=== PATIENT | female | born 1965 | race Caucasian/White ===

== ENCOUNTER 2023-09-22 19:07 | Emergency (ER) | payer OTHER, SELFPAY ==
[2023-09-22 19:13] VITALS: BP 120/97; PULSE 72; TEMP 37.2; O2SAT 97; BMI 28.3
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
[2023-09-22] MEDS: IBUPROFEN 600 MG TABLET PO (20:44)
== END 2023-09-22 20:49 | disposition home or self-care (01) ==
PROVIDERS: Emergency Provider Emergency Medicine
DX: S80.02XA Contusion of left knee, initial encounter (principal); V43.52XA Car driver injured in collision with other type car in traffic accident, initial encounter
CPT/HCPCS: 73562; 73590; 99283

== ENCOUNTER 2024-05-22 20:13 | Emergency (ER) | payer MEDICAID, SELFPAY ==
--- OUTSIDE RECORDS SUMMARY | 2024-05-22 20:23 | XMS_ITS | CCD ---
Demographics Address [address] [place] [address] Home Phone Work Phone Mobile Phone Preferred Language en Marital Status Single Christianity Affiliation Unknown Race White Ethnic Group Not or Lati no Author Organization [facility] Care Team Providers Care Want Ad Clerk Name Role Phone Shejose GAS WELL DRILLING MANAGER.JUANITA [place] Primary Care Provider Blanquita Ceballos Unavailable Shejose GAS WELL DRILLING MANAGER.[facility] Primary Care Provider Amanda Borges Unavailable Nitish Gilman MD, [place] Primary Care Prov ider Radha GAS WELL DRILLING MANAGER.Michelle GRANT Primary Care Provi tammy MICHELLE CARRILLO Primary Care Unavailable GREG MILES Attending Unavailable BLANQUITA RAE Referring Unavailable [facility] Primary Care Unavailable BLANQUITA RAE Referring Unavailable [facility] Primary Care Unavailable MICHELLE CARRILLO Referring Unavailable [facility] Primary Care Unavailable [place] JADE Referring Unavailable NELY MORALES Primary Care Unav ailable Nitish Gilman MD, [facility] Care Prov ider Shejose GAS WELL DRILLING MANAGER.[facility] Primary Care Provider Mushtaq Gruber MD Primary Care Provider MICHELLE CARRILLO Primary Care Unavailable MAN, SHUMEI Referring Unavailable MICHELLE CARRILLO Primary Care Unavailable MAN, SHUMEI Attending Unavailable MICHELLE CARRILLO Primary Care Unavailable MAN, SHUMEI Attending Unavailable GREG MILES Referring Unavailable KARISSA LEWIS Attending Unavailable MICHELLE CARRILLO Primary Care Unavailable KARISSA LEWIS Admitting Unavailable ALFONZO HAYS Attending Unavailable MICHELLE CARRILLO Primary Care Unavailable ALFONZO HAYS Referring Unavailable RADHA, MICHELLE L Primary Care Unavailable RADHA, MICHELLE L Referring Unavailable RADHA, MICHELLE L Primary Care Unavailable SHELLIE WAGNER Attending Unavailable MICHELLE CARRILLO L Referring Unavailable RADHA, MICHELLE L Primary Care Unavailable RADHA, MICHELLE L Referring Unavailable RADHA, MICHELLE L Primary Care Unavailable MAN, SHUMEI Referring Unavailable KRISTY, SHELLIE Attending Unavailable RADHA, MICHELLE L Primary Care Unavailable RADHA, MICHELLE L Referring Unavailable RADHA, MICHELLE L Primary Care Unavailable RADHA, MICHELLE L Referring Unavailable RADHA, MICHELLE L Primary Care Unavailable MAN, SHUMEI Referring Unavailable KRISTYSHELLIE Attending Unavailable RADHA, MICHELLE L Primary Care Unavailable RADHA, MICHELLE L Primary Care Unavailable RADHAMICHELLE AGUILAR L Referring Unavailable RADHAMICHELLE AGUILAR L Attending Unavailable RADHA, MICHELLE L Primary Care Unavailable RADHA, MICHELLE L Referring Unavailable RADHA, MICHELLE L Primary Care Unavailable KUSH ROBERT Attending Unavailable [facility] Primary [facility] Unavailable SARAH BEAVERS Attending Unavailable [facility] Primary Care Unavailable MAN, SHUMEI Referring Unavailable SHELLIE WAGNER Attending Unavailable MICHELLE CARRILLO L Primary Care Unavailable RADHAMICHELLE AGUILAR L Referring Unavailable RADHA, MICHELLE L Primary Care Unavailable RADHA, MICHELLE L Referring Unavailable RADHA, MICHELLE L Primary Care Unavailable MAN, SHUMEI Referring Unavailable SHELLIE WAGNER Attending Unavailable RADHA MICHELLE L Primary Care Unavailable MAN, SHUMEI Referring Unavailable SHELLIE WAGNER Attending Unavailable RADHA, MICHELLE L Primary Care Unavailable MAN, SHUMEI Referring Unavailable KRISTYSHELLIE Attending Unavailable RADHA, MICHELLE L Primary Care Unavailable MAN, SHUMEI Referring Unavailable KRISTY, SHELLIE Attending Unavailable RADHA, MICHELLE L Primary Care Unavailable MAN, SHUMEI Referring Unavailable KRISTY, SHELLIE Attending Unavailable RADHA, MICHELLE L Primary Care Unavailable JAN REYNOSO Referring Unavailable SHELLIE WAGNER Attending Unavailable RADHA, MICHELLE L Primary Care Unavailable MARY HARP Attending Unavailable RADHA, MICHELLE L Primary Care Unavailable [facility] Unav ailable RADHA, MICHELLE L Referring Unavailable [facility] Unavailable RADHA, MICHELLE L Referring Unavailable [facility] Primary Care Unavailable GABINO ROSE Referring UnavailCHIDI Rivera Attending Unavailable [facility] Unavailable [facility] Unavailable RADHA, MICHELLE L Referring Unavailable [facility] Unavailable GABINO ROSE [facility] Unav ailable RADHA, MICHELLE L Referring Unavailable [place] JADE Attending Unavailable [facility] Unav ailable RADHA, MICHELLE L Primary Care Unavailable RADHA, MICHELLE L Attending Unavailable MARY HARP Attending Unavailable RADHA, MICHELLE L Referring Unavailable RADHA, MICHELLE L Primary Care Unavailable KAYLYN YUAN Attending Unavailable MARY HARP Referring Unavailable RADHA, MICHELLE L Primary Care Unavailable RADHA, MICHELLE L Primary Care Unavailable RADHA, MICHELLE L Attending Unavailable KARINA SANTANA Attending Unavailable RADHA, MICHELLE L Primary Care Unavailable RADHA, MICHELLE L Referring Unavailable RADHA, MICHELLE L Primary Care Unavailable CHIDI GONZALEZ Attending Unavailable RADHA, MICHELLE L Primary Care Unavailable [facility] Primary Care Unavailable RADHA, MICHELLE L Attending Unavailable RADHA, MICHELLE L Attending Unavailable RADHA, MICHELLE L Primary Care Unavailable RADHA, MICHELLE L Attending Unavailable RADHA, MICHELLE L Primary Care Unavailable [facility] Primary Care Unav ailable RADHA, MICHELLE L Attending Unavailable Allergies Allergy Classification Reported Allergen(s) Allergy Type Date of Onset Reaction(s) Facility (20 sources) Amoxicillin / Clavulanate; Translations: [AMOXICILLIN-POT CLAVULANATE] Drug Allergy 11-24-2008 Rash, hives [facility] (20 sources) Meclizine; Translations: [MECLIZINE] Drug Allergy 11-27-2023 Intolerance [facility] Medications Current Medications Medication Drug Class(es) Dates Sig (Normalized) Sig (Original) acetaminophen 500 mg oral tablet (9 sources) Start: 11-12-2021 End: 11-26-2021 take 2 tablets by mouth every eight hours acetaminophen (TYLENOL) 500 mg tablet Take 2 tablets by mouth every 8 hours for 14 days. 84 tablet 0 11/12/2021 11/26/2021 Active Comment on above: Take 2 tablets by mo [facility] every 8 hours for 14 days. acetaminophen 325 mg / HYDROcodone bitartrate 5 mg oral tablet (3 sources) Opioid Agonist Start: 01-04-2022 End: 01-11-2022 HYDROcodone-acetaminop hen (NORCO) 5-325 mg per tablet Indications: Post-op pain , S/P bilateral unicompartmental knee replacement Take 1 tablet every 8 hours as needed for pain 21 tablet 0 01/04/2022 01/11/2022 Active Start: 12-21-2021 End: 12-28-2021 take 1 tablet by mouth every eight hours as needed for pain HYDROcodone-acetaminophen (NORCO) 5-325 mg per tablet Indications: Post-op pain , S/P bilateral unicompartmental knee replacement Take 1 tablet by mouth every 8 hours as needed for pain for up to 7 days. 21 tablet 0 12/21/2021 12/28/2021 Active Comment on above: Take 1 tablet by maximo every 8 hours as needed for pain for up to 7 days. Take 1 tablet every 8 hours as needed for pain Apple Cider Vinegar (20 sources) take 1 tablet by mouth once daily APPLE CIDER VINEGAR ORAL Take 1 tablet by mouth once daily. Active take 1 tablet by mouth once ladonna y APPLE CIDER VINEGAR ORAL Take 1 tablet by mouth once daily. 0 Active ascorbic acid 100 mg oral tablet (20 sources) Vitamin C take 1 tablet by maximo th once daily Ascorbic Acid (VITAMIN C) 100 mg tablet Take 100 mg by mouth once daily. Active End: 11-11-2021 take 1 tablet by mouth once daily ASCORBIC ACID (VITAMIN C ORAL) Take 1 tablet by mouth once daily. 11/11/2021 Discontinued End: 11-11-2021 take 1 tablet by mouth once daily ASCORBIC ACID (VITAMIN C ORAL) Take 1 tablet by mouth once daily. 0 11/11/2021 Discontinued take 1 tablet by maximo once daily ASCORBIC ACID (VITAMIN C ORAL) Take 1 tablet by mouth once daily. 0 Active Comment on above: Take 1 tablet by maximo once daily. 12 hr buPROPion hydrochloride 150 mg extended release oral tablet (20 sources) Aminoketone Start: End: take 1 tablet by mouth twice daily buPROPion SR (WELLBUTRIN SR) 150 mg 12 hr tablet Indications: Situational depression Take 1 tablet by mouth two times a day. 180 tablet 3 03/01/2024 03/01/2025 Active Start: 08-18-2021 End: 04-05-2023 take 1 tablet by mouth twice daily buPROPion SR (ZYBAN SR; WELLBUTRIN SR) 150 mg 12 hr tablet Indications: Anxiety Take 1 tablet by mouth two times a day. 60 tablet 0 03/15/2023 04/05/2023 Discontinued Comment on above: Take 1 tablet by [facility] twice daily. Start with 150 mg 1/daily x 3 days and then increase to 150 mg twice a day after that. Take 1 tablet by [facility] twice daily. Take 1 tablet by [facility] two times a day. take 1 tablet by [facility] twice daily carboxymethylcellulose 0.01 mg/mg ophthalmic gel (2 sources) Star t: 09-26 End: 09-26 carboxymethylcellulose sodium (LUBRICANT DRY EYE RELIEF) 1 % dlgl Use 1-2 Drops in the left eye three times a day for 7 days. 15 mL 0 10/08/2023 10/15/2023 Active clindamycin 300 mg oral capsule (20 sources) Lincosamide Antibacterial Star t: 05-0 01-15 take 2 capsules by mouth every hour as needed clindamycin (CLEOCIN) 300 mg capsule Take 2 capsules by mouth as needed (TAKE 2 CAPSULES ONE HOUR PRIOR TO DENTAL PROCEDURE). TAKE 600MG ONE HOUR PRIOR TO DENTAL PROCEDURE 10 capsule 3 10/04/2023 Active Start: 11-19-2021 End: 11-27-2023 clindamycin (CLEOCIN) 150 mg capsule Take 4 caps 1 hour prior to dentist 12 capsule 1 08/21/2023 Active Comment on above: Take 4 caps 1 hour p rior to dentist doxycycline hyclate 100 mg oral capsule (2 sources) Tetracycline-clas s Drug Start: 12-24-2021 End: 01-01-2022 take 1 capsule by mouth twice daily doxycycline hyclate (VIBRAMYCIN) 100 mg capsule Take 1 capsule by mouth twice daily for 5 days. 10 capsule 0 12/27/2021 01/01/2022 Active Comment on above: Take 1 capsule by [facility] twice daily for 5 days. gabapentin 300 mg oral capsule (20 sources) Anti-epileptic Agent Start: 11-03-2023 End: 06-06-2024 take 1 capsule by mouth twice daily gabapentin (NEURONTIN) 300 mg capsule Take 1 capsule by mouth two times a day for 90 days. 60 capsule 2 03/08/2024 06/06/2024 Active Start: 07-20-2023 End: 10-18-2023 take 1 capsule by mouth twice daily gabapentin (NEURONTIN) 300 mg capsule Take 1 capsule by mouth two times a day for 90 days. 60 capsule 2 07/20/2023 Active Start: 06-17-2022 End: 07-18-2023 take 1 capsule by mouth three times daily gabapentin (NEURONTIN) 100 mg capsule Indications: Chronic pain of both knees Take 1 capsule by mouth three times daily for 90 days. 90 capsule 2 01/10/2023 07/18/2023 Discontinued Comment on above: Take 1 capsule by [facility] three times daily for 90 days. Take 1 capsule by [facility] two times a day for 90 days. iv contrast (will be provided with radiology test) (1 source) Star t: 09-26 End: 09-26 inject 1 dose intravenously once iv contrast (will be provided with radiology test) Indications: Georges's palsy , Dizziness , Balance problem MRI Brain Inject, intravenously, once for 1 dose.No IV access, insert saline lock prior to beginning of sedation, infusion, injection of imaging exam.Discontinue saline lock post exam. If Pt. has a central line or IVAD, may access for administration according to line specific nursing protocol.Once exam is complete flush line and de-access according to line specific nursing protocol in the MR contrast administration guidelines link 1 Each 0 10/12/2023 10/13/2023 Active losartan potassium 50 mg oral tablet (20 sources) Angiotensin 2 Receptor Sheldon Star t: 02-26 End: 06-30 take 1 tablet by mouth once daily losartan (COZAAR) 50 mg tablet Take 1 tablet by mouth once daily. 90 tablet 3 07/18/2023 Active Comment on above: Take 1 tablet by maximo th once daily. meclizine hydrochloride 12.5 mg oral tablet (8 sources) Antiemetic Star t: 09-15 End: 06-17 take 1 tablet by mouth every eight hours as needed meclizine (ANTIVERT) 12.5 mg tab Take 1 tablet by mouth three times a day as needed. 90 tablet 0 10/31/2023 11/27/2023 Discontinued methylPREDNISolone 4 mg oral tablet (3 sources) Corticosteroid Star t: 05-29 methylPREDNISolone 4 MG as directed Orally for 6 May, Active Start: 03-04-2023 methylPREDNISo lone 4 MG take half with breakfast, half with dinner Orally as directed for Feb, Not-Taking/PRN 24 hr metoprolol succinate 50 mg extended release oral tablet (20 sources) beta-Adrenergic Sheldon Start: 03-10-2022 End: 02-24-2025 take 1 tablet by mouth once daily metoprolol succinate ER (TOPROL XL) 50 mg 24 hr tablet Take 1 tablet by mouth once daily. 90 tablet 3 03/01/2024 02/24/2025 Active Start: 08-19-2021 End: 02-20-2022 take 1 tablet by mouth once daily metoprolol succinate ER (TOPROL XL) 50 mg 24 hr tablet Indications: Unstable angina (HCC) Take 1 tablet by mouth once daily. 90 tablet 0 11/22/2021 02/20/2022 Active Metoprolol Succi nichole ER 50 MG Oral for 90 Days Active Comment on above: Take 1 tablet by maximo th once daily. OTC PRODUCT (20 sources) OTC PRODUCT Take 1 tablet by mouth as needed. Morning sickness relief Active OTC PRODUCT Take 1 tablet by mouth as needed. Morning sickness relief 0 Active predniSONE 20 mg oral tablet (2 sources) Start: 10-08-2023 End: 10-13-2023 take 2 tablets by mouth once daily predniSONE (DELTASONE) 20 mg tablet Take 2 tablets by mouth once daily for 5 days. 10 tablet 0 10/08/2023 10/13/2023 Active Turmeric extract (20 sources) End: 11-11-2021 TURMERIC ORAL Take by mouth. 11/11/2021 Discontinued TURMERIC ORAL Ta ke by mouth once daily. Active End: 11-11-2021 TURMERIC ORAL Take by mouth. 0 11/11/2021 Discontinued TURMERIC ORAL Ta ke by mouth once daily. 0 Active TURMERIC ORAL Ta ke by mouth. 0 Active Comment on above: Take by mouth. Take by mouth once d aily. valACYclovir 1000 mg oral tablet (2 sources) Herpesvirus Nucleoside Analog DNA Polymerase Inhibitor, Herpes Simplex Virus Nucleoside Analog DNA Polymerase Inhibitor, Herpes Zoster Virus Nucleoside Analog DNA Polymerase Inhibitor Start: End: take 1 tablet by mouth three times daily valACYclovir (VALTREX) 1 gram tablet Take 1 tablet by mouth three times a day for 7 days. 21 tablet 0 10/08/2023 10/15/2023 Active Completed/Discontinued Medications Medication Drug Class(es) Dates Sig (Normalized) Sig (Original) acetaminophen 325 mg / oxyCODONE hydrochloride 5 mg oral tablet (17 sources) Opioid Agonist Start: 11-17-2021 End: 12-21-2021 take 1 tablet by mouth every six hours as needed for pain oxyCODONE-acetami nophen (PERCOCET) 5-325 mg tablet Indications: History of bilateral knee replacement Take 1 tablet by mouth every 6 hours as needed for pain. 28 tablet 0 12/01/2021 12/21/2021 Discontinued (Course of therapy completed) Comment on above: Take 1 tablet by maximo every 6 hours as needed for pain. amLODIPine 5 mg oral tablet (1 source) Dihydropyridine Calcium Channel Sheldon Start: 07-22-2021 End: 08-18-2021 take 1 tablet by mouth once daily amLODIPine (NORVASC) 5 mg tablet Indications: Hypertension, unspecified type Take 1 tablet by mouth once daily. 30 tablet 2 07/22/2021 08/18/2021 Discontinued Comment on above: Take 1 tablet by maximo th once daily. aspirin 81 mg delayed release oral tablet (20 sources) Platelet Aggregation Inhibitor, Nonsteroidal Anti-inflammatory Drug Start: 11-11-2021 End: 07-18-2023 aspirin, enteric coated (ECOTRIN LOW STRENGTH) 81 mg EC tablet Indications: Unstable angina (HCC) Take 1 tablet by mouth twice daily. Take 2 tablets by mouth for 6 weeks (until 12/23/2021) then resume taking this medication once per day. 84 tablet 0 11/11/2021 07/18/2023 Discontinued Start: 08-19-2021 End: 11-11-2021 take 1 tablet by mouth once daily aspirin, enteric coated (ECOTRIN LOW STRENGTH) 81 mg EC tablet Indications: Unstable angina (HCC) Take 1 tablet by mouth once daily. 0 08/19/2021 11/11/2021 Discontinued Comment on above: Take 1 tablet by maximo th once daily. Take 1 tablet by maximo th twice daily. Take 2 tablets by mouth for 6 weeks (until 12/23/2021) then resume taking this medication once per day. benzocaine 15 mg / menthol 3.6 mg oral lozenge (2 sources) Standardized Chemical Allergen Start: 06-08-2023 End: 07-18-2023 benzocaine-menthol (CEPACOL) 15-3.6 mg lozg Indications: Acute cough Use 1 Lozenge as instructed every 2 hours as needed. 60 Lozenge 0 06/08/2023 07/18/2023 Discontinued (Other) Comment on above: Use 1 Lozenge as ins tructed every 2 hours as needed. 5 ml bupivacaine hydrochloride 5 mg/ml injection (3 sources) Amide Local Anesthetic Start: 01-19-2023 End: 01-19-2023 BUPivacaine (PF) 0.5 % (5 mg/mL) 1 mL injection Start: 12-22-2022 End: 12-22-2022 BUPivacaine (PF) 0.5 % (5 mg /mL) 4 mL injection cholecalciferol 0.05 mg oral capsule (20 sources) Vitamin D Start: 10-20-2017 End: 11-11-2021 Cholecalciferol, Vitamin D3, 2,000 unit cap Take 2 capsules daily 1 capsule 10/20/2017 11/11/2021 Discontinued take 1 capsule by mouth once pedro ly Cholecalciferol, Vitamin D3, 25 mcg (1,000 unit) cap Take 1,000 Units by mouth once daily. Active Cholecalciferol, Vitamin D3, (VITAMIN D) 25 mcg (1,000 unit) cap Take 1,000 Units by mouth once daily. 0 Active Comment on above: Take 2 capsules ladonna y Take 1,000 Units by mouth once daily. clopidogrel 75 mg oral tablet (2 sources) P2Y12 Platelet Inhibitor Start: End: take 1 tablet by mouth once daily clopidogrel (PLAVIX) 75 mg tablet Indications: Unstable angina (HCC) Take 1 tablet by mouth once daily. 90 tablet 0 08/19/2021 09/09/2021 Discontinued (Discontinued by another Health Care Provider) Comment on above: Take 1 tablet by maximo th once daily. 12 hr dextromethorphan hydrobromide 30 mg / guaiFENesin 600 mg extended release oral tablet (2 sources) Uncompetitive A-arwimi-A-aspartate Receptor Antagonist, Sigma-1 Agonist Start: End: take 1 tablet by mouth twice daily dextromethorphan-guai FENesin (MUCINEX DM) 30-600 mg per tablet Indications: Acute cough Take 1 tablet by mouth two times a day. 20 tablet 0 06/08/2023 07/18/2023 Discontinued (Other) Comment on above: Take 1 tablet by maximo th two times a day. diclofenac sodium 75 mg delayed release oral tablet (1 source) Nonsteroidal Anti-inflammatory Drug Start: 018 End: take 1 tablet by mouth twice daily diclofenac, EC, (VOLTAREN) 75 mg EC tablet Take 1 tablet by mouth twice daily. 90 tablet 08/10/2017 05/01/2020 Discontinued DOCOSAHEXANOIC ACID/EPA (FISH OIL ORAL) (5 sources) End: take 1 capsule by mouth once daily DOCOSAHEXANOIC ACID/EPA (FISH OIL ORAL) Take 1 capsule by mouth once daily. 11/11/2021 Discontinued (Course of therapy completed) End: 11-11-2021 take 1 capsule by mouth once daily DOCOSAHEXANOIC ACID/EPA (FISH OIL ORAL) Take 1 capsule by mouth once daily. 0 11/11/2021 Discontinued (Course of therapy completed) take 1 capsule by mo [facility] once daily DOCOSAHEXANOIC ACID/EPA (FISH OIL ORAL) Take 1 capsule by mouth once daily. 0 Active Comment on above: Take 1 capsule by mo [facility] once daily. docusate sodium 50 mg / sennosides, intermediate 8.6 mg oral tablet (20 sources) Start: 11-12-19 take 2 tablets by mouth twice daily senna-docusate (SENOKOT-S) 8.6-50 mg per tablet Take 2 tablets by mouth twice daily. 20 tablet 0 11/11/2021 Active Comment on above: Take 2 tablets by [facility] twice daily. ergocalciferol 1.25 mg oral capsule (4 sources) Provitamin D2 Compound Start: 08-06-19 End: 11-12-19 take 1 capsule by mouth every week ergocalciferol 50,000 unit capsule (VITAMIN D2, DRISDOL) Indications: Vitamin D deficiency Take 1 capsule by mouth one time a week. 12 capsule 0 08/05/2020 11/11/2021 Discontinued (Course of therapy completed) Comment on above: Take 1 capsule by [facility] one time a week. 10 ml lidocaine hydrochloride 10 mg/ml injection (3 sources) Antiarrhythmic, Amide Local Anesthetic Start: 12-21-19 End: 12-21-19 lidocaine (PF) 10 mg/mL (1 %) 4 mL injection (XYLOCAINE) Start: 01-02-2023 End: 01-02-2023 lidocaine (PF) 10 mg/mL (1 % ) 4 mL injection (XYLOCAINE) meloxicam 15 mg oral tablet (20 sources) Nonsteroidal Anti-inflammatory Drug Start: 05-19-2023 End: 07-18-2023 take 1 tablet by mouth once meloxicam (MOBIC) 15 mg tablet Indications: Chronic pain of both knees Take 1 tablet by mouth every afternoon. 30 tablet 1 05/19/2023 07/18/2023 Discontinued (Other) Start: 01-26-2023 take 1 tablet by mouth once me loxicam (MOBIC) 15 mg tablet Take 1 tablet by mouth every afternoon. 0 01/26/2023 Active Start: 06-23-2021 End: 11-13-2022 take 1 tablet by mouth once daily meloxicam (MOBIC) 15 mg tablet Take 1 tablet by mouth once daily. 0 06/23/2021 11/11/2021 Discontinued Comment on above: Take 1 tablet by maximo th once daily. Take 15 mg by mouth once daily. Take 1 tablet by maximo th every afternoon. MULTIVITAMIN ORAL (5 sources) End: 11-11-2021 take 1 tablet by mouth once daily MULTIVITAMIN ORAL Take 1 tablet by mouth once daily. 11/11/2021 Discontinued End: 11-11-2021 take 1 tablet by mouth once daily MULTIVITAMIN ORAL Take 1 tablet by mouth once daily. 0 11/11/2021 Discontinued take 1 tablet by maximo th once daily MULTIVITAMIN ORAL Take 1 tablet by mouth once daily. 0 Active Comment on above: Take 1 tablet by maximo th once daily. naloxone hydrochloride 40 mg/ml nasal spray (20 sources) Opioid Antagonist Start: naloxone 4 mg/actuation nasal spray (NARCAN) Use 1 spray in one nostril as needed for overdose. May repeat every 2 to 3 min in alternating nostrils until medical assistance is available 1 Each 0 11/11/2021 Active Comment on above: Use 1 spray in one n ostril as needed for overdose. May repeat every 2 to 3 min in alternating nostrils until medical assistance is available nortriptyline 25 mg oral capsule (20 sources) Tricyclic Antidepressant Start: End: take 1 capsule by mouth once daily at bedtime nortriptyline (PAMELOR) 25 mg capsule Take 1 capsule by mouth daily at bedtime. 30 capsule 5 12/14/2023 04/12/2024 Discontinued oxyCODONE hydrochloride 5 mg oral tablet (12 sources) Opioid Agonist Start: End: take 1 tablet by mouth every four hours as needed oxyCODONE IR (ROXICODONE) 5 mg immediate release tablet Indications: Bilateral primary osteoarthritis of knee , Acute postoperative pain of extremity Take 1-2 tablets by mouth every 4 hours as needed for pain. 50 tablet 0 11/11/2021 12/21/2021 Discontinued (Course of therapy completed) Comment on above: Take 1-2 tablets by mouth every 4 hours as needed for pain. perflutren lipid microspheres 1.3 mL in NaCl (PF) 0.9% 10 mL injection (DEFINITY) (20 sources) Start: End: perflutren lipid microspheres 1.3 mL in NaCl (PF) 0.9% 10 mL injection (DEFINITY) 125 ml sodium chloride 9 mg/ml prefilled syringe (20 sources) Start: End: sodium chloride 0.9 % (flush) 10 mL (BD POSIFLUSH) traMADol hydrochloride 50 mg oral tablet (20 sources) Opioid Agonist Start: take 1 tablet by mouth every eight hours as needed traMADol (ULTRAM) 50 mg tablet Indications: postop pain Take 1 tablet by mouth every 8 hours as needed for pain. 28 tablet 0 03/18/2022 Active Start: 07-29-2021 End: 10-20-2021 take 1-2 tablets by mouth every eight hours as needed for pain traMADol (ULTRAM) 50 mg tablet Indications: Bilateral primary osteoarthritis of knee Take 1-2 tablets by mouth every 8 hours as needed for pain. FOR PAIN. 21 tablet 0 07/29/2021 10/20/2021 Discontinued (Course of therapy completed) Comment on above: Take 1-2 tablets by mouth every 8 hours as needed for pain. FOR PAIN. Take 1 tablet by maximo th every 8 hours as needed for pain. tretinoin 0.25 mg/ml topical cream (20 sources) Retinoid Start: 08-12-2020 End: 07-18-2023 tretinoin (RETIN-A) 0.025 % topical cream Apply pea sized amount to full dry face at bedtime. Start slowly and progress as tolerated. 45 g 3 08/12/2020 07/18/2023 Discontinued (Other) Comment on above: Apply pea sized amou nt to full dry face at bedtime. Start slowly and progress as tolerated. 1 ml triamcinolone acetonide 40 mg/ml injection (4 sources) Corticosteroid Start: 12-21-2023 End: 12-21-2023 triamcinolone acetonide 40 mg injection (KeNALog 40) Start: 01-19-2023 End: 01-19-2023 triamcinolone acetonide 40 m g injection (KeNALog 40) varenicline 0.5 mg oral tablet (4 sources) Partial Cholinergic Nicotinic Agonist Start: 02-03-2021 End: 11-11-2021 take 1 tablet by mouth once daily varenicline (CHANTIX STARTING MONTH BOX) 0.5 mg (11)- 1 mg (42) tablet Indications: Smoker Take 0.5 mg by mouth once daily on Days 1 through 3, THEN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 04/23/2024 Noted Allergy Reaction AUGMENTIN (AMOXICILLIN-POT CLAVUL*11/24/2008 2 - Rash Comments: Not allergic to PCN or amoxicillin. MECLIZINE 11/27/2023 5 - Intolerance Comments: sedative Date Reviewed: 03/01/2024 Reviewed by: Mireya Romo MA - Fully Assessed Reason for Visit: Patient Update [1234] Prescriptions as of 04/23/2024 - gabapentin (NEURONTIN) 300 mg capsule Take 1 capsule by mouth two times a day for 90 days. - buPROPion SR (WELLBUTRIN SR) 150 mg 12 hr tablet Take 1 tablet by mouth two times a day. - metoprolol succinate ER (TOPROL XL) 50 mg 24 hr tablet Take 1 tablet by mouth once daily. - OTC PRODUCT Take 1 tablet by mouth as needed. Morning sickness relief - clindamycin (CLEOCIN) 300 mg capsule Take 2 capsules by mouth as needed (TAKE 2 CAPSULES ONE HOUR PRIOR TO DENTAL PROCEDURE). TAKE 600MG ONE HOUR PRIOR TO DENTAL PROCEDURE - Ascorbic Acid (VITAMIN C) 100 mg tablet Take 100 mg by mouth once daily. - APPLE CIDER VINEGAR ORAL Take 1 tablet by mouth once daily. - losartan (COZAAR) 50 mg tablet Take 1 tablet by mouth once daily. - TURMERIC ORAL Take by mouth once daily. - Cholecalciferol, Vitamin D3, 25 mcg (1,000 unit) cap Take 1,000 Units by mouth once daily. Problem List As Of Date 04/23/2024 Noted Resolved Transient synovitis of knee [M67.369] 03/10/2015 Localized swelling, mass or lump of neck [R22.1]06/09/2017 11/11/2021 Smoker [F17.200] 06/21/2017 Obesity with body mass index 30 or greater [E66*06/21/2017 05/19/2023 Lymphadenitis [I88.9] 06/21/2017 Perimenopause [N95.1] 06/21/2017 05/19/2023 Vitamin D deficiency [E55.9] 06/25/2017 Mild cervical dysplasia [N87.0] 07/31/2017 11/11/2021 Chronic pain of both knees [M25.561, M25.562, G*08/16/2017 Cervical dysplasia [N87.9] 07/22/2020 Anxiety [F41.9] 07/22/2020 Elevated BP without diagnosis of hypertension [*07/22/2020 03/10/2022 Chest skin lesion [L98.9] 07/22/2020 Parotid mass [K11.8] 07/22/2020 11/11/2021 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] 10/09/2020 11/11/2021 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] 10/27/2020 11/11/2021 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/2021 05/19/2023 Dizziness [R42] 08/18/2021 Palpitations [R00.2] 08/18/2021 Hypertension [I10] 08/18/2021 Ventricular tachycardia (paroxysmal) (HCC) [I47*09/09/2021 Bilateral primary osteoarthritis of knee [M17.0]11/11/2021 Obesity, Class I, BMI 30-34.9 [E66.811] 11/11/2021 Post concussion syndrome [F07.81] 10/31/2023 Concussion with no loss of consciousness [S06.0*10/31/2023 Gait difficulty [R26.9] 10/31/2023 Tinnitus of left ear [H93.12] 10/31/2023 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 Balance disorder [R26.89] 11/08/2023 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] 12/14/2023 Vertigo [R42] 01/15/2024 Cognitive communication deficit [R41.841] 02/27/2024 History of concussion [Z87.820] 02/27/2024 Encounter Status:Closed by SYDNEE KONG on 04/23/24 Normal [facility] CNTHERAPYon 04-22-2024 CNTHERAPY OT/PT/Speech Visit (PTAMCF) -------- STEFFI LEONE ([id number]) 1965 F Date Time Provider Department 04/22/24 2:30 PM SHELLIE WAGNER [facility] Date Time Provider Department Center 04/22/2024 2:30 PM [id number] WAGNER [facility] Reason for Visit: Physical Therapy [503] Primary Visit Diagnosis:Vertigo [R42] Other Visit Diagnosis:Balance disorder [R26.89] Allergies As of Date: 04/22/2024 Noted Allergy Reaction AUGMENTIN (AMOXICILLIN-POT CLAVUL*11/24/2008 2 - Rash Comments: Not allergic to PCN or amoxicillin. MECLIZINE 11/27/2023 5 - Intolerance Comments: sedative Date Reviewed: 03/01/2024 Reviewed by: Mireya Romo MA - Fully Assessed Prescriptions as of 04/22/2024 - gabapentin (NEURONTIN) 300 mg capsule Take 1 capsule by mouth two times a day for 90 days. - buPROPion SR (WELLBUTRIN SR) 150 mg 12 hr tablet Take 1 tablet by mouth two times a day. - metoprolol succinate ER (TOPROL XL) 50 mg 24 hr tablet Take 1 tablet by mouth once daily. - OTC PRODUCT Take 1 tablet by mouth as needed. Morning sickness relief - clindamycin (CLEOCIN) 300 mg capsule Take 2 capsules by mouth as needed (TAKE 2 CAPSULES ONE HOUR PRIOR TO DENTAL PROCEDURE). TAKE 600MG ONE HOUR PRIOR TO DENTAL PROCEDURE - Ascorbic Acid (VITAMIN C) 100 mg tablet Take 100 mg by mouth once daily. - APPLE CIDER VINEGAR ORAL Take 1 tablet by mouth once daily. - losartan (COZAAR) 50 mg tablet Take 1 tablet by mouth once daily. - TURMERIC ORAL Take by mouth once daily. - Cholecalciferol, Vitamin D3, 25 mcg (1,000 unit) cap Take 1,000 Units by mouth once daily. Normal [facility] CNTHERAPYon 04-12-2024 CNTHERAPY OT/PT/Speech Visit (SPAVTC) -------- STEFFI LEONE ([id number]) 1965 F Date Time Provider Department 04/12/24 11:15 AM [facility] Date Time Provider Department Center 04/12/2024 11:15 AM [id number], NATALIE [facility] Reason for Visit: Speech Therapy [3489] Primary Visit Diagnosis:Cognitive communication deficit [R41.841] Other Visit Diagnosis:History of concussion [Z87.820] Allergies As of Date: 04/12/2024 Noted Allergy Reaction AUGMENTIN (AMOXICILLIN-POT CLAVUL*11/24/2008 2 - Rash Comments: Not allergic to PCN or amoxicillin. MECLIZINE 11/27/2023 5 - Intolerance Comments: sedative Date Reviewed: 03/01/2024 Reviewed by: Mireya Romo MA - Fully Assessed Prescriptions as of 04/12/2024 - gabapentin (NEURONTIN) 300 mg capsule Take 1 capsule by mouth two times a day for 90 days. - buPROPion SR (WELLBUTRIN SR) 150 mg 12 hr tablet Take 1 tablet by mouth two times a day. - metoprolol succinate ER (TOPROL XL) 50 mg 24 hr tablet Take 1 tablet by mouth once daily. - OTC PRODUCT Take 1 tablet by mouth as needed. Morning sickness relief - clindamycin (CLEOCIN) 300 mg capsule Take 2 capsules by mouth as needed (TAKE 2 CAPSULES ONE HOUR PRIOR TO DENTAL PROCEDURE). TAKE 600MG ONE HOUR PRIOR TO DENTAL PROCEDURE - Ascorbic Acid (VITAMIN C) 100 mg tablet Take 100 mg by mouth once daily. - APPLE CIDER VINEGAR ORAL Take 1 tablet by mouth once daily. - losartan (COZAAR) 50 mg tablet Take 1 tablet by mouth once daily. - TURMERIC ORAL Take by mouth once daily. - Cholecalciferol, Vitamin D3, 25 mcg (1,000 unit) cap Take 1,000 Units by mouth once daily. Normal [facility] 04-08-2024 [facility] Telephone (FAMPLN) -------- STEFFI LEONE ([id number]) 1965 F Date Time Provider Department 04/08/24 MICHELLE CARRILLO During your visit today, we recorded the following information about you: Reina Ascencio 04/08/2024 10:55 AM Signed Patient has been identified by name and date of : Yes, Provider Radha Date 04/08/24 Time 10:55 Type of form: FMLA Form received via: Walk in When form is completed, notify by phone that form is ready for sampler pickup. Form has been forwarded to: Provider's mailbox. Provider name: Cyrus Mejia MA 04/08/2024 5:32 PM Signed Form placed in provider out box for review/completion Patient has VV 04.12.24 Sydnee Kong MA 04/12/2024 11:00 AM Signed Forms completed and placed downstairs. Pt is aware. Allergies As of Date: 04/08/2024 Noted Allergy Reaction AUGMENTIN (AMOXICILLIN-POT CLAVUL*11/24/2008 2 - Rash Comments: Not allergic to PCN or amoxicillin. MECLIZINE 11/27/2023 5 - Intolerance Comments: sedative Date Reviewed: 03/01/2024 Reviewed by: Mireya Romo MA - Fully Assessed Prescriptions as of 04/12/2024 - gabapentin (NEURONTIN) 300 mg capsule Take 1 capsule by mouth two times a day for 90 days. - buPROPion SR (WELLBUTRIN SR) 150 mg 12 hr tablet Take 1 tablet by mouth two times a day. - metoprolol succinate ER (TOPROL XL) 50 mg 24 hr tablet Take 1 tablet by mouth once daily. - OTC PRODUCT Take 1 tablet by mouth as needed. Morning sickness relief - clindamycin (CLEOCIN) 300 mg capsule Take 2 capsules by mouth as needed (TAKE 2 CAPSULES ONE HOUR PRIOR TO DENTAL PROCEDURE). TAKE 600MG ONE HOUR PRIOR TO DENTAL PROCEDURE - Ascorbic Acid (VITAMIN C) 100 mg tablet Take 100 mg by mouth once daily. - APPLE CIDER VINEGAR ORAL Take 1 tablet by mouth once daily. - losartan (COZAAR) 50 mg tablet Take 1 tablet by mouth once daily. - TURMERIC ORAL Take by mouth once daily. - Cholecalciferol, Vitamin D3, 25 mcg (1,000 unit) cap Take 1,000 Units by mouth once daily. Problem List As Of Date 04/08/2024 Noted Resolved Transient synovitis of knee [M67.369] 03/10/2015 Localized swelling, mass or lump of neck [R22.1]06/09/2017 11/11/2021 Smoker [F17.200] 06/21/2017 Obesity with body mass index 30 or greater [E66*06/21/2017 05/19/2023 Lymphadenitis [I88.9] 06/21/2017 Perimenopause [N95.1] 06/21/2017 05/19/2023 Vitamin D deficiency [E55.9] 06/25/2017 Mild cervical dysplasia [N87.0] 07/31/2017 11/11/2021 Chronic pain of both knees [M25.561, M25.562, G*08/16/2017 Cervical dysplasia [N87.9] 07/22/2020 Anxiety [F41.9] 07/22/2020 Elevated BP without diagnosis of hypertension [*07/22/2020 03/10/2022 Chest skin lesion [L98.9] 07/22/2020 Parotid mass [K11.8] 07/22/2020 11/11/2021 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] 10/09/2020 11/11/2021 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] 10/27/2020 11/11/2021 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/2021 05/19/2023 Dizziness [R42] 08/18/2021 Palpitations [R00.2] 08/18/2021 Hypertension [I10] 08/18/2021 Ventricular tachycardia (paroxysmal) (HCC) [I47*09/09/2021 Bilateral primary osteoarthritis of knee [M17.0]11/11/2021 Obesity, Class I, BMI 30-34.9 [E66.811] 11/11/2021 Post concussion syndrome [F07.81] 10/31/2023 Concussion with no loss of consciousness [S06.0*10/31/2023 Gait difficulty [R26.9] 10/31/2023 Tinnitus of left ear [H93.12] 10/31/2023 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 Balance disorder [R26.89] 11/08/2023 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] 12/14/2023 Vertigo [R42] 01/15/2024 Cognitive communication deficit [R41.841] 02/27/2024 History of concussion [Z87.820] 02/27/2024 Encounter Status:Closed by REINA ASCENCIO on 04/08/24 [facility] CNTHERAPYon 04-08-2024 CNTHERAPY OT/PT/Speech Visit (PTAF) -------- STEFFI LEONE ([id number]) 1965 F Date Time Provider Department 04/08/24 9:00 AM SHELLIE WAGNER [facility] Date Time Provider Department Center 04/08/2024 9:00 AM [id number] WAGNER [facility] Reason for Visit: PT Progress Note [1596] Primary Visit Diagnosis:Vertigo [R42] Other Visit Diagnoses:Balance disorder [R26.89] 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 MECLIZINE 11/27/2023 5 - Intolerance Comments: sedative Date Reviewed: 03/01/2024 Reviewed by: Mireya Romo MA - Fully Assessed Prescriptions as of 04/08/2024 - gabapentin (NEURONTIN) 300 mg capsule Take 1 capsule by mouth two times a day for 90 days. - buPROPion SR (WELLBUTRIN SR) 150 mg 12 hr tablet Take 1 tablet by mouth two times a day. - metoprolol succinate ER (TOPROL XL) 50 mg 24 hr tablet Take 1 tablet by mouth once daily. - nortriptyline (PAMELOR) 25 mg capsule Take 1 capsule by mouth daily at bedtime. - OTC PRODUCT Take 1 tablet by mouth as needed. Morning sickness relief - clindamycin (CLEOCIN) 300 mg capsule Take 2 capsules by mouth as needed (TAKE 2 CAPSULES ONE HOUR PRIOR TO DENTAL PROCEDURE). TAKE 600MG ONE HOUR PRIOR TO DENTAL PROCEDURE - Ascorbic Acid (VITAMIN C) 100 mg tablet Take 100 mg by mouth once daily. - APPLE CIDER VINEGAR ORAL Take 1 tablet by mouth once daily. - losartan (COZAAR) 50 mg tablet Take 1 tablet by mouth once daily. - TURMERIC ORAL Take by mouth once daily. - Cholecalciferol, Vitamin D3, 25 mcg (1,000 unit) cap Take 1,000 Units by mouth once daily. Normal [facility] CNTHERAPYon 04-02-2024 CNTHERAPY OT/PT/Speech Visit ([facility]) -------- STEFFI LEONE ([id number]) 1965 F Date Time Provider Department 04/02/24 2:30 PM [facility] Date Time Provider Department Center 04/02/2024 2:30 PM [id number], NATALIE [facility] Reason for Visit: Speech Progress Note [3487] Primary Visit Diagnosis:Cognitive communication deficit [R41.841] Other Visit Diagnosis:History of concussion [Z87.820] Allergies As of Date: 04/02/2024 Noted Allergy Reaction AUGMENTIN (AMOXICILLIN-POT CLAVUL*11/24/2008 2 - Rash Comments: Not allergic to PCN or amoxicillin. MECLIZINE 11/27/2023 5 - Intolerance Comments: sedative Date Reviewed: 03/01/2024 Reviewed by: Mireya Romo MA - Fully Assessed Prescriptions as of 04/02/2024 - gabapentin (NEURONTIN) 300 mg capsule Take 1 capsule by mouth two times a day for 90 days. - buPROPion SR (WELLBUTRIN SR) 150 mg 12 hr tablet Take 1 tablet by mouth two times a day. - metoprolol succinate ER (TOPROL XL) 50 mg 24 hr tablet Take 1 tablet by mouth once daily. - nortriptyline (PAMELOR) 25 mg capsule Take 1 capsule by mouth daily at bedtime. - OTC PRODUCT Take 1 tablet by mouth as needed. Morning sickness relief - clindamycin (CLEOCIN) 300 mg capsule Take 2 capsules by mouth as needed (TAKE 2 CAPSULES ONE HOUR PRIOR TO DENTAL PROCEDURE). TAKE 600MG ONE HOUR PRIOR TO DENTAL PROCEDURE - Ascorbic Acid (VITAMIN C) 100 mg tablet Take 100 mg by mouth once daily. - APPLE CIDER VINEGAR ORAL Take 1 tablet by mouth once daily. - losartan (COZAAR) 50 mg tablet Take 1 tablet by mouth once daily. - TURMERIC ORAL Take by mouth once daily. - Cholecalciferol, Vitamin D3, 25 mcg (1,000 unit) cap Take 1,000 Units by mouth once daily. Normal [facility] CNTHERAPYon 03-26-2024 CNTHERAPY OT/PT/Speech Visit (SPAVTC) -------- STEFFI LEONE ([id number]) 1965 F Date Time Provider Department 03/26/24 2:30 PM [facility] Date Time Provider Department Center 03/26/2024 2:30 PM [id number], NATALIE [facility] Reason for Visit: Speech Therapy [3489] Primary Visit Diagnosis:Cognitive communication deficit [R41.841] Other Visit Diagnosis:History of concussion [Z87.820] Allergies As of Date: 03/26/2024 Noted Allergy Reaction AUGMENTIN (AMOXICILLIN-POT CLAVUL*11/24/2008 2 - Rash Comments: Not allergic to PCN or amoxicillin. MECLIZINE 11/27/2023 5 - Intolerance Comments: sedative Date Reviewed: 03/01/2024 Reviewed by: Mireya Romo MA - Fully Assessed Prescriptions as of 03/26/2024 - gabapentin (NEURONTIN) 300 mg capsule Take 1 capsule by mouth two times a day for 90 days. - buPROPion SR (WELLBUTRIN SR) 150 mg 12 hr tablet Take 1 tablet by mouth two times a day. - metoprolol succinate ER (TOPROL XL) 50 mg 24 hr tablet Take 1 tablet by mouth once daily. - nortriptyline (PAMELOR) 25 mg capsule Take 1 capsule by mouth daily at bedtime. - OTC PRODUCT Take 1 tablet by mouth as needed. Morning sickness relief - clindamycin (CLEOCIN) 300 mg capsule Take 2 capsules by mouth as needed (TAKE 2 CAPSULES ONE HOUR PRIOR TO DENTAL PROCEDURE). TAKE 600MG ONE HOUR PRIOR TO DENTAL PROCEDURE - Ascorbic Acid (VITAMIN C) 100 mg tablet Take 100 mg by mouth once daily. - APPLE CIDER VINEGAR ORAL Take 1 tablet by mouth once daily. - losartan (COZAAR) 50 mg tablet Take 1 tablet by mouth once daily. - TURMERIC ORAL Take by mouth once daily. - Cholecalciferol, Vitamin D3, 25 mcg (1,000 unit) cap Take 1,000 Units by mouth once daily. Normal [facility] CNTHERAPYon 03-19-2024 CNTHERAPY [facility] -------- STEFFI LEONE ([id number]) 1965 F Date Time Provider Department 03/19/24 2:30 PM JAZMIN OVALLES [facility] Date Time Provider Department Center 03/19/2024 2:30 PM [id number], NATALIE [facility] Reason for Visit: Speech Therapy [3489] Primary Visit Diagnosis:Cognitive communication deficit [R41.841] Other Visit Diagnosis:History of concussion [Z87.820] Allergies As of Date: 03/19/2024 Noted Allergy Reaction AUGMENTIN (AMOXICILLIN-POT CLAVUL*11/24/2008 2 - Rash Comments: Not allergic to PCN or amoxicillin. MECLIZINE 11/27/2023 5 - Intolerance Comments: sedative Date Reviewed: 03/01/2024 Reviewed by: Mireya Romo MA - Fully Assessed Prescriptions as of 03/19/2024 - gabapentin (NEURONTIN) 300 mg capsule Take 1 capsule by mouth two times a day for 90 days. - buPROPion SR (WELLBUTRIN SR) 150 mg 12 hr tablet Take 1 tablet by mouth two times a day. - metoprolol succinate ER (TOPROL XL) 50 mg 24 hr tablet Take 1 tablet by mouth once daily. - nortriptyline (PAMELOR) 25 mg capsule Take 1 capsule by mouth daily at bedtime. - OTC PRODUCT Take 1 tablet by mouth as needed. Morning sickness relief - clindamycin (CLEOCIN) 300 mg capsule Take 2 capsules by mouth as needed (TAKE 2 CAPSULES ONE HOUR PRIOR TO DENTAL PROCEDURE). TAKE 600MG ONE HOUR PRIOR TO DENTAL PROCEDURE - Ascorbic Acid (VITAMIN C) 100 mg tablet Take 100 mg by mouth once daily. - APPLE CIDER VINEGAR ORAL Take 1 tablet by mouth once daily. - losartan (COZAAR) 50 mg tablet Take 1 tablet by mouth once daily. - TURMERIC ORAL Take by mouth once daily. - Cholecalciferol, Vitamin D3, 25 mcg (1,000 unit) cap Take 1,000 Units by mouth once daily. Normal [facility] CNTHERAPYon 03-12-2024 CNTHERAPY OT/PT/Speech Visit ([facility]) -------- STEFFI LEONE ([id number]) 1965 F Date Time Provider Department 03/12/24 4:15 PM [facility] Date Time Provider Department Center 03/12/2024 4:15 PM [id number], JAZMIN [facility] Reason for Visit: Speech Therapy [3489] Primary Visit Diagnosis:Cognitive communication deficit [R41.841] Other Visit Diagnosis:History of concussion [Z87.820] Allergies As of Date: 03/12/2024 Noted Allergy Reaction AUGMENTIN (AMOXICILLIN-POT CLAVUL*11/24/2008 2 - Rash Comments: Not allergic to PCN or amoxicillin. MECLIZINE 11/27/2023 5 - Intolerance Comments: sedative Date Reviewed: 03/01/2024 Reviewed by: Mireya Romo MA - Fully Assessed Prescriptions as of 03/12/2024 - gabapentin (NEURONTIN) 300 mg capsule Take 1 capsule by mouth two times a day for 90 days. - buPROPion SR (WELLBUTRIN SR) 150 mg 12 hr tablet Take 1 tablet by mouth two times a day. - metoprolol succinate ER (TOPROL XL) 50 mg 24 hr tablet Take 1 tablet by mouth once daily. - nortriptyline (PAMELOR) 25 mg capsule Take 1 capsule by mouth daily at bedtime. - OTC PRODUCT Take 1 tablet by mouth as needed. Morning sickness relief - clindamycin (CLEOCIN) 300 mg capsule Take 2 capsules by mouth as needed (TAKE 2 CAPSULES ONE HOUR PRIOR TO DENTAL PROCEDURE). TAKE 600MG ONE HOUR PRIOR TO DENTAL PROCEDURE - Ascorbic Acid (VITAMIN C) 100 mg tablet Take 100 mg by mouth once daily. - APPLE CIDER VINEGAR ORAL Take 1 tablet by mouth once daily. - losartan (COZAAR) 50 mg tablet Take 1 tablet by mouth once daily. - TURMERIC ORAL Take by mouth once daily. - Cholecalciferol, Vitamin D3, 25 mcg (1,000 unit) cap Take 1,000 Units by mouth once daily. Normal [facility] CNOVon 03-01-2024 CNOV Office Visit (INTMLN ) -------- SULEMASTEFFI ([id number]) 1965 F Date Time Provider Department 03/01/24 8:40 AM MICHELLE CARRILLO During your visit today, we recorded the following information about you: Temperature Pulse Blood pressure Weight 97.7 degrees 74/minute 126/78 74.3 kg Michelle Carrillo, [employer].CREDIT AUTHORIZER 03/04/2024 7:26 PM Signed S:3 month follow up Tearful during much of appt , depressed about physical condition and outlook regarding her physical condition and has not had great improvement in her cognitive and physical therapy. Is transitioning insurance now from short-term disability to long-term. She has not discussed with her neurologist whom she does not have a follow-up with anytime soon No SI Wellbutrin 300mg daily Sleep is poor-didn't take pamelor as used it in the day and felt it made her sleepy, was rx by neuro to help with sleep ACTIVE PROBLEM LIST Transient Synovitis of Knee Smoker Lymphadenitis Vitamin D Deficiency Chronic Pain of Both Knees Cervical Dysplasia Anxiety Chest Skin Lesion Dizziness Palpitations Hypertension Ventricular Tachycardia (Paroxysmal) (Hcc) Bilateral Primary Osteoarthritis of Knee Obesity, Class I, Bmi 30-34.9 Post Concussion Syndrome Concussion With No Loss of Consciousness Gait Difficulty Tinnitus of Left Ear Georges's Palsy Balance Disorder Unilateral Vestibular Schwannoma (Hcc) Vertigo Cognitive Communication Deficit History of Concussion O:BP 126/78 Pulse 74 Temp 36.5 ?C (97.7 ?F) Wt 74.3 kg (163 lb 12.8 oz) LMP 02/25/2015 SpO2 99% BMI 29.02 kg/m? PHYSICAL EXAMINATION: General appearance: Well appearing, alert, in no acute distress, well-hydrated, well nourished. Lungs: Lungs clear to auscultation. No wheezing, rhonchi, rales. Heart: RRR without murmur, gallop, or rubs. No ectopy A:(G47.9) Sleep disorder (primary encounter diagnosis) Plan: pamelor Discussed medication dosage, usage, goals of therapy, and side effects. Notify neurology if not effective after 2 weeks (F43.21) Situational depression Plan: buPROPion SR (WELLBUTRIN SR) 150 mg 12 hr tablet, CONSULT TO PSYCHOLOGY I also suggested she MyChart her neurologist and consider a sooner appointment or conversation regarding her condition, in addition to inquire at the neurological center if there are any counseling options that are specific to neurologic disease process (Z12.31) Encounter for screening mammogram for breast cancer Plan: JOCELYNE SCREENING W MER (Z13.31) Screening for depression Plan: DEPRESSION SCREENING Follow up 6 weeks VV iMchelle Carrillo APRN.Michelle Han APRN.JUANITA 03/01/2024 8:58 AM Addendum [facility] ([place]) [phone] [facility] ([place]) Counseling only [phone] [facility] ([place]) Counseling only [phone] [facility] ([place]) Counseling only [phone] [facility] ([place]) [phone] Extension: [phone] Dave Lee, [facility] ([place]) Counseling only [phone] [place] ([place]) Counseling only [phone] [facility] ([place]) Counseling only [phone] [facility] ([place]) [phone] [facility] ([place]) [phone] [employer] ([place]) Counseling only [phone] [facility] [place] ([place]) Counseling only [phone] [facility] ([place]) Counseling only [phone] [facility] ([place]/[facility]) [phone] [facility] ([place]) Counseling only [phone] [facility] [place] ([place]) Counseling only [phone] [facility] [employer] ([place]) Counseling only [facility] [phone] [facility] ([place]) Counseling only [phone] [facility] ([place]) Counseling only [phone] [facility] ([place]) Counseling only [phone] [facility] ([place]) Counseling only [phone] Please verify with insurance provider for coverage Allergies As of Date: 03/01/2024 Noted Allergy Reaction AUGMENTIN (AMOXICILLIN-POT CLAVUL*11/24/2008 2 - Rash Comments: Not allergic to PCN or amoxicillin. MECLIZINE 11/27/2023 5 - Intolerance Comments: sedative Date Reviewed: 03/01/2024 Reviewed by: Mireya Romo MA - Fully Assessed Reason for Visit: Recheck [92] Cmt: Memory. Failed hearing and brain test Refill Request [94] Primary Visit Diagnosis:Sleep disorder [G47.9] Other Visit Diagnoses: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] Encounter for screening mammogram for breast cancer [Z12.31] Screening for depression [Z1 (more content not included)... Normal [facility] [id number] 02-27-2024 [id number] HNO ID: [id number] Author: JAZMIN OVALLES CCC-SLP Service: ? Author Type: Speech Language Pathologist Type: [id number] Filed: 02/27/2024 14:29 Note Text: [facility] Speech Therapy Plan of Care Certification Patient Name: Steffi Leone : 1965 [facility] #: [id number] Date: 02/27/2024 To: Michelle Carrillo A* From Therapist: SENG Aguirre RE: Patient Certification/ Recertification Your review, approval and electronic signature are required in order to comply with Payor: [employer] / Plan: [employer] MEDICAID [facility] / Product Type: Medicaid / regulations. The identified Speech Therapy PLAN OF CARE for the patient is as follows: R41.841 Cognitive communication deficit (primary encounter diagnosis) Z87.820 History of concussion R47.89 Word finding difficulty PLAN OF CARE: Impression: Communication deficits identified: Cognitive-Linguistic deficits RECOMMENDATION: STITCHER HAND Recommendations: Outpatient Speech Therapy Results and Recommendations Discussed With: Patient Prognosis: Good Good: current objective clinical presentation Goals for Episode of Care: created on 02/27/2024 through 04/27/24 COGNITIVE GOALS Improve categorical naming tasks at a concrete and abstract level with 90% accuracy given minimal assist. Improve functional, immediate, and short term/prospective memory to 90% accuracy with use of compensatory strategies with minimal assist/cues. Improve working memory to WFL during complex cognitive tasks with 90% using compensatory strategies in order to recall the steps taken during a cognitive process. Improve auditory, visual, sustained, selective, alternating, and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 [facility] BANDS OLIGOCLONAL CSFon 12-28 CSF OLIGOCLONAL BANDS Oligoclonal bands are present in the CSF but not in the serum. Consistent with intrathecal synthesis of IgG. [facility] Comment on above: Order Comment: Speci men Type: CEREBROSPINAL FLUID SPECIMEN Ordering Facility: [facility] Address: [address] [place] [address] Performed By: #### 2 342-4, 2480-3 #### [facility] CLIA [id number] [address] [place] [address] STAFF REVIEW (OLIGO BANDING) Reviewed by Amanda Escobar MD [facility] Comment on above: Order Comment: Speci men Type: CEREBROSPINAL FLUID SPECIMEN Ordering Facility: [facility] Address: [address] [place] [address] Performed By: #### 2 342-4, 6510-3 #### [facility] CLIA [id number] [address] [place] [address] BRIEF OP NOTon 01-19-2024 BRIEF OP NOT HNO ID: [id number] Author: KARISSA LEWIS APRN.CREDIT AUTHORIZER Service: Radiology Author Type: Nurse Practitioner Type: Brief Op Note Filed: 01/19/2024 11:11 Note Text: BRIEF OPERATIVE / PROCEDURE NOTE LOG ID: [id number] SURGERY/PROCEDURE DATE: 01/19/2024 INCISION/PROCEDURE START TIME: 10:48 AM INCISION CLOSE/PROCEDURE END TIME: 10:55 AM SURGEON(S)/PROCEDURALIST (S) AND INTERNET AND E BUSINESS PROJECT MANAGER(S): Surgeons and Role: * Karissa Lewis APRN.CREDIT AUTHORIZER - Primary No Additional Staff SURGERY/PROCEDURE(S): Diagnostic lumbar puncture with fluoroscopic guidance ANESTHESIA: Local FINDINGS: Opening pressure 22 cm H20; closing pressure 9 cm H20; access obtained at L3-L4 ESTIMATED BLOOD LOSS: minimal SPECIMENS: 20 ml clear CSF sent in 4 tubes Specimen obtained, labeled and verified with RN; RN verbalized specimen sent to lab. COMPLICATIONS: None PRE-OP/PRE-PROCEDURE DIAGNOSIS: brain tumor POST-OP/POST-PROCEDURE DIAGNOSIS: Same as Preop SIGNATURE: Karissa Lewis APRN.CNP PATIENT NAME: Steffi Leone DATE: January 19, 2024 TIME: 11:10 AM Normal [facility] Bacteria CSF Culton 01-19-20 24 Bacteria identified Cx Nom (CSF) CULTURE, CSF: No growth 5 days GRAM STAIN: No organisms seen No Polymorphonuclear Leukocytes Many Mononuclear cells Gram stain performed on cytospun specimen. Gram stain results reviewed and confirmed by [facility] microbiology Normal [facility] Comment on above: Performed By: #### 2 342-4, 0-3 #### [facility] CLIA [id number] [place] [address] [place] CSF MANUAL DIFFon 01-19-2024 DIF TTL, CSF 100 cells counted Normal [facility] Comment on above: Order Comment: Speci men Type: CEREBROSPINAL FLUID SPECIMEN Ordering Facility: [facility] Address: [address] [place] [address] Performed By: #### 2 342-4, 2880-3 #### [facility] CLIA [id number] [address] [place] [address] [place] LYMPH%, CSF 96 % High 50-90 [facility] Comment on above: Order Comment: Speci men Type: CEREBROSPINAL FLUID SPECIMEN Ordering Facility: [facility] Address: [address] [place] [address] Performed By: #### 2 342-4, 2880-3 #### [facility] CLIA [id number] [address] [place] [address] [place] MONO%, CSF 3 % Low 10-50 [facility] Comment on above: Order Comment: Speci men Type: CEREBROSPINAL FLUID SPECIMEN Ordering Facility: [facility] Address: [address] [place] [address] Performed By: #### 2 342-4, 2880-3 #### [facility] CLIA [id number] [address] [place] [address] [place] OTHER CL%, CSF Normal [facility] Comment on above: Order Comment: Speci men Type: CEREBROSPINAL FLUID SPECIMEN Ordering Facility: [facility] Address: [address] [place] [address] Result Comment: Corrected result: Previously reported as 1 % on 01/19/2024 at 12:40 PM EDT. Performed By: #### 2 342-4, 2880-3 #### [facility] CLIA [id number] [address] [place] [address] [place] REAC LYMPH %, CSF 1 % Normal [facility] Comment on above: Order Comment: Speci men Type: CEREBROSPINAL FLUID SPECIMEN Ordering Facility: [facility] Address: [address] [place] [address] Performed By: #### 2 342-4, 2880-3 #### [facility] CLIA [id number] [address] [place] [address] [place] CYTOLOGY NON-GYNon CASE REPORT Normal [facility] Comment on above: Order Comment: Speci men Type: CEREBROSPINAL FLUID SPECIMEN Ordering Facility: [facility] Address: [address] [place] [address] Result Comment: Medi [facility] Cytology Report Case: [id number] Authorizing Provider: Jan Reynoso MD Collected: 01/19/2024 10:53 AM Ordering Location: Neurology Received: 01/19/2024 11:21 AM Pathologist: Suzan Inman MD Specimen: Cerebrospinal Fluid Performed By: #### 2 342-4, 2880-3 #### [facility] CLIA [id number] [address] [place] [address] CLINICAL HISTORY brain tumor Normal [facility] Comment on above: Order Comment: Speci men Type: CEREBROSPINAL FLUID SPECIMEN Ordering Facility: [facility] Address: [address] [place] [address] Performed By: #### 2 342-4, 2880-3 #### [facility] CLIA [id number] [address] [place] [address] DIAGNOSIS COMMENT The difference betwe en benign reactive lymphocytes and low grade lymphoma cannot be determined on a cytology specimen. There is no evidence of high grade lymphoma. The specimen shows increased numbers of mature-appearing lymphocytes. Clinical correlation is suggested. Normal [facility] Comment on above: Order Comment: Speci men Type: CEREBROSPINAL FLUID SPECIMEN Ordering Facility: [facility] Address: [address] [place] [address] Performed By: #### 2 342-4, 2880-3 #### [facility] CLIA [id number] [address] [place] [address] FINAL DIAGNOSIS [facility] Comment on above: Order Comment: Speci men Type: CEREBROSPINAL FLUID SPECIMEN Ordering Facility: [facility] Address: [address] [place] [address] Result Comment: A - Cerebrospinal Fluid, Cerebrospinal Fluid Negative for malignant cells. Increased numbers of mature-appearing lymphocytes (see comment) Performed By: #### 2 342-4, 2880-3 #### [facility] CLIA [id number] [address] [place] [address] FINAL PERFORMING LAB [facility] Comment on above: Order Comment: Speci men Type: CEREBROSPINAL FLUID SPECIMEN Ordering Facility: [facility] Address: [address] [place] [address] Result Comment: Tech nical component, coke burner screening performed at [facility], [address] [place] [address] CLIA# [id number] Diagnostic interpretation performed at [facility], [address] [place] [address] CLIA# [id number] [employer] Lieutenant: Michael Lee M.D. Performed By: #### 2 342-4, 2880-3 #### [facility] CLIA [id number] [address] [place] [address] STATES OF [facility] GROSS DESCRIPTION Normal [facility] Comment on above: Order Comment: Speci men Type: CEREBROSPINAL FLUID SPECIMEN Ordering Facility: [facility] Address: [address] [place] [address] Result Comment: A. C erebrospinal Fluid 6 cc clear colorless fluid. ThinPrep prepared. Performed By: #### 2 342-4, 2880-3 #### [facility] CLIA [id number] [address] [place] [address] OF SHE Cell count panel (CSF)on Clarity (CSF) Clear Normal Clear [facility] Comment on above: Order Comment: Speci men Type: CEREBROSPINAL FLUID SPECIMEN Ordering Facility: [facility] Address: [address] [place] [address] Performed By: #### 2 342-4, 0-3 #### [facility] CLIA [id number] [address] [place] [address] STATES [place] Clarity (Unsp spec) Not Indicated Normal Clear [facility] Comment on above: Order Comment: Speci men Type: CEREBROSPINAL FLUID SPECIMEN Ordering Facility: [facility] Address: [address] [place] [address] Performed By: #### 2 342-4, 2879-3 #### [facility] CLIA [id number] [address] [place] [address] STATES [place] Color (CSF) Colorless Normal Colorless [facility] Comment on above: Order Comment: Speci men Type: CEREBROSPINAL FLUID SPECIMEN Ordering Facility: [facility] Address: [address] [place] [address] Performed By: #### 2 342-4, 2880-3 #### [facility] CLIA [id number] [address] [place] [address] STATES [place] Color (Spun CSF) Not Indicated Normal Colorless [facility] Comment on above: Order Comment: Speci men Type: CEREBROSPINAL FLUID SPECIMEN Ordering Facility: [facility] Address: [address] [place] [address] Performed By: #### 2 342-4, 2880-3 #### [facility] CLIA [id number] [address] [place] [address] STATES [place] CSF TUBE NUMBER Tube 4 Normal [facility] Comment on above: Order Comment: Speci men Type: CEREBROSPINAL FLUID SPECIMEN Ordering Facility: [facility] Address: [address] [place] [address] Performed By: #### 2 342-4, 2880-3 #### [facility] CLIA [id number] [address] [place] [address] [place] RBC Manual cnt (CSF) [#/Vol] 3 cells/uL Normal [address] [place] [address] Comment on above: Order Comment: Speci men Type: CEREBROSPINAL FLUID SPECIMEN Ordering Facility: [facility] Address: [address] [place] [address] Performed By: #### 2 342-4, 0-3 #### [facility] CLIA [id number] [address] [place] [address] STATES [place] WBC Manual cnt (CSF) [#/Vol] 7 cells/uL High 0-[address] [place] [address] Comment on above: Order Comment: Speci men Type: CEREBROSPINAL FLUID SPECIMEN Ordering Facility: [facility] Address: [address] [place] [address] Performed By: #### 2 342-4, 0-3 #### [facility] CLIA [id number] [address] [place] [address] [place] Cryptoc Ag Spec Ql LAon 12-28 Cryptococcus sp Ag LA Ql (Unsp spec) CRYPTOCOCCUS ANTIGEN : Cryptococcal Antigen NOT DETECTED by Lateral flow immunoassay. [facility] Comment on above: Performed By: #### 2 342-4, 2880-3 #### [facility] CLIA [id number] [address] [place] [address] [place] FUNGAL CSF CULTUREon 024 FUNGAL CSF CULTURE CULTURE, FUNGAL: No Fungus isolated after 28 days Normal [facility] Comment on above: Performed By: #### 2 342-4, 2880-3 #### [facility] CLIA [id number] [address] [place] [id number] [place] Glucose CSF-mCncon 4 Glucose (CSF) [Mass/Vol] 57 mg/dL Normal 40-70 [facility] Comment on above: Order Comment: Yojana hickman Type: CEREBROSPINAL FLUID SPECIMEN Ordering Facility: [facility] Address: [address] [place] [address] Result Comment: Lumb ar CSF glucose values of healthy patients are approximately 60% of the plasma values and must always be compared with a concurrently measured plasma value for adequate clinical interpretation. References: 1. Glucose HK (GLUC3) [package insert V 12.0 Wolof]. [employer], [place], [place]. September 2015. 2. Benito Law, Kishore HAnkit (2015). Chapter 7: Glucose and Lactate. Lesa Murrell al.(eds.), Cerebrospinal Fluid in Clinical Neurology. [place]are: [employer]. Performed By: #### 2 342-4, 2880-3 #### [facility] CLIA [id number] [address] [place] [id number] [place] Glucose SerPl-ncon 024 Glucose [Mass/Vol] 83 mg/dL Normal 74-99 [facility] Comment on above: Order Comment: Yojana hickman Type: BLOOD SPECIMEN Ordering Facility: [facility] Address: [address] [place] [address] Result Comment: The [place] Diabetes Association (ADA) provides guidance for cutoff values for fasting glucose and random glucose. The ADA defines fasting as no caloric intake for at least 8 hours. Fasting plasma glucose results between 100 to 125 mg/dL indicate increased risk for diabetes (prediabetes). Fasting plasma glucose results greater than or equal to 126 mg/dL meet the criteria for diagnosis of diabetes. In the absence of unequivocal hyperglycemia, results should be confirmed by repeat testing. In a patient with classic symptoms of hyperglycemia or hyperglycemic crisis, random plasma glucose results greater than or equal to 200 mg/dL meet the criteria for diagnosis of diabetes. Reference: Standards of Medical Care in Diabetes 2016, [place] [employer] Association. Diabetes Care. 2016.39(Suppl 1). Performed By: #### 1 1572-5 #### [facility] CLIA [id number] [address] [place] [address] [place] HERPES SIMPLEX VIRUS (HSV-1 AND HSV-2), QUALITATIVE PCR, CSFon 01-19-2024 HERPES SIMPLEX VIRUS (HSV-1 AND HSV-2), QUALITATIVE PCR, CSF HERPES SIMPLEX VIRUS 1 (HSV-1) DNA: Not detected HERPES SIMPLEX VIRUS 2 (HSV-2) DNA: Not detected Normal [facility] Comment on above: Performed By: #### 2 342-4, 2880-3 #### [facility] CLIA [id number] [address] [place] [address] [place] IR LUMBAR PUNCTURE DIAGon IR LUMBAR PUNCTURE DIAG * * *Final Report* * * DATE OF EXAM: Jan 19 2024 10:55AM [facility] 7594 - IR LUMBAR PUNCTURE DIAG / PROCEDURE REASON: Brain tumor (HCC) [D49.6] * * * * Physician Interpretation * * * * PROCEDURE: Diagnostic Lumbar Puncture Under Fluoroscopic Guidance HISTORY: The patient is a 58 years year old Female who presented with a brain tumor. Consent: The risks, benefits, treatment options, potential complications, equipment, and personnel to be involved were discussed (including the risks of radiation exposure, contrast and anesthesia administration) with the patient. All of her questions were answered and consent was obtained. The patient indicated she was willing to proceed. General: A) Medication Reconciliation: The patient's medications and allergies were reviewed in the electronic medical record and reconciled to the proposed procedure/treatment. B) Pre-Procedure Medications: Medication #1: None C) Positioning: The patient was placed Prone on the Fluoroscopy table. D) The Lumbar dorsal soft tissues. were then sterile prepped and draped. E) Time Out: A time out was performed immediately prior to procedure start with the nursing, anesthesia and interventional team, correctly identifying the name, medical record number, procedure, anatomy (including marking of site and side), patient position, procedure consent form, relevant diagnostic and radiology test results, antibiotic administration, safety precautions, and procedure-specific equipment needs. Timeout Affirmation (if attending not present): CREDIT AUTHORIZER, RN, and RT present. F) Anesthesia Type: administration of local anesthesia. Local Anesthesia: 5 ml 1% Lidocaine G) Anesthesia Was Administered For A Total Of None. H) Patient Monitoring: I personally supervised and directed an independent trained observer who assisted in monitoring the patient?s level of consciousness and physiological status throughout the procedure. TECHNIQUE/RESULT: A) Access Site: 20 gauge spinal needle from a left paramedian approach at the L3-L4 level. B) Counting reference: Lumbosacral junction. For the purposes of this report, L4-5 is considered the level of the iliac crest. C) Procedure Details: Using sterile procedure, local anesthesia was introduced to the skin and subcutaneous tissues as outlined above. Diagnostic LP Details: Under fluoroscopic guidance, the needle was carefully advanced into the lumbar subarachnoid space resulting in free flow of CSF. Diagnostic Volume: 20 ml of CSF was withdrawn in a sterile fashion from the subarachnoid space and forwarded to the laboratory for analysis. No contrast was administered Opening pressure was recorded at 22 cm H2O Closing pressure was recorded at 9 cm H2O CSF Color: Clear D) Estimated Blood Loss: minimal E) Type of Removed Specimens: CSF F) Number of Specimens: 4 Fluoroscopic Radiation Summary: Fluoroscopic guidance was performed in conjunction with the airdrop systems technician. Plane A, Air Kerma: 8.3 mGy Dose Area Product (DAP): 4545.3 mGy*cm2 Fluoro time: 0:36 min: sec Post-Procedure: Conclusion: The patient was transferred to the Radiology Recovery Room in stable condition and observed for approximately 60 minutes. Immediate Complications: None. Delayed Complications (will be reported as an addendum to the original report): None apparent at this time Timeout Time and Procedure Start Time: 10:48 Procedure End Time and Sign Out Time: 10:55 IMPRESSION: TECHNICALLY SUCCESSFUL DIAGNOSTIC LUMBAR PUNCTURE. The procedure was performed by: Karissa Lewis APRN, CNP Cfo: MARIA L Transcribe Date/Time: Jan 19 2024 2:48P Dictated by : KARISSA LEWIS CNP This examination was interpreted and the report reviewed and electronically signed by: KARISSA LEWIS CNP on Jan 19 2024 3:28PM EST [id number] Normal [facility] NURSING PROGon 01-19-2024 NURSING PROG HNO ID: [id number] Author: ELY GUZMAN, RN Service: Radiology Author Type: Registered Nurse Type: Nursing Progress Note Filed: 01/19/2024 10:34 Note Text: PATIENT EDUCATION TOPIC: PROCEDURE / SURGERY: Procedure/Surgery: Lumbar Puncture PATIENT NAME: Steffi Leone PATIENT LOCATION: INTERVENTIONAL RADIOL* READINESS TO LEARN COGNITIVE ABILITY: Alert and oriented MOTIVATION TO LEARN: Interested FAMILY SUPPORT: Unable to assess - Family not present INSTRUCTION PROVIDED TO: Patient PATIENT LEARNS BEST BY: Multiple Methods FACTORS AFFECTING LEARNING: None PHYSICAL LIMITATIONS AFFECTING LEARNING: None LEARNING RESPONSE DIAGNOSIS: ADULT: Lumbar Puncture PATIENT/FAMILY RESPONSE: Verbalizes understanding of: POST-PROCEDURE INSTRUCTIONS-Correct actions to take to reduce post procedure complications PRE-PROCEDURE INSTRUCTIONS-Correct action to take to follow pre-procedure instructions METHOD OF INSTRUCTION: Individual instruction Written instruction/Handouts Verbal instruction FOLLOW-UP PLAN: Follow-up with Primary Care INSTRUCTIONAL AIDS USED: NA SUPPLEMENTAL MATERIAL PROVIDED TO PATIENT: Procedure discharge instructions REFERRAL (RECOMMENDATION): None Electronically Signed By: Ely Guzman Normal [facility] Prot CSF-mCncon 01-19-2024 Protein (CSF) [Mass/Vol] 29 mg/dL Normal 15-45 [facility] Comment on above: Order Comment: Speci men Type: CEREBROSPINAL FLUID SPECIMEN Ordering Facility: [facility] Address: [address] [place] [address] Performed By: #### 2 342-4, 2880-3 #### [facility] CLIA [id number] [place] [address] [place] CSFon Albumin (CSF) [Mass/Vol] 16.9 mg/dL Normal 10.0-30.0 [facility] Comment on above: Order Comment: Speci men Type: CEREBROSPINAL FLUID SPECIMEN Ordering Facility: [facility] Address: [address] [place] [address] Performed By: #### 2 342-4, 2880-3 #### [facility] CLIA [id number] [address] [place] [address] [place] Albumin [Mass/Vol] 4100 mg/dL Normal 0188-3951 [facility] Comment on above: Order Comment: Speci men Type: CEREBROSPINAL FLUID SPECIMEN Ordering Facility: [facility] Address: [address] [place] [address] Performed By: #### 2 342-4, 2879-3 #### [facility] CLIA [id number] [address] [place] [address] [place] IgG (CSF) [Mass/Vol] 1.3 mg/dL Normal 1.0-3.0 [facility] Comment on above: Order Comment: Speci men Type: CEREBROSPINAL FLUID SPECIMEN Ordering Facility: [facility] Address: [address] [place] [address] Performed By: #### 2 342-4, 2879-3 #### [facility] CLIA [id number] [address] [place] [address] [place] IgG [Mass/Vol] 727 mg/dL Normal 700-1600 [facility] Comment on above: Order Comment: Speci men Type: CEREBROSPINAL FLUID SPECIMEN Ordering Facility: [facility] Address: [address] [place] [address] Performed By: #### 2 342-4, 3 #### [facility] CLIA [id number] [address] [place] [address] [place] IgG clearance/Albumin clearance (S+CSF) [Ratio] 0.43 Normal 0.00-0.61 [facility] Comment on above: Order Comment: Speci men Type: CEREBROSPINAL FLUID SPECIMEN Ordering Facility: [facility] Address: [address] [place] [address] Performed By: #### 2 342-4, 3 #### [facility] CLIA [id number] [address] [place] [address] [place] IgG synthesis rate Calc (S+CSF) [Mass/Time] 0.0 mg/day Normal 0.0-3.0 [facility] Comment on above: Order Comment: Speci men Type: CEREBROSPINAL FLUID SPECIMEN Ordering Facility: [facility] Address: [address] [place] [address] Performed By: #### 2 342-4, 2880-3 #### [facility] CLIA [id number] [place] IgG/Albumin (CSF) [Mass ratio] 0.08 Normal 0.06-0.17 [facility] Comment on above: Order Comment: Yojana hickman Type: CEREBROSPINAL FLUID SPECIMEN Ordering Facility: [facility] Address: [address] [place] [address] Performed By: #### 2 342-4, 2880-3 #### [facility] CLIA [id number] OF [place] VDRL CSF-Titron 01-19-2024 Reagin Ab VDRL (CSF) [Titer] Non-Reactive Normal Nonreactive [facility] Comment on above: Order Comment: Yojana hickman Type: CEREBROSPINAL FLUID SPECIMEN Ordering Facility: [facility] Address: [address] [place] [address] Result Comment: CSF VDRL test is used an aid in diagnosis of neurosyphilis. CSF VDRL detects non-treponemal antibodies and has lower sensitivity than CSF treponemal tests such as FTA, therefore a negative result cannot reliably rule out neurosyphilis. Clinical correlation is required. 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 MECLIZINE 11/27/2023 5 - Intolerance Comments: sedative Date Reviewed: 12/27/2023 Reviewed by: Latrice Blanc MA - Fully Assessed Prescriptions as of 01/30/2024 - nortriptyline (PAMELOR) 25 mg capsule Take 1 capsule by mouth daily at bedtime. - buPROPion SR (WELLBUTRIN SR) 150 mg 12 hr tablet Take 1 tablet by mouth two times a day. - OTC PRODUCT Take 1 tablet by mouth as needed. Morning sickness relief - gabapentin (NEURONTIN) 300 mg capsule Take 1 capsule by mouth two times a day for 90 days. - clindamycin (CLEOCIN) 300 mg capsule Take 2 capsules by mouth as needed (TAKE 2 CAPSULES ONE HOUR PRIOR TO DENTAL PROCEDURE). TAKE 600MG ONE HOUR PRIOR TO DENTAL PROCEDURE - Ascorbic Acid (VITAMIN C) 100 mg tablet Take 100 mg by mouth once daily. - APPLE CIDER VINEGAR ORAL Take 1 tablet by mouth once daily. - losartan (COZAAR) 50 mg tablet Take 1 tablet by mouth once daily. - metoprolol succinate ER (TOPROL XL) 50 mg 24 hr tablet Take 1 tablet by mouth once daily. - TURMERIC ORAL Take by mouth once daily. - Cholecalciferol, Vitamin D3, 25 mcg (1,000 unit) cap Take 1,000 Units by mouth once daily. Normal [facility] 01-12-2024 CNPN Telephone (IRRFV) -------- STEFFI LEONE ([id number]) 1965 F Date Time Provider Department 01/12/24 ANA CRISTINA SEARSFV During your visit today, we recorded the following information about you: Ana Cristina Sears RN 01/12/2024 11:33 AM Signed You are scheduled for a Lumbar Puncture, On Friday, January 19, 2024. You are to arrive at 10:00 am and Report to [facility] First Floor Radiology Registration Desk. You can expect to be here for 4-8 hours. Diet: You may eat prior to your procedure. Medications: Ok to take your cardiac, blood pressure, anti-seizure, and chronic pain medications with a sip of water, please take prior to arrival. Bring your current medication list. Labs: Lab-work needs to be drawn? No.. Project Engineer/Transportation: How will you be arriving for your procedure? Private car. You will need a responsible adult to accompany you to and from the procedure. Your forklift driver is required to stay with you until you are taken into the procedure room. If you have any questions, please call [phone], Option 3. ___ Allergies As of Date: 01/12/2024 Noted Allergy Reaction AUGMENTIN (AMOXICILLIN-POT CLAVUL*11/24/2008 2 - Rash Comments: Not allergic to PCN or amoxicillin. MECLIZINE 11/27/2023 5 - Intolerance Comments: sedative Date Reviewed: 12/27/2023 Reviewed by: Latrice Blanc MA - Fully Assessed Reason for Visit: Radiology Pre Procedure Instructions [1506] Prescriptions as of 01/12/2024 - nortriptyline (PAMELOR) 25 mg capsule Take 1 capsule by mouth daily at bedtime. - buPROPion SR (WELLBUTRIN SR) 150 mg 12 hr tablet Take 1 tablet by mouth two times a day. - OTC PRODUCT Take 1 tablet by mouth as needed. Morning sickness relief - gabapentin (NEURONTIN) 300 mg capsule Take 1 capsule by mouth two times a day for 90 days. - clindamycin (CLEOCIN) 300 mg capsule Take 2 capsules by mouth as needed (TAKE 2 CAPSULES ONE HOUR PRIOR TO DENTAL PROCEDURE). TAKE 600MG ONE HOUR PRIOR TO DENTAL PROCEDURE - Ascorbic Acid (VITAMIN C) 100 mg tablet Take 100 mg by mouth once daily. - APPLE CIDER VINEGAR ORAL Take 1 tablet by mouth once daily. - losartan (COZAAR) 50 mg tablet Take 1 tablet by mouth once daily. - metoprolol succinate ER (TOPROL XL) 50 mg 24 hr tablet Take 1 tablet by mouth once daily. - TURMERIC ORAL Take by mouth once daily. - Cholecalciferol, Vitamin D3, 25 mcg (1,000 unit) cap Take 1,000 Units by mouth once daily. Problem List As Of Date 01/12/2024 Noted Resolved Transient synovitis of knee [M67.369] 03/10/2015 Localized swelling, mass or lump of neck [R22.1]06/09/2017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 injections with orthopedics 06/21. 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 PHYSICAL EXAMINATION: General appearance: Well appearing, alert, in no acute distress, well-hydrated, well nourished. Heart: RRR without murmur, gallop, or rubs. No ectopy Neuro: No facial drooping A:(G51.0) Georges's palsy (primary encounter diagnosis) Comment: Resolved (R26.89) Balance problem Comment: With abnormal MRI findings including possible small Schwann's neuroma Plan: Encouraged her to follow-up on MyChart to the last neurology communication regarding follow-up visit to discuss the many questions she has. (M25.642) Left hip pain Plan: Follow-up with orthopedics, continues to need walker to maintain balance when walking Follow-up in 3 months. Michelle Carrillo APRN.CREDIT AUTHORIZER Allergies As of Date: 11/27/2023 Noted Allergy Reaction AUGMENTIN (AMOXICILLIN-POT CLAVUL*11/24/2008 2 - Rash Comments: Not allergic to PCN or amoxicillin. MECLIZINE 11/27/2023 5 - Intolerance Comments: sedative Date Reviewed: 11/27/2023 Reviewed by: Yoana Sweeney MA - Fully Assessed Reason for Visit: Follow Up [171] Cmt: Follow up, pt unsure at this time Primary Visit Diagnosis: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] Other Visit Diagnoses:Balance problem [R26.89] Left hip pain [M25.552] Prescriptions as of 11/27/2023 - OTC PRODUCT Take 1 tablet by mouth as needed. Morning sickness relief - gabapentin (NEURONTIN) 300 mg capsule Take 1 capsule by mouth two times a day for 90 days. - clindamycin (CLEOCIN) 300 mg capsule Take 2 capsules by mouth as needed (TAKE 2 CAPSULES ONE HOUR PRIOR TO DENTAL PROCEDURE). TAKE 600MG ONE HOUR PRIOR TO DENTAL PROCEDURE - Ascorbic Acid (VITAMIN C) 100 mg tablet Take 100 mg by mouth once daily. - APPLE CIDER VINEGAR ORAL Take 1 tablet by mouth once daily. - losartan (COZAAR) 50 mg tablet Take 1 tablet by mouth once daily. - buPROPion SR (WELLBUTRIN SR) 150 mg 12 hr tablet Take 1 tablet by mouth two times a day. - metoprolol succinate ER (TOPROL XL) 50 mg 24 hr tablet Take 1 tablet by mouth once daily. - TURMERIC ORAL Take by mouth once daily. - Cholecalciferol, Vitamin D3, 25 mcg (1,000 unit) cap Take 1,000 Units by mouth once daily. Problem List As Of Date 11/27/2023 Noted Resolved Transient synovitis of knee [M67.369] 03/10/2015 Localized swelling, mass or lump of neck [R22.1]06/09/2017 11/11/2021 Smoker [F17.200] 06/21/2017 Obesity with body mass index 30 or greater [E66*06/21/2017 05/19/2023 Lymphadenitis [I88.9] 06/21/2017 Perimenopause [N95.1] 06/21/2017 05/19/2023 Vitamin D deficiency [E55.9] 06/25/2017 Mild cervical dysplasia [N87.0] 07/31/2017 11/11/2021 Chronic pain of both knees [M25.561, M25.562, G*08/16/2017 Cervical dysplasia [N87.9] 07/22/2020 Anxiety [F41.9] 07/22/2020 Elevated BP without diagnosis of hypertension [*07/22/2020 03/10/2022 Chest skin lesion [L98.9] 07/22/2020 Parotid mass [K11.8] 07/22/2020 11/11/2021 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] 10/09/2020 11/11/2021 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 Normal [facility] [id number] 11-08-2023 [id number] HNO ID: [id number] Author: IVÁN GARCIA PT Service: ? Author Type: Physical Therapist Type: [id number] Filed: 11/08/2023 12:18 Note Text: [facility] Physical Therapy Plan of Care Certification Patient Name: Steffi Leone : 1965 [facility] #: [id number] Date: 11/08/2023 To: Michelle Carrillo A* From Therapist: Iván Garcia PT RE: Patient Certification/ Recertification Your review, approval and electronic signature are required in order to comply with Payor: MEDPAY / Plan: MEDPAY / Product Type: Indemnity / regulations. The identified Physical Therapy PLAN OF CARE for the patient is as follows: R26.89 Balance disorder (primary encounter diagnosis) G51.0 Georges's palsy PLAN OF CARE: Assessment: Steffi Leone presents with chief complaint of imbalance that interferes with rising from a chair, standing, walking, bending, stair negotiation, physical activities . She presents with impairments in ADL's, balance, gait, overall function, posture, sensation, and symptom management. Patient did not complete the PROMIS? (Patient Reported Outcome Measures Information System). Prognosis for therapy is Fair due to: clinical presentation . 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 Discussed with her that treatment going forward may consist of therapy and observation or removal. Will need to follow up with neurology. Was originally having symptoms of Georges's Palsy, but this has resolved. Will transfer to vestibular therapy. She will benefit from skilled therapy services to meet the goals established for this plan of care as noted below. Goals for Episode of Care: created on 11/08/23 through 01/07/24 To be determined based assessment of vestibular therapist. Patient Goals: walk normally Planned Interventions, Frequency, and Duration: Current Frequency: 1x/week Duration: 8 weeks Total Number of Visits Planned: 8 Planned Treatment Interventions: Therapeutic exercise (60353), Neuromuscular re-education (37796), Manual therapy (66727), Self-long-term management (93954), Therapeutic activities (68589), Gait Training (87874), Aquatic PT (17724), Patient/Family/Caregiver Education, Canalith Repositioning Maneuvers (80920) PLAN FOR NEXT VISIT: initiate vestibular therapy Patient demonstrates fair understanding of plan of care and treatment. The above goals and plan of care were discussed and agreed upon by patient/family. For further details regarding this patient refer to the Physical Therapy electronically documented visit dated 11/08/2023. Provider Attestation I have reviewed the treatment plan for Steffi Leone, CC# [id number] for the period of 11/08/23 -- 01/07/24, established on 11/08/2023. Signature certifies the need for therapy services. Normal [facility] STEFFI LEONE ([id number]) 1965 F Date Time Provider Department 11/08/23 ALFONZO HAYS During your visit today, we recorded the following information about you: Alfonzo Hays APRN.CNP 11/08/2023 8:13 AM Signed Let patient know there a few findings on her MRI which could be contributing to her symptoms. Some irritation of the facial nerves and a Schwannoma which is a non cancerous tumor that can sometimes press on the nerve and cause symptoms. Not sure if any treatment is warranted other than the therapy she is starting. We'd like her to see the neurologist again for follow up to discuss. Please schedule follow up with Dr. Reynoso in neuro who she saw this month. KARINA Blank Patricia, LPN 11/08/2023 9:31 AM Signed Called pt gave her below message from Karlo Hays below Let patient know there a few findings on her MRI which could be contributing to her symptoms. Some irritation of the facial nerves and a Schwannoma which is a non cancerous tumor that can sometimes press on the nerve and cause symptoms. Not sure if any treatment is warranted other than the therapy she is starting. We'd like her to see the neurologist again for follow up to discuss. Please schedule follow up with Dr. Reynoso in neuro who she saw this month. Alfonzo Hays APRN.JUANITA Pt verbalized understanding Pt and Karlo Hays APRN.CNP are requesting a call from scheduling to assist with making an appt with her neurologist Dr. Mendez, scheduling please assist Reina Ascencio 11/08/2023 9:57 AM Signed Soonest available I have acces to schedule with Dr. Reynoso is Mar.06, spoke with patient, she will call office directly for sooner appointment to discuss results. Sarina Shine, RN 11/08/2023 1:15 PM Signed Our front office developer schedulers scheduled patient for appointment with on 12/13 and patient was fine with that. Allergies As of Date: 11/08/2023 Noted Allergy Reaction AUGMENTIN (AMOXICILLIN-POT CLAVUL*11/24/2008 2 - Rash Comments: Not allergic to PCN or amoxicillin. Date Reviewed: 10/31/2023 Reviewed by: Cassi Helton MA - Fully Assessed Reason for Visit: Results [95] Appointment [186] Prescriptions as of 11/08/2023 - gabapentin (NEURONTIN) 300 mg capsule Take 1 capsule by mouth two times a day for 90 days. - meclizine (ANTIVERT) 12.5 mg tab Take 1 tablet by mouth three times a day as needed. - clindamycin (CLEOCIN) 300 mg capsule Take 2 capsules by mouth as needed (TAKE 2 CAPSULES ONE HOUR PRIOR TO DENTAL PROCEDURE). TAKE 600MG ONE HOUR PRIOR TO DENTAL PROCEDURE - Ascorbic Acid (VITAMIN C) 100 mg tablet Take 100 mg by mouth once daily. - APPLE CIDER VINEGAR ORAL Take 1 tablet by mouth once daily. - clindamycin (CLEOCIN) 150 mg capsule Take 4 caps 1 hour prior to dentist - losartan (COZAAR) 50 mg tablet Take 1 tablet by mouth once daily. - buPROPion SR (WELLBUTRIN SR) 150 mg 12 hr tablet Take 1 tablet by mouth two times a day. - metoprolol succinate ER (TOPROL XL) 50 mg 24 hr tablet Take 1 tablet by mouth once daily. - TURMERIC ORAL Take by mouth once daily. - Cholecalciferol, Vitamin D3, 25 mcg (1,000 unit) cap Take 1,000 Units by mouth once daily. Problem List As Of Date 11/08/2023 Noted Resolved Transient synovitis of knee [M67.369] 03/10/2015 Localized swelling, mass or lump of neck [R22.1]06/09/2017 11/11/2021 Smoker [F17.200] 06/21/2017 Obesity with body mass index 30 or greater [E66*06/21/2017 05/19/2023 Lymphadenitis [I88.9] 06/21/2017 Perimenopause [N95.1] 06/21/2017 05/19/2023 Vitamin D deficiency [E55.9] 06/25/2017 Mild cervical dysplasia [N87.0] 07/31/2017 11/11/2021 Chronic pain of both knees [M25.561, M25.562, G*08/16/2017 Cervical dysplasia [N87.9] 07/22/2020 Anxiety [F41.9] 07/22/2020 Elevated BP without diagnosis of hypertension [*07/22/2020 03/10/2022 Chest skin lesion [L98.9] 07/22/2020 Parotid mass [K11.8] 07/22/2020 11/11/2021 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] 10/09/2020 11/11/2021 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] 10/27/2020 11/11/2021 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/2021 05/19/2023 Dizziness [R42] 08/18/2021 Palpitations [R00.2] 08/18/2021 Hypertension [I10] 08/18/2021 Ventricular tachycardia (paroxysmal) (HCC) [I47*09/09/2021 Bilateral primary osteoarthritis of knee [M17.0]11/11/2021 Obesity, Class I, BMI 30-34.9 [E66.9] 11/11/2021 Post concussion syndrome [F07.81] 10/31/2023 Concussion with no loss of consciousness [S06.0*10/31/2023 Gait difficulty [R26.9] 10/31/2023 Tinnitus of left ear [H93.12] 10/31/2023 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 Balance disorder [R26.89] 11/08/2023 Encounter Status:Closed by TERESA MCCRAY on 11/08/23 Normal [facility] CNTHERAPYon 11-08-2023 CNTHERAPY OT/PT/Speech Visit (PTELYR) -------- REGINA LEONEYN A ([id number]) 1965 F Date Time Provider Department 11/08/23 10:15 AM IVÁN GARCIA Date Time Provider Department Center 11/08/2023 10:15 AM [id number], MICHA*PTMAGALISR [facility] Reason for Visit: PT Eval [747] Primary Visit Diagnosis:Balance disorder [R26.89] Other Visit Diagnosis: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] Allergies As of Date: 11/08/2023 Noted Allergy Reaction AUGMENTIN (AMOXICILLIN-POT CLAVUL*11/24/2008 2 - Rash Comments: Not allergic to PCN or amoxicillin. Date Reviewed: 10/31/2023 Reviewed by: Cassi Helton MA - Fully Assessed Prescriptions as of 11/08/2023 - gabapentin (NEURONTIN) 300 mg capsule Take 1 capsule by mouth two times a day for 90 days. - meclizine (ANTIVERT) 12.5 mg tab Take 1 tablet by mouth three times a day as needed. - clindamycin (CLEOCIN) 300 mg capsule Take 2 capsules by mouth as needed (TAKE 2 CAPSULES ONE HOUR PRIOR TO DENTAL PROCEDURE). TAKE 600MG ONE HOUR PRIOR TO DENTAL PROCEDURE - Ascorbic Acid (VITAMIN C) 100 mg tablet Take 100 mg by mouth once daily. - APPLE CIDER VINEGAR ORAL Take 1 tablet by mouth once daily. - clindamycin (CLEOCIN) 150 mg capsule Take 4 caps 1 hour prior to dentist - losartan (COZAAR) 50 mg tablet Take 1 tablet by mouth once daily. - buPROPion SR (WELLBUTRIN SR) 150 mg 12 hr tablet Take 1 tablet by mouth two times a day. - metoprolol succinate ER (TOPROL XL) 50 mg 24 hr tablet Take 1 tablet by mouth once daily. - TURMERIC ORAL Take by mouth once daily. - Cholecalciferol, Vitamin D3, 25 mcg (1,000 unit) cap Take 1,000 Units by mouth once daily. -------- Normal [facility] MR Brain WO and W contrast I Von 11-06-2023 IMPRESSION: 1. Findings suggestive of punctate left vestibular schwannoma. 2. Asymmetric prominent enhancement of bilateral 7th cranial nerves as described. 3. Inflammatory changes of left mastoid and external ear structures. 4. Normal remaining IAC. Normal MRI of the brain without acute abnormality. Cfo: PSCB Transcribe Date/Time: Nov 06 2023 4:43P Dictated by : KADE SUN MD This examination was interpreted and the report reviewed and electronically signed by: KADE SUN MD on Nov 06 2023 4:49PM [facility] DIVISION OF RADIOLOGY * * *Final Report* * * DATE OF EXAM: Nov 06 2023 4:29PM [facility] 0295 - MRI BRAIN WO/W IVCON / PROCEDURE REASON: multiple diagnoses * * * * Physician Interpretation * * * * COMPARISONS: None. HISTORY: Georges's palsy. Dizziness. Balance problem. TECHNIQUE: MRI brain/IAC without and with contrast. MQ: MRBWOW_2 CONTRAST: 15 mL Dotarem IV. RESULT: MRI BRAIN/IAC: Acute abnormality: None. Nonspecific punctate areas of T2 hyperintensities are identified throughout the brain parenchyma but mainly in the periventricular region. Although by patient's age this is most likely still going to be senescent chronic microvascular ischemia, however, few of these foci radiate perpendicularly from the ventricular lining and possibility of demyelinating disease should be considered and excluded clinically also. Less likely differential would be vasculitis or migraine. No acute abnormality. No restricted diffusion concerning for acute ischemia. No susceptibility concerning for acute hemorrhage. Age expected remaining sulci, gyri, ventricles, CSF spaces, brain, bones & skull base. No mass effect or collections. On contrast no abnormal enhancement in brain or meninges. Punctate enhancement at proximal left IAC immediately distal to porus acusticus best appreciated on axial postcontrast series 11 image 54 most consistent with a small vestibular schwannoma and may be correlated with patient's clinical history. Enhancement along bilateral 7th cranial nerves, with slight prominence at left within the IAC and horizontal portion & also along descending portion of right facial nerve which should be correlated with inflammatory change or expected enhancement. Fluid signal intensity at left greater than right mastoid air cells with soft tissue inflammatory changes at external ear structures should be directly visualized for potential external ear/mastoid inflammation. High-resolution temporal bone images reveal remaining posterior fossa, cerebellum, brainstem, CP angles, inner and middle and external ear structures, remaining visualized cranial nerves including the 7/8 nerve complex, CSF spaces, bones and skull base to be symmetrical and normal without any soft tissue, asymmetry or abnormal additional areas of enhancement. No acute abnormality noted. DIVISION OF RADIOLOGY Provider, [facility] - 11/06/2023 * * *Final Report* * * DATE OF EXAM: Nov 06 2023 4:29PM LN 0295 - MRI BRAIN WO/W IVCON / PROCEDURE REASON: multiple diagnoses * * * * Physician Interpretation * * * * COMPARISONS: None. HISTORY: Georges's palsy. Dizziness. Balance problem. TECHNIQUE: MRI brain/IAC without and with contrast. MQ: MRBWOW_2 CONTRAST: 15 mL Dotarem IV. RESULT: MRI BRAIN/IAC: Acute abnormality: None. Nonspecific punctate areas of T2 hyperintensities are identified throughout the brain parenchyma but mainly in the periventricular region. Although by patient's age this is most likely still going to be senescent chronic microvascular ischemia, however, few of these foci radiate perpendicularly from the ventricular lining and possibility of demyelinating disease should be considered and excluded clinically also. Less likely differential would be vasculitis or migraine. No acute abnormality. No restricted diffusion concerning for acute ischemia. No susceptibility concerning for acute hemorrhage. Age expected remaining sulci, gyri, ventricles, CSF spaces, brain, bones & skull base. No mass effect or collections. On contrast no abnormal enhancement in brain or meninges. Punctate enhancement at proximal left IAC immediately distal to porus acusticus best appreciated on axial postcontrast series 11 image 54 most consistent with a small vestibular schwannoma and may be correlated with patient's clinical history. Enhancement along bilateral 7th cranial nerves, with slight prominence at left within the IAC and horizontal portion & also along descending portion of right facial nerve which should be correlated with inflammatory change or expected enhancement. Fluid signal intensity at left greater than right mastoid air cells with soft tissue inflammatory changes at external ear structures should be directly visualized for potential external ear/mastoid inflammation. High-resolution temporal bone images reveal remaining posterior fossa, cerebellum, brainstem, CP angles, inner and middle and external ear structures, remaining visualized cranial nerves including the 7/8 nerve complex, CSF spaces, bones and skull base to be symmetrical and normal without any soft tissue, asymmetry or abnormal additional areas of enhancement. No acute abnormality noted. IMPRESSION IMPRESSION: 1. Findings suggestive of punctate left vestibular schwannoma. 2. Asymmetric prominent enhancement of bilateral 7th cranial nerves as described. 3. Inflammatory changes of left mastoid and external ear structures. 4. Normal remaining IAC. Normal MRI of the brain without acute abnormality. Cfo: PSCB Transcribe Date/Time: Nov 06 2023 4:43P Dictated by : KADE SUN MD This examination was interpreted and the report reviewed and electronically signed by: KADE SUN MD on Nov 06 2023 4:49PM EST [facility] Radiology Study observation (narrative) [facility] MR Brain WO and W contrast I VOrdered By: [facility] Provider on 11-06-2023 [facility] MRI BRAIN WO/W IVCONon 11-05 MRI BRAIN WO/W IVCON * * *Final Report* * * DATE OF EXAM: Nov 06 2023 4:29PM [facility] 0295 - MRI BRAIN WO/W IVCON / PROCEDURE REASON: multiple diagnoses * * * * Physician Interpretation * * * * COMPARISONS: None. HISTORY: Georges's palsy. Dizziness. Balance problem. TECHNIQUE: MRI brain/IAC without and with contrast. MQ: MRBWOW_2 CONTRAST: 15 mL Dotarem IV. RESULT: MRI BRAIN/IAC: Acute abnormality: None. Nonspecific punctate areas of T2 hyperintensities are identified throughout the brain parenchyma but mainly in the periventricular region. Although by patient's age this is most likely still going to be senescent chronic microvascular ischemia, however, few of these foci radiate perpendicularly from the ventricular lining and possibility of demyelinating disease should be considered and excluded clinically also. Less likely differential would be vasculitis or migraine. No acute abnormality. No restricted diffusion concerning for acute ischemia. No susceptibility concerning for acute hemorrhage. Age expected remaining sulci, gyri, ventricles, CSF spaces, brain, bones and skull base. No mass effect or collections. On contrast no abnormal enhancement in brain or meninges. Punctate enhancement at proximal left IAC immediately distal to porus acusticus best appreciated on axial postcontrast series 11 image 54 most consistent with a small vestibular schwannoma and may be correlated with patient's clinical history. Enhancement along bilateral 7th cranial nerves, with slight prominence at left within the IAC and horizontal portion and also along descending portion of right facial nerve which should be correlated with inflammatory change or expected enhancement. Fluid signal intensity at left greater than right mastoid air cells with soft tissue inflammatory changes at external ear structures should be directly visualized for potential external ear/mastoid inflammation. High-resolution temporal bone images reveal remaining posterior fossa, cerebellum, brainstem, CP angles, inner and middle and external ear structures, remaining visualized cranial nerves including the 7/8 nerve complex, CSF spaces, bones and skull base to be symmetrical and normal without any soft tissue, asymmetry or abnormal additional areas of enhancement. No acute abnormality noted. IMPRESSION: 1. Findings suggestive of punctate left vestibular schwannoma. 2. Asymmetric prominent enhancement of bilateral 7th cranial nerves as described. 3. Inflammatory changes of left mastoid and external ear structures. 4. Normal remaining IAC. Normal MRI of the brain without acute abnormality. Cfo: MARIA L Transcribe Date/Time: Nov 06 2023 4:43P Dictated by : KADE SUN MD This examination was interpreted and the report reviewed and electronically signed by: KADE SUN MD on Nov 06 2023 4:49PM EST [id number] Normal [facility] 11-03-2023 CNPN Telephone (INTMLN) -------- STEFFI LEONE ([id number]) 1965 F Date Time Provider Department 11/03/23 MICHELLE CARRILLO INTMLN During your visit today, we recorded the following information about you: Michelle Carrillo, [employer]ING MANAGER.CREDIT AUTHORIZER 11/03/2023 4:12 PM Signed Her fmla and insurance forms are in my outbox, need the contact info filled in otherwise good to go Cyrus Mercado MA 11/06/2023 12:04 PM Signed Called patient to relay forms are ready. Copy sent to scan, copy placed downstairs for sampler pickup. Faxed to [phone] with return confirmation. Reina Ascencio 11/21/2023 12:45 PM Signed Patient dropped paperwork back off for a 2nd attempt - she states the form is incomplete- placed in [place] mailbox Michelle Carrillo APRN.CNP 11/21/2023 4:58 PM Signed Can someone take a look at this and identify exactly what more is needed on the forms, highlight that for me and put it on my outbox area? Thank you Anne-Marie Bueon MA 11/22/2023 9:43 AM Signed Paperwork located, completed and signed by provider faxed to # [phone], ATTN: Kaylee De La Fuente. Confirmation transmission OK. Sent to scanning. Allergies As of Date: 11/03/2023 Noted Allergy Reaction AUGMENTIN (AMOXICILLIN-POT CLAVUL*11/24/2008 2 - Rash Comments: Not allergic to PCN or amoxicillin. Date Reviewed: 10/31/2023 Reviewed by: Cassi Helton MA - Fully Assessed Reason for Visit: Forms [913] Prescriptions as of 11/22/2023 - gabapentin (NEURONTIN) 300 mg capsule Take 1 capsule by mouth two times a day for 90 days. - meclizine (ANTIVERT) 12.5 mg tab Take 1 tablet by mouth three times a day as needed. - clindamycin (CLEOCIN) 300 mg capsule Take 2 capsules by mouth as needed (TAKE 2 CAPSULES ONE HOUR PRIOR TO DENTAL PROCEDURE). TAKE 600MG ONE HOUR PRIOR TO DENTAL PROCEDURE - Ascorbic Acid (VITAMIN C) 100 mg tablet Take 100 mg by mouth once daily. - APPLE CIDER VINEGAR ORAL Take 1 tablet by mouth once daily. - clindamycin (CLEOCIN) 150 mg capsule Take 4 caps 1 hour prior to dentist - losartan (COZAAR) 50 mg tablet Take 1 tablet by mouth once daily. - buPROPion SR (WELLBUTRIN SR) 150 mg 12 hr tablet Take 1 tablet by mouth two times a day. - metoprolol succinate ER (TOPROL XL) 50 mg 24 hr tablet Take 1 tablet by mouth once daily. - TURMERIC ORAL Take by mouth once daily. - Cholecalciferol, Vitamin D3, 25 mcg (1,000 unit) cap Take 1,000 Units by mouth once daily. Problem List As Of Date 11/03/2023 Noted Resolved Transient synovitis of knee [M67.369] 03/10/2015 Localized swelling, mass or lump of neck [R22.1]06/09/2017 11/11/2021 Smoker [F17.200]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 30.5-36.0 [facility] Comment on above: Order Comment: Speci men Type: BLOOD SPECIMENOrdering Facility: [facility] Address: [address] [place] [address] Performed By: #### 5 7021-8 ####[facility] [id number] [place] [address] [place] MCV (RBC) [Entitic vol] 94.7 fL Normal 80.0-100.0 [facility] Comment on above: Order Comment: Speci men Type: BLOOD SPECIMENOrdering Facility: [facility] Address: [address] [place] [address] Performed By: #### 5 7021-8 ####[facility] [id number] [place] [address] [place] Monocytes (Bld) [#/Vol] 0.47 10*3/uL Normal <0.87 [facility] Comment on above: Order Comment: Speci men Type: BLOOD SPECIMENOrdering Facility: [facility] Address: [address] [place] [address] Performed By: #### 5 7021-8 ####[facility] [id number] [place] [address] [place] Monocytes/100 WBC (Bld) 9.1 % Normal [facility] Comment on above: Order Comment: Speci men Type: BLOOD SPECIMENOrdering Facility: [facility] Address: [address] [place] [address] Performed By: #### 5 7021-8 ####[facility] [id number] [place] [id number] [place] Neutrophils (Bld) [#/Vol] 2.90 10*3/uL Normal 1.45-7.50 [facility] Comment on above: Order Comment: Speci men Type: BLOOD SPECIMENOrdering Facility: [facility] Address: [address] [place] [address] Performed By: #### 5 7021-8 ####[facility] LABORATORYCLIA [id number] [place] [address] [place] Neutrophils/100 WBC (Bld) 55.9 % Normal [facility] Comment on above: Order Comment: Speci men Type: BLOOD SPECIMENOrdering Facility: [facility] Address: [address] [place] [address] Performed By: #### 5 7021-8 ####[facility] [id number] [place] [address] [place] Nucleated RBC (Bld) [#/Vol] 10*3/uL Normal <0.01 [facility] Comment on above: Order Comment: Speci men Type: BLOOD SPECIMENOrdering Facility: [facility] Address: [address] [place] [address] Performed By: #### 5 7021-8 ####[facility] [id number] [place] [address] [place] Nucleated RBC/100 WBC (Bld) [Ratio] 0.0 /100 WBC Normal [facility] Comment on above: Order Comment: Speci men Type: BLOOD SPECIMENOrdering Facility: [facility] Address: [address] [place] [address] Performed By: #### 5 7021-8 ####[facility] LABORATORYIA [id number] [place] [address] [place] Platelet mean volume (Bld) [Entitic vol] 11.8 fL Normal 9.0-12.7 [facility] Comment on above: Order Comment: Speci men Type: BLOOD SPECIMENOrdering Facility: [facility] Address: [address] [place] [address] Performed By: #### 5 7021-8 ####[facility] LABORATORYCLIA [id number] [facility] [address] [place] Platelets (Bld) [#/Vol] 233 10*3/uL Normal 150-400 [facility] Comment on above: Order Comment: Speci men Type: BLOOD SPECIMENOrdering Facility: [facility] Address: [address] [place] [address] Performed By: #### 5 7021-8 ####[facility] LABORATORYCLIA [id number] [place] [address] [place] RBC (Bld) [#/Vol] 4.35 10*6/uL Normal 3.90-5.20 [facility] Comment on above: Order Comment: Speci men Type: BLOOD SPECIMENOrdering Facility: [facility] Address: [address] [place] [address] Performed By: #### 5 7021-8 ####[facility] [id number] [place] [address] [place] WBC (Bld) [#/Vol] 5.18 10*3/uL Normal 3.70-11.00 [facility] Comment on above: Order Comment: Speci men Type: BLOOD SPECIMENOrdering Facility: [facility] Address: [address] [place] [address] Performed By: #### 5 7021-8 ####[facility] LABORATORYCLIA [id number] [place] [id number] [facility] OF SHE CT BRAIN WO IVCONon 10-08-[address] BRAIN WO IVCON * * *Final Report* * * DATE OF EXAM: Oct 08 2023 7:38PM [facility] 0504 - CT BRAIN WO IVCON / PROCEDURE REASON: Dizziness, non-specific * * * * Physician Interpretation * * * * EXAMINATION: CTA NECK W IVCON, CTA HEAD W IVCON, CT BRAIN WO IVCON HISTORY: r/o dissection TECHNIQUE: Routine CT of the brain without IV contrast. Next, high resolution axial images were obtained through the head, neck and superior mediastinum following bolus administration of intravenous contrast for CT angiography. 3D maximum intensity projection images were created, reviewed and archived . MQ: CTABNPlus_4 Contrast: 80 mL Omnipaque [address] Radiation dose: Integrated Dose-Length Product (DLP) for this visit = 2483 mGy*cm. CT Dose Reduction Employed: Automated exposure control(AEC) and iterative recon (accession [id number]), Automated exposure control(AEC) and iterative recon (accession [id number]), No dose reduction techniques were required (accession [id number]) COMPARISON: CT neck 08/12/2020. RESULT: BRAIN: Acute change: No evidence of an acute infarct or other acute parenchymal process. ASPECT Score = 10 Hemorrhage: No evidence of acute intracranial hemorrhage. ECASS hemorrhagic transformation score: Not Applicable Mass Lesion / Mass Effect: There is no evidence of an intracranial mass or extra-axial fluid collection. No significant mass effect. Chronic change: Scattered patchy foci of low attenuation are present within white matter which is a nonspecific finding but likely represents mild microvascular ischemia. Parenchyma: There is no significant volume loss. The brain parenchyma is otherwise within normal limits for age. Ventricles: The ventricles are within normal limits of size and configuration for age. Other: The visualized paranasal sinuses are grossly clear. The skull and visualized extracranial soft tissues are grossly normal. Calvarial hyperostosis. 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 Curvilinear scarring and postoperative change in this region. No clear evidence of large recurrent mass. Scattered nonspecific lymph nodes in the bilateral neck mild prominent left level 2A lymph node measures up to 9 mm in short axis and is likely grossly similar to prior accounting for technical and positioning differences. Slight increase in size of some lymph nodes, for example left level IIb lymph node measures 5 mm short axis (5:180), previously 3 mm. Right level IIb lymph node measures 7 mm short axis (5:193), previously 6 mm. Subcentimeter left thyroid nodule, for which dedicated imaging follow-up is not required per institutional guidelines. Spine: Grade 1 anterolisthesis of C4 on C5.. Mild degenerative changes are present. Endplate Schmorl's node at T2, with mild contouring of superior endplate. Lung apices: Moderate upper lobe predominant centrilobular and paraseptal emphysema. Scarring in the left anterior upper lobe. CT ARTERIOGRAM: Extracranial Circulation: Aortic Arch: Common origin of the right brachiocephalic and left common carotid arteries, anatomical variation. Calcified plaque in the aortic arch and branch vessels. There is no significant stenosis in the proximal brachiocephalic vessels. Carotid Stenosis: Right Common: No significant stenosis. Right Internal Carotid Plaque: Minimal punctate calcified plaque formation. Right Internal Carotid Stenosis (% by NASCET Criteria): 0 Left Common: No significant stenosis. Left Internal Carotid Plaque: No significant plaque formation. Left Internal Carotid Stenosis (% by NASCET Criteria): 0 Cervical Vertebral Arteries: Patency: Bilateral Dominance: Left Intracranial Circulation: Anterior Circulation: Bilateral distal ICAs are patent. Minimal calcified plaque in the carotid siphons without significant stenosis. Bilateral ACAs and MCAs are patent. Slightly left dominant A1 segment. No proximal large vessel occlusion, focal high-grade stenosis, or evidence of aneurysm. Vertebrobasilar Circulation: Bilateral intradural vertebral arteries, basilar artery, and bilateral posterior cerebral arteries are patent. Relatively small vertebrobasilar system, related to configuration of bilateral teaching fellow. Bilateral superior cerebellar arteries, bilateral AICA, and left PICA are patent proximally. No proximal large vessel occlusion, focal high-grade stenosis, or evidence of aneurysm. Venous: Opacified dural venous sinuses and deep venous structures are patent. Lifestyle Block Farmer (topogram) images: No additional findings. IMPRESSION: No acute intracranial abnormality on unenhanced CT. No large vessel occlusion or high-grade stenosis in the head or neck. 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 No evidence of recurrent mass. Scattered (more content not included)... Normal [facility] CTA HEAD W IVCONon 4 CTA HEAD W IVCON * * *Final Report* * * DATE OF EXAM: Oct 08 2023 7:38PM [facility] 0022 - CTA HEAD W IVCON / PROCEDURE REASON: R/O dissection * * * * Physician Interpretation * * * * EXAMINATION: CTA NECK W IVCON, CTA HEAD W IVCON, CT BRAIN WO IVCON HISTORY: r/o dissection TECHNIQUE: Routine CT of the brain without IV contrast. Next, high resolution axial images were obtained through the head, neck and superior mediastinum following bolus administration of intravenous contrast for CT angiography. 3D maximum intensity projection images were created, reviewed and archived . MQ: CTABNPlus_4 Contrast: 80 mL Omnipaque [address] Radiation dose: Integrated Dose-Length Product (DLP) for this visit = 2483 mGy*cm. CT Dose Reduction Employed: Automated exposure control(AEC) and iterative recon (accession [id number]), Automated exposure control(AEC) and iterative recon (accession [id number]), No dose reduction techniques were required (accession [id number]) COMPARISON: CT neck 08/12/2020. RESULT: BRAIN: Acute change: No evidence of an acute infarct or other acute parenchymal process. ASPECT Score = 10 Hemorrhage: No evidence of acute intracranial hemorrhage. ECASS hemorrhagic transformation score: Not Applicable Mass Lesion / Mass Effect: There is no evidence of an intracranial mass or extra-axial fluid collection. No significant mass effect. Chronic change: Scattered patchy foci of low attenuation are present within white matter which is a nonspecific finding but likely represents mild microvascular ischemia. Parenchyma: There is no significant volume loss. The brain parenchyma is otherwise within normal limits for age. Ventricles: The ventricles are within normal limits of size and configuration for age. Other: The visualized paranasal sinuses are grossly clear. The skull and visualized extracranial soft tissues are grossly normal. Calvarial hyperostosis. 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 Curvilinear scarring and postoperative change in this region. No clear evidence of large recurrent mass. Scattered nonspecific lymph nodes in the bilateral neck mild prominent left level 2A lymph node measures up to 9 mm in short axis and is likely grossly similar to prior accounting for technical and positioning differences. Slight increase in size of some lymph nodes, for example left level IIb lymph node measures 5 mm short axis (5:180), previously 3 mm. Right level IIb lymph node measures 7 mm short axis (5:193), previously 6 mm. Subcentimeter left thyroid nodule, for which dedicated imaging follow-up is not required per institutional guidelines. Spine: Grade 1 anterolisthesis of C4 on C5.. Mild degenerative changes are present. Endplate Schmorl's node at T2, with mild contouring of superior endplate. Lung apices: Moderate upper lobe predominant centrilobular and paraseptal emphysema. Scarring in the left anterior upper lobe. CT ARTERIOGRAM: Extracranial Circulation: Aortic Arch: Common origin of the right brachiocephalic and left common carotid arteries, anatomical variation. Calcified plaque in the aortic arch and branch vessels. There is no significant stenosis in the proximal brachiocephalic vessels. Carotid Stenosis: Right Common: No significant stenosis. Right Internal Carotid Plaque: Minimal punctate calcified plaque formation. Right Internal Carotid Stenosis (% by NASCET Criteria): 0 Left Common: No significant stenosis. Left Internal Carotid Plaque: No significant plaque formation. Left Internal Carotid Stenosis (% by NASCET Criteria): 0 Cervical Vertebral Arteries: Patency: Bilateral Dominance: Left Intracranial Circulation: Anterior Circulation: Bilateral distal ICAs are patent. Minimal calcified plaque in the carotid siphons without significant stenosis. Bilateral ACAs and MCAs are patent. Slightly left dominant A1 segment. No proximal large vessel occlusion, focal high-grade stenosis, or evidence of aneurysm. Vertebrobasilar Circulation: Bilateral intradural vertebral arteries, basilar artery, and bilateral posterior cerebral arteries are patent. Relatively small vertebrobasilar system, related to configuration of bilateral teaching fellow. Bilateral superior cerebellar arteries, bilateral AICA, and left PICA are patent proximally. No proximal large vessel occlusion, focal high-grade stenosis, or evidence of aneurysm. Venous: Opacified dural venous sinuses and deep venous structures are patent. Lifestyle Block Farmer (topogram) images: No additional findings. IMPRESSION: No acute intracranial abnormality on unenhanced CT. No large vessel occlusion or high-grade stenosis in the head or neck. 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 No evidence of recurrent mass. Scattered bilateral (more content not included)... Normal [facility] CTA NECK W IVCONon 4 CTA NECK W IVCON * * *Final Report* * * DATE OF EXAM: Oct 08 2023 7:38PM [facility] 0024 - CTA NECK W IVCON / PROCEDURE REASON: r/o dissection * * * * Physician Interpretation * * * * EXAMINATION: CTA NECK W IVCON, CTA HEAD W IVCON, CT BRAIN WO IVCON HISTORY: r/o dissection TECHNIQUE: Routine CT of the brain without IV contrast. Next, high resolution axial images were obtained through the head, neck and superior mediastinum following bolus administration of intravenous contrast for CT angiography. 3D maximum intensity projection images were created, reviewed and archived . MQ: CTABNPlus_4 Contrast: 80 mL Omnipaque [address] Radiation dose: Integrated Dose-Length Product (DLP) for this visit = 2483 mGy*cm. CT Dose Reduction Employed: Automated exposure control(AEC) and iterative recon (accession [id number]), Automated exposure control(AEC) and iterative recon (accession [id number]), No dose reduction techniques were required (accession [id number]) COMPARISON: CT neck 08/12/2020. RESULT: BRAIN: Acute change: No evidence of an acute infarct or other acute parenchymal process. ASPECT Score = 10 Hemorrhage: No evidence of acute intracranial hemorrhage. ECASS hemorrhagic transformation score: Not Applicable Mass Lesion / Mass Effect: There is no evidence of an intracranial mass or extra-axial fluid collection. No significant mass effect. Chronic change: Scattered patchy foci of low attenuation are present within white matter which is a nonspecific finding but likely represents mild microvascular ischemia. Parenchyma: There is no significant volume loss. The brain parenchyma is otherwise within normal limits for age. Ventricles: The ventricles are within normal limits of size and configuration for age. Other: The visualized paranasal sinuses are grossly clear. The skull and visualized extracranial soft tissues are grossly normal. Calvarial hyperostosis. 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 Curvilinear scarring and postoperative change in this region. No clear evidence of large recurrent mass. Scattered nonspecific lymph nodes in the bilateral neck mild prominent left level 2A lymph node measures up to 9 mm in short axis and is likely grossly similar to prior accounting for technical and positioning differences. Slight increase in size of some lymph nodes, for example left level IIb lymph node measures 5 mm short axis (5:180), previously 3 mm. Right level IIb lymph node measures 7 mm short axis (5:193), previously 6 mm. Subcentimeter left thyroid nodule, for which dedicated imaging follow-up is not required per institutional guidelines. Spine: Grade 1 anterolisthesis of C4 on C5.. Mild degenerative changes are present. Endplate Schmorl's node at T2, with mild contouring of superior endplate. Lung apices: Moderate upper lobe predominant centrilobular and paraseptal emphysema. Scarring in the left anterior upper lobe. CT ARTERIOGRAM: Extracranial Circulation: Aortic Arch: Common origin of the right brachiocephalic and left common carotid arteries, anatomical variation. Calcified plaque in the aortic arch and branch vessels. There is no significant stenosis in the proximal brachiocephalic vessels. Carotid Stenosis: Right Common: No significant stenosis. Right Internal Carotid Plaque: Minimal punctate calcified plaque formation. Right Internal Carotid Stenosis (% by NASCET Criteria): 0 Left Common: No significant stenosis. Left Internal Carotid Plaque: No significant plaque formation. Left Internal Carotid Stenosis (% by NASCET Criteria): 0 Cervical Vertebral Arteries: Patency: Bilateral Dominance: Left Intracranial Circulation: Anterior Circulation: Bilateral distal ICAs are patent. Minimal calcified plaque in the carotid siphons without significant stenosis. Bilateral ACAs and MCAs are patent. Slightly left dominant A1 segment. No proximal large vessel occlusion, focal high-grade stenosis, or evidence of aneurysm. Vertebrobasilar Circulation: Bilateral intradural vertebral arteries, basilar artery, and bilateral posterior cerebral arteries are patent. Relatively small vertebrobasilar system, related to configuration of bilateral teaching fellow. Bilateral superior cerebellar arteries, bilateral AICA, and left PICA are patent proximally. No proximal large vessel occlusion, focal high-grade stenosis, or evidence of aneurysm. Venous: Opacified dural venous sinuses and deep venous structures are patent. Lifestyle Block Farmer (topogram) images: No additional findings. IMPRESSION: No acute intracranial abnormality on unenhanced CT. No large vessel occlusion or high-grade stenosis in the head or neck. 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 No evidence of recurrent mass. Scattered bilateral (more content not included)... Normal [facility] Comprehensive metabolic 2000 panelon 10-08-2023 Albumin [Mass/Vol] 4.3 g/dL Normal 3.9-4.9 [facility] ospital Comment on above: Order Comment: Speci men Type: BLOOD SPECIMENOrdering Facility: [facility] Address: [address] [place] [address] Performed By: #### 2 4323-8 ####[facility] LABORATORYCLIA [id number] [facility] [place] [address] [place] ALP [Catalytic activity/Vol] 108 U/L Normal 34-123 [facility] Comment on above: Order Comment: Speci men Type: BLOOD SPECIMENOrdering Facility: [facility] Address: [address] [place] [address] Performed By: #### 2 4323-8 ####[facility] LABORATORYCLIA [id number] [place] [address] [place] ALT [Catalytic activity/Vol] 13 U/L Normal 7-38 [facility] Comment on above: Order Comment: Speci men Type: BLOOD SPECIMENOrdering Facility: [facility] Address: [address] [id number] Performed By: #### 2 4323-8 ####[facility] LABORATORYIA [id number] [place] [address] [place] Anion gap [Moles/Vol] 12 mmol/L Normal 9-18 [facility] Comment on above: Order Comment: Speci men Type: BLOOD SPECIMENOrdering Facility: [facility] Address: [address] [place] [address] Performed By: #### 2 4323-8 ####[facility] [id number] [place] [address] [place] AST [Catalytic activity/Vol] 13 U/L Normal 13-35 [facility] Comment on above: Order Comment: Speci men Type: BLOOD SPECIMENOrdering Facility: [facility] Address: [address] [place] [address] Performed By: #### 2 4323-8 ####[facility] [id number] [place] [address] [place] Bilirubin [Mass/Vol] 0.2 mg/dL Normal 0.2-1.3 [facility] Comment on above: Order Comment: Speci men Type: BLOOD SPECIMENOrdering Facility: [facility] Address: [address] [place] [address] Performed By: #### 2 4323-8 ####[facility] [id number] [place] [address] [place] Calcium [Mass/Vol] 9.4 mg/dL Normal 8.5-10.2 [facility] ospital Comment on above: Order Comment: Speci men Type: BLOOD SPECIMENOrdering Facility: [facility] Address: [address] [place] [address] Performed By: #### 2 4323-8 ####[facility] LABORATORYCLIA [id number] [place] [address] [place] Chloride [Moles/Vol] 106 mmol/L High 97-105 [facility] Comment on above: Order Comment: Speci men Type: BLOOD SPECIMENOrdering Facility: [facility] Address: [address] [place] [address] Performed By: #### 2 4323-8 ####[facility] LABORATORYCLIA [id number] [place] [address] [place] CO2 [Moles/Vol] 25 mmol/L Normal 22-30 [facility] Comment on above: Order Comment: Speci men Type: BLOOD SPECIMENOrdering Facility: [facility] Address: [address] [place] [address] Performed By: #### 2 4323-8 ####[facility] LABORATORYCLIA [id number] [place] [address] [place] Creatinine [Mass/Vol] 0.87 mg/dL Normal 0.58-0.96 [facility] Comment on above: Order Comment: Speci men Type: BLOOD SPECIMENOrdering Facility: [facility] Address: [address] [place] [address] Performed By: #### 2 4323-8 ####[facility] LABORATORYIA [id number] [place] [address] [place] Creatinine and Glomerular filtration rate.predicted panel (S/P/Bld) 77 mL/min/1.73m??? Normal >=60 [facility] Comment on above: Order Comment: Speci men Type: BLOOD SPECIMENOrdering Facility: [facility] Address: [address] [place] [address] Result Comment: Shante mated Glomerular Filtration Rate (eGFR) is calculated using the 2020 CKD-EPI creatinine equation. This equation utilizes serum creatinine, sex, and age as parameters. The creatinine assay has traceable calibration to isotope dilution-mass spectrometry. Refer to KDIGO guidelines for clinical interpretation. In patients with unstable renal function, e.g. those with acute kidney injury, the eGFR may not accurately reflect actual GFR. Performed By: #### 2 4323-8 ####[facility] [id number] [place] [address] [place] Glucose [Mass/Vol] 132 mg/dL High 74-99 [facility] Comment on above: Order Comment: Speci men Type: BLOOD SPECIMENOrdering Facility: [facility] Address: [address] [place] [address] Result Comment: The [place] Diabetes Association (ADA) provides guidance for cutoff values for fasting glucose and random glucose. The ADA defines fasting as no caloric intake for at least 8 hours. Fasting plasma glucose results between 100 to 125 mg/dL indicate increased risk for diabetes (prediabetes). Fasting plasma glucose results greater than or equal to 126 mg/dL meet the criteria for diagnosis of diabetes. In the absence of unequivocal hyperglycemia, results should be confirmed by repeat testing. In a patient with classic symptoms of hyperglycemia or hyperglycemic crisis, random plasma glucose results greater than or equal to 200 mg/dL meet the criteria for diagnosis of diabetes. Reference: Standards of Medical Care in Diabetes 2016, [place] Diabetes Association. Diabetes Care. 2016.39(Suppl 1). Performed By: #### 2 4323-8 ####[facility]ITAL[facility] [id number] [place] [address] [place] Potassium [Moles/Vol] 3.9 mmol/L Normal 3.7-5.1 [facility] Comment on above: Order Comment: Yojana [facility] Type: BLOOD SPECIMENOrdering Facility: [facility] Address: [address] [place] [address] Performed By: #### 2 4323-8 ####[facility] LABORATORYIA [id number] [place] [address] [place] Protein [Mass/Vol] 6.9 g/dL Normal 6.3-8.0 [facility]ital Comment on above: Order Comment: Yojana hickman Type: BLOOD SPECIMENOrdering Facility: [facility] Address: [address] [place] [address] Performed By: #### 2 4323-8 ####[facility] [id number] [place] [address] [place] Sodium [Moles/Vol] 143 mmol/L Normal 136-144 [facility] Comment on above: Order Comment: Speci men Type: BLOOD SPECIMENOrdering Facility: [facility] Address: [address] [place] [address] Performed By: #### 2 4323-8 ####[facility] LABORATORYCLIA [id number] [place] [address] [place] Urea nitrogen [Mass/Vol] 20 mg/dL Normal 7-21 [facility] Comment on above: Order Comment: Speci men Type: BLOOD SPECIMENOrdering Facility: [facility] Address: [address] [place] [address] Performed By: #### 2 4323-8 ####[facility] LABORATORYCLIA [id number] [place] [address] [place] ECG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 resume taking this medication once per day. - tretinoin (RETIN-A) 0.025 % topical cream Apply pea sized amount to full dry face at bedtime. Start slowly and progress as tolerated. Problem List As Of Date 06/23/2023 Noted Resolved Transient synovitis of knee [M67.369] 03/10/2015 Localized swelling, mass or lump of neck [R22.1]06/09/2017 11/11/2021 Smoker [F17.200] 06/21/2017 Obesity with body mass index 30 or greater [E66*06/21/2017 05/19/2023 Lymphadenitis [I88.9] 06/21/2017 Perimenopause [N95.1] 06/21/2017 05/19/2023 Vitamin D deficiency [E55.9] 06/25/2017 Mild cervical dysplasia [N87.0] 07/31/2017 11/11/2021 Chronic pain of both knees [M25.561, M25.562, G*08/16/2017 Cervical dysplasia [N87.9] 07/22/2020 Anxiety [F41.9] 07/22/2020 Elevated BP without diagnosis of hypertension [*07/22/2020 03/10/2022 Chest skin lesion [L98.9] 07/22/2020 Parotid mass [K11.8] 07/22/2020 11/11/2021 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] 10/09/2020 11/11/2021 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] 10/27/2020 11/11/2021 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/2021 05/19/2023 Dizziness [R42] 08/18/2021 11/11/2021 Palpitations [R00.2] 08/18/2021 Hypertension [I10] 08/18/2021 Ventricular tachycardia (paroxysmal) (HCC) [I47*09/09/2021 Bilateral primary osteoarthritis of knee [M17.0]11/11/2021 Obesity, Class I, BMI 30-34.9 [E66.9] 11/11/2021 Encounter Status:Closed by SYDNEE KONG on 06/27/23 Normal [facility] CBC panel Auto (Bld)on 06-22 Erythrocyte distribution width (RBC) [Ratio] 12.4 % Normal 11.5-15.0 [facility] Comment on above: Order Comment: Speci men Type: BLOOD SPECIMEN Ordering Facility: [facility] Address: [address] [place] [address] Performed By: #### 5 8410-2 #### [facility] CLIA [id number] [address] [place] [address] Hematocrit (Bld) [Volume fraction] 43.2 % Normal 36.0-46.0 [facility] Comment on above: Order Comment: Speci men Type: BLOOD SPECIMEN Ordering Facility: [facility] Address: [address] [place] [address] Performed By: #### 5 8410-2 #### [facility] CLIA [id number] [address] [place] [address] Hemoglobin (Bld) [Mass/Vol] 13.7 g/dL Normal 11.5-15.5 [facility] Comment on above: Order Comment: Speci men Type: BLOOD SPECIMEN Ordering Facility: [facility] Address: [address] [place] [address] Performed By: #### 5 8410-2 #### [facility] CLIA [id number] [address] [place] [address] MCH (RBC) [Entitic mass] 29.7 pg Normal 26.0-34.0 [facility] Comment on above: Order Comment: Speci men Type: BLOOD SPECIMEN Ordering Facility: [facility] Address: [address] [place] [address] Performed By: #### 5 8410-2 #### [facility] CLIA [id number] [address] [place] [address] MCHC (RBC) [Mass/Vol] 31.7 g/dL Normal 30.5-36.0 [facility] Comment on above: Order Comment: Speci men Type: BLOOD SPECIMEN Ordering Facility: [facility] Address: [address] [place] [address] Performed By: #### 5 8410-2 #### [facility] CLIA [id number] [address] [place] [address] MCV (RBC) [Entitic vol] 93.7 fL Normal 80.0-100.0 [facility] Comment on above: Order Comment: Speci men Type: BLOOD SPECIMEN Ordering Facility: [facility] Address: [address] [place] [address] Performed By: #### 5 8410-2 #### [facility] CLIA [id number] [address] [place] [address] Nucleated RBC (Bld) [#/Vol] 10*3/uL Normal <0.01 [facility] Comment on above: Order Comment: Speci men Type: BLOOD SPECIMEN Ordering Facility: [facility] Address: [address] [place] [address] Performed By: #### 5 8410-2 #### [facility] CLIA [id number] [address] [place] [address] Platelet mean volume (Bld) [Entitic vol] 11.2 fL Normal 9.0-12.7 [facility] Comment on above: Order Comment: Speci men Type: BLOOD SPECIMEN Ordering Facility: [facility] Address: [address] [place] [address] Performed By: #### 5 8410-2 #### [facility] CLIA [id number] [address] [place] [address] Platelets (Bld) [#/Vol] 257 10*3/uL Normal 150-400 [facility] Comment on above: Order Comment: Speci men Type: BLOOD SPECIMEN Ordering Facility: [facility] Address: [address] [place] [address] Performed By: #### 5 8410-2 #### [facility] CLIA [id number] [address] [place] [address] RBC (Bld) [#/Vol] 4.61 10*6/uL Normal 3.90-5.20 [facility] Comment on above: Order Comment: Speci men Type: BLOOD SPECIMEN Ordering Facility: [facility] Address: [address] [place] [address] Performed By: #### 5 8410-2 #### [facility] CLIA [id number] [address] [place] [address] WBC (Bld) [#/Vol] 6.33 10*3/uL Normal 3.70-11.00 [facility] Comment on above: Order Comment: Speci men Type: BLOOD SPECIMEN Ordering Facility: [facility] Address: [address] [place] [address] Performed By: #### 5 8410-2 #### [facility] CLIA [id number] [address] [place] [address] CNOVon 06-22-2023 CNOV Office Visit (LOORRM ) -------- STEFFI LEONE ([id number]) 1965 F Date Time Provider Department 06/22/23 7:40 AM CHIDI GONZALEZ LOORRM During your visit today, we recorded the following information about you: Chidi Gonzalez DO 06/22/2023 8:15 AM Signed Patient presents for a left hip injection. Large Joint Arthro/Inj: L hip joint Informed Consent Consent Obtained: Verbal [place] Protocol A moment to CARE was completed. SIGN IN Personnel directly involved with the procedure wore the appropriate PPE. Special Equipment: N/A Patient/Surrogate Stated/Verified: Patient name, Date of , Relevant allergies and Intended procedure TIME OUT Intended patient and procedure match the source document(s). Relevant labs, photos, and/or imaging studies have been reviewed. Correct side/site marked and visible. Medications required for procedure verified. No fire risk assessment and interventions applicable. No implant(s) inserted. 06/22/2023 8:15 AM The procedure site was prepped in the usual sterile fashion. Site: L hip joint Details:Musculoskeletal ultrasound was utilized to successfully localize placement of the injection needle at the appropriate site. Ultrasound images demonstrating local vasculature and demonstrating injection of solution were saved. Medications: 40 mg triamcinolone acetonide 40 mg/mL Anesthetics: 4 mL lidocaine (PF) 10 mg/mL (1 %) Outcome: Tolerated well, no immediate complications Post-injection instructions were reviewed with the patient and the patient voiced understanding of these instructions. SIGN OUT All instruments, equipment, possible retained foreign bodies accounted for. (M25.552) Hip pain, acute, left (primary encounter diagnosis) Chidi Gonzalez DO 06/22/2023 Chidi Gonzalez DO 06/22/2023 7:[address] Ian James in [place] Dr. Raymundo in [place] Allergies As of Date: 06/22/2023 Noted Allergy Reaction AUGMENTIN (AMOXICILLIN-POT CLAVUL*11/24/2008 2 - Rash Comments: Not allergic to PCN or amoxicillin. Date Reviewed: 06/22/2023 Reviewed by: Chidi Gonzalez DO - Fully Assessed Reason for Visit: Pain [78] Primary Visit Diagnosis:Hip pain, acute, left [M25.552] Order(s):US HIP-INJECTION LT (POC) ISELA USE ONLY [[id number]] Order #: [id number]. #:[id number]: 1 Large Joint Arthro/Inj: L hip joint [[id number]] Order #: [id number] [] lidocaine (PF) 10 mg/mL (1 %) 4 mL injection (XYLOCAINE)Disp: Rfl: [] triamcinolone acetonide 40 mg injection (KeNALog 40)Disp: Rfl: Prescriptions as of 06/22/2023 - dextromethorphan-guaiFEN esin (MUCINEX DM) 30-600 mg per tablet Take 1 tablet by mouth two times a day. - benzocaine-menthol (CEPACOL) 15-3.6 mg lozg Use 1 Lozenge as instructed every 2 hours as needed. - meloxicam (MOBIC) 15 mg tablet Take 1 tablet by mouth every afternoon. - buPROPion SR (WELLBUTRIN SR) 150 mg 12 hr tablet Take 1 tablet by mouth two times a day. - losartan (COZAAR) 50 mg tablet Take 1 tablet by mouth once daily. - metoprolol succinate ER (TOPROL XL) 50 mg 24 hr tablet Take 1 tablet by mouth once daily. - gabapentin (NEURONTIN) 100 mg capsule Take 1 capsule by mouth three times daily for 90 days. - TURMERIC ORAL Take by mouth once daily. - Cholecalciferol, Vitamin D3, 25 mcg (1,000 unit) cap Take 1,000 Units by mouth once daily. - clindamycin (CLEOCIN) 150 mg capsule Take 4 caps 1 hour prior to dentist - aspirin, enteric coated (ECOTRIN LOW STRENGTH) 81 mg EC tablet Take 1 tablet by mouth twice daily. Take 2 tablets by mouth for 6 weeks (until 12/23/2021) then resume taking this medication once per day. - tretinoin (RETIN-A) 0.025 % topical cream Apply pea sized amount to full dry face at bedtime. Start slowly and progress as tolerated. Problem List As Of Date 06/22/2023 Noted Resolved Transient synovitis of knee [M67.369] 03/10/2015 Localized swelling, mass or lump of neck [R22.1]06/09/2017 11/11/2021 Smoker [F17.200] 06/21/2017 Obesity with body mass index 30 or greater [E66*06/21/2017 05/19/2023 Lymphadenitis [I88.9] 06/21/2017 Perimenopause [N95.1] 06/21/2017 05/19/2023 Vitamin D deficiency [E55.9] 06/25/2017 Mild cervical dysplasia [N87.0] 07/31/2017 11/11/2021 Chronic pain of both knees [M25.561, M25.562, G*08/16/2017 Cervical dysplasia [N87.9] 07/22/2020 Anxiety [F41.9] 07/22/2020 Elevated BP without diagnosis of hypertension [*07/22/2020 03/10/2022 Chest skin lesion [L98.9] 07/22/2020 Parotid mass [K11.8] 07/22/2020 11/11/2021 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] 10/09/2020 11/11/2021 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 Normal [facility] Comprehensive metabolic 2000 panelon 06-22-2023 Albumin [Mass/Vol] 4.6 g/dL Normal 3.9-4.9 [facility] Comment on above: Order Comment: Speci men Type: BLOOD SPECIMEN Ordering Facility: [facility] Address: [address] [place] [address] Performed By: #### 2 4323-8 #### [facility] CLIA [id number] [address] [place] [address] ALP [Catalytic activity/Vol] 119 U/L Normal 34-123 [facility] Comment on above: Order Comment: Speci men Type: BLOOD SPECIMEN Ordering Facility: [facility] Address: [address] [place] [address] Performed By: #### 2 4323-8 #### [facility] CLIA [id number] [address] [place] [address] ALT [Catalytic activity/Vol] 19 U/L Normal 7-38 [facility] Comment on above: Order Comment: Speci men Type: BLOOD SPECIMEN Ordering Facility: [facility] Address: [address] [place] [address] Performed By: #### 2 4323-8 #### [facility] CLIA [id number] [address] [place] [address] Anion gap [Moles/Vol] 11 mmol/L Normal 9-18 [facility] Comment on above: Order Comment: Speci men Type: BLOOD SPECIMEN Ordering Facility: [facility] Address: [address] [place], [place] [address] Performed By: #### 2 4323-8 #### [facility] CLIA [id number] [address] [place] [address] AST [Catalytic activity/Vol] 15 U/L Normal 13-35 [facility] Comment on above: Order Comment: Speci men Type: BLOOD SPECIMEN Ordering Facility: [facility] Address: [address] [place] [address] Performed By: #### 2 4323-8 #### [facility] CLIA [id number] [address] [place] [address] Bilirubin [Mass/Vol] 0.3 mg/dL Normal 0.2-1.3 [facility] Comment on above: Order Comment: Speci men Type: BLOOD SPECIMEN Ordering Facility: [facility] Address: [address] [place] [address] Performed By: #### 2 4323-8 #### [facility] CLIA [id number] [address] [place] [address] Calcium [Mass/Vol] 10.6 mg/dL High 8.5-10.2 [facility] Comment on above: Order Comment: Speci men Type: BLOOD SPECIMEN Ordering Facility: [facility] Address: [address] [place] [address] Performed By: #### 2 4323-8 #### [facility] CLIA [id number] [address] [place] [address] Chloride [Moles/Vol] 103 mmol/L Normal 97-105 [facility] Comment on above: Order Comment: Speci men Type: BLOOD SPECIMEN Ordering Facility: [facility] Address: [address] [place] [address] Performed By: #### 2 4323-8 #### [facility] CLIA [id number] [address] [place] [address] CO2 [Moles/Vol] 28 mmol/L Normal 22-30 [facility] Comment on above: Order Comment: Speci men Type: BLOOD SPECIMEN Ordering Facility: [facility] Address: [address] [place] [address] Performed By: #### 2 4323-8 #### [facility] CLIA [id number] [address] [place] [address] Creatinine [Mass/Vol] 0.83 mg/dL Normal 0.58-0.96 [facility] Comment on above: Order Comment: Speci men Type: BLOOD SPECIMEN Ordering Facility: [facility] Address: [address] [place] [address] Performed By: #### 2 4323-8 #### [facility] CLIA [id number] [address] [place] [address] Creatinine and Glomerular filtration rate.predicted panel (S/P/Bld) 82 mL/min/1.73m??? Normal >=60 [facility] Comment on above: Order Comment: Speci men Type: BLOOD SPECIMEN Ordering Facility: [facility] Address: [address] [place] [address] Result Comment: Shante mated Glomerular Filtration Rate (eGFR) is calculated using the 2020 CKD-EPI creatinine equation. This equation utilizes serum creatinine, sex, and age as parameters. The creatinine assay has traceable calibration to isotope dilution-mass spectrometry. Refer to KDIGO guidelines for clinical interpretation. In patients with unstable renal function, e.g. those with acute kidney injury, the eGFR may not accurately reflect actual GFR. Performed By: #### 2 4323-8 #### [facility] CLIA [id number] [address] [place] [address] Glucose [Mass/Vol] 105 mg/dL High 74-99 [facility] Comment on above: Order Comment: Yojana hickman Type: BLOOD SPECIMEN Ordering Facility: [facility] Address: [address] [place], [place] [address] Result Comment: The [place] Diabetes Association (ADA) provides guidance for cutoff values for fasting glucose and random glucose. The ADA defines fasting as no caloric intake for at least 8 hours. Fasting plasma glucose results between 100 to 125 mg/dL indicate increased risk for diabetes (prediabetes). Fasting plasma glucose results greater than or equal to 126 mg/dL meet the criteria for diagnosis of diabetes. In the absence of unequivocal hyperglycemia, results should be confirmed by repeat testing. In a patient with classic symptoms of hyperglycemia or hyperglycemic crisis, random plasma glucose results greater than or equal to 200 mg/dL meet the criteria for diagnosis of diabetes. Reference: Standards of Medical Care in Diabetes 2016, [place] Diabetes Association. Diabetes Care. 2016.39(Suppl 1). Performed By: #### 2 4323-8 #### [facility] CLIA [id number] [address] [place] [address] Potassium [Moles/Vol] 4.6 mmol/L Normal 3.7-5.1 [facility] Comment on above: Order Comment: Yojana hickman Type: BLOOD SPECIMEN Ordering Facility: [facility] Address: [address] [place] [address] Performed By: #### 2 4323-8 #### [facility] CLIA [id number] [address] [place] [address] Protein [Mass/Vol] 7.4 g/dL Normal 6.3-8.0 [facility] Comment on above: Order Comment: Yojana hickman Type: BLOOD SPECIMEN Ordering Facility: [facility] Address: [address] [place] [address] Performed By: #### 2 4323-8 #### [facility] CLIA [id number] [address] [place] [address] Sodium [Moles/Vol] 142 mmol/L Normal 136-144 [facility] Comment on above: Order Comment: Yojana hickman Type: BLOOD SPECIMEN Ordering Facility: [facility] Address: [address] [place] [address] Performed By: #### 2 4323-8 #### [facility] CLIA [id number] [address] [place] [address] Urea nitrogen [Mass/Vol] 18 mg/dL Normal 7-21 [facility] Comment on above: Order Comment: Yojana hickman Type: BLOOD SPECIMEN Ordering Facility: [facility] Address: [address] [place] [address] Performed By: #### 2 4323-8 #### [facility] CLIA [id number] [address] [place] [address] HbA1c (Bld)on 06-22-2023 Average glucose Estimated from glycated hemoglobin (Bld) [Mass/Vol] 120 mg/dL Normal [facility] Comment on above: Order Comment: Yojana hickman Type: BLOOD SPECIMEN Ordering Facility: [facility] Address: [address] [place] [address] Result Comment: eAG: (Estimated average glucose) is a calculated value from HgbA1c and is equal opportunity representative of the average blood glucose level in the last 2-3 month period. Performed By: #### 5 5454-3 #### [facility] CLIA [id number] [address] [place], [place] [address]K [id number] [place] [address] [place] HbA1c (Bld) [Mass fraction] 5.8 % High 4.3-5.6 [facility] Comment on above: Order Comment: Yojana hickman Type: BLOOD SPECIMEN Ordering Facility: [facility] Address: [address] [place] [address] Result Comment: [place] Diabetes Association guidelines indicate that patients with HgbA1c in the range 5.7-6.4% are at increased risk for development of diabetes, and intervention by lifestyle modification may be beneficial. HgbA1c greater or equal to 6.5% is considered diagnostic of diabetes. Performed By: #### 5 5454-3 #### [facility] CLIA [id number] [address] [place] [address] OF [place] Lipid 1996 panelon 4 Cholesterol [Mass/Vol] 183 mg/dL Normal <200 [facility] Comment on above: Order Comment: Speci men Type: BLOOD SPECIMEN Ordering Facility: [facility] Address: [address] [place] [address] Result Comment: <200 mg/dL, Desirable 200-239 mg/dL, Borderline high >239 mg/dL, High Performed By: #### 2 4331-1 #### [facility] CLIA [id number] [address] [place] [address] LAB CLIA [id number] [address] [place] [address] Cholesterol in HDL [Mass/Vol] 69 mg/dL Normal >39 [facility] Comment on above: Order Comment: Speci men Type: BLOOD SPECIMEN Ordering Facility: [facility] Address: [address] [place] [address] Result Comment: 40-5 9 mg/dL, Acceptable >59 mg/dL, High: Negative risk factor for coronary heart disease <40 mg/dL, Low: Positive risk factor for coronary heart disease Performed By: #### 2 4331-1 #### [facility] CLIA [id number] [address] [place] [address] LAB CLIA [id number] [address] [place] [address] Cholesterol in LDL [Mass/Vol] 95 mg/dL Normal <100 [facility] Comment on above: Order Comment: Speci men Type: BLOOD SPECIMEN Ordering Facility: [facility] Address: [address] [place] [address] Result Comment: <100 mg/dL, Optimal 100-129 mg/dL, Near optimal/above optimal 130-159 mg/dL, Borderline high 160-189 mg/dL, High >189 mg/dL, Very high Secondary prevention optimal LDL Cholesterol levels are recommended to be < 70 mg/dL Performed By: #### 2 4331-1 #### [facility] CLIA [id number] [address] [place] [address] LAB CLIA [id number] [address] [place] [address] Cholesterol in LDL/Cholesterol in HDL [Mass ratio] 1.38 {ratio} Normal <2.54 [facility] Comment on above: Order Comment: Speci men Type: BLOOD SPECIMEN Ordering Facility: [facility] Address: [address] [place] [address] Result Comment: Corbin osei: 1. National Cholesterol Education Program ATP III Guideline At-A-Glance Quick Desk Reference: National Heart, Lung, and Blood Andrews. National Institutes of Health. 2001: NIH Publication No. 01-3305. 2. An International Atherosclerosis Society position paper: global recommendations for the management of dyslipidemia: executive summary, Atherosclerosis. 2014: 232(2):410-413. Performed By: #### 2 4331-1 #### [facility] CLIA [id number] [address] [place] [address] LAB CLIA [id number] [address] [place] [address] Cholesterol in VLDL [Mass/Vol] 19 mg/dL Normal <30 [facility] Comment on above: Order Comment: Speci men Type: BLOOD SPECIMEN Ordering Facility: [facility] Address: [address] [place] [address] Performed By: #### 2 4331-1 #### [facility] CLIA [id number] [address] [place] [address] LAB CLIA [id number] [address] [place] [address] Cholesterol non HDL [Mass/Vol] 114 mg/dL Normal <130 [facility] Comment on above: Order Comment: Speci men Type: BLOOD SPECIMEN Ordering Facility: [facility] Address: [address] [place] [address] Result Comment: <130 mg/dL, Optimal 130-159 mg/dL, Near optimal/above optimal 160-189 mg/dL, Borderline high 190-219 mg/dL, High >219 mg/dL, Very high Secondary prevention optimal non HDL Cholesterol levels are recommended to be <100 mg/dL Performed By: #### 2 4331-1 #### [facility] CLIA [id number] [address] [place] [address] LAB CLIA [id number] [address] [place] [address] Cholesterol.total/C holesterol in HDL [Mass ratio] 2.65 {ratio} Normal <5.10 [facility] Comment on above: Order Comment: Speci men Type: BLOOD SPECIMEN Ordering Facility: [facility] Address: [address] [place] [address] Performed By: #### 2 4331-1 #### [facility] CLIA [id number] [address] [place] [address] LAB CLIA [id number] [address] [place], [place] [address] FASTING TIME 12 hrs Normal [facility] Comment on above: Order Comment: Speci men Type: BLOOD SPECIMEN Ordering Facility: [facility] Address: [address] [place] [address] Performed By: #### 2 4331-1 #### [facility] CLIA [id number] [address] [place], [place] [id number] [facility] CLIA [id number] [address] [place], [place] [address] Triglyceride [Mass/Vol] 97 mg/dL Normal <150 [facility] Comment on above: Order Comment: Speci men Type: BLOOD SPECIMEN Ordering Facility: [facility] Address: [address], [place] [address] Result Comment: <150 mg/dL, Normal 150-199 mg/dL, Borderline high 200-499 mg/dL, High >499 mg/dL, Very high Performed By: #### 2 4331-1 #### [facility] CLIA [id number] [address] [facility] [address] [address] [place] [facility] CLIA [id number] [address] [place] [address] COVID + FLU Quick Testingon 06-08-2023 SARS-CoV-2 (COVID-19) RNA PRITI+probe Ql (Unsp spec) Negative [employer] Other COVID + FLU Quick Testing Negative [employer] Other Quick Strepon 06-08-2023 S. pyogenes Org specific cx Ql (Throat) Negative [employer] Other Quick Strep [employer] Other MR Hip - left WO contraston 05-30-2023 IMPRESSION: 1. Degenerative changes at the left hip with small joint effusion, mild synovitis, and superior labral degeneration. 2. Left gluteus minimus and medius tendinosis. [facility] Date/Time: May 30 2023 8:56A Dictated by : FILIBERTO CASIANO MD This examination was interpreted and the report reviewed and electronically signed by: FILIBERTO CASIANO MD on May 30 2023 9:00AM [facility] DIVISION OF RADIOLOGY * * *Final Report* * * DATE OF EXAM: May 26 2023 4:36PM [facility] 0206 - MRI HIP WO IVCON LT / PROCEDURE REASON: Pain of left hip * * * * Physician Interpretation * * * * MRI HIP WO IVCON LT HISTORY: Pain of left hip TECHNIQUE: Multiplanar, multisequence MRI was performed including the following sequences: Coronal T1 and STIR. Axial fat sat T2. Axial oblique, coronal, and sagittal small ttkbd-bm-cqzo fat sat PD. COMPARISON: Radiographs 04/04/2023 RESULT: Left femoral head and neck morphology is normal, and bone marrow signal is preserved. There is no occult bone marrow edema or avascular necrosis. Chondral thinning at the anterior superior hip with subcortical cyst formation and surrounding edema-like signal in the superior acetabulum. There is small joint effusion with mild synovitis. Superior labral degenerative signal without discrete tear. Bone marrow signal in the remaining pelvis, contralateral proximal femur, and lower lumbar vertebral bodies is also normal. There is degenerative disc and facet disease at the distal lumbar spine which is not fully characterized on this study. The rectus abdominis adductor aponeurosis is intact. Sacroiliac joints are partially visualized with mild degenerative changes. Contralateral right hip joint is partially seen on larger pxhhl-lv-kpil images and appears maintained. There is no effusion. There is thickening of the gluteus minimus and gluteus medius tendons with intermediate T2 signal compatible with tendinosis. There is no evidence for trochanteric bursitis. The iliopsoas tendon remains within normal limits. Hamstring tendon origins are intact. Surrounding musculature of the hip is symmetric to the contralateral side without edema or atrophy. Multiple uterine fibroids. DIVISION OF RADIOLOGY Provider, [facility] - 05/30/2023 * * *Final Report* * * DATE OF EXAM: May 26 2023 4:36PM [facility] 0206 - MRI HIP WO IVCON LT / PROCEDURE REASON: Pain of left hip * * * * Physician Interpretation * * * * MRI HIP WO IVCON LT HISTORY: Pain of left hip TECHNIQUE: Multiplanar, multisequence MRI was performed including the following sequences: Coronal T1 and STIR. Axial fat sat T2. Axial oblique, coronal, and sagittal small oqmif-im-ugnc fat sat PD. COMPARISON: Radiographs 04/04/2023 RESULT: Left femoral head and neck morphology is normal, and bone marrow signal is preserved. There is no occult bone marrow edema or avascular necrosis. Chondral thinning at the anterior superior hip with subcortical cyst formation and surrounding edema-like signal in the superior acetabulum. There is small joint effusion with mild synovitis. Superior labral degenerative signal without discrete tear. Bone marrow signal in the remaining pelvis, contralateral proximal femur, and lower lumbar vertebral bodies is also normal. There is degenerative disc and facet disease at the distal lumbar spine which is not fully characterized on this study. The rectus abdominis adductor aponeurosis is intact. Sacroiliac joints are partially visualized with mild degenerative changes. Contralateral right hip joint is partially seen on larger feacr-go-kvtz images and appears maintained. There is no effusion. There is thickening of the gluteus minimus and gluteus medius tendons with intermediate T2 signal compatible with tendinosis. There is no evidence for trochanteric bursitis. The iliopsoas tendon remains within normal limits. Hamstring tendon origins are intact. Surrounding musculature of the hip is symmetric to the contralateral side without edema or atrophy. Multiple uterine fibroids. IMPRESSION IMPRESSION: 1. Degenerative changes at the left hip with small joint effusion, mild synovitis, and superior labral degeneration. 2. Left gluteus minimus and medius tendinosis. Cfo: [facility] Transcribe Date/Time: May 30 2023 8:56A Dictated by : FILIBERTO CASIANO MD This examination was interpreted and the report reviewed and electronically signed by: FILIBERTO CASIANO MD on May 30 2023 9:00AM EST [facility] MR Hip - left WO contrastOrd ered By: [facility] Provider on 05-30-2023 [facility] MR Hip - left WO contraston 05-26-2023 Radiology Study observation (narrative) [facility] MRI HIP WO IVCON LTon 2022 MRI HIP WO IVCON LT * * *Final Report* * * DATE OF EXAM: May 26 2023 4:36PM [facility] 0206 - MRI HIP WO IVCON LT / PROCEDURE REASON: Pain of left hip * * * * Physician Interpretation * * * * MRI HIP WO IVCON LT HISTORY: Pain of left hip TECHNIQUE: Multiplanar, multisequence MRI was performed including the following sequences: Coronal T1 and STIR. Axial fat sat T2. Axial oblique, coronal, and sagittal small cdgwe-hu-amdd fat sat PD. COMPARISON: Radiographs 04/04/2023 RESULT: Left femoral head and neck morphology is normal, and bone marrow signal is preserved. There is no occult bone marrow edema or avascular necrosis. Chondral thinning at the anterior superior hip with subcortical cyst formation and surrounding edema-like signal in the superior acetabulum. There is small joint effusion with mild synovitis. Superior labral degenerative signal without discrete tear. Bone marrow signal in the remaining pelvis, contralateral proximal femur, and lower lumbar vertebral bodies is also normal. There is degenerative disc and facet disease at the distal lumbar spine which is not fully characterized on this study. The rectus abdominis adductor aponeurosis is intact. Sacroiliac joints are partially visualized with mild degenerative changes. Contralateral right hip joint is partially seen on larger niqqs-qa-kcvc images and appears maintained. There is no effusion. There is thickening of the gluteus minimus and gluteus medius tendons with intermediate T2 signal compatible with tendinosis. There is no evidence for trochanteric bursitis. The iliopsoas tendon remains within normal limits. Hamstring tendon origins are intact. Surrounding musculature of the hip is symmetric to the contralateral side without edema or atrophy. Multiple uterine fibroids. IMPRESSION: 1. Degenerative changes at the left hip with small joint effusion, mild synovitis, and superior labral degeneration. 2. Left gluteus minimus and medius tendinosis. Cfo: MARIA L Transcribe Date/Time: May 30 2023 8:56A Dictated by : FILIBERTO CASIANO MD This examination was interpreted and the report reviewed and electronically signed by: FILIBERTO CASIANO MD on May 30 2023 9:00AM EST [id number] Normal [facility] CNCOon 05-22-2023 CNCO HNO ID: [id number] Author: Coordinator, Mammography Service: ? Author Type: Physician Type: Letter Filed: 05/23/2023 11:32 PM Note Text: May 23, 2023 PID: [id number] Steffi Leone [address] [place] [address] Dear Ms. Leone, We are pleased to inform you that the results of your recent breast imaging exam on 05/19/2023 are normal. Early detection of cancer is very important. We also understand recommendations regarding breast cancer screening are controversial. Please discuss with your primary care provider which strategy is best for you and whether a mammogram is right for you. Your imaging studies and report will be kept on file at [facility] as part of your permanent medical record and are available for your continuing care. Thank you for allowing us to help in meeting your health care needs. Sincerely, Dr. Amaro Interpreting Radiologist [facility] (Normal over 40) Normal [facility] CNOVon 05-19-2023 CNOV Office Visit (INTMLN ) -------- STEFFI LEONE ([id number]) 1965 F Date Time Provider Department 05/19/23 1:00 PM MICHELLE CARRILLO INTMLN During your visit today, we recorded the following information about you: Pulse Blood pressure Weight 70/minute 135/85 82.6 kg Michelle Carrillo, GAS WELL DRILLING MANAGER.CREDIT AUTHORIZER 05/19/2023 3:37 PM Signed Steffi Leone is a 58 year old female presenting today for physical exam. She was previously followed by primary care in [place], has not had a physical exam for a few years. Her main concern is chronic knee and more recent hip pain for which she follows with orthopedics. Would like a refill on Mobic which she does not use daily but has used long-term with some relief when used. Is currently scheduling to get a hip MRI to rule out a tear, has had partial knee replacements and told that the hardware is loose and at this point no further appointments for the knees. She has had intended weight loss over the past year with decreasing her caloric intake and has lost 8 pounds. Her exercise is limited due to orthopedic issues. Hypertension-BP is slightly above goal but trended down during office visit. She has a home cuff but is not using it. She has a history of palpitations that have not been bothersome more recently. Overdue for routine follow-up with cardiology and would like to schedule that today. Tobacco use-smoking on average 5 cigarettes or so per day, had been using Wellbutrin only once a day because she was not sure when she needed refill but is planning to take it twice a day as previously ordered and try to stop smoking Anxiety that is controlled with Wellbutrin 150 mg twice daily ACTIVE PROBLEM LIST Transient Synovitis of Knee Smoker Lymphadenitis Vitamin D Deficiency Chronic Pain of Both Knees Cervical Dysplasia Anxiety Chest Skin Lesion Palpitations Hypertension Ventricular Tachycardia (Paroxysmal) (Hcc) Bilateral Primary Osteoarthritis of Knee Obesity, Class I, Bmi 30-34.9 FAMILY HISTORY Problem Relation Age of Onset Thyroid Mother Hypothyroidism Hypertension Mother Arthritis Mother Rheumatoid Arthritis other (Other unknown) Father Cancer Maternal Grandmother Lung Cancer Breast Cancer Paternal Grandmother Anesthesia Problems No Family History PAST SURGICAL HISTORY Procedure Laterality Date SECTION HX 1990 COLPOSCOPY WCERVICAL BIOPSY ANDOR CURETTAGE N/A 09/23/2020 Pap 08/09/2020 Low Grade YANIRA, + HPV PAST SURGICAL HISTORY OF lesion removed from neck UNLISTED PROC, POLYETHYLENE EXCHANGE FOR A PARTIAL [place] ([place] [address]) Bilateral Social History Tobacco Use Smoking status: Every Day Packs/day: 0.50 Years: 37.00 Additional pack years: 0.00 Total pack years: 18.50 Types: Cigarettes Start date: 1983 Smokeless tobacco: Never Vaping Use Vaping Use: Never used Substance Use Topics Alcohol use: Yes Alcohol/week: 4.0 standard drinks of alcohol Types: 4 Glasses of Wine (5oz) per week Comment: 2-3 times a year Drug use: Never She is single and has adult children that she sees periodically, 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 Enjoys taking care of her many pets and reading. REVIEW of SYSTEMS: GENERAL: Negative for significant weight loss and fever. HEENT: Negative for frequent or significant headaches, significant changes in vision or vision problems, significant ear problems or hearing loss, nasal discharge or nose bleeds and sore throat, difficulty swallowing, mouth lesions. NECK: Negative for lumps, goiter, pain and significant neck swelling. RESPIRATORY: Negative for cough, wheezing and shortness of breath. CARDIOVASCULAR: Negative for chest pain, leg swelling and palpitations. GASTROINTESTINAL: Negative for abdominal discomfort, blood in stools or black stools, change in stool and reflux. GENITOURINARY: Negative for dysuria, frequency and incontinence. WICKER WORKER: Negative for abnormal vaginal bleeding, abnormal vaginal discharge and breast symptoms. MUSKULOSKELETAL: See above NEUROLOGIC: Negative for focal numbness or weakness, headaches and dizziness. SKIN:Negative for lesions, rash, and itching. PSYCHIATRIC: Negative for sleep disturbance, mood disorder and recent psychosocial stressors. HEMATOLOGIC/LYMPHATIC/IM MUNOLOGIC:Negative for prolonged bleeding, bruising easily, and swollen nodes. ENDOCRINE: Negative for cold or heat intolerance, polyuria, polydipsia. PHYSICAL EXAMINATION: BP 135/85 Pulse 70 Wt 82.6 kg (182 lb 3.4 oz) LMP 02/25/2015 SpO2 98% BMI 32.28 kg/m? Last 3 Encounter Wt Readings: Date: Wt: 05/19/2023 82.6 kg (182 lb 3.4 oz) 04/04/2023 82.1 kg (181 lb) 01/10/2023 86.2 kg (190 lb) GENERAL APPEARANCE: Normal, healthy, cooperative, in no acute distress, alert. SKIN: Skin color, texture, turgor normal. No suspicious rashes or lesions. HEAD: Normocep (more content not included)... Normal [facility] SCREENINGon 05-19-2023 [facility] SCREENING * * *Final Report* * * DATE OF EXAM: May 19 2023 3:54PM [facility] 0581 - [facility] SCREENING / PROCEDURE REASON: Encounter for screening mammogram for breast cancer * * * * Physician Interpretation * * * * RESULT: #[id number] - [facility] SCREENING BILATERAL DIGITAL SCREENING MAMMOGRAM WITH CAD: 05/19/2023 HISTORY: Encounter For Screening Mammogram For Breast Cancer / Screening Mammogram-Patient reports NO symptoms. RESULT: TECHNIQUE: The study was acquired using full field digital technology and interpreted from soft copy. Current study was also evaluated with a Computer Aided Detection (CAD). Comparison is made to exams dated: 07/19/2017 mammogram - [facility], 03/17/2021 mammogram - [facility], and 06/21/2022 mammogram - [facility]. There are scattered areas of fibroglandular density. No significant masses, calcifications, or other findings are seen in either breast. There has been no significant interval change. IMPRESSION: NEGATIVE There is no mammographic evidence of malignancy. A 1 year screening mammogram is recommended. Kaitlin hogan/oli:05/22/2023 12:49:11 Sort Line(s): Elvin Soto [facility] letter sent: Normal over 40 Mammogram BI-RADS: 1 Negative Multiple national specialty organizations have released breast cancer screening guidelines for women at average risk for developing breast cancer - guidelines that are based on both evidence and opinion, yet differ on when to start and how often to screen for breast cancer. With representation from Breast Imaging, Internal Medicine, Women's Health, Family Medicine, and Medical/Surgical Oncology, the [facility] has carefully reviewed the data and reached the following consensus: 1) All women should engage in shared decision-making with their providers to decide when to start and how often to screen; 2) All women should have the opportunity to start screening mammography at age 40; 3) For women ages 45-55, we recommend annual screening mammograms; 4) For women ages 55 and over, we support both the transition from an annual to a biennial interval if this aligns more with patient's values and preferences, or continuation with annual screening; 5) All women should discuss with their providers when to stop screening mammograms. Cfo: Oli Transcribe Date/Time: May 19 2023 3:30P Dictated by : KAITLIN AMARO MD This examination was interpreted and the report reviewed and electronically signed by: KAITLIN AMARO MD on May 22 2023 12:49PM EST [id number] Normal [facility] XR LEG FRONTAL HIP TO ANKLE MECHANICAL AXISon 01-19-2023 [facility] SYNOVIAL FLUID, ROUTINEon Clarity (Unsp spec) Slightly Cloudy Abnormal Clear [facility] Clarity (Unsp spec) Clear Clear [facility] Color (Syn fld) Slightly bloody Abnormal Yellow [facility] Color (Syn fld) Yellow Yellow [facility] RBC Manual cnt (Syn fld) [#/Vol] 5000 /uL High <2,000 /uL [facility] Specimen source Nom (Unsp spec) KNEE LEFT, SYNOVIAL FLUID [facility] WBC Manual cnt (Syn fld) [#/Vol] 159 /uL 0 - 200 /uL [facility] XR Knee - bilateral 4 Viewso n 12-27-2022 IMPRESSION: Mild degenerative change. Tiny joint effusions. Hardware appears intact Cfo: MARIA L Transcribe Date/Time: Dec 27 2022 8:27A Dictated by : VICKI OWENS MD This examination was interpreted and the report reviewed and electronically signed by: VICKI OWENS MD on Dec 27 2022 8:29AM EST DIVISION OF RADIOLOGY * * *Final Report* * * DATE OF EXAM: Dec 22 2022 1:33PM SVX [id number] - XR KNEE 4V AP/PA/LAT/[facility] JENA / PROCEDURE REASON: History of prosthetic unicompartmental arthroplasty of both knees * * * * Physician Interpretation * * * * XR KNEE 4V AP/PA/LAT/[facility] JENA PROVIDED HISTORY: History of prosthetic unicompartmental arthroplasty of both knees COMPARISON: 03/18/2022 TECHNIQUE: 4 views RESULT: Medial compartment unipolar prosthesis noted. Osteopenia suggested. Osseous alignment appears intact. Mild patellofemoral compartment narrowing noted bilaterally with tiny joint effusions. DIVISION OF RADIOLOGY Provider, Evelyn naylor Andrews - 12/27/2022 * * *Final Report* * * DATE OF EXAM: Dec 22 2022 1:33PM SVX [id number] - XR KNEE 4V AP/PA/LAT/MERCH JENA / PROCEDURE REASON: History of prosthetic unicompartmental arthroplasty of both knees * * * * Physician Interpretation * * * * XR KNEE 4V AP/PA/LAT/MERCH JENA PROVIDED HISTORY: History of prosthetic unicompartmental arthroplasty of both knees COMPARISON: 03/18/2022 TECHNIQUE: 4 views RESULT: Medial compartment unipolar prosthesis noted. Osteopenia suggested. Osseous alignment appears intact. Mild patellofemoral compartment narrowing noted bilaterally with tiny joint effusions. IMPRESSION IMPRESSION: Mild degenerative change. Tiny joint effusions. Hardware appears intact [facility] Trans[facility] Date/Time: Dec 27 2022 8:27A Dictated by : VICKI OWENS MD This examination was interpreted and the report reviewed and electronically signed by: VICKI OWENS MD on Dec 27 2022 8:29AM EST [facility] XR Knee - bilateral 4 ViewsO rdered By: [facility] Provider on 12-27-2022 [facility] SYNOVIAL FLUID, ROUTINEon Clarity (Unsp spec) Cloudy Abnormal Clear [facility] Clarity (Unsp spec) Clear Clear [facility] Color (Syn fld) Bloody Abnormal Yellow [facility] Color (Syn fld) Amanda Abnormal Yellow [facility] RBC Manual cnt (Syn fld) [#/Vol] [id number] /uL High <2,000 /uL [facility] Specimen source Nom (Unsp spec) KNEE RIGHT SYNOVIAL FLUID [facility] WBC Manual cnt (Syn fld) [#/Vol] 427 /uL High 0 - 200 /uL [facility] XR Knee - bilateral 4 Viewso n 12-22-2022 Radiology Study observation (narrative) [facility] NM BONE 3 PHASEon 12-12-2022 NM BONE 3 PHASE * * *Final Report* * * DATE OF EXAM: Dec 12 2022 3:45PM [facility] 0009 - NM BONE 3 PHASE / PROCEDURE REASON: Pain due to internal orthopedic prosthetic devices, implants and grafts, initial * * * * Physician Interpretation * * * * THREE PHASE BONE SCAN CLINICAL HISTORY: Bilateral unicompartmental knee replacement, suspect bilateral loosening TECHNIQUE: 22.1 mCi 99mTc MDP IV. Immediate blood flow, blood pool, and delayed images 3-4 hours post injection of the knees were obtained. RESULT: Flow images are somewhat suboptimal due to the count density. Blood pool images demonstrate moderate hyperintense increase uptake in the periprosthetic right tibial medial compartment, and at least moderate increased uptake in the left Delayed images demonstrate intense periprosthetic increased uptake in the medial tibial plateau on the right, and moderate hyperintense on the left. Mild uptake at the bilateral patellofemoral joints. IMPRESSION: Three-phase increased periprosthetic uptake at the medial bilateral tibial plateaus, more prominent on the right. The findings are suspicious for prostheses loosening, in the appropriate clinical setting. If there is a clinical concern for an infectious process, evaluation with a dual tracer (In-labeled leukocytes and sulfur colloid) SPECT-CT scan may be performed. COMMUNICATION: Communicated with the requesting clinical service on 12/13/2022 7:42 AM via [employer] staff message. Cfo: MARIA L Transcribe Date/Time: Dec 13 2022 7:37A Dictated by : JESUS HINDS MD This examination was interpreted and the report reviewed and electronically signed by: JESUS HINDS MD on Dec 13 2022 7:42AM EST [id number] [facility] Telephone (AVXRMO) -------- STEFFI LEONE ([id number]) 1965 F Date Time Provider Department 12/09/22 JEMMA BALDWINXRBALAJI During your visit today, we recorded the following information about you: Jemma Baldwin, RT(R) 12/09/2022 2:15 PM Signed Spoke with patient confirming arrival of 10:30. Explained test and let her no no prep or restrictions. Reminded her there are two appointments with the second being at 14:30. Allergies As of Date: 12/09/2022 Noted Allergy Reaction AUGMENTIN (AMOXICILLIN-POT CLAVUL*11/24/2008 2 - Rash Comments: Not allergic to PCN or amoxicillin. Date Reviewed: 11/30/2022 Reviewed by: JUDY Bryant - Fully Assessed Reason for Visit: Radiology NM [3507] Cmt: Appointment reminder. Prescriptions as of 12/09/2022 - buPROPion SR (ZYBAN SR; WELLBUTRIN SR) 150 mg 12 hr tablet Take 1 tablet by mouth twice daily. - gabapentin (NEURONTIN) 100 mg capsule Take 1 capsule by mouth three times daily for 90 days. - traMADol (ULTRAM) 50 mg tablet Take 1 tablet by mouth every 8 hours as needed for pain. - TURMERIC ORAL Take by mouth once daily. - metoprolol succinate ER (TOPROL XL) 50 mg 24 hr tablet Take 1 tablet by mouth once daily. - losartan (COZAAR) 50 mg tablet Take 1 tablet by mouth once daily. - Cholecalciferol, Vitamin D3, 25 mcg (1,000 unit) cap Take 1,000 Units by mouth once daily. - clindamycin (CLEOCIN) 150 mg capsule Take 4 caps 1 hour prior to dentist - aspirin, enteric coated (ECOTRIN LOW STRENGTH) 81 mg EC tablet Take 1 tablet by mouth twice daily. Take 2 tablets by mouth for 6 weeks (until 12/23/2021) then resume taking this medication once per day. - senna-docusate (SENOKOT-S) 8.6-50 mg per tablet Take 2 tablets by mouth twice daily. - naloxone 4 mg/actuation nasal spray (NARCAN) Use 1 spray in one nostril as needed for overdose. May repeat every 2 to 3 min in alternating nostrils until medical assistance is available - tretinoin (RETIN-A) 0.025 % topical cream Apply pea sized amount to full dry face at bedtime. Start slowly and progress as tolerated. Facility-Administered Medications as of 12/09/2022 - perflutren lipid microspheres 1.3 mL in NaCl (PF) 0.9% 10 mL injection (DEFINITY) - sodium chloride 0.9 % (flush) 10 mL (BD POSIFLUSH) Problem List As Of Date 12/09/2022 Noted Resolved Transient synovitis of knee [M67.369] 03/10/2015 Localized swelling, mass or lump of neck [R22.1]06/09/2017 11/11/2021 Smoker [F17.200] 06/21/2017 Obesity with body mass index 30 or greater [E66*06/21/2017 Lymphadenitis [I88.9] 06/21/2017 Perimenopause [N95.1] 06/21/2017 Vitamin D deficiency [E55.9] 06/25/2017 Mild cervical dysplasia [N87.0] 07/31/2017 11/11/2021 Chronic pain of both knees [M25.561, M25.562, G*08/16/2017 Cervical dysplasia [N87.9] 07/22/2020 Anxiety [F41.9] 07/22/2020 Elevated BP without diagnosis of hypertension [*07/22/2020 03/10/2022 Chest skin lesion [L98.9] 07/22/2020 Parotid mass [K11.8] 07/22/2020 11/11/2021 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] 10/09/2020 11/11/2021 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] 10/27/2020 11/11/2021 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/2021 Dizziness [R42] 08/18/2021 11/11/2021 Palpitations [R00.2] 08/18/2021 Hypertension [I10] 08/18/2021 Ventricular tachycardia (paroxysmal) (HCC) [I47*09/09/2021 Bilateral primary osteoarthritis of knee [M17.0]11/11/2021 Obesity, Class I, BMI 30-34.9 [E66.9] 11/11/2021 Encounter Status:Closed by JEMMA BALDWIN on 12/09/22 [facility] XR KNEE POST OP 3V AP/LAT/ME RCHANT BILATon 11-30-2022 [facility] JOCELYNE SCREENINGon 06-21-2022 [facility] C-REACTIVE PROTEIN (CRP)on 1 CRP [Mass/Vol] 0.7 mg/dL <0.9 mg/dL [facility] No Panel Informationon 03-18 [facility] No Panel Informationon 09-08 [facility] XR LEG FRONTAL HIP TO ANKLE MECHANICAL AXISon 08-04-2021 [facility] XR Knee - left 4 Viewson IMPRESSION: Bilateral knee degenerative arthritis. Moderate left knee joint effusion. Cfo: PSCB Transcribe Date/Time: May 01 2020 3:59P Dictated by : JAGDISH SAWYER MD This examination was interpreted and the report reviewed and electronically signed by: JAGDISH SAWYER MD on May 01 2020 4:00PM [facility] DIVISION OF RADIOLOGY * * *Final Report* * * DATE OF EXAM: May 01 2020 3:22PM LZX 5202 - XR KNEE 4V AP/PA BOTH+LAT/JAMARCUS LT / PROCEDURE REASON: Pain * * * * Physician Interpretation * * * * HISTORY: Pain . left knee pain TECHNIQUE: XR KNEE 4V AP/PA BOTH+LAT/JAMARCUS LT Laterality: LEFT Number of different views (projections): 4 COMPARISON: Radiographs dated 08/10/2017 RESULT: There is no acute fracture or dislocation. There is bilateral knee degenerative arthritis with joint space narrowing and tricompartmental marginal osteophytes, more advanced on the right. There is a moderate left knee joint effusion. There is no soft tissue swelling. No other significant abnormality. DIVISION OF RADIOLOGY Provider, Evelyn Francisco - 05/01/2020 * * *Final Report* * * DATE OF EXAM: May 01 2020 3:22PM LZX 5202 - XR KNEE 4V AP/PA BOTH+LAT/JAMARCUS LT / PROCEDURE REASON: Pain * * * * Physician Interpretation * * * * HISTORY: Pain . left knee pain TECHNIQUE: XR KNEE 4V AP/PA BOTH+LAT/JAMARCUS LT Laterality: LEFT Number of different views (projections): 4 COMPARISON: Radiographs dated 08/10/2017 RESULT: There is no acute fracture or dislocation. There is bilateral knee degenerative arthritis with joint space narrowing and tricompartmental marginal osteophytes, more advanced on the right. There is a moderate left knee joint effusion. There is no soft tissue swelling. No other significant abnormality. IMPRESSION IMPRESSION: Bilateral knee degenerative arthritis. Moderate left knee joint effusion. Cfo: PSCB Transcribe Date/Time: May 01 2020 3:59P Dictated by : JAGDISH SAWYER MD This examination was interpreted and the report reviewed and electronically signed by: JAGDISH SAWYER MD on May 01 2020 4:00PM EST [facility] Radiology Study observation (narrative) [facility] XR Knee - left 4 ViewsOrdere d By: [facility] Provider on 05-01-2020 [facility] No Panel Information [facility] Vital Signs Date Time Vital Sign Value Performing Clinician Facility 03-01-2024 08:32-0400 Body mass index (BMI) [Ratio] 29.02 kg/m2 Michelle Carrillo APRN.CNP Work Phone: [facility] 03-01-2024 08:32-0400 Body temperature 97.7 [degF] Michelle Carrillo APRN.CNP Work Phone: [facility] 03-01-2024 08:32-0400 Body weight 74.3 kg Michelle Carrillo APRN.CNP Work Phone: [facility] 03-01-2024 08:32-0400 Diastolic blood pressure 78 mm[Hg] Michelle Carrillo APRN.CNP Work Phone: [facility] 03-01-2024 08:32-0400 Heart rate 74 /min Michelle Carrillo APRN.CNP Work Phone: [facility] 03-01-2024 08:32-0400 SaO2% (BldA) [Mass fraction] 99 % Michelle Carrillo GAS WELL DRILLING MANAGER.CREDIT AUTHORIZER Work Phone: [facility] 03-01-2024 08:32-0400 Systolic blood pressure 126 mm[Hg] Michelle Carrillo GAS WELL DRILLING MANAGER.CREDIT AUTHORIZER Work Phone: [facility] 12-14-2023 07:46-0400 Body height 160 cm Jan Reynoso MD Work Phone: [facility] 12-14-2023 07:46-0400 Body mass index (BMI) [Ratio] 29.52 kg/m2 Jan Reynoso MD Work Phone: [facility] 12-14-2023 07:46-0400 Body temperature 98.1 [degF] Jan Reynoso MD Work Phone: [facility] 12-14-2023 07:46-0400 Body weight 75.6 kg Jan Reynoso MD Work Phone: [facility] 12-14-2023 07:46-0400 Diastolic blood pressure 92 mm[Hg] Jan Reynoso MD Work Phone: [facility] 12-14-2023 07:46-0400 Heart rate 62 /min Jan Reynoso MD Work Phone: [facility] 12-14-2023 07:46-0400 SaO2% (BldA) [Mass fraction] 98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 above: 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 [Z96.653] Start: 12-12-2022 ambulatory [facility] Facility:[facility] Start: 12-12-2022 End: 12-12-2022 Subsequent hospital visit by physician [facility] Work Phone: [facility] Radiology Molecular Start: 12-12-2022 ambulatory [facility] Facility:[facility] Start: 12-12-2022 End: 12-12-2022 Subsequent hospital visit by physician [facility] Work Phone: [facility] Radiology Molecular Comment on above: Pain due to internal orthopedic prosthetic devices, implants and grafts, initial encounter (HCC) [T84.84XA] Start: 12-09-2022 Telephone encounter Jemma Dhillon(R) [facility] Radiology Molecular Comment on above: Radiology NM (Appoin tment reminder.) Start: 12-07-2022 End: 12-07-2022 ambulatory Blanquita Leon FLEMING Work Phone: Orthopaedics Comment on above: Pain due to internal orthopedic prosthetic devices, implants and grafts, initial encounter (HCC) (Primary Dx) Start: 12-07-2022 End: 12-07-2022 Telemedicine consultation with patient Blanquita Leon FLEMING Work Phone: [facility] Start: 11-30-2022 End: 11-30-2022 Refill Elvin Zavala APRN.CNP Work Phone: [facility] [place] Comment on above: Refill Request (Bupr oprion Until Appointment) 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 (Primary Dx) Start: 11-16-2022 ambulatory Elvin Sheha n G[employer] WELL DRILLING MANAGER.CREDIT AUTHORIZER Work Phone: [facility] [place] Comment on above: PHMA/Care Gap Outrea ch Start: 09-28-2022 Refill Elvin pedersen APRN.CREDIT AUTHORIZER Work Phone: [facility] [place] Comment on above: Refill Request Start: 08-14-2022 MC Get Medical Advice Mitch Tim MD Work Phone: Orthopaedics Comment on above: Re-fill Start: 06-23-2022 End: 06-23-2022 Patient encounter procedure Beltran Murillo MD Work Phone: Pain Management Comment on above: Bilateral primary os teoarthritis of knee (Primary Dx); Chronic pain of both knees Start: 06-22-2022 Documentation procedure Mammog juni Coordinator [facility] Start: 06-22-2022 Letter encounter Mammography Coordinator [facility] Start: 06-21-2022 End: 06-21-2022 Subsequent hospital visit by physician Screen/Diag Mammo [facility] 2 Work Phone: [facility] Radiology Mammography Comment on above: Encounter for screen ing mammogram for breast cancer [Z12.31] Start: 06-21-2022 ambulatory [facility] Radiology Mammography Comment on above: Radiology Mammogram Start: 06-21-2022 Patient encounter procedure [facility] Start: 06-17-2022 End: 06-17-2022 Patient encounter procedure Mitch Tim MD Work Phone: Orthopaedics Comment on above: Pain due to knee calvin nt prosthesis, subsequent encounter (Primary Dx) Start: 05-25-2022 ambulatory Jean-Pierre varma MD Work Phone: Otolaryngology Comment on above: Knee pain Start: 05-12-2022 ambulatory Elvin pedersen APRN.CREDIT AUTHORIZER Work Phone: [facility] [place] Comment on above: PHMA/Care Gap Outrea ch Start: 05-09-2022 Telephone encounter Beltran Murillo MD Work Phone: Pain Management Comment on above: Post Op; Schedule In jection Start: 04-20-2022 ambulatory Elvin pedersen CREDIT AUTHORIZER Work Phone: [facility] [place] Start: 04-08-2022 ambulatory Beltran hoffman MD Work Phone: Pain Management Comment on above: Procedure Start: 03-18-2022 End: 03-18-2022 Subsequent hospital visit by physician [facility]r [facility] Work Phone: Radiology Comment on above: S/P bilateral unicom partmental knee replacement [Z96.653] Start: 03-18-2022 End: 03-18-2022 Patient encounter procedure Mitch Tim MD Work Phone: Orthopaedics Comment on above: S/P bilateral unicom partmental knee replacement (Primary Dx); Pain due to knee joint prosthesis, subsequent encounter Start: 03-10-2022 Telephone encounter Beltran Murillo MD Work Phone: Pain Management Comment on above: Future Appointment ( Surgery with Dr. Murillo); Schedule Injection Start: 02-17-2022 ambulatory Kush Sultana Work Phone: Cardiology Comment on above: No cancellation Cancel Procedure Start: 02-15-2022 MC Get Medical Advice [facility] Provider I [facility] Apurva Garrison Comment on above: Re- fill medication not submitted Medication Re-fill Start: 02-04-2022 End: 02-04-2022 Patient encounter procedure Mitch Tim MD Work Phone: Orthopaedics Comment on above: S/P bilateral unicom partmental knee replacement (Primary Dx) Start: 01-25-2022 End: 01-25-2022 Patient encounter procedure Beltran Murillo MD Work Phone: Pain Management Comment on above: Pain due to knee calvin nt prosthesis, initial encounter ([facility]) Refill Request Start: 01-25-2022 Telephone encounter Beltran Murillo MD Work Phone: Pain Management Comment on above: Injections Start: 01-14-2022 End: 01-14-2022 Patient encounter procedure Mitch Tim MD Work Phone: Orthopaedics Comment on above: H/O total knee repla cement, bilateral (Primary Dx); Pain due to knee joint prosthesis, initial encounter ([facility]) Start: 01-06-2022 Orders Only Blanquita Betina tinoco PA-C Work Phone: Orthopaedics Comment on above: S/P bilateral unicom partmental knee replacement (Primary Dx) Start: 12-25-2021 ambulatory Mitch Sultana Work Phone: Orthopaedics Comment on above: Antibiotic script Start: 12-21-2021 Get Medical Advice Mitch Tim MD Work Phone: Orthopaedics Comment on above: Medication re-fill Start: 12-01-2021 Refill Mitch Sultana Work Phone: [facility] Provider Adult Comment on above: Refill Request Medication re-fill Start: 11-23-2021 Telephone encounter Mitch Farris ra, MD Work Phone: [address] [place] [address] Comment on above: Electronic Communica tion Start: 11-23-2021 End: 11-23-2021 ambulatory Mitch Tim MD Work Phone: Orthopaedics Comment on above: Status post bilatera l knee replacements (Primary Dx) Start: 11-23-2021 End: 11-23-2021 Telemedicine consultation with patient Mitch Tim MD Work Phone: TERESITA BOTELLO [facility] Start: 11-19-2021 End: 11-19-2021 Orders Only Mitch Tim MD Work Phone: Orthopaedics Comment on above: Leg swelling (Primar y Dx); Status post bilateral knee replacements Status post bilatera l knee replacements (Primary Dx) Home Care (Decline ) Start: 11-18-2021 Telephone encounter Mitch Farris ra, MD Work Phone: [facility] Comment on above: Patient Update/Bilat Knee and leg swelling Home Care (Confirmat ion Call) Start: 11-17-2021 Telephone encounter Mitch Farris ra, MD Work Phone: Orthopaedics Comment on above: bilat knee pain/ S/P replacement Start: 11-15-2021 Telephone encounter Mitch Farris ra, MD Work Phone: Orthopaedics Comment on above: Pt requests in home PT Start: 10-20-2021 ambulatory Amaya Martel RN Orthopaed ics Start: 09-09-2021 Telephone encounter Elvin Lindquist ivonne YODERCREDIT AUTHORIZER Work Phone: Internal Medicine [place] Comment on above: Question (about her cardio appt completed today) Start: 09-09-2021 End: 09-09-2021 Patient encounter procedure Kush Robert MD Work Phone: Cardiology Comment on above: Palpitations (Primar y Dx); Ventricular tachycardia (paroxysmal) (HCC); Primary hypertension; Obesity, Class I, BMI 30-34.9; Smoker; Pre-op evaluation; Dizziness Start: 09-09-2021 End: 09-09-2021 Preprocedural examination done Kush Robert MD Work Phone: Cardiology Start: 09-08-2021 End: 09-08-2021 Subsequent hospital visit by physician Injection N[facility] Work Phone: Nuclear Medicine Comment on above: Encounter for screen ing for cardiovascular disorders [Z13.6] Start: 08-04-2021 End: 08-04-2021 Subsequent hospital visit by physician [facility] Work Phone: Radiology Comment on above: Bilateral primary os teoarthritis of knee [M17.0] Start: 07-22-2020 Patient encounter status Kush Robert MD Work Phone: [facility] Work Phone: Start: 05-01-2020 End: 05-01-2020 Subsequent hospital visit by physician Oliva [facility] 1 Work Phone: Radiology Comment on above: Pain [R52] Procedures Date Procedure Procedure Detail Performing Clinician Start: 03-01-2024 Adult depression screening assessment Jan Reynoso MD Work Phone: Start: 02-13-2024 HEARING TEST/AUDIOGRAM Mary Mojica MD Work Phone: Start: 12-21-2023 Arthrocentesis aspir&/inj major jt/bursa w/us Chidi D Gonzalez DO Work Phone: Start: 12-21-2023 Arthrocentesis aspir&/inj major jt/bursa w/us Chidi D Gonzalez DO Work Phone: Start: 11-06-2023 Mri brain brain stem w/o w/contrast material Alfonzo Hays G[employer] WELL DRILLING MANAGER.CREDIT AUTHORIZER Work Phone: Start: 10-04-2023 Radiologic exam knee complete 4/more views Oh Jade DO Work Phone: Start: 09-29-2023 Radex spine cervical 2 or 3 views Michelle Carrillo G[employer] WELL DRILLING MANAGER.CREDIT AUTHORIZER Work Phone: Start: 07-20-2023 Radiologic exam knee complete 4/more views Gabino Rose PA-C Work Phone: Start: 07-18-2023 Ecg routine ecg w/least 12 lds i&r only [facility] Provider Start: 06-22-2023 Lipid 1996 panel - Serum or Plasma Ria Patel G[employer] WELL DRILLING MANAGER.CREDIT AUTHORIZER Work Phone: Start: 05-26-2023 Mri any jt lower extrem w/o contrast matrl Gabino Rose PA-C Work Phone: Start: 01-19-2023 Arthrocentesis aspir&/inj major jt/bursa w/o us Mitch Tim MD Work Phone: Start: 01-19-2023 Bone length studies Blanquita Quintero PA-C Work Phone: Start: 01-02-2023 Arthrocentesis aspir&/inj major jt/bursa w/o us Blanquita Quintero PA-C Work Phone: Start: 01-02-2023 Cell count misc body fluids w/differential count Blanquita Quintero PA-C Work Phone: Start: 01-02-2023 Cul bact xcpt urine blood/stool aerobic isol Blanquita Quintero PA-C Work Phone: Start: 01-02-2023 SYNOVIAL FL,CRYSTAL ID/STAFF REV Blanquita Moffettlli PA-C Work Phone: Start: 01-02-2023 SYNOVIAL FLUID MANUAL DIFF Blanquita Moffettlli PA-C Work Phone: Start: 12-22-2022 Arthrocentesis aspir&/inj major jt/bursa w/o us Blanquita Moffettlli PA-C Work Phone: Start: 12-22-2022 Cell count misc body fluids w/differential count Blanquita Moffettlli PA-C Work Phone: Start: 12-22-2022 SYNOVIAL FL,CRYSTAL ID/STAFF REV Blanquita Moffettlli PA-C Work Phone: Start: 12-22-2022 SYNOVIAL FLUID MANUAL DIFF Blanquita Moffettlli PA-C Work Phone: Start: 12-22-2022 Radiologic exam knee complete 4/more views Blanquita Pearsonjennifer PA-C Work Phone: Start: 12-12-2022 Bone &/joint imaging 3 phase study Blanquita Moffettlli PA-C Work Phone: Start: 11-30-2022 Radiologic examination knee 3 views Blanquita Moffettlli PA-C Work Phone: Start: 06-21-2022 End: 06-21-2022 Mammography Bulk Order Provider Start: 03-18-2022 Radiologic exam knee complete 4/more views Mitch Tim MD Work Phone: Start: 09-08-2021 Myocardial spect multiple studies Salvador Burns MD Work Phone: Start: 08-30-2021 Lipid 1996 panel - Serum or Plasma Elvin Zavala APRN.CNP Work Phone: Start: 08-04-2021 Bone length studies Mitch Tim MD Work Phone: Start: 03-17-2021 Mammography Kush Robert MD Work Phone: Start: 02-03-2021 Adult depression screening assessment Kush Robert MD Work Phone: Start: 05-01-2020 Radiologic exam knee complete 4/more views Taiwo Weathers PA-C Work Phone: H/O: artificial joint S/P bilate ral unicompartmental knee replacement Mitch Tim MD Work Phone: H/O: artificial joint S/P bilate ral unicompartmental knee replacement Mitch Tim MD Work Phone: H/O: artificial joint S/P bilate ral unicompartmental knee replacement Blanquita Quintero PA-C Work Phone: H/O: artificial joint S/P bilate ral unicompartmental knee replacement Mitch Tim MD Work Phone: History of operative procedure on knee Status post bilateral knee replacements Mitch Tim MD Work Phone: History of operative procedure on knee Status post bilateral knee replacements Mitch Tim MD Work Phone: History of operative procedure on knee Status post bilateral knee replacements Mitch Tim MD Work Phone: History of operative procedure on knee History of bilateral knee replacement Mitch Tim MD Work Phone: History of operative procedure on knee Status post bilateral knee replacements Mitch Tim MD Work Phone: History of operative procedure on knee Status post bilateral knee replacements Xr Rej Work Phone: Plan of Treatment Date Care Activity Detail Author Start: 06-22-2028 Lipid panel Lipid Screening [facility] Start: 01-18-2027 Diabetes Screening Diabetes Screening [facility] Start: 10-07-2026 Diabetes Screening Diabetes Screening [facility] Start: 08-30-2026 Lipid 1996 panel - Serum or Plasma Lipid Screening [facility] Start: 08-30-2026 LIPID SCREEN LIPID SCREEN [facility] Start: 06-28-2026 Diabetes Screening Diabetes Screening [facility] Start: 08-19-2025 HPV TESTING HPV TESTING [facility] Start: 08-19-2025 PAP TESTING PAP TESTING [facility] Start: 08-19-2025 Screening for malignant neoplasm of cervix [facility] Start: 04-12-2025 Annual PCP Team Chronic Disease Visit Annual PCP Team Chronic Disease Visit [facility] Start: 03-01-2025 Annual PCP Team Chronic Disease Visit Annual PCP Team Chronic Disease Visit [facility] Start: 03-01-2025 BP Controlled (<130/80) BP Controlled (<130/80) [facility] Start: 03-01-2025 Covid-19 Vaccine () Covid-19 Vaccine () [facility] Comment on above: Postponed from 01/28/2024 (Declined at t his time) Start: 03-01-2025 Depression Screening Depression Screening [facility] Start: 11-26-2024 Annual PCP Team Chronic Disease Visit Annual PCP Team Chronic Disease Visit [facility] Start: 11-26-2024 BP Controlled (<130/80) BP Controlled (<130/80) [facility] Start: 11-25-2024 Influenza [facility] Comment on [facility]poned from 01/28/2024 (Declined at t his time) Start: 11-12-2024 DIABETES SCREEN DIABETES SCREEN [facility] Start: 11-12-2024 Diabetes Screening Diabetes Screening [facility] Start: 10-16-2024 Annual PCP Team Chronic Disease Visit Annual PCP Team Chronic Disease Visit [facility] Start: 10-11-2024 Annual PCP Team Chronic Disease Visit Annual PCP Team Chronic Disease Visit [facility] Start: 10-11-2024 BP Controlled (<130/80) BP Controlled (<130/80) [facility] Start: 09-28-2024 Annual PCP Team Chronic Disease Visit Annual PCP Team Chronic Disease Visit [facility] Start: 09-28-2024 BP Controlled (<130/80) BP Controlled (<130/80) [facility] Start: 08-30-2024 DIABETES SCREEN DIABETES SCREEN [facility] Start: 07-29-2024 End: 07-29-2024 Patient encounter procedure 07/29/2024 11:00 AM EST Office Visit Neurology [address] [place] [address] Jan Reynoso MD [address] [place] [address] f/u-rescheduled from 06/24 Neurology Comment on above: f/u-rescheduled from 06/24 Start: 07-18-2024 BP Controlled (<130/80) BP Controlled (<130/80) [facility] in Start: 07-15-2024 End: 07-15-2024 Patient encounter procedure 07/15/2024 10:00 AM EST Office Visit Pain Recovery [address] [place] [address] Blanquita Sharp PSYD [address] [place] [address] sit Pain Recovery Comment on above: sit Start: 07-05-2024 End: 07-05-2024 Patient encounter procedure 07/05/2024 8:20 AM EST Appointment [facility] Radiology Mammography [address] [facility] [address] [address] Encounter for screening mammogram for breast cancer [Z12.31] [facility] Radiology Mammography Comment on above: Encounter for screening mammogram for br east cancer [Z12.31] Start: 06-24-2024 End: 06-24-2024 Patient encounter procedure 06/24/2024 1:00 PM EST Office Visit Neurology [address] [place] [address] Jan Reynoso MD [address] [place] [address] f/u Neurology Comment on above: f/u Start: 06-12-2024 End: 06-12-2024 Patient encounter procedure 06/12/2024 2:20 PM EST Office Visit Internal Medicine [place] [address] [facility] [place] [address] Michelle Carrillo, G[employer] WELL DRILLING MANAGER.CREDIT AUTHORIZER [address] [place] [address] Follow-up disposition: Return in about 2 months (around 06/12/2024) for follow up . Internal Medicine [place] Comment on above: Follow-up disposition: Return in about 2 months (around 06/12/2024) for follow up . Start: 05-30-2024 End: 05-30-2024 OT/PT/Speech Visit 05/30/2024 11:00 AM EST OT/PT/Speech Visit [facility] Speech Therapy [address] [place] [address] Jazmin Ovalles, [facility] [address] [place] [address] Cognitive Comunication Disorder [facility] Speech Therapy Comment on above: Cognitive Comunication Disorder Start: 05-27-2024 End: 05-27-2024 ambulatory 05/27/2024 1:45 PM EST OT/PT/Speech Visit Physical Therapy [address] [facility] [facility] [place] [address] Shellie Wagner, PT [address] [place] [address] VESTIBULAR Physical Therapy Comment on above: VESTIBULAR Start: 05-21-2024 End: 05-21-2024 ambulatory 05/21/2024 8:00 AM EST [facility] Pain Recovery [address] [place], [place] [id number] Chuck Soto, Therapist [address] [place] [address] 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] r/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 Pain Recovery Comment on above: 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] r/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 Start: 05-20-2024 End: 05-20-2024 ambulatory [facility] Speech Therapy Comment on above: Cognitive communication deficit [R41.841 ] Cognitive Communicat ion Disorder Start: 05-19-2024 Annual PCP Team Chronic Disease Visit Annual PCP Team Chronic Disease Visit [facility] Start: 05-19-2024 Covid-19 Vaccine () Covid-19 Vaccine () [facility] Comment on above: Postponed from 01/27/2023 (Declined at t his time) Start: 05-19-2024 Screening for malignant neoplasm of breast Mammogram Screening [facility] Start: 05-14-2024 End: 05-14-2024 ambulatory [facility] Speech Therapy Comment on above: Cognitive communication deficit [R41.841 ] Cognitive Communicat ion Disorder Start: 05-07-2024 End: 05-07-2024 ambulatory [facility] Speech Therapy Comment on above: Cognitive communication deficit [R41.841 ] Cognitive Communicat ion Disorder Start: 05-06-2024 End: 05-06-2024 ambulatory 05/06/2024 2:30 PM EST OT/PT/Speech Visit Physical Therapy [address] [place] [address] Shellie Wagner, PT [address] [place] [address] 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-CM) - Unilateral vestibular schwannoma (HCC) Physical Therapy Comment on above: 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-CM) - Unilateral vestibula r schwannoma (HCC) Start: 05-01-2024 End: 05-01-2024 Patient encounter procedure 05/01/2024 10:00 AM EST Office Visit Otolaryngology [address] [address] Mary Harp MD [address] [place] [address] audio and vestib test follow up Otolaryngology Comment on above: audio and vestib test follow up Start: 04-30-2024 End: 04-30-2024 ambulatory 04/30/2024 5:00 PM EST OT/PT/Speech Visit [facility] Speech Therapy [address] [place] [id number] Jazmin Ovalles, [facility] [address] [place] [address] Cognitive communication deficit [R41.841] [facility] Speech Therapy Comment on above: Cognitive communication deficit [R41.841 ] Start: 04-22-2024 End: 04-22-2024 ambulatory 04/22/2024 2:30 PM EST OT/PT/Speech Visit Physical Therapy [address] [place] [address] Shellie Wagner, PT [address] [place] [address] 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-CM) - Unilateral vestibular schwannoma (HCC) Physical Therapy Comment on above: 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-CM) - Unilateral vestibula r schwannoma (HCC) Start: 04-22-2024 End: 04-22-2024 Patient encounter procedure 04/22/2024 9:30 AM EST Office Visit Audiology [address] [address] Karina Santana, AUD [address] [place] [address] 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]; Post concussion syndrome [F07.81]; 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 [facility] [place] Comment on above: Return in about 6 weeks (around 04/12/20) for VV with me for mood. Start: 04-08-2024 End: 04-08-2024 ambulatory 04/08/2024 9:00 AM EST OT/PT/Speech Visit Physical Therapy [address] [place] [address] Shellie Wagner, PT [address] [place] [address] VESTIBULAR Physical Therapy Comment on above: VESTIBULAR Start: 04-02-2024 End: 04-02-2024 Patient encounter procedure 04/02/2024 2:30 PM EST OT/PT/Speech Visit [facility] Speech Therapy [address] [place] [address] Jazmin Ovalles CCC-[employer] [address] [place] [address] Request: CONSULT TO SPEECH THERAPY [facility] Speech Therapy Comment on above: Request: CONSULT TO SPEECH THERAPY Start: 03-26-2024 End: 03-26-2024 Patient encounter procedure 03/26/2024 2:30 PM EDT OT/PT/Speech Visit [facility] Speech Therapy [address] [place] [address] Jazmin Ovalles CCC-[employer] [address] [place] [address] Request: CONSULT TO SPEECH THERAPY [facility] Speech Therapy Comment on above: Request: CONSULT TO SPEECH THERAPY Start: 03-19-2024 End: 03-19-2024 Patient encounter procedure 03/19/2024 2:30 PM EDT OT/PT/Speech Visit [facility] Speech Therapy [address] [place] [address] Jazmin Ovalles CCC-[employer] [address] [place] [address] Request: CONSULT TO SPEECH THERAPY [facility] Speech Therapy Comment on above: Request: CONSULT TO SPEECH THERAPY Start: 03-18-2024 End: 03-18-2024 ambulatory 03/18/2024 2:30 PM EDT OT/PT/Speech Visit Physical Therapy [address] [place] [address] Shellie Wagner, PT [address] [place] [address] 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-CM) - Unilateral vestibular schwannoma Physical Therapy Comment on above: 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-CM) - Unilateral vestibula r schwannoma Start: 03-12-2024 End: 03-12-2024 Patient encounter procedure 03/12/2024 4:15 PM EDT OT/PT/Speech Visit [facility] Speech Therapy [address] [place] [address] Jazmin Ovalles, [facility] [address] [place] [address] Request: CONSULT TO SPEECH THERAPY [facility] Speech Therapy Comment on above: Request: CONSULT TO SPEECH THERAPY Start: 03-11-2024 End: 03-11-2024 ambulatory 03/11/2024 10:30 AM EDT OT/PT/Speech Visit Physical Therapy [address] [place] [address] Shellie Wagner, PT [address] [place] [address] 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-CM) - Unilateral vestibular schwannoma Physical Therapy Comment on above: 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-CM) - Unilateral vestibula r schwannoma Start: 03-01-2024 End: 03-01-2024 Patient encounter procedure 03/01/2024 8:40 AM EDT Office Visit Internal Medicine [place] [address] [place] [address] Michelle Carrillo, G[employer] WELL DRILLING MANAGER.CREDIT AUTHORIZER [address] [place] [address] Return in about 3 months (around 02/27/2024) for follow up with me. Internal Medicine [place] Comment on above: Return in about 3 months (around 02/27/20) for follow up with me. Start: 02-27-2024 End: 02-27-2024 Patient encounter procedure Internal Medicine [place] Comment on above: Return in about 3 months (around 02/27/20) for follow up with me. Request: CONSULT TO SPEECH THERAPY Start: 02-26-2024 End: 02-26-2024 ambulatory 02/26/2024 10:30 AM EDT OT/PT/Speech Visit Physical Therapy [address] [place] [address] Shellie Wagner, PT [address] [facility] [place] [address] 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-CM) - Unilateral vestibular schwannoma Physical Therapy Comment on above: 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-CM) - Unilateral vestibula r schwannoma Start: 02-19-2024 End: 02-19-2024 ambulatory 02/19/2024 10:30 AM EDT OT/PT/Speech Visit Physical Therapy [address] [place] [address] Shellie Wagner, PT [address] [place] [address] 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-CM) - Unilateral vestibular schwannoma Physical Therapy Comment on above: 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-CM) - Unilateral vestibula r schwannoma Start: 02-14-2024 End: 02-14-2024 Patient encounter procedure 02/14/2024 11:00 AM EDT Office Visit Otolaryngology [address] [facility] [address] [place] [address] Mary Harp MD [address] [place] [id number] Please move up appointment with me to 02/13 at 11:00 AM to review audiovestibular test results. Thank you! Otolaryngology Comment on above: Please move up appointment with me to at 11:00 AM to review audiovestibular test results. Thank you! 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]; Balance disorder [R26.89] Start: 02-12-2024 End: 02-12-2024 ambulatory 02/12/2024 10:30 AM EDT OT/PT/Speech Visit Physical Therapy [address] [place] [address] Shellie Wagner, PT [address] [place] [address] 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-CM) - Unilateral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 mortgage or rent on time? Yes [facility] Start: 07-19-2017 Tobacco Comment 1.0 pack per day [facility] Start: 07-18-2023 Tobacco Comment Down to 2 ciga rettes daily as of 07/18/23 [facility] Start: 09-29-2023 Tobacco Comment 4-5 per day as of 09/29/23 (increased lately) [facility] Start: 06-09-2017 Alcohol Comment 4 glasses weekends [facility] Are you now , , , , never or living with a partner? [facility] Medical Equipment Procedure Code Equipment Code Equipment Origin al Text Equipment Identifier Dates Cement Simplex Gentamicin Bone High Viscosity 20ml Sterile 40gm - [id number] Start: 11-10-2021 Cement Simplex Gentamicin Bone High Viscosity 20ml Sterile 40gm - [id number] Start: 11-10-2021 Component Person a 4 Femoral Sterile Knee Left Medial - [id number] Start: 11-10-2021 Component Person a 4 Femoral Sterile Knee Right Medial [id number] Start: 11-10-2021 Baseplate Person a C Tibial Sterile Knee Left Medial - [id number] Start: 11-10-2021 Baseplate Person a D Tibial Sterile Knee [id number] Start: 11-10-2021 Insert Persona C Vivacit-E 8mm Tibial Sterile Knee Left Medial - [id number] Start: 11-10-2021 Insert Persona D Vivacit-E 8mm Tibial Sterile Knee Right Medial - [id number] Start: 11-10-2021 Clinical Notes 10-27-2020 to 05-21-2024 Chuck Soto, Therapist - 05/21/2024 7:43 AM Jazmin Chou [facility] - 05/20/2024 2:52 PM Jazmin Chou [facility] - 05/07/2024 5:05 PM Shellie Lawson, PT - 05/06/2024 2:58 PM EST Note Date & Type Note Facility 05-21-2024 History of Present illness Narrative No show. 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 [facility] Recommendations: Outpatient Speech Therapy Results and Recommendations Discussed With: Patient PLAN: continue current plan of care to address cognitive linguistic skills PLAN FOR NEXT VISIT: progress report, update POC SUBJECTIVE: patient pleasant and agreeable to session OBJECTIVE: MEASURES WITH LEVEL OF FUNCTION: Professional training and skilled instructions were provided as follows: Cognitive-linguistic skills Progress Toward Goals: Sentence Generation: 100% Functional Memory: 79% increasing to 89% with mod verbal cues Visual Attention (connect the dot): 100% Working Memory (6 word sentence, reverse order): 50% increasing to 100% with repetition and/or min-mod verbal cues TREATMENT: Speech/Language Therapy (88561): Skilled Intervention: Educated and instructed patient on compensatory strategies for word-finding Provided verbal cues in attention tasks and auditory / verbal memory tasks. Current Home Program: sentence generation; visual attention connect the dot; functional memory Billing: Speech Treatment (55968) Total time / Length of visit: 40 minutes Session Start Time : 1450 Session Stop Time : 1530 SENG Aguirre documented in this encounter [facility] 05-07-2024 Note HNO ID: [id number] Author: JAZMIN OVALLES CCC-SLP Service: ? 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 PLAN FOR NEXT VISIT: sentence generation; functional memory; visual attention; working memory per 6 word sentences SUBJECTIVE: patient agreeable to session OBJECTIVE: MEASURES WITH LEVEL OF FUNCTION: Professional training and skilled instructions were provided as follows: Cognitive-linguistic skills Progress Toward Goals: Working Memory (6 word sentences, reverse order): 40% increasing to 100% with min-mod verbal cues Memory (6 unrelated words): 100% per immediate recall; 83% increasing to 100% with min-mod cues per delayed recall Alternating Attention (odds/evens): min cues Categorical Naming Grid: 90% increasing to 100% with min cues Functional Memory: 80% increasing to 87% with min verbal cues TREATMENT: Speech/Language Therapy (36416): Skilled Intervention: Educated and instructed patient on memory recall strategies such as visualization and chunking. Provided verbal cues in attention tasks and auditory / verbal memory tasks. Current Home Program: category grids; alternating attention Billing: Speech Treatment (15309) Total time / Length of visit: 43 minutes Session Start Time : 1704 Session Stop Time : 174 Jazmin Ovalles [facility] 05-07-2024 History of Present illness Narrative Episode Visit Count: 8 Therapist That Will Accept/Oversee The Plan Of Care: Jazmin Ovalles Start of Care Date: 02/27/24 Onset Date: 02/06/24 Plan of Care Certification Date: 04/30/24 Next Certification Due Date: 05/30/24 Patient Identified by Name and Date of : Yes [facility] SPEECH THERAPY TREATMENT NOTE IMPRESSION: 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 PLAN FOR NEXT VISIT: sentence generation; functional memory; visual attention; working memory per 6 word sentences SUBJECTIVE: patient agreeable to session OBJECTIVE: MEASURES WITH LEVEL OF FUNCTION: Professional training and skilled instructions were provided as follows: Cognitive-linguistic skills Progress Toward Goals: Working Memory (6 word sentences, reverse order): 40% increasing to 100% with min-mod verbal cues Memory (6 unrelated words): 100% per immediate recall; 83% increasing to 100% with min-mod cues per delayed recall Alternating Attention (odds/evens): min cues Categorical Naming Grid: 90% increasing to 100% with min cues Functional Memory: 80% increasing to 87% with min verbal cues TREATMENT: Speech/Language Therapy (09615): Skilled Intervention: Educated and instructed patient on memory recall strategies such as visualization and chunking. Provided verbal cues in attention tasks and auditory / verbal memory tasks. Current Home Program: category grids; alternating attention Billing: Speech Treatment (02459) Total time / Length of visit: 43 minutes Session Start Time : 1704 Session Stop Time : 1746 Jazmin Ovalles [facility] documented in this encounter [facility] 05-06-2024 History of Present illness Narrative Program_ID:[id number] Access Code: [email or web address] URL: [email or web address] Date: 05-06-2024 Prepared By: Shellie Wagner Program Notes Practice walking with cane in R hand at home. Cane moves with L foot. Exercises - Seated Cervical Retraction - 2 x daily - 7 x weekly - 2 sets - 10 reps - Supine Pectoralis Stretch - 2 x daily - 7 x weekly - 1 sets - 3 reps - Standing Heel Raise with Support - 1 x daily - 7 x weekly - 3 sets - 10 reps - Standing Hip Abduction - 1 x daily - 7 x weekly - 3 sets - 10 reps - Romberg Stance on Foam Pad - 1 x daily - 7 x weekly - 1 sets - 3 reps - Romberg Stance with Head Rotation - 1 x daily - 7 x weekly - 3 sets - 10 reps - Sit to Stand - 1 x daily - 7 x weekly - 3 sets - 10 reps - Shoulder External Rotation and Scapular Retraction with Resistance - 1 x daily - 7 x weekly - 3 sets - 10 reps - Standing Shoulder Diagonal Horizontal Abduction 60/120 Degrees with Resistance - 1 x daily - 7 x weekly - 3 sets - 10 reps - Doorway Pec Stretch at 60 Elevation - 1 x daily - 7 x weekly - 3 sets - 3 reps - Supine Deep Neck Flexor Training - Repetitions - 1 x daily - 7 x weekly - 3 sets - 3 reps - Gaze Stability (VOR) x1 With Static March With Horizontal Head Turns - 1 x daily - 7 x weekly - 3 sets - 10 reps - Gaze Stability (VOR) x1 With Static March With Vertical Head Turns - 1 x daily - 7 x weekly - 3 sets - 10 reps - Standing Row with Anchored Resistance - 1 x daily - 7 x weekly - 3 sets - 10 reps - Side Stepping with Resistance at Feet - 1 x daily - 7 x weekly - 3 sets - 10 reps - Tandem Walking with Counter Support - 1 x daily - 7 x weekly - 3 sets - 10 reps - Romberg Stance Eyes Closed on Foam Pad - 1 x daily - 7 x weekly - 1 sets - 3 reps Images from the original note were not included. Episode Visit Count: 10 Therapist That Will Accept/Oversee The Plan Of Care: Kristy Start of Care Date: 01/15/24 Onset Date: 09/22/23 Plan of Care Certification Date: 11/08/23 Next Certification Due Date: 01/07/24 REHABILITATION AND SPORTS THERAPY PHYSICAL THERAPY PROGRESS REPORT PLAN OF CARE UPDATE: Goals Goals for Episode of Care: updated 05/06/24 Demo cervical ROM in all planes without dizziness: met Demo romberg on foam x 30s: met Demo romberg firm surface EC x 30: not tested Demo tandem balance x 10s for reduced fall risk: met Demo VOR x1 at moderate speed horiztonally and vertically: met Reduce VASQUEZ pressure by 2 points: met Demo safe gait with straight cane consistently: met Scapular strength to 4+/5 grossly: mostly met DNF endurance to 30s: not tested Reduce neck pain rating by 2 point: met New goals: Improve BDGI score to 10/12 for reduced fall risk: not met Improve SLS to 10s bilat: met Assessment: Steffi Leone demonstrates moderate improvement in gait, static balance. She continues tot shows impaired VOR and decreased balance walking with head movement. The patient has met several goals. . Current prognosis is Good due to: current objective clinical presentation . The patient will benefit from continued skilled therapy services to meet the updated goals for this plan of care as noted below. Time Frame for Goals and Treatment : 07/05/24 Planned Interventions, Frequency, and Duration: 1x every other week, 8 weeks Total Number of Visits Planned: 4 Patient to be seen for Therapeutic exercise (55796), Neuromuscular re-education (13471), Therapeutic activities (03716), Manual therapy (86275), Self-long-term management (67093), Gait Training (71618), Patient/Family/Caregiver Education PLAN FOR NEXT VISIT: reasess VOR and gait with head turn SUBJECTIVE: Pt thinks her balance is improving. Pain: Pain Pain Level: 4 Pain Location: Neck Description: Aching Frequency: Intermittent PROMIS Scales 04/08/2024 02/19/2024 01/15/2024 Higher is Better Phys Func - Score 32 (moderate dysfunction) 29 (severe dysfunction) 28 (severe dysfunction) Phys Func - Percentile 4 2 1 Self-Eff Symptom - Score 34 (Low) 35 (Low) 31 (Low) Self-Eff Symptom - Percentile 5 7 3 T-scores: mean of general population = 50. 5 points is clinically meaningfully difference Percentiles provide an indication of how the patient's score ranks in relation to the general population. Higher percentile rankings indicate better function/quality of life. 50th percentile is the average of the general population and indicates half of respondents had a worse score. OBJECTIVE MEASURES WITH LEVEL OF FUNCTION: 4 Stage Balance Test Single leg stance - right (sec): 25 sec Single leg stance - left (sec): 18 sec Brief Dynamic Gait Index Gait on level surface: 2 Gait with speed changes: 2 Horizontal head turns: 1 Vertical head turns: 2 Total Score: 7 TREATMENT: Therapeutic Exercise: 1: bike 5 mins while educating pt about benefits of aerobic ex 2: treadmill speed 0.6, CGA while pt holding rails, 5 mins 3: squats 2x10 Skilled Intervention: Patient was educated in proper exercise technique and purpose for exercises. Neuromuscular Re-Education: 1: marching on foam 1 min 2: balance on foam EC 30s x 3 3: VOR x1 standing hz and vt 30s x 2 each mod speed 4: SLS x 2 each 5: antirotation holding GTB x10 each 6: tested BDGI Skilled Intervention: Skilled judgment used to assess appropriate program for balance and coordination activity. Billing Therapeutic Exercise Treatment Minutes: 12 Neuromuscular Re-Education Treatment Minutes: 29 Skilled Treatment Time Minutes (timed and untimed codes): 41 Total Session Time (minutes): 41 Session Start Time : 1420 Session Stop Time : 1501 Shellie Wagner PT documented in this encounter [facility] 05-06-2024 Note HNO ID: [id number] Author: SHELLIE WAGNER PT Service: ? Author Type: Physical Therapist Type: Progress Notes Filed: 05/06/2024 15:14 Note Text: Episode Visit Count: 10 Therapist That Will Accept/Oversee The Plan Of Care: Kristy Start of Care Date: 01/15/24 Onset Date: 09/22/23 Plan of Care Certification Date: 11/08/23 Next Certification Due Date: 01/07/24 REHABILITATION AND SPORTS THERAPY PHYSICAL THERAPY PROGRESS REPORT PLAN OF CARE UPDATE: Goals Goals for Episode of Care: updated 05/06/24 Demo cervical ROM in all planes without dizziness: met Demo romberg on foam x 30s: met Demo romberg firm surface EC x 30: not tested Demo tandem balance x 10s for reduced fall risk: met Demo VOR x1 at moderate speed horiztonally and vertically: met Reduce VASQUEZ pressure by 2 points: met Demo safe gait with straight cane consistently: met Scapular strength to 4+/5 grossly: mostly met DNF endurance to 30s: not tested Reduce neck pain rating by 2 point: met New goals: Improve BDGI score to 10/12 for reduced fall risk: not met Improve SLS to 10s bilat: met Assessment: Steffi Leone demonstrates moderate improvement in gait, static balance. She continues tot shows impaired VOR and decreased balance walking with head movement. The patient has met several goals. . Current prognosis is Good due to: current objective clinical presentation . The patient will benefit from continued skilled therapy services to meet the updated goals for this plan of care as noted below. Time Frame for Goals and Treatment : 07/05/24 Planned Interventions, Frequency, and Duration: 1x every other week, 8 weeks Total Number of Visits Planned: 4 Patient to be seen for Therapeutic exercise (42843), Neuromuscular re-education (06368), Therapeutic activities (26118), Manual therapy (58635), Self-long-term management (78292), Gait Training (13105), Patient/Family/Caregiver Education PLAN FOR NEXT VISIT: reasess VOR and gait with head turn SUBJECTIVE: Pt thinks her balance is improving. Pain: Pain Pain Level: 4 Pain Location: Neck Description: Aching Frequency: Intermittent PROMIS Scales 04/08/2024 02/19/2024 01/15/2024 Higher is Better Phys Func - Score 32 (moderate dysfunction) 29 (severe dysfunction) 28 (severe dysfunction) Phys Func - Percentile 4 2 1 Self-Eff Symptom - Score 34 (Low) 35 (Low) 31 (Low) Self-Eff Symptom - Percentile 5 7 3 T-scores: mean of general population = 50. 5 points is clinically meaningfully difference Percentiles provide an indication of how the patient's score ranks in relation to the general population. Higher percentile rankings indicate better function/quality of life. 50th percentile is the average of the general population and indicates half of respondents had a worse score. OBJECTIVE MEASURES WITH LEVEL OF FUNCTION: 4 Stage Balance Test Single leg stance - right (sec): 25 sec Single leg stance - left (sec): 18 sec Brief Dynamic Gait Index Gait on level surface: 2 Gait with speed changes: 2 Horizontal head turns: 1 Vertical head turns: 2 Total Score: 7 TREATMENT: Therapeutic Exercise: 1: bike 5 mins while educating pt about benefits of aerobic ex 2: treadmill speed 0.6, CGA while pt holding rails, 5 mins 3: squats 2x10 Skilled Intervention: Patient was educated in proper exercise technique and purpose for exercises. Neuromuscular Re-Education: 1: marching on foam 1 min 2: balance on foam EC 30s x 3 3: VOR x1 standing hz and vt 30s x 2 each mod speed 4: SLS x 2 each 5: antirotation holding GTB x10 each 6: tested BDGI Skilled Intervention: Skilled judgment used to assess appropriate program for balance and coordination activity. Billing Therapeutic Exercise Treatment Minutes: 12 Neuromuscular Re-Education Treatment Minutes: 29 Skilled Treatment Time Minutes (timed and untimed codes): 41 Total Session Time (minutes): 41 Session Start Time : 1420 Session Stop Time : 1501 Shellie Wagner PT [facility] 04-30-2024 Note HNO ID: [id number] Author: JAZMIN OVALLES [facility] Service: ? 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 CURRENT: patient generated 15 items in abstract category with additional time CONTINUE GOAL Improve functional, immediate, and short term/prospective memory to 90% accuracy with use of compensatory strategies with minimal assist/cues. CURRENT: 88% increasing to 94% with min verbal cues per functional memory; 100% per immediate recall of 5 unrelated words; 80% increasing to 100% with min verbal cues per delayed recall of 5 unrelated words . CONTINUE GOAL Improve working memory to WFL during complex cognitive tasks with 90% using compensatory strategies in order to recall the steps taken during a cognitive process. CURRENT: 100% per 4-5 word sentence task; 40% increasing to 100% with min-mod cues per 6 word sentence task CONTINUE GOAL Improve auditory, visual, sustained, selective, alternating, and divided attention per auditory/visual cognitive tasks to 90% accuracy in order to demonstrate improved ability to focus attention, divide and alternate attention between multiple tasks, and recall to perform tasks in the future within the home environment. CURRENT: 90% increasing to 100% with min verbal cues per divided attention trail activity CONTINUE GOAL with increased complexity Complete higher level word retrieval tasks (word deductions, synonyms/antonyms, multiple meanings, etc.) with 90% accuracy given min cues. CURRENT: 100% per synonyms and antonyms, GOAL MET PER SYNONYMS AND ANTONYMS; CONTINUE GOAL with increased complexity All goals to target the patient's overall ability to facilitate functional cognitive linguistic skills. Time Frame for Goals and Treatment : 05/30/24 RECOMMENDATION: Planned Interventions, Frequency, and Duration: Cognitive-Linguistic Training Expressive Language Training Goals/ Plan Reviewed by Patient and Family Patient / Family express agreement with goals [employer] Recommendations: Outpatient Speech Therapy Results and Recommendations Discussed With: Patient Planned Interventions, Frequency, and Duration: Planned Treatment Interventions: Cognitive-Linguistic Training (81732, [id number], [id number]) Current Frequency: 1x/week Duration: 4 weeks PLAN FOR NEXT VISIT: 6-word sentence working memory; alternating attention per odds/evens; categorical naming grid; immediate/short term memory SUBJECTIVE: Patient reports that she has been trying to up her game and do more mentally. She is still reading, which is going okay, still needs to go back and re-read the last few pages of last chapter. She is also listening to podcast, finds that she forgets information and has to re-wind it. She is also trying multi-task while doing this but this is much more difficult now than it used to be. OBJECTIVE MEASURES WITH LEVEL OF FUNCTION: Cognition Cognitive Status: Within Functional Limits For Current Session Except Cognitive Deficits: Memory Deficits, Attention Deficit Attention Deficit: Divided (90% increasing to 100% with min verbal cues per letter/number trail activity) Memory Deficits: Functional, Immediate, Short Term Functional Memory Comments: 88% increasing to 94% with min verbal cues (100% per 4-5 word sentence working memory task; 40% increasing to 100% with min-mod cues per 6-word sentence working memory task) Immediate Memory Comments: 100% per 5 unrelated words Short Term Memory Comments: 80% increasing to 100% with min verbal cues per 5 unrelated words Executive Function Deficits: Divergent Naming Divergent Naming Comments : pt generated 15 items in abstract category with additional time Speech/Voice/Language Expressive and Receptive Language: Within Functional Limits Except Verbal Expression Deficits: Antonyms, Synonyms Antonyms - (%): 100 % Synonyms - (%): 100 % TREATMENT: Speech/Language Therapy ([id number]): Skilled Intervention: Educated and instructed patient on compensatory strategies for word-finding and categorization Provided verbal cues in attention tasks and auditory / verbal memory tasks. (more content not included)... 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 CURRENT: patient generated 15 items in abstract category with additional time CONTINUE GOAL Improve functional, immediate, and short term/prospective memory to 90% accuracy with use of compensatory strategies with minimal assist/cues. CURRENT: 88% increasing to 94% with min verbal cues per functional memory; 100% per immediate recall of 5 unrelated words; 80% increasing to 100% with min verbal cues per delayed recall of 5 unrelated words . CONTINUE GOAL Improve working memory to WFL during complex cognitive tasks with 90% using compensatory strategies in order to recall the steps taken during a cognitive process. CURRENT: 100% per 4-5 word sentence task; 40% increasing to 100% with min-mod cues per 6 word sentence task CONTINUE GOAL Improve auditory, visual, sustained, selective, alternating, and divided attention per auditory/visual cognitive tasks to 90% accuracy in order to demonstrate improved ability to focus attention, divide and alternate attention between multiple tasks, and recall to perform tasks in the future within the home environment. CURRENT: 90% increasing to 100% with min verbal cues per divided attention trail activity CONTINUE GOAL with increased complexity Complete higher level word retrieval tasks (word deductions, synonyms/antonyms, multiple meanings, etc.) with 90% accuracy given min cues. CURRENT: 100% per synonyms and antonyms, GOAL MET PER SYNONYMS AND ANTONYMS; CONTINUE GOAL with increased complexity All goals to target the patient's overall ability to facilitate functional cognitive linguistic skills. Time Frame for Goals and Treatment : 05/30/24 RECOMMENDATION: Planned Interventions, Frequency, and Duration: Cognitive-Linguistic Training Expressive Language Training Goals/ Plan Reviewed by Patient and Family Patient / Family express agreement with goals [employer] Recommendations: Outpatient Speech Therapy Results and Recommendations Discussed With: Patient Planned Interventions, Frequency, and Duration: Planned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 CONTINUE GOAL Improve functional, immediate, and short term/prospective memory to 90% accuracy with use of compensatory strategies with minimal assist/cues. CURRENT: 83% per functional memory; 94% increasing to 100% with min cues per immediate recall using categorization strategy; 88% increasing to 100% with min cues per delayed recall using categorization strategy. CONTINUE GOAL Improve working memory to WFL during complex cognitive tasks with 90% using compensatory strategies in order to recall the steps taken during a cognitive process. CURRENT: 80% per 5-6 word sentences increasing to 100% with repetition and min cues. CONTINUE GOAL Improve auditory, visual, sustained, selective, alternating, and divided attention per auditory/visual cognitive tasks to 90% accuracy in order to demonstrate improved ability to focus attention, divide and alternate attention between multiple tasks, and recall to perform tasks in the future within the home environment. CONTINUE GOAL Complete higher level word retrieval tasks (word deductions, synonyms/antonyms, multiple meanings, etc.) with 90% accuracy given min cues. CURRENT: 90% per word deductions; 80% increasing to 100% with min-mod verbal cues per antonyms. CONTINUE GOAL All goals to target the patient's overall ability to facilitate functional cognitive linguistic skills. Time Frame for Goals and Treatment : 04/27/24 RECOMMENDATION: Planned Interventions, Frequency, and Duration: Cognitive-Linguistic Training Expressive Language Training Goals/ Plan Reviewed by Patient and Family Patient / Family express agreement with goals [facility] [employer] Recommendations: Outpatient Speech Therapy Results and Recommendations Discussed With: Patient Planned Interventions, Frequency, and Duration: Planned Treatment Interventions: Cognitive-Linguistic Training (28899, [id number], [id number]), Expressive Language Training ([id number], [id number]) Current Frequency: 1x/week Duration: 4 weeks PLAN FOR NEXT VISIT: alternating attention; working memory per sentences in ABC order; categorical naming; functional memory SUBJECTIVE: Patient reporting that she started re-reading a book that she has previously read and it's going okay, she is having to re-read the last page of the previous chapter to refresh her memory and taking it slow. She is feeling a little dizzy and light-headed today, and these days come and go. She feels as though she is making progress toward improving cognitive skills. OBJECTIVE MEASURES WITH LEVEL OF FUNCTION: Cognition Cognitive Status: Within Functional Limits For Current Session Except Cognitive Deficits: Memory Deficits Memory Deficits: Functional, Immediate, Short Term Functional Memory Comments: 83% (per 5-6 word sentence working memory task, 80% increasing to 100% with repetition and min cues.) Immediate Memory Comments: 94% increasing to 100% with min cues using categorization strategy Short Term Memory Comments: 88% increasing to 100% with min cues using categorization strategy Speech/Voice/Language Expressive and Receptive Language: Within Functional Limits Except Verbal Expression Deficits: Antonyms, Word Deductions Antonyms - (%): 80 % (increasing to 100% with min-mod verbal cues) Word Deductions - (%): 90 % (increasing to 100% with min cues) TREATMENT: Speech/Language Therapy ([id number]): Skilled Intervention: Educated and instructed patient on compensatory strategies for word-finding Provided verbal cues in auditory / verbal memory tasks. Current Home Program: sorting and remembering categories; functional memory per multi-step directions; continue reading familiar chapter book Billing: Speech Treatment ([id number]) Total time / Length of visit: 43 minutes Session Start Time : 1431 Session Stop Time : 1514 Jazmin Ovalles [facility] 04-02-2024 History of Present illness Narrative Episode Visit Count: 5 Therapist That Will Accept/Oversee The Plan Of Care: Jazmin Ovalles Start of Care Date: 02/27/24 Onset Date: 02/06/24 Plan of Care Certification Date: 02/27/24 Next Certification Due Date: 04/27/24 Patient Identified by Name and Date of : Yes [facility] REHABILITATION AND SPORTS THERAPY SPEECH THERAPY PROGRESS REPORT PLAN OF CARE UPDATE: Impression: 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 CONTINUE GOAL Improve functional, immediate, and short term/prospective memory to 90% accuracy with use of compensatory strategies with minimal assist/cues. CURRENT: 83% per functional memory; 94% increasing to 100% with min cues per immediate recall using categorization strategy; 88% increasing to 100% with min cues per delayed recall using categorization strategy. CONTINUE GOAL Improve working memory to WFL during complex cognitive tasks with 90% using compensatory strategies in order to recall the steps taken during a cognitive process. CURRENT: 80% per 5-6 word sentences increasing to 100% with repetition and min cues. CONTINUE GOAL Improve auditory, visual, sustained, selective, alternating, and divided attention per auditory/visual cognitive tasks to 90% accuracy in order to demonstrate improved ability to focus attention, divide and alternate attention between multiple tasks, and recall to perform tasks in the future within the home environment. CONTINUE GOAL Complete higher level word retrieval tasks (word deductions, synonyms/antonyms, multiple meanings, etc.) with 90% accuracy given min cues. CURRENT: 90% per word deductions; 80% increasing to 100% with min-mod verbal cues per antonyms. CONTINUE GOAL All goals to target the patient's overall ability to facilitate functional cognitive linguistic skills. Time Frame for Goals and Treatment : 04/27/24 RECOMMENDATION: Planned Interventions, Frequency, and Duration: Cognitive-Linguistic Training Expressive Language Training Goals/ Plan Reviewed by Patient and Family Patient / Family express agreement with goals [employer] [employer] Recommendations: Outpatient Speech Therapy Results and Recommendations Discussed With: Patient Planned Interventions, Frequency, and Duration: Planned Treatment Interventions: Cognitive-Linguistic Training ([id number], [id number], [id number]), Expressive Language Training (19977, [id number]) Current Frequency: 1x/week Duration: 4 weeks PLAN FOR NEXT VISIT: alternating attention; working memory per sentences in ABC order; categorical naming; functional memory SUBJECTIVE: Patient reporting that she started re-reading a book that she has previously read and it's going okay, she is having to re-read the last page of the previous chapter to refresh her memory and taking it slow. She is feeling a little dizzy and light-headed today, and these days come and go. She feels as though she is making progress toward improving cognitive skills. OBJECTIVE MEASURES WITH LEVEL OF FUNCTION: Cognition Cognitive Status: Within Functional Limits For Current Session Except Cognitive Deficits: Memory Deficits Memory Deficits: Functional, Immediate, Short Term Functional Memory Comments: 83% (per 5-6 word sentence working memory task, 80% increasing to 100% with repetition and min cues.) Immediate Memory Comments: 94% increasing to 100% with min cues using categorization strategy Short Term Memory Comments: 88% increasing to 100% with min cues using categorization strategy Speech/Voice/Language Expressive and Receptive Language: Within Functional Limits Except Verbal Expression Deficits: Antonyms, Word Deductions Antonyms - (%): 80 % (increasing to 100% with min-mod verbal cues) Word Deductions - (%): 90 % (increasing to 100% with min cues) TREATMENT: Speech/Language Therapy ([id number]): Skilled Intervention: Educated and instructed patient on compensatory strategies for word-finding Provided verbal cues in auditory / verbal memory tasks. Current Home Program: sorting and remembering categories; functional memory per multi-step directions; continue reading familiar chapter book Billing: Speech Treatment ([id number]) Total time / Length of visit: 43 minutes Session Start Time : 1430 Session Stop Time : 1514 SENG Aguirre documented in this encounter [facility] 03-26-2024 Note HNO ID: [id number] Author: JAZMIN OVALLES CCC-SLP Service: ? Author Type: Speech Language Pathologist Type: Progress Notes Filed: 03/26/2024 15:26 Note Text: Episode Visit Count: 4 Therapist That Will Accept/Oversee The Plan Of Care: Jazmni Ovalles Start of Care Date: 02/27/24 Onset Date: 02/06/24 Plan of Care Certification Date: 02/27/24 Next Certification Due Date: 04/27/24 Patient Identified by Name and Date of : Yes [facility] REHABILITATION AND SPORTS THERAPY SPEECH THERAPY TREATMENT NOTE IMPRESSION: Communication deficits identified: Cognitive-Linguistic deficits [facility] [employer] Recommendations: Outpatient Speech Therapy Results and Recommendations Discussed With: Patient PLAN: Planned Interventions, Frequency, and Duration: continue current plan of care to address cognitive and language functions. PLAN FOR NEXT VISIT: progress report; further challenge functional memory per multi-step directions SUBJECTIVE: patient agreeable to session; reports that she didn't have any issues after last weeks session. OBJECTIVE: MEASURES WITH LEVEL OF FUNCTION: Professional training and skilled instructions were provided as follows: Cognitive-linguistic skills Progress Toward Goals: Memory using Association (mixed, level 1): 100% per immediate and delayed recall Visual Selective Attention: 100%, able to self-correct Categorical Naming: patient generated 20 items in abstract category independently with minimal additional time Functional Memory (recalling multi-step directions presented verbally): 100% Functional Memory (memos and appointments): 92% Multiple Meanings: 100% TREATMENT: Speech/Language Therapy ([id number]): Skilled Intervention: Educated and instructed patient on compensatory strategies for word-finding Educated and instructed patient on memory recall strategies such as association. Provided verbal cues in attention tasks and auditory / verbal memory tasks. Current Home Program: functional memory; memory using association; attempt to read familiar chapter book Billing: Speech Treatment ([id number]) Total time / Length of visit: 42 minutes Session Start Time : 1440 Session Stop Time : 1522 Jazmin Ovalles [facility] 03-26-2024 History of Present illness Narrative Episode Visit Count: 4 Therapist That Will Accept/Oversee The Plan Of Care: Jazmin Ovalles Start of Care Date: 02/27/24 Onset Date: 02/06/24 Plan of Care Certification Date: 02/27/24 Next Certification Due Date: 04/27/24 Patient Identified by Name and Date of : Yes [facility] REHABILITATION AND SPORTS THERAPY SPEECH THERAPY TREATMENT NOTE IMPRESSION: Communication deficits identified: Cognitive-Linguistic deficits [employer] [employer] Recommendations: Outpatient Speech Therapy Results and Recommendations Discussed With: Patient PLAN: Planned Interventions, Frequency, and Duration: continue current plan of care to address cognitive and language functions. PLAN FOR NEXT VISIT: progress report; further challenge functional memory per multi-step directions SUBJECTIVE: patient agreeable to session; reports that she didn't have any issues after last weeks session. OBJECTIVE: MEASURES WITH LEVEL OF FUNCTION: Professional training and skilled instructions were provided as follows: Cognitive-linguistic skills Progress Toward Goals: Memory using Association (mixed, level 1): 100% per immediate and delayed recall Visual Selective Attention: 100%, able to self-correct Categorical Naming: patient generated 20 items in abstract category independently with minimal additional time Functional Memory (recalling multi-step directions presented verbally): 100% Functional Memory (memos and appointments): 92% Multiple Meanings: 100% TREATMENT: Speech/Language Therapy ([id number]): Skilled Intervention: Educated and instructed patient on compensatory strategies for word-finding Educated and instructed patient on memory recall strategies such as association. Provided verbal cues in attention tasks and auditory / verbal memory tasks. Current Home Program: functional memory; memory using association; attempt to read familiar chapter book Billing: Speech Treatment ([id number]) Total time / Length of visit: 42 minutes Session Start Time : 1440 Session Stop Time : 1522 SENG Aguirre documented in this encounter [facility] 03-19-2024 Note HNO ID: [id number] Author: JAZMIN OVALLES CCC-SLP Service: ? Author Type: Speech Language Pathologist Type: Progress Notes Filed: 03/19/2024 16:35 Note Text: Episode Visit Count: 3 Therapist That Will Accept/Oversee The Plan Of Care: Jazmin Ovalles Start of Care Date: 02/27/24 Onset Date: 02/06/24 Plan of Care Certification Date: 02/27/24 Next Certification Due Date: 04/27/24 Patient Identified by Name and Date of : Yes [facility] REHABILITATION AND SPORTS THERAPY SPEECH THERAPY TREATMENT NOTE IMPRESSION: Communication deficits identified: Cognitive-Linguistic deficits [employer] [employer] Recommendations: Outpatient Speech Therapy Results and Recommendations Discussed With: Patient PLAN: Planned Interventions, Frequency, and Duration: continue current plan of care to address cognitive linguistic skills PLAN FOR NEXT VISIT: immediate/short term memory using mixed associations; functional memory per direction repetition; categorical naming; visual selective attention SUBJECTIVE: Patient is reporting an episode that happened the day after last week's session where she became dizzy and sat down to work on a project but could not remember how to do it. This lasted for about 45 minutes to an hour. She is wondering if it could have been related to straining her brain too much during last speech session or also wonders if it could have been related to a medication she had been taking for 4 days prior to episode. Reports that she completed home exercises. OBJECTIVE: MEASURES WITH LEVEL OF FUNCTION: Professional training and skilled instructions were provided as follows: Cognitive-linguistic skills Progress Toward Goals: Memory using Association (location coding): 90% increasing to 100% with min cues per immediate and delayed recall. Opposites: 70% increasing to 100% with min-mod verbal cues. Synonyms: 90% increasing to 100% with min verbal cues. Working Memory (sentences, reverse order): 100% per 4-5 word sentences; 40% increasing to 100% with min-mod verbal cues. Functional Memory 27% increasing to 100% with repetition and/or min verbal cues. TREATMENT: Speech/Language Therapy ([id number]): Skilled Intervention: Educated and instructed patient on compensatory strategies for word-finding Educated and instructed patient on memory recall strategies such as association. Provided verbal cues in auditory / verbal memory tasks. Current Home Program: synonyms/opposites; working memory per 6-word sentences Billing: Speech Treatment ([id number]) Total time / Length of visit: 45 minutes Session Start Time : 1430 Session Stop Time : 1515 Jazmin Ovalles [facility] 03-19-2024 History of Present illness Narrative Episode Visit Count: 3 Therapist That Will Accept/Oversee The Plan Of Care: Jazmin Ovalles Start of Care Date: 02/27/24 Onset Date: 02/06/24 Plan of Care Certification Date: 02/27/24 Next Certification Due Date: 04/27/24 Patient Identified by Name and Date of : Yes [facility] REHABILITATION AND SPORTS THERAPY SPEECH THERAPY TREATMENT NOTE IMPRESSION: Communication deficits identified: Cognitive-Linguistic deficits [employer] [employer] Recommendations: Outpatient Speech Therapy Results and Recommendations Discussed With: Patient PLAN: Planned Interventions, Frequency, and Duration: continue current plan of care to address cognitive linguistic skills PLAN FOR NEXT VISIT: immediate/short term memory using mixed associations; functional memory per direction repetition; categorical naming; visual selective attention SUBJECTIVE: Patient is reporting an episode that happened the day after last week's session where she became dizzy and sat down to work on a project but could not remember how to do it. This lasted for about 45 minutes to an hour. She is wondering if it could have been related to straining her brain too much during last speech session or also wonders if it could have been related to a medication she had been taking for 4 days prior to episode. Reports that she completed home exercises. OBJECTIVE: MEASURES WITH LEVEL OF FUNCTION: Professional training and skilled instructions were provided as follows: Cognitive-linguistic skills Progress Toward Goals: Memory using Association (location coding): 90% increasing to 100% with min cues per immediate and delayed recall. Opposites: 70% increasing to 100% with min-mod verbal cues. Synonyms: 90% increasing to 100% with min verbal cues. Working Memory (sentences, reverse order): 100% per 4-5 word sentences; 40% increasing to 100% with min-mod verbal cues. Functional Memory 27% increasing to 100% with repetition and/or min verbal cues. TREATMENT: Speech/Language Therapy ([id number]): Skilled Intervention: Educated and instructed patient on compensatory strategies for word-finding Educated and instructed patient on memory recall strategies such as association. Provided verbal cues in auditory / verbal memory tasks. Current Home Program: synonyms/opposites; working memory per 6-word sentences Billing: Speech Treatment ([id number]) Total time / Length of visit: 45 minutes Session Start Time : 1430 Session Stop Time : 1515 SENG Aguirre documented in this encounter [facility] 03-12-2024 Note HNO ID: [id number] Author: JAZMIN OVALLES CCC-SLP Service: ? Author Type: Speech Language Pathologist Type: Progress Notes Filed: 03/12/2024 18:02 Note Text: Episode Visit Count: 2 Therapist That Will Accept/Oversee The Plan Of Care: Jazmin Ovalles Start of Care Date: 02/27/24 Onset Date: 02/06/24 Plan of Care Certification Date: 02/27/24 Next Certification Due Date: 04/27/24 Patient Identified by Name and Date of : Yes [facility]ER[facility] SPEECH THERAPY TREATMENT NOTE IMPRESSION: Communication deficits identified: Cognitive-Linguistic deficits STITCHER HAND Recommendations: Outpatient Speech Therapy Results and Recommendations Discussed With: Patient PLAN: Planned Interventions, Frequency, and Duration: Continue current plan of care to address cognitive linguistic skills. PLAN FOR NEXT VISIT: immediate/short term memory using characteristic or category association; working memory per sentences; functional memory; synonyms/antonyms SUBJECTIVE: patient pleasant and agreeable to session OBJECTIVE: MEASURES WITH LEVEL OF FUNCTION: Professional training and skilled instructions were provided as follows: Cognitive-linguistic skills Progress Toward Goals: Working Memory: 73% increasing to 93% with min cues and/or repetition per 3-4 items in reverse order Categorical Naming: Patient generated 20 items in given categories with additional time and min verbal cues Memory using Association (color coding): 70% increasing to 100% with min cues per immediate recall; 100% per delayed recall Word Deductions: 80% increasing to 100% with min verbal cues Alternating Attention (auditory, 1's and 2's): 100% with additional time TREATMENT: Speech/Language Therapy ([id number]): Skilled Intervention: Educated and instructed patient on compensatory strategies for word-finding and categorization Educated and instructed patient on memory recall strategies such as association. Provided verbal cues in attention tasks and auditory / verbal memory tasks. Current Home Program: working memory; memory using association; categorical naming Billing: Speech Treatment ([id number]) Total time / Length of visit: 42 minutes Session Start Time : 1616 Session Stop Time : 1657 Jazmin Ovalles CCC-STITCHER HAND [facility] 03-12-2024 History of Present illness Narrative Episode Visit Count: 2 Therapist That Will Accept/Oversee The Plan Of Care: Jazmin Ovalles Start of Care Date: 02/27/24 Onset Date: 02/06/24 Plan of Care Certification Date: 02/27/24 Next Certification Due Date: 04/27/24 Patient Identified by Name and Date of : Yes [facility]IL[facility]ORTS THERAPY SPEECH THERAPY TREATMENT NOTE IMPRESSION: Communication deficits identified: Cognitive-Linguistic deficits STITCHER HAND Recommendations: Outpatient Speech Therapy Results and Recommendations Discussed With: Patient PLAN: Planned Interventions, Frequency, and Duration: Continue current plan of care to address cognitive linguistic skills. PLAN FOR NEXT VISIT: immediate/short term memory using characteristic or category association; working memory per sentences; functional memory; synonyms/antonyms SUBJECTIVE: patient pleasant and agreeable to session OBJECTIVE: MEASURES WITH LEVEL OF FUNCTION: Professional training and skilled instructions were provided as follows: Cognitive-linguistic skills Progress Toward Goals: Working Memory: 73% increasing to 93% with min cues and/or repetition per 3-4 items in reverse order Categorical Naming: Patient generated 20 items in given categories with additional time and min verbal cues Memory using Association (color coding): 70% increasing to 100% with min cues per immediate recall; 100% per delayed recall Word Deductions: 80% increasing to 100% with min verbal cues Alternating Attention (auditory, 1's and 2's): 100% with additional time TREATMENT: Speech/Language Therapy ([id number]): Skilled Intervention: Educated and instructed patient on compensatory strategies for word-finding and categorization Educated and instructed patient on memory recall strategies such as association. Provided verbal cues in attention tasks and auditory / verbal memory tasks. Current Home Program: working memory; memory using association; categorical naming Billing: Speech Treatment ([id number]) Total time / Length of visit: 42 minutes Session Start Time : 1616 Session Stop Time : 1658 Jazmin Ovalles CCC-STITCHER HAND documented in this encounter [facility] 03-01-2024 Telephone encounter Note Forwarded to provider. [facility] Work Phone: 03-01-2024 Miscellaneous Notes Forwarded to provider. documented in this encounter [facility] 03-01-2024 Instructions Michelle Carrillo APRN.CREDIT AUTHORIZER - 03/01/2024 8:57 AM EDT [facility]NA [facility] ([place]) [phone] [facility] ([place]) Counseling only [phone] [facility] ([place]) Counseling only [phone] [facility] ([place]) Counseling only [phone] [facility] ([place]) [phone] Extension: [phone] [facility] ([place]) Counseling only [phone] ([place]) Counseling only [phone] [facility] ([place]) Counseling only [phone] [facility] ([place]) [phone] [facility] ([place]) [phone] [facility] ([place]) Counseling only [phone] [facility] ([place]) Counseling only [phone] [facility] ([place]) Counseling only [phone] [facility] ([place]/[facility]) [phone] [facility] ([place]) Counseling only [phone] [facility] ([place]) Counseling only [phone] [employer] ([place]) Counseling only [facility] [phone] [facility] ([place]) Counseling only [phone] [facility] ([place]) Counseling only [phone] [facility] ([place]) Counseling only [phone] [facility] ([place]) Counseling only [phone] Please verify with insurance provider for coverage documented in this encounter [facility] 03-01-2024 Note HNO ID: [id number] Author: MICHELLE CARRILLO APRN.CREDIT AUTHORIZER Service: ? Author Type: Nurse Practitioner Type: Progress Notes Filed: 03/04/2024 19:26 Note Text: S:3 month follow up Tearful during much of appt , depressed about physical condition and outlook regarding her physical condition and has not had great improvement in her cognitive and physical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 wall nontender Neurological: alert and oriented Psychiatric: appropriate and cooperative Skin: no rash, cellulitis or lesions appreciated CARDIOVASCULAR MEDICINE TESTING: I have personally reviewed ECG and laboratory results PAST CARDIAC HISTORY: See above. PAST MEDICAL HISTORY Diagnosis Date Bronchitis 2018 parotid mass left. States she has had the ultrasound on it. CT scan to be scheduled. PAST SURGICAL HISTORY Procedure Laterality Date SECTION HX 1990 COLPOSCOPY WCERVICAL BIOPSY ANDOR CURETTAGE N/A 09/23/2020 Pap 08/09/2020 Low Grade YANIRA, + HPV PAST SURGICAL HISTORY OF lesion removed from neck UNLISTED PROC, POLYETHYLENE EXCHANGE FOR A PARTIAL [place] ([place] [address]) Bilateral Social History Tobacco Use Smoking status: Every Day Packs/day: 0.50 Years: 37.00 Additional pack years: 0.00 Total pack years: 18.50 Types: Cigarettes Start date: 1983 Smokeless tobacco: Never Tobacco comments: Down to 2 cigarettes daily as of 07/18/23 Vaping Use Vaping Use: Never used Substance Use Topics Alcohol use: Yes Alcohol/week: 4.0 standard drinks of alcohol Types: 4 Glasses of Wine (5oz) per week Comment: 2-3 times a year Drug use: Never FAMILY HISTORY Problem Relation Age of Onset Thyroid Mother Hypothyroidism Hypertension Mother Arthritis Mother Rheumatoid Arthritis other (Other unknown) Father Cancer Maternal Grandmother Lung Cancer Breast Cancer Paternal Grandmother Anesthesia Problems No Family History ALLERGIES Allergen Reactions Augmentin [Amoxicil* Rash Not allergic to PCN or amoxicillin. CURRENT MEDICATIONS: buPROPion SR (WELLBUTRIN SR) 150 mg (more content not included)... [facility] 07-18-2023 History of Present illness Narrative Images from the original note were not included. [facility] C[facility]Y OUTPATIENT VISIT DATE July 18, 2023 OUTPATIENT VISIT TYPE ESTABLISHED PRIMARY CARE PHYSICIAN: Elvin Zavala [address] [place] [address] CHIEF COMPLAINT: Arrhythmia , Hypertension, Palpitations , and obesity. HISTORY OF PRESENT ILLNESS: Ms. Leone is a 58 year old female with a history of smoking. Arthritis of both knees. Hypertension. However no history of hyperlipidemia or diabetes. She is obese. And recently diagnosed with nonsustained ventricular tachycardia and some atrial tachycardias. Cardiac work-up includes: Multiple EKGs over the years. An event monitor done on 08/19/2021 showed sinus rhythm average heart rate of 88 bpm. 3 ventricular tachycardia runs longest of 10 beats. 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 A nuclear stress test on 09/08/2021 showed normal perfusion scan. Ejection fraction 69%. An echocardiogram done on 09/17/2019 showed ejection fraction of 64%. No valvular heart disease of any significance. No other abnormalities. Run out of her beta-blockers about 2 months ago and she started having some symptoms of chest discomfort as a squeezing and pinching sensation lasting for a second or 2. After she restarted her beta-blockers her symptoms went away. She denies any dyspnea orthopnea or PND. No syncope near syncope. No lightness or dizziness. No weight gain or loss. No leg edema. No other symptoms or complaints. IMPRESSION: Encounter Diagnosis ICD-10-CM 1. Palpitations R00.2 ECG COMPLETE 2. Primary hypertension I10 ECG COMPLETE 3. Ventricular tachycardia (paroxysmal) ([facility]) I47.29 ECG COMPLETE 4. Obesity, Class I, BMI 30-34.9 E66.9 ECG COMPLETE PLAN AND RECOMMENDATIONS: Chest discomfort As a pinching and squeezing sensation happens and lasts only for a second or 2. That happened while the patient ran out of her beta-blockers. Now with the beta-sheldon she does not have any symptoms. Negative ischemic workup the past. This does not seem to be due to angina. The patient is afraid to go ahead and have her knee surgery if needed at this point without any further cardiac workup. Hypertension Well-controlled by current management. Advised to continue current medications. Advised not to run out of any of her medications and to ask for refills 2 weeks before she runs out of the medicine. Ventricular arrhythmias Including nonsustained VT. Some SVT also. Negative ischemic workup. On beta-blockers. Obesity Encouraged again for more whole food plant-based diet. Less animal-based products. Less meat. No dairy products. Reduce calorie intake. Increase level of exercise. PHYSICAL EXAMINATION: BP 111/77 (BP Site: Left Arm, BP Position: Sitting, BP Cuff Size: Regular Adult) Pulse 72 Ht 160 cm (5' 3 ) Wt 82.1 kg (181 lb) LMP 02/25/2015 SpO2 97% BMI 32.06 kg/m HEENT: normocephalic, EOMI Heart: regular rhythm Lungs: clear to auscultation Abdomen: bowel sounds present Extremities: no edema Musculoskeletal: chest wall nontender Neurological: alert and oriented Psychiatric: appropriate and cooperative Skin: no rash, cellulitis or lesions appreciated CARDIOVASCULAR MEDICINE TESTING: I have personally reviewed ECG and laboratory results PAST CARDIAC HISTORY: See above. PAST MEDICAL HISTORY Diagnosis Date Bronchitis 2018 parotid mass left. States she has had the ultrasound on it. CT scan to be scheduled. PAST SURGICAL HISTORY Procedure Laterality Date SECTION HX 1990 COLPOSCOPY WCERVICAL BIOPSY ANDOR CURETTAGE N/A 09/23/2020 Pap 08/09/2020 Low Grade YANIRA, + HPV PAST SURGICAL HISTORY OF lesion removed from neck UNLISTED PROC, POLYETHYLENE EXCHANGE FOR A PARTIAL [place] ([place] [address]) Bilateral Social History Tobacco Use Smoking status: Every Day Packs/day: 0.50 Years: 37.00 Additional pack years: 0.00 Total pack years: 18.50 Types: Cigarettes Start date: 1983 Smokeless tobacco: Never Tobacco comments: Down to 2 cigarettes daily as of 07/18/23 Vaping Use Vaping Use: Never used Substance Use Topics Alcohol use: Yes Alcohol/week: 4.0 standard drinks of alcohol Types: 4 Glasses of Wine (5oz) per week Comment: 2-3 times a year Drug use: Never FAMILY HISTORY Problem Relation Age of Onset Thyroid Mother Hypothyroidism Hypertension Mother Arthritis Mother Rheumatoid Arthritis other (Other unknown) Father Cancer Maternal Grandmother Lung Cancer Breast Cancer Paternal Grandmother Anesthesia Problems No Family History ALLERGIES Allergen Reactions Augmentin [Amoxicil* Rash Not allergic to PCN or amoxicillin. CURRENT MEDICATIONS: buPROPion SR (WELLBUTRIN SR) 150 mg 12 hr tablet Take 1 tablet by mouth two times a day. losartan (COZAAR) 50 mg tablet Take 1 tablet by mouth once daily. metoprolol succinate ER (TOPROL XL) 50 mg 24 hr tablet Take 1 tablet by mouth once daily. TURMERIC ORAL Take by mouth once daily. Cholecalciferol, Vitamin D3, 25 mcg (1,000 unit) cap Take 1,000 Units by mouth once daily. clindamycin (CLEOCIN) 150 mg capsule Take 4 caps 1 hour prior to dentist aspirin, enteric coated (ECOTRIN LOW STRENGTH) 81 mg EC tablet Take 1 tablet by mouth twice daily. Take 2 tablets by mouth for 6 weeks (until 12/23/2021) then resume taking this medication once per day. (Patient taking differently: Take 81 mg by mouth once daily.) dextromethorphan-guaiFENesin (MUCINEX DM) 30-600 mg per tablet Take 1 tablet by mouth two times a day. (Patient not taking: Reported on 07/18/2023) benzocaine-menthol (CEPACOL) 15-3.6 mg lozg Use 1 Lozenge as instructed every 2 hours as needed. (Patient not taking: Reported on 07/18/2023) meloxicam (MOBIC) 15 mg tablet Take 1 tablet by mouth every afternoon. (Patient not taking: Reported on 07/18/2023) gabapentin (NEURONTIN) 100 mg capsule Take 1 capsule by mouth three times daily for 90 days. tretinoin (RETIN-A) 0.025 % topical cream Apply pea sized amount to full dry face at bedtime. Start slowly and progress as tolerated. documented in this encounter [facility] 07-14-2023 Miscellaneous Notes Eder 02/2022 Nov 07/18/23 Will refuse until seen documented in this encounter [facility] 06-22-2023 Note HNO ID: [id number] Author: CHIDI GONZALEZ, DO Service: ? Author Type: Physician Type: Progress Notes Filed: 06/22/2023 08:15 Note Text: Patient presents for a left hip injection. Large Joint Arthro/Inj: L hip joint Informed Consent Consent Obtained: Verbal [place] Protocol A moment to CARE was completed. SIGN IN Personnel directly involved with the procedure wore the appropriate PPE. Special Equipment: N/A Patient/Surrogate Stated/Verified: Patient name, Date of , Relevant allergies and Intended procedure TIME OUT Intended patient and procedure match the source document(s). Relevant labs, photos, and/or imaging studies have been reviewed. Correct side/site marked and visible. Medications required for procedure verified. No fire risk assessment and interventions applicable. No implant(s) inserted. 06/22/2023 8:15 AM The procedure site was prepped in the usual sterile fashion. Site: L hip joint Details:Musculoskeletal ultrasound was utilized to successfully localize placement of the injection needle at the appropriate site. Ultrasound images demonstrating local vasculature and demonstrating injection of solution were saved. Medications: 40 mg triamcinolone acetonide 40 mg/mL Anesthetics: 4 mL lidocaine (PF) 10 mg/mL (1 %) Outcome: Tolerated well, no immediate complications Post-injection instructions were reviewed with the patient and the patient voiced understanding of these instructions. SIGN OUT All instruments, equipment, possible retained foreign bodies accounted for. (M25.552) Hip pain, acute, left (primary encounter diagnosis) Chidi Gonzalez DO 06/22/2023 [facility] 06-08-2023 Evaluation note Encounter Date Diagnosis Assessment Notes May, Acute cough (ICD-10 - R05.1) May, Viral URI (ICD-10 - J06.9) Advised patient that COVID/Influenza A/B test and rapid Strep test was negative today. Advised patient that will treat as viral URI. Will send in rx of steroid to use as directed. Encouraged supportive care as directed, increase fluids and rest, Tylenol/Motrin as directed, OTC cough/cold remedies as directed on packaging, cool mist humidifier, throat lozenges. Discussed infection control practices such as good hand washing and mask wearing. Patient to follow up with PCP if symptoms persist or worsen despite treatment. Immediate eval for SOB, difficulty breathing, chest pain, fevers that do not break with antipyretic or any other concerning symptoms as reviewed on patient education handout. Patient verbalizes understanding and is agreeable to treatment plan. Patient left in stable condition. [employer] Other 12-29-2023 NoteHNO ID: [id number] Author: [place], RT(R) Service: ? Author Type: Technologist Type: Progress Notes Filed: 05/26/2023 4:07 PM Note Text: Radiology Service Progress Note PATIENT NAME: Steffi Leone DATE OF SERVICE: May 26, 2023 TIME: 4:07 PM PATIENT IDENTITY VERIFICATION COMPLETED USING TWO (2) IDENTIFIERS: Name and Date of confirmed by patient verbally. FALL SCREENING: Has the patient had 2 falls in the last year or 1 fall with injury or currently using an Ambulatory Assistive Device (Walker, Cane, Wheelchair, Crutches, etc.)? No PATIENT GENDER DATA: Female. status: : No status: NO. PATIENT RELEVANT IMPLANT DATA REVIEWED: Yes RADIOLOGY DEPARTMENT: MR; Exam(s) Completed: Lower MSK: Hip, left PERIPHERAL IV DATA: Not applicable SIGNED BY: RT Stephanie(R) May 26, 2023 4:07 [facility]12-[facility]2023 NoteHNO ID: [id number] Author: Elvin Soto I RT(R) Service: Radiology Author Type: Technologist Type: Progress Notes Filed: 05/19/2023 3:39 PM Note Text: Radiology Service Progress Note PATIENT NAME: Steffi Leone DATE OF SERVICE: May 19, 2023 TIME: 3:39 PM PATIENT IDENTITY VERIFICATION COMPLETED USING TWO (2) IDENTIFIERS: Name and Date of confirmed by patient verbally and Name and Date of confirmed by identification band. FALL SCREENING: Has the patient had 2 falls in the last year or 1 fall with injury or currently using an Ambulatory Assistive Device (Walker, Cane, Wheelchair, Crutches, etc.)? No PATIENT GENDER DATA: Female. status: : No status: NO. PATIENT RELEVANT IMPLANT DATA REVIEWED: Not Applicable RADIOLOGY DEPARTMENT: Mammography PERIPHERAL IV DATA: Not applicable SIGNED BY: RT Tom(R) May 19, 2023 3:39 [id number] NoteHNO ID: [id number] Author: Michelle Carrillo APRN.CREDIT AUTHORIZER Service: ? Author Type: Nurse Practitioner Type: Progress Notes Filed: 05/19/2023 3:37 PM Note Text: Steffi Leone is a 58 year old female presenting today for physical exam. She was previously followed by primary care in [place], has not had a physical exam for a few years. Her main concern is chronic knee and more recent hip pain for which she follows with orthopedics. Would like a refill on Mobic which she does not use daily but has used long-term with some relief when used. Is currently scheduling to get a hip MRI to rule out a tear, has had partial knee replacements and told that the hardware is loose and at this point no further appointments for the knees. She has had intended weight loss over the past year with decreasing her caloric intake and has lost 8 pounds. Her exercise is limited due to orthopedic issues. Hypertension-BP is slightly above goal but trended down during office visit. She has a home cuff but is not using it. She has a history of palpitations that have not been bothersome more recently. Overdue for routine follow-up with cardiology and would like to schedule that today. Tobacco use-smoking on average 5 cigarettes or so per day, had been using Wellbutrin only once a day because she was not sure when she needed refill but is planning to take it twice a day as previously ordered and try to stop smoking Anxiety that is controlled with Wellbutrin 150 mg twice daily ACTIVE PROBLEM LIST Transient Synovitis of Knee Smoker Lymphadenitis Vitamin D Deficiency Chronic Pain of Both Knees Cervical Dysplasia Anxiety Chest Skin Lesion Palpitations Hypertension Ventricular Tachycardia (Paroxysmal) (Hcc) Bilateral Primary Osteoarthritis of Knee Obesity, Class I, Bmi 30-34.9 FAMILY HISTORY Problem Relation Age of Onset Thyroid Mother Hypothyroidism Hypertension Mother Arthritis Mother Rheumatoid Arthritis other (Other unknown) Father Cancer Maternal Grandmother Lung Cancer Breast Cancer Paternal Grandmother Anesthesia Problems No Family History PAST SURGICAL HISTORY Procedure Laterality Date SECTION HX 1990 COLPOSCOPY WCERVICAL BIOPSY ANDOR CURETTAGE N/A 09/23/2020 Pap 08/09/2020 Low Grade YANIRA, + HPV PAST SURGICAL HISTORY OF lesion removed from neck UNLISTED PROC, POLYETHYLENE EXCHANGE FOR A PARTIAL [place] ([place] [address]) Bilateral Social History Tobacco Use Smoking status: Every Day Packs/day: 0.50 Years: 37.00 Additional pack years: 0.00 Total pack years: 18.50 Types: Cigarettes Start date: 1983 Smokeless tobacco: Never Vaping Use Vaping Use: Never used Substance Use Topics Alcohol use: Yes Alcohol/week: 4.0 standard drinks of alcohol Types: 4 Glasses of Wine (5oz) per week Comment: 2-3 times a year Drug use: Never She is single and has adult children that she sees periodically, 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 Enjoys taking care of her many pets and reading. REVIEW of SYSTEMS: GENERAL: Negative for significant weight loss and fever. HEENT: Negative for frequent or significant headaches, significant changes in vision or vision problems, significant ear problems or hearing loss, nasal discharge or nose bleeds and sore throat, difficulty swallowing, mouth lesions. NECK: Negative for lumps, goiter, pain and significant neck swelling. RESPIRATORY: Negative for cough, wheezing and shortness of breath. CARDIOVASCULAR: Negative for chest pain, leg swelling and palpitations. GASTROINTESTINAL: Negative for abdominal discomfort, blood in stools or black stools, change in stool and reflux. GENITOURINARY: Negative for dysuria, frequency and incontinence. WICKER WORKER: Negative for abnormal vaginal bleeding, abnormal vaginal discharge and breast symptoms. MUSKULOSKELETAL: See above NEUROLOGIC: Negative for focal numbness or weakness, headaches and dizziness. SKIN:Negative for lesions, rash, and itching. PSYCHIATRIC: Negative for sleep disturbance, mood disorder and recent psychosocial stressors. HEMATOLOGIC/LYMPHATIC/IMMUNOLOGIC:Negative for prolonged bleeding, bruising easily, and swollen nodes. ENDOCRINE: Negative for cold or heat intolerance, polyuria, polydipsia. PHYSICAL EXAMINATION: BP 135/85 Pulse 70 Wt 82.6 kg (182 lb 3.4 oz) LMP 02/25/2015 SpO2 98% BMI 32.28 kg/m? Last 3 Encounter Wt Readings: Date: Wt: 05/19/2023 82.6 kg (182 lb 3.4 oz) 04/04/2023 82.1 kg (181 lb) 01/10/2023 86.2 kg (190 lb) GENERAL APPEARANCE: Normal, healthy, cooperative, in no acute distress, alert. SKIN: Skin color, texture, turgor normal. No suspicious rashes or lesions. HEAD: Normocephalic. No masses, lesions, tenderness or abnormalities. EYES: conjunctivae/corneas clear. EARS: External ears normal. Canals clear. TM's normal. OROPHARYNX: Lips, mucosa, and tongue normal. Teeth and gums normal. Oropharynx norm (more content not included)...[facility] 04-04-2023 History of Present illness Narrative* Tai Reyna RT(R) - 04/04/2023 6:34 PM EST Radiology Service Progress Note PATIENT NAME: Steffi Leone DATE OF SERVICE: April 04, 2023 TIME: 6:35 PM PATIENT IDENTITY VERIFICATION COMPLETED USING TWO (2) IDENTIFIERS: Name and Date of confirmedby patient verbally. FALL SCREENING: Has the patient had 2 falls in the last year or 1 fall with injury or currently using an Ambulatory Assistive Device (Walker, Cane, Wheelchair, Crutches, etc.)? No PATIENT GENDER DATA: Female. status: : No status: NO. PATIENT RELEVANT IMPLANT DATA REVIEWED: Not Applicable RADIOLOGY DEPARTMENT: General X-ray: Exam(s) Completed: Pelvis X-Ray: Pelvis with Hip Left PERIPHERAL IV DATA: Not applicable SIGNED BY: RT Judah(R) April 04, 2023 6:35 PM documented in this encounterMem[facility]11-07-2023 History of Present illness Narrative* Alyssia Weaver RDMS - 04/04/2023 6:07 PM EST Radiology Service Progress Note PATIENT NAME: Steffi Leone DATE OF SERVICE: April 04, 2023 TIME: 6:07 PM PATIENT IDENTITY VERIFICATION COMPLETED USING TWO (2) IDENTIFIERS: Name and Date of confirmedby patient verbally. FALL SCREENING: Has the patient had 2 falls in the last year or 1 fall with injury or currently using an Ambulatory Assistive Device (Walker, Cane, Wheelchair, Crutches, etc.)? Emergency Room Patient: Screened in ED PATIENT GENDER DATA: Female. status: : No status: NO. PATIENT RELEVANT IMPLANT DATA REVIEWED: Not Applicable RADIOLOGY DEPARTMENT: Ultrasound PERIPHERAL IV DATA: Not applicable SIGNED BY: Alyssia Weaver RDMS, RVT April 04, 2023 6:07 PM documented in this encounterMemorial [facility] System10-16-2023 Miscellaneous Notes* Telephone Encounter - Gisella Rivero PA-C - 03/13/2023 10:52 AM EDT Please call and schedule for appointment prior to refill. * Telephone Encounter - Jadyn Marquez MA - 03/13/2023 10:21 AM EDT Last ov 01/10/2023 documented in this encounterMemorial [facility] System10-07-2023 Evaluation note* Encounter Date Diagnosis Assessment Notes Treatment Notes Treatment Clinical Notes Feb, Insect bite, unspecified site, initial encounter (ICD-10 - W57.XXXA) Discussed with patient rash is consistent with insect bites. Discussed unfortunately can tell her definitively what kind of insect. Discussed based on exam suspect fleas or bedbugs. Would recommend thoroughly examining apartment, requesting landlord retreat apartment. Patient is advised to use 24-hour antihistamine such as Zyrtec or Claritin, may use topical hydrocortisone cream. Will Rx Medrol Dosepak to help with pruritus. Check dogs for fleas, couches for any signs of bedbugs. Follow-up with PCP if further concerns. Patient verbalized understanding of treatment plan. [employer] Other 08-24-2023 History of Present illness Narrative* Mitch Tim MD - 01/19/2023 4:21 PM EDTAssociated Order(s): Large Joint Arthro/Inj: bilateral anserine bursas Post-Procedure Diagnose(s): Pes anserinus bursitis of both knees Chief complaint: Bilateral knee pain. HPI: This patient is over 1 year after bilateral knee medial unicompartmental arthroplasties. The patient has had persistent pain since surgery. The patient had worsening pain just over a month ago. Work-up and evaluation has included aspirations which were normal serial x-rays that revealed very subtle radiolucent lines under the tibial components bilaterally. A bone scan was obtained which was very positive on the right and intermediate positive on the left. The patient states that currently the right knee pain is more the left. It is worse with weightbearing better with rest. The patient is here for follow-up. PAST MEDICAL HISTORY Diagnosis Date Bronchitis 2018 parotid mass left. States she has had the ultrasound on it. CT scan to be scheduled. PAST SURGICAL HISTORY Procedure Laterality Date SECTION HX 1990 COLPOSCOPY WCERVICAL BIOPSY ANDOR CURETTAGE N/A 09/23/2020 Pap 08/09/2020 Low Grade YANIRA, + HPV PAST SURGICAL HISTORY OF lesion removed from neck Current Outpatient Medications Medication Sig Dispense Refill metoprolol succinate ER (TOPROL XL) 50 mg 24 hr tablet Take 1 tablet by mouth once daily. 90 tablet3 gabapentin (NEURONTIN) 100 mg capsule Take 1 capsule by mouth three times daily for 90 days. 90 capsule 2 buPROPion SR (ZYBAN SR; WELLBUTRIN SR) 150 mg 12 hr tablet Take 1 tablet by mouth twice daily. 60 tablet 0 traMADol (ULTRAM) 50 mg tablet Take 1 tablet by mouth every 8 hours as needed for pain. 28 tablet 0 TURMERIC ORAL Take by mouth once daily. losartan (COZAAR) 50 mg tablet Take 1 tablet by mouth once daily. 90 tablet 3 Cholecalciferol, Vitamin D3, 25 mcg (1,000 unit) cap Take 1,000 Units by mouth once daily. clindamycin (CLEOCIN) 150 mg capsule Take 4 caps 1 hour prior to dentist 12 capsule 1 aspirin, enteric coated (ECOTRIN LOW STRENGTH) 81 mg EC tablet Take 1 tablet by mouth twice daily. Take 2 tablets by mouth for 6 weeks (until 12/23/2021) then resume taking this medication once per day. 84 tablet 0 senna-docusate (SENOKOT-S) 8.6-50 mg per tablet Take 2 tablets by mouth twice daily. 20 tablet 0 naloxone 4 mg/actuation nasal spray (NARCAN) Use 1 spray in one nostril as needed for overdose. Mayrepeat every 2 to 3 min in alternating nostrils until medical assistance is available 1 Each 0 tretinoin (RETIN-A) 0.025 % topical cream Apply pea sized amount to full dry face at bedtime. Startslowly and progress as tolerated. 45 g 3 No current facility-administered medications for this visit. Allergies: Augmentin [Amoxicil* Rash Comment:Not allergic to PCN or amoxicillin. FAMILY HISTORY Problem Relation Age of Onset Thyroid Mother Hypothyroidism Hypertension Mother Arthritis Mother Rheumatoid Arthritis other (Other unknown) Father Cancer Maternal Grandmother Lung Cancer Breast Cancer Paternal Grandmother Anesthesia Problems No Family History Social History Tobacco Use Smoking status: Every Day Packs/day: 1.00 Years: 37.00 Additional pack years: 0.00 Total pack years: 37.00 Types: Cigarettes Start date: 1983 Smokeless tobacco: Never Tobacco comments: 1.0 pack per day quit 09/05/2021 Vaping Use Vaping Use: Never used Substance Use Topics Alcohol use: Yes Alcohol/week: 10.0 standard drinks of alcohol Types: 4 Glasses of Wine (5oz) per week Comment: 2-3 times a year Drug use: Never ROS + for arthritis limp limb pain Glucose (mg/dL) Date Value 11/12/2021 91 02/03/2021 87 Potassium (mmol/L) Date Value 11/12/2021 4.3 02/03/2021 4.2 Sodium (mmol/L) Date Value 11/12/2021 138 02/03/2021 141 Chloride (mmol/L) Date Value 11/12/2021 108 02/03/2021 105 CO2 (mmol/L) Date Value 11/12/2021 24 02/03/2021 23 Creatinine (mg/dL) Date Value 11/12/2021 0.80 02/03/2021 0.71 BUN (mg/dL) Date Value 11/12/2021 21 02/03/2021 15 Anion Gap (mmol/L) Date Value 11/12/2021 6 02/03/2021 13 Calcium (mg/dL) Date Value 02/03/2021 10.2 Calcium, Total (mg/dL) Date Value 11/12/2021 8.6 CRP Date Value Ref Range Status 12/01/2022 0.3 <0.9 mg/dL Final LMP 02/25/2015 Physical exam: The patient is well-developed well-nourished appears her stated age right knee is stable on varus valgus and drawer testing there is no erythema drainage or fluctuance. Right knee range of motion 0 to 115 degrees. Left knee stable in varus valgus and drawer testing there is no erythema drainage or fluctuance range of motion's are 0 to 115 degrees. DP PT pulses palpable bilateral dorsiflexion plantarflexion EHL intact Gait: Limp is present mood is anxious coordination normal. The bursa's are tender bilaterally (pes) Imaging: X-rays of bilateral knees reveals very subtle radiolucent lines around the tibial components bilaterally which are slightly progressive. I have reviewed and interpreted films and images personally Bone scan is strongly positive on the right intermediate positive on the left. Labs: Bilateral knee aspiration results culture negative. Cell count 427 on the right and 159 on the left C-reactive protein normal Assessment and plan: Highly complex evaluation of painful knees after unicompartmental arthroplasty. I had an extensive discussion with the patient that although the pain appears to be multifactorialwith the positive bone scan there may be compromised bone quality beneath the tibial components that was not apparent preoperatively or at the time of surgery. There is radiographic evidence of earlyloosening of the tibial components. Therefore I have offered revision surgery to the patient. I recommend starting with the right side. The patient has declined surgery right now for multiple reasons. Therefore 1 option might be to consider injections in the pes bursa for pain relief. We discussed injecting 1 or both knees the patient would like to proceed with both knee injections. I spent a total of 30 minutes on the date of the service which included [id number] patient care, completing clinical documentation, and ordering medications, tests, or procedures. Large Joint Arthro/Inj: bilateral anserine bursas Informed Consent Consent Obtained: Verbal [facility] Protocol A moment to CARE was completed. SIGN IN Personnel directly involved with the procedure wore the appropriate PPE. Special Equipment: N/A Patient/Surrogate Stated/Verified: Patient name, Intended procedure, Relevant allergies and Date ofbirth TIME OUT Intended patient and procedure match the source document(s). Relevant labs, photos, and/or imaging studies have been reviewed. Correct side/site marked and visible. Medications required for procedure verified. No fire risk assessment and interventions applicable. No implant(s) inserted. 01/19/2023 4:26 PM The procedure site was prepped in the usual sterile fashion. Site: bilateral anserine bursas Medications (Right): 40 mg triamcinolone acetonide 40 mg/mL Medications (Left): 40 mg triamcinolone acetonide 40 mg/mL Anesthetics (Right): 1 mL BUPivacaine (PF) 0.5 % (5 mg/mL) Anesthetics (Left): 1 mL BUPivacaine (PF) 0.5 % (5 mg/mL) Outcome: Tolerated well, no immediate complications Post-injection instructions were reviewed with the patient and the patient voiced understanding of these instructions. SIGN OUT All instruments, equipment, possible retained foreign bodies accounted for. documented in this encounterMemorial Health System08-24-2023 History of Present illness Narrative* Mary Iraheta RT(R) - 01/19/2023 3:30 PM EDT Radiology Service Progress Note PATIENT NAME: Steffi Loene DATE OF SERVICE: January 19, 2023 TIME: 3:16 PM PATIENT IDENTITY VERIFICATION COMPLETED USING TWO (2) IDENTIFIERS: Name and Date of confirmedby patient verbally. FALL SCREENING: Has the patient had 2 falls in the last year or 1 fall with injury or currently using an Ambulatory Assistive Device (Walker, Cane, Wheelchair, Crutches, etc.)? No PATIENT GENDER DATA: Female. status: : No status: NO. PATIENT RELEVANT IMPLANT DATA REVIEWED: Not Applicable RADIOLOGY DEPARTMENT: General X-ray: Exam(s) Completed: Lower Extremity X- Ray(s): FLEA (Full LengthLower Extremity) PERIPHERAL IV DATA: Not applicable SIGNED BY: Amaya Taylor RT RT Mao(R) January 19, 2023 3:16 PM documented in this encounterMemorial Health System08-18-2023 History of Present illness Narrative* Zohra Dior LSW - 01/13/2023 9:36 AM EDT Primary Care Social Work Provider Action / FYI PCP Action Date of Service: 01/13/2023 Patient identified by name and date of : No Referral Source: Pursue Patient Outreach: Initial Mode of Outreach: MyChart Response Time: SDOH contact made requested via [employer]. Narrative: Pt completed SDOH questionnaire indicating that there are social determinates such as food insecurity, financial concerns, or transportation issues potentially influencing the patient's healthcare. Interventions: Advocacy Education JESSICA Faustin January 13, 2023 9:45 AM documented in this encounterMemorial Health System08-15-2023 History of Present illness Narrative* Elvin Zavala APRN.CREDIT AUTHORIZER - 01/10/2023 10:57 AM EDT This note was created using NoteWriter. Subjective Steffi Leone is a 57 year old female. CC: arthritis HPI Bilateral knee surgery-feels worse than prior-also taking gabapentin. States pins in knees coming out and will need to go back into surgery again. See ortho OV 11/30/22 & bone scan 12/12/22 Would like to discuss obtaining second opinion. Pt advised I placed order so she can get second opinion. Order placed No infection seen in bilat knee-was to f/up 2 weeks. Seen pain management 06/23/22: improved after nerve block. Insurance did not allow RFA. Taking moringa herbal pills which helped for a while. Previous PT in 2018. Tried gabapentin and mobic. Requesting refill gabapentin today. PDMP report checked. No suspicious activity noted. Review of Systems-see HPI Objective BP 120/80 Pulse (!) 59 Wt 86.2 kg (190 lb) LMP 02/25/2015 SpO2 99% BMI 33.66 kg/m Physical Exam Vitals reviewed. Constitutional: Appearance: Normal appearance. HENT: Head: Normocephalic and atraumatic. Eyes: Extraocular Movements: Extraocular movements intact. Conjunctiva/sclera: Conjunctivae normal. Pupils: Pupils are equal, round, and reactive to light. Neck: Vascular: No carotid bruit. Cardiovascular: Rate and Rhythm: Normal rate and regular rhythm. Pulses: Normal pulses. Heart sounds: Normal heart sounds. Pulmonary: Effort: Pulmonary effort is normal. Breath sounds: Normal breath sounds. Musculoskeletal: General: Normal range of motion. Cervical back: Normal range of motion and neck supple. Comments: Antalgic gait. Skin: General: Skin is warm and dry. Capillary Refill: Capillary refill takes less than 2 seconds. Neurological: Mental Status: She is alert and oriented to person, place, and time. Psychiatric: Mood and Affect: Mood normal. Thought Content: Thought content does not include homicidal or suicidal ideation. Thought content does not include homicidal or suicidal plan. Assessment and Plan ASSESSMENT/PLAN: 1. Chronic pain of both knees - ICD9: 719.46, 338.29, ICD10: M25.561, M25.562, G89.29 (primary diagnosis) History of knee surgery-with continued pain-seen by orthopedics, imaging and concern for loosening hardware with recommendation for revision surgery. They did start her on gabapentin for feelings of [id number]. Refill requested today. PDMP checked-no suspicious activity. She would like to geta second orthopedic opinion prior to revision surgery. Order has been placed and she will schedule. - GABAPENTIN 100 MG CAPSULE 2. Palpitations - ICD9: 785.1, ICD10: R00.2 No complaint-refill today - METOPROLOL SUCCINATE ER 50 MG TABLET,EXTENDED RELEASE 24 HR Elvin Zavala APRN.CREDIT AUTHORIZER documented in this encounterMemorial Health System08-07-2023 History of Present illness Narrative* Blanquita Quintero PA-C - 01/02/2023 3:58 PM EDTAssociated Order(s): Large Joint Arthro/Inj: L knee joint Post-Procedure Diagnose(s): Pain due to internal orthopedic prosthetic devices, implants and grafts, initial encounter ([facility]) Images from the original note were not included. DEPARTMENT OF ORTHOPAEDICS SUBJECTIVE Pt presents today for left knee aspiration to rule out infection of painful unicompartmental knee arthroplasty. Her right knee was aspirated about 2 weeks ago and was negative for infection. Denies any complication from previous injections. OBJECTIVE Large Joint Arthro/Inj: L knee joint Informed Consent Consent Obtained: Written [facility] Protocol A moment to CARE was completed. SIGN IN Personnel directly involved with the procedure wore the appropriate PPE. Special Equipment: N/A Patient/Surrogate Stated/Verified: Patient name, Date of , Relevant allergies and Intended procedure TIME OUT Intended patient and procedure match the source document(s). Consent documented and matches the intended procedure. Relevant labs, photos, and/or imaging studies have been reviewed. Correct side/site marked and visible. Medications required for procedure verified. No fire risk assessment and interventions applicable. No implant(s) inserted. 01/02/2023 3:58 PM The procedure site was prepped in the usual sterile fashion. Site: L knee joint Aspirate: 10 mL serous; sent for lab analysis Anesthetics: 4 mL lidocaine (PF) 10 mg/mL (1 %) Outcome: Tolerated well, no immediate complications Post-injection instructions were reviewed with the patient and the patient voiced understanding of these instructions. SIGN OUT All instruments, equipment, possible retained foreign bodies accounted for. Third republican represented by Faiza Parkinson RN ASSESSMENT Pain due to internal orthopedic prosthetic devices, implants and grafts, initial encounter ([facility]) (primary encounter diagnosis) PLAN Patient tolerated the procedure. Will send aspirate to the lab for culture. We discussed the results of her right knee aspiration as well. Addressed questions and concerns. Follow up in 2 weeks to discuss left knee aspiration results as well as plan for revision surgery. Blanquita Quintero PA-C documented in this encounterMemorial Health System07-27-2023 History of Present illness Narrative* Blanquita Quintero PA-C - 12/22/2022 3:18 PM EDTAssociated Order(s): Large Joint Arthro/Inj: R knee joint Post-Procedure Diagnose(s): Pain due to internal orthopedic prosthetic devices, implants and grafts, initial encounter ([facility]); History of prosthetic unicompartmental arthroplasty of both knees Patient presents with: Left Knee - Established Patient Right Knee - Established Patient HPI:-year-old female who presents for follow-up of bilateral knee pain with a history of bilateral unicompartmental knee arthroplasties. The patient was seen a few weeks ago due to severe pain of bilateral knees. It was found on x-ray the appearance of suggestive loosening of the medial tibial components. The patient underwent a bone scan which was also suggestive of loosening. CRP was normal. The patient reports the pain is still 8 out of 10 in both knees. It is difficult for her to ambulate due to pain. She tries ice with minimal relief. She reports recovery of the knees went well, however then the knees began becoming painful over time. She denies falls or injuries to the knees. No specific incident which caused the knees to begin to become painful she does not believe she has a history of osteoporosis. She does take vitamin D supplementation. PAST MEDICAL HISTORY Diagnosis Date Bronchitis 2018 parotid mass left. States she has had the ultrasound on it. CT scan to be scheduled. PAST SURGICAL HISTORY Procedure Laterality Date SECTION HX 1990 COLPOSCOPY WCERVICAL BIOPSY ANDOR CURETTAGE N/A 09/23/2020 Pap 08/09/2020 Low Grade YANIRA, + HPV PAST SURGICAL HISTORY OF lesion removed from neck Current Outpatient Medications Medication Sig Dispense Refill buPROPion SR (ZYBAN SR; WELLBUTRIN SR) 150 mg 12 hr tablet Take 1 tablet by mouth twice daily. 60 tablet 0 gabapentin (NEURONTIN) 100 mg capsule Take 1 capsule by mouth three times daily for 90 days. 90 capsule 2 traMADol (ULTRAM) 50 mg tablet Take 1 tablet by mouth every 8 hours as needed for pain. 28 tablet 0 TURMERIC ORAL Take by mouth once daily. metoprolol succinate ER (TOPROL XL) 50 mg 24 hr tablet Take 1 tablet by mouth once daily. 90 tablet3 losartan (COZAAR) 50 mg tablet Take 1 tablet by mouth once daily. 90 tablet 3 Cholecalciferol, Vitamin D3, 25 mcg (1,000 unit) cap Take 1,000 Units by mouth once daily. clindamycin (CLEOCIN) 150 mg capsule Take 4 caps 1 hour prior to dentist 12 capsule 1 aspirin, enteric coated (ECOTRIN LOW STRENGTH) 81 mg EC tablet Take 1 tablet by mouth twice daily. Take 2 tablets by mouth for 6 weeks (until 12/23/2021) then resume taking this medication once per day. 84 tablet 0 senna-docusate (SENOKOT-S) 8.6-50 mg per tablet Take 2 tablets by mouth twice daily. 20 tablet 0 naloxone 4 mg/actuation nasal spray (NARCAN) Use 1 spray in one nostril as needed for overdose. Mayrepeat every 2 to 3 min in alternating nostrils until medical assistance is available 1 Each 0 tretinoin (RETIN-A) 0.025 % topical cream Apply pea sized amount to full dry face at bedtime. Startslowly and progress as tolerated. 45 g 3 No current facility-administered medications for this visit. ALLERGIES Allergen Reactions Augmentin [Amoxicil* Rash Not allergic to PCN or amoxicillin. ROS: + for arthritis limp limb pain no fevers chills CP or SOB. PE: General: well developed well nourished appears stated age Resp: nonlabored Abd: nontender Right Knee: stable on varus valgus and drawer testing ROM 0 to 110 degrees and painful DF PF EHL intact DP PT 2 + Edema no Effusion no Gait: limp yes due to pain Mood: euthymic Coordination: normal Imaging: xray reveals minimal lucency of the tibial components bilaterally. No sign of acute fracture. I have reviewed and interpreted films personally Bone Scan: IMPRESSION: Three-phase increased periprosthetic uptake at the medial bilateral tibial plateaus, more prominent on the right. The findings are suspicious for prostheses loosening, in the appropriate clinical setting. Dictated by : JESUS HINDS MD Labs: Hemoglobin A1C (%) Date Value 08/30/2021 5.5 02/03/2021 5.8 CRP Date Value Ref Range Status 12/01/2022 0.3 <0.9 mg/dL Final Large Joint Arthro/Inj: R knee joint Informed Consent Consent Obtained: Written [place] Protocol A moment to CARE was completed. SIGN IN Personnel directly involved with the procedure wore the appropriate PPE. Special Equipment: N/A Patient/Surrogate Stated/Verified: Patient name, Date of , Relevant allergies and Intended procedure TIME OUT Intended patient and procedure match the source document(s). Consent documented and matches the intended procedure. Relevant labs, photos, and/or imaging studies have been reviewed. Correct side/site marked and visible. Medications required for procedure verified. No fire risk assessment and interventions applicable. No implant(s) inserted. 12/22/2022 3:53 PM The procedure site was prepped in the usual sterile fashion. Site: R knee joint Aspirate: 10 mL serous, blood-tinged and bloody; sent for lab analysis Anesthetics: 4 mL BUPivacaine (PF) 0.5 % (5 mg/mL) Outcome: Tolerated well, no immediate complications Post-injection instructions were reviewed with the patient and the patient voiced understanding of these instructions. SIGN OUT All instruments, equipment, possible retained foreign bodies accounted for. AP: 57 year old with a history of painful bilateral medial unicompartmental total knee arthroplasties. We repeated x-rays today to evaluate for loosening. It was found on bone scan that there was uptake in the medial tibial components bilaterally. We discussed these results. I would like to aspirate bilateral knees. We will start with 1 knee today and proceed with the contralateral knee next week. Wediscussed the importance of ruling out infection at this time. We also discussed a revision surgeryto total knee arthroplasty will be necessary. Patient agreed with the current plan. Consent was obtained. Patient tolerated the procedure well. Aspirate will be sent to the lab for evaluation. The patient understands that further surgery will be required due to the loosening of these prostheses. The patient would like to postpone surgery at this time. She will follow-up next week for aspiration of the left knee. Blanquita Quintero PA-C documented in this encounterMemorial Health System07-27-2023 History of Present illness Narrative* Lula Ch RT(R) - 12/22/2022 1:31 PM EDT Radiology Service Progress Note PATIENT NAME: Setffi Leone DATE OF SERVICE: December 22, 2022 TIME: 1:31 PM PATIENT IDENTITY VERIFICATION COMPLETED USING TWO (2) IDENTIFIERS: Name and Date of confirmedby patient verbally. FALL SCREENING: Has the patient had 2 falls in the last year or 1 fall with injury or currently using an Ambulatory Assistive Device (Walker, Cane, Wheelchair, Crutches, etc.)? No PATIENT GENDER DATA: Female. status: : No status: NO. PATIENT RELEVANT IMPLANT DATA REVIEWED: Not Applicable RADIOLOGY DEPARTMENT: General X-ray: Exam(s) Completed: Lower Extremity X- Ray(s): Knee, AP / Lat / Tunne / Merchant Bilateral and Wt. Bearing PERIPHERAL IV DATA: Not applicable SIGNED BY: RT Demi(R) December 22, 2022 1:31 PM documented in this encounterMemorial Health System07-17-2023 NoteHNO ID: [id number] Author: ANUPAMA Jean Service: ? Author Type: [employer] Team Member Type: Progress Notes Filed: 12/12/2022 11:31 AM Note Text: RADIOLOGY SERVICE PROGRESS NOTE SERVICE DATE: 12/12/2022 SERVICE TIME: 11:30 AM PATIENT IDENTITY VERIFICATION COMPLETED USING TWO (2) STANDARD IDENTIFIERS: Name and Date of confirmed by patient verbally FALL SCREENING: Has the patient had 2 falls in the last year or 1 fall with injury or currently using an Ambulatory Assistive Device (Walker, Cane, Wheelchair, Crutches, etc.)? No PATIENT GENDER DATA: .female : No ALLERGIES: Reviewed and unchanged MEDICATIONS REVIEWED: Not applicable PATIENT RELEVANT IMPLANT DATA REVIEWED: Not Applicable CREATININE: Creatinine Date Value Ref Range Status 11/12/2021 0.80 0.58 - 0.96 mg/dL Final 11/11/2021 0.64 0.58 - 0.96 mg/dL Final 08/30/2021 0.80 0.58 - 0.96 mg/dL Final 08/30/2021 0.81 0.58 - 0.96 mg/dL Final Estimated Glomerular Filtration Rate Date Value Ref Range Status 11/12/2021 87 >=60 mL/min/1.73m? Final Comment: Estimated Glomerular Filtration Rate (eGFR) is calculated using the 2020 CKD-EPI creatinine equation. This equation utilizes serum creatinine, sex, and age as parameters. The creatinine assay has traceable calibration to isotope dilution-mass spectrometry. Refer to KDIGO guidelines for clinical interpretation. In patients with unstable renal function, e.g. those with acute kidney injury, the eGFR may not accurately reflect actual GFR. eGFR- Date Value Ref Range Status 02/03/2021 >60 Final P.O.C.T. RESULTS: N/A December 12, [address] PERFORMED: No IV SITE: Ambulatory: A peripheral IV was started in the Right antecubital site with a Angio cath: 22 gauge. POST EXAM PIV STATUS: Discontinued PROCEDURE TYPE: NM INJECT: NM BONE 3 PHASE. 22.1 mCi Tc99m MDP. No other medications given.. ADMINISTRATION TIME: 1107 PATIENT DISCHARGED TO: Ambulatory patient, left [place] department area. A Diagnostic radioactive procedure has taken place, with no further precautions necessary other than routine body substance precautions. More information regarding radiation safety can be found using this link: [email or web address] SIGNATURE: Greg ANUPAMA Lozano PATIENT NAME: Steffi Leone DATE: December 12, 2022 TIME: 11:30 AM [phone] History of Present illness Narrative* Greg Lozano PORTER LUGGAGE - 12/12/2022 11:00 AM EDT RADIOLOGY SERVICE PROGRESS NOTE SERVICE DATE: 12/12/2022 SERVICE TIME: 11:30 AM PATIENT IDENTITY VERIFICATION COMPLETED USING TWO (2) STANDARD IDENTIFIERS: Name and Date of confirmed by patient verbally FALL SCREENING: Has the patient had 2 falls in the last year or 1 fall with injury or currently using an Ambulatory Assistive Device (Walker, Cane, Wheelchair, Crutches, etc.)? No PATIENT GENDER DATA: .female : No ALLERGIES: Reviewed and unchanged MEDICATIONS REVIEWED: Not applicable PATIENT RELEVANT IMPLANT DATA REVIEWED: Not Applicable CREATININE: Creatinine Date Value Ref Range Status 11/12/2021 0.80 0.58 - 0.96 mg/dL Final 11/11/2021 0.64 0.58 - 0.96 mg/dL Final 08/30/2021 0.80 0.58 - 0.96 mg/dL Final 08/30/2021 0.81 0.58 - 0.96 mg/dL Final Estimated Glomerular Filtration Rate Date Value Ref Range Status 11/12/2021 87 >=60 mL/min/1.73m Final Comment: Estimated Glomerular Filtration Rate (eGFR) is calculated using the 2020 CKD-EPI creatinine equation. This equation utilizes serum creatinine, sex, and age as parameters. The creatinine assay has traceable calibration to isotope dilution- mass spectrometry. Refer to KDIGO guidelines for clinical interpretation. In patients with unstable renal function, e.g. those with acute kidney injury, the eGFRmay not accurately reflect actual GFR. eGFR- Date Value Ref Range Status 02/03/2021 >60 Final P.O.C.T. RESULTS: N/A December 12, [address] PERFORMED: No IV SITE: Ambulatory: A peripheral IV was started in the Right antecubital site with a Angio cath: 22 gauge. POST EXAM PIV STATUS: Discontinued PROCEDURE TYPE: NM INJECT: NM BONE 3 PHASE. 22.1 mCi Tc99m MDP. No other medications given.. ADMINISTRATION TIME: 1107 PATIENT DISCHARGED TO: Ambulatory patient, left [place] department area. A Diagnostic radioactive procedure has taken place, with no further precautions necessary other than routine body substance precautions. More information regarding radiation safety can be found usingthis link: [email or web address] 20Diagnostic%20Nuclear%20Medicine%[email or web address] SIGNATURE: ANUPAMA Jean PATIENT NAME: Steffi Leone DATE: December 12, 2022 TIME: 11:30 AM PAGER/CONTACT #: documented in this encounterMemorial Health System07-14-2023 Miscellaneous Notes* Telephone Encounter - Jemma Baldwin RT([place]) - 12/09/2022 2:10 PM EDT Spoke with patient confirming arrival of 10:30. Explained test and let her no no prep or restrictions. Reminded her there are two appointments with the second being at 14:30. documented in this encounterMemorial Health System07-12-2023 History of Present illness Narrative* Blanquita Quintero PA-C - 12/07/2022 3:29 PM EDT This is a 57-year-old female with bilateral unicompartmental knee arthroplasties from about 1 year ago. At the recent office visit x-rays demonstrated possible lucency of the tibial component bilaterally suggesting possible loosening. X- rays did not demonstrate this lucency which suggests that thisloosening has been occurring over time. The patient had a CRP drawn which was negative. I called the patient today to discuss this result as well as next steps. I would like her to proceed with a bone scan to evaluate for loosening of the tibial component. We will also proceed with a bilateral kneeaspiration. I discussed with the patient that the possibility for revision surgery is high if the bone scan returns with evidence of prosthetic loosening. A revision surgery at this time would require a total knee arthroplasty. It seems that the patient may have osteoporosis of the bone of the tibia which has potentially caused this bilateral loosening. The patient will proceed with a bone scan and follow-up with me in about 2 weeks. She reports the right knee is most painful at this time however they are very similar. We will proceed with a right knee aspiration first and then follow-up 1 week later for a left knee aspiration. The case was discussed with Dr. iTm. This visit was conducted via telephone encounter. I spent a total of 12 minutes on the date of the service which included preparing to see the patient, completing clinical documentation, obtaining and/or reviewing separately obtained history, counseling and educating the patient/family/caregiver, or dering medications, tests, or procedures, independently interpreting results (not separately reported), and communicating results to the patient/family/caregiver. Blanquita Quintero PA-C documented in this encounterMemorial Health System07-05-2023 History of Present illness Narrative* Blanquita Quintero PA-C - 11/30/2022 7:33 PM EDT Patient presents with: Right Knee - Established Patient, Follow Up Left Knee - Established Patient, Follow Up HPI:This is a 57 year old female who presents with a history of bilateral unicompartmental knee arthroplasty in October 2021. She reports painful knee prostheses since surgery. She describes the pain asthrobbing with weight bearing and ambulation. She has tried Tylenol and Gabapentin for the pain. She has also undergone genicular nerve blocks, but was denied by insurance for consideration for nerveablation therapy. 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 She denies fall or injury. Denies infective symptoms such as fever, chills, chest pain, shortness of breath. She reports her insurance has changed recently, meaning nerve ablation therapy may be approved by insurance if needed in the future. PAST MEDICAL HISTORY Diagnosis Date Bronchitis 2018 parotid mass left. States she has had the ultrasound on it. CT scan to be scheduled. PAST SURGICAL HISTORY Procedure Laterality Date SECTION HX 1990 COLPOSCOPY WCERVICAL BIOPSY ANDOR CURETTAGE N/A 09/23/2020 Pap 08/09/2020 Low Grade YANIRA, + HPV PAST SURGICAL HISTORY OF lesion removed from neck Current Outpatient Medications Medication Sig Dispense Refill buPROPion SR (ZYBAN SR; WELLBUTRIN SR) 150 mg 12 hr tablet Take 1 tablet by mouth twice daily. 60 tablet 0 gabapentin (NEURONTIN) 100 mg capsule Take 1 capsule by mouth three times daily for 90 days. 90 capsule 2 traMADol (ULTRAM) 50 mg tablet Take 1 tablet by mouth every 8 hours as needed for pain. 28 tablet 0 TURMERIC ORAL Take by mouth once daily. metoprolol succinate ER (TOPROL XL) 50 mg 24 hr tablet Take 1 tablet by mouth once daily. 90 tablet3 losartan (COZAAR) 50 mg tablet Take 1 tablet by mouth once daily. 90 tablet 3 Cholecalciferol, Vitamin D3, 25 mcg (1,000 unit) cap Take 1,000 Units by mouth once daily. clindamycin (CLEOCIN) 150 mg capsule Take 4 caps 1 hour prior to dentist 12 capsule 1 aspirin, enteric coated (ECOTRIN LOW STRENGTH) 81 mg EC tablet Take 1 tablet by mouth twice daily. Take 2 tablets by mouth for 6 weeks (until 12/23/2021) then resume taking this medication once per day. 84 tablet 0 senna-docusate (SENOKOT-S) 8.6-50 mg per tablet Take 2 tablets by mouth twice daily. 20 tablet 0 naloxone 4 mg/actuation nasal spray (NARCAN) Use 1 spray in one nostril as needed for overdose. Mayrepeat every 2 to 3 min in alternating nostrils until medical assistance is available 1 Each 0 tretinoin (RETIN-A) 0.025 % topical cream Apply pea sized amount to full dry face at bedtime. Startslowly and progress as tolerated. 45 g 3 Current Facility-Administered Medications Medication Dose Route Frequency Provider Last Rate Last Admin perflutren lipid microspheres 1.3 mL in NaCl (PF) 0.9% 10 mL injection (DEFINITY) INTRAVENOUS DIRECTED PRN Kush Robert MD sodium chloride 0.9 % (flush) 10 mL (BD POSIFLUSH) 10 mL INTRAVENOUS DIRECTED PRN Kush Robert MD FAMILY HISTORY Problem Relation Age of Onset Thyroid Mother Hypothyroidism Hypertension Mother Arthritis Mother Rheumatoid Arthritis other (Other unknown) Father Cancer Maternal Grandmother Lung Cancer Breast Cancer Paternal Grandmother Anesthesia Problems No Family History ALLERGIES Allergen Reactions Augmentin [Amoxicil* Rash Not allergic to PCN or amoxicillin. ROS: + for arthritis limp limb pain no fevers chills CP or SOB. PE: General: well developed well nourished appears stated age, patient is tearful due to the pain Resp: nonlabored Abd: nontender Left Knee: stable on varus valgus and drawer testing ROM 0 to 110 degrees Right Knee: stable on varus valgus and drawer testing ROM 0 to 110 DF PF EHL intact DP PT 2 + Edema no Effusion no Gait: limp slight due to pain Mood: euthymic Coordination: normal Imaging: reveals IMPRESSION: Medial unicompartmental arthroplasties with minimal lucency at the bone-cement interface of the tibial components bilaterally. Dictated by : MADDISON CLEMONS MD I have reviewed and interpreted films personally Labs: Hemoglobin A1C (%) Date Value 08/30/2021 5.5 02/03/2021 5.8 CRP Date Value Ref Range Status 03/18/2022 0.7 <0.9 mg/dL Final AP: 57 year old with bilateral painful unicompartmental knee arthroplasties concerning for possible loosening found on xray today. Patient will obtain CRP lab value today and return in 3-4 weeks for repeat xrays. She may use an assistive device as needed. She can continue taking Tylenol and Mobic for pain control. Will discuss recent xray findings with Dr. Tim. Blanquita Quintero PA-C documented in this encounterMemorial Health System07-05-2023 History of Present illness Narrative* Lam Shine, RT(R) - 11/30/2022 7:30 PM EDT Radiology Service Progress Note PATIENT NAME: Steffi Leone DATE OF SERVICE: November 30, 2022 TIME: 4:49 PM PATIENT IDENTITY VERIFICATION COMPLETED USING TWO (2) IDENTIFIERS: Name and Date of confirmedby patient verbally. FALL SCREENING: Has the patient had 2 falls in the last year or 1 fall with injury or currently using an Ambulatory Assistive Device (Walker, Cane, Wheelchair, Crutches, etc.)? No PATIENT GENDER DATA: Female. status: : No status: NO. PATIENT RELEVANT IMPLANT DATA REVIEWED: Not Applicable RADIOLOGY DEPARTMENT: General X-ray: Exam(s) Completed: Lower Extremity X- Ray(s): Knee, AP / Lat / Merchant Bilateral and Wt. Bearing PERIPHERAL IV DATA: Not applicable SIGNED BY: RT Rossana([place]) November 30, 2022 4:49 PM documented in this encounterMemorial Health System07-05-2023 Miscellaneous Notes* Telephone Encounter - Fariba Mendoza LPN - 11/30/2022 1:29 PM EDT Physician: Elvin Zavala APRN.CREDIT AUTHORIZER Call from patient requesting refill. Please E-Scribe Last OV: 09/01/2021 Future OV: 12/27/2022 Requested Prescriptions Pending Prescriptions Disp Refills buPROPion SR (ZYBAN SR; WELLBUTRIN SR) 150 mg 12 hr tablet 60 tablet 0 Sig: Take 1 tablet by mouth twice daily. Fariba Mendoza LPN * Telephone Encounter - Marilyn Pierson - 11/30/2022 11:41 AM EDT Patient requesting medication to get her through until her 12/27/22 appointment. She was just re-issued insurance. Please advise. Steffi is calling Elvin Zavala APRN.CNP today to request prescription refills. Date 11/30/2022 Time 7242 Instructions:Patient aware RX will be sent to pharmacy. No need to notify patient. Requested Prescriptions Pending Prescriptions Disp Refills buPROPion SR (ZYBAN SR; WELLBUTRIN SR) 150 mg 12 hr tablet 60 tablet 0 Sig: Take 1 tablet by mouth twice daily. Last OV: 09/01/2021 Next OV: 12/27/2022 Patient has been identified by name and birthdate. Person calling: self Return call to: verified home phone below Patient's phone: [phone] (home) [phone] (work) [phone] (cell) Was an appointment scheduled: Yes: Date/Time: 12/27/2022 1420 Closing statement: [facility]. Your request will be forwarded to the provider for review. YOAV Lora Patient Operations Support Team (POST) Please note: Please do not re-route phone encounters back to this agent, please send to appropriateoffice pool. Agent works in operations center and cannot complete patient specific tasks. documented in this encounterMemorial Health System06-21-2023 History of Present illness Narrative* Jadyn Marquez MA - 11/16/2022 3:06 PM EDT Care Gap Reviewed: Colorectal Cancer Screening Outreach Outcome/Action: MyChart message sent Jadyn Marquez MA documented in this encounterMemorial Health System06-21-2023 History of Present illness Narrative* Jadyn Marquez MA - 11/16/2022 3:01 PM EDT Care Gap Reviewed: Controlling Blood Pressure Outreach Outcome/Action: Spoke to patient / parent / legal guardian: PCP confirmed / updated Jadyn Marquez MA documented in this encounterMemorial Health System05-03-2023 Miscellaneous Notes* Telephone Encounter - Jessica López MA - 09/28/2022 4:03 PM EDT Clerical Staff: Please assist in scheduling an appt. Last appt with PCP was 09/01/21. Instructions at that time were to - Return in about 3 months (around 12/01/2021). Patient does not have any future appts scheduled at this time. Jessica López MA September 28, 2022 4:03 PM documented in this encounterMemorial Health System03-20-2023 Miscellaneous Notes* Telephone Encounter - Mitch Tim MD - 08/15/2022 12:10 PM EDT Request for meloxicam Glucose (mg/dL) Date Value 11/12/2021 91 02/03/2021 87 Potassium (mmol/L) Date Value 11/12/2021 4.3 02/03/2021 4.2 Sodium (mmol/L) Date Value 11/12/2021 138 02/03/2021 141 Chloride (mmol/L) Date Value 11/12/2021 108 02/03/2021 105 CO2 (mmol/L) Date Value 11/12/2021 24 02/03/2021 23 Creatinine (mg/dL) Date Value 11/12/2021 0.80 02/03/2021 0.71 BUN (mg/dL) Date Value 11/12/2021 21 02/03/2021 15 Anion Gap (mmol/L) Date Value 11/12/2021 6 02/03/2021 13 Calcium (mg/dL) Date Value 02/03/2021 10.2 Calcium, Total (mg/dL) Date Value 11/12/2021 8.6 XR: knees Impression IMPRESSION: NO SIGNIFICANT CHANGE. Cfo: MARIA L Transcribe Date/Time: Mar 18 2022 5:06P Dictated by : JOSUE VALE MD This examination was interpreted and the report reviewed and electronically signed by: JOSUE VALE MD on Mar 18 2022 5:06PM EST This patient gave consent to this Medical Advice Message and is aware that it may result in a bill to their insurance, as well as the possibility of receiving a bill for a copay and/or deductible. They are an established patient, but are not seeking information exclusively about a problem treated during an in person or video visit in the last seven days. I did not recommend an in person or video visit within seven days of my reply. See the [employer] message reply for my assessment and plan. I spent a total of 5 minutes reviewing the patient's prior medical records and current request for medical advice, prescribing medications or ordering tests (if applicable), replying to the patient, and documenting the encounter. documented in this encounterMemorial Health System01-26-2023 History of Present illness Narrative* Beltran Murillo MD - 06/23/2022 4:08 PM EST Ms. Leone a 57 year old female returns today for follow up of bilateral knee pain , she states that symptoms have improved. PAIN: Pain Yes. Location: bilateral knee, rates pain a 3 on a pain scale of 1-10. Patient describes pain as aching, duration to the present time occuring daily x 5. MEDICATIONS: Medications reviewed and verified. Current Outpatient Medications Medication Sig gabapentin (NEURONTIN) 100 mg capsule Take 1 capsule by mouth three times daily for 90 days. traMADol (ULTRAM) 50 mg tablet Take 1 tablet by mouth every 8 hours as needed for pain. TURMERIC ORAL Take by mouth once daily. metoprolol succinate ER (TOPROL XL) 50 mg 24 hr tablet Take 1 tablet by mouth once daily. losartan (COZAAR) 50 mg tablet Take 1 tablet by mouth once daily. buPROPion SR (WELLBUTRIN SR) 150 mg 12 hr tablet Take 1 tablet by mouth twice daily. meloxicam (MOBIC) 15 mg tablet Take 15 mg by mouth once daily. Cholecalciferol, Vitamin D3, 25 mcg (1,000 unit) cap Take 1,000 Units by mouth once daily. clindamycin (CLEOCIN) 150 mg capsule Take 4 caps 1 hour prior to dentist aspirin, enteric coated (ECOTRIN LOW STRENGTH) 81 mg EC tablet Take 1 tablet by mouth twice daily. Take 2 tablets by mouth for 6 weeks (until 12/23/2021) then resume taking this medication once per day. senna-docusate (SENOKOT-S) 8.6-50 mg per tablet Take 2 tablets by mouth twice daily. naloxone 4 mg/actuation nasal spray (NARCAN) Use 1 spray in one nostril as needed for overdose. Mayrepeat every 2 to 3 min in alternating nostrils until medical assistance is available tretinoin (RETIN-A) 0.025 % topical cream Apply pea sized amount to full dry face at bedtime. Startslowly and progress as tolerated. Current Facility-Administered Medications Medication Dose Route Frequency perflutren lipid microspheres 1.3 mL in NaCl (PF) 0.9% 10 mL injection (DEFINITY) INTRAVENOUS DIRECTED PRN sodium chloride 0.9 % (flush) 10 mL (BD POSIFLUSH) 10 mL INTRAVENOUS DIRECTED PRN Patient feels that medications have patient now talks moringa 6000 mg Bid PREVIOUS TREATMENTS LASTING SIX WEEKS IN THE LAST SIX MONTHS Active conservative therapy lasting 6 weeks in the last six months (see below) 1. Physical therapy: No 2. Home exercise program after PT: No 3. Occupational therapy: No 4. A physician supervised home exercise program (HEP): No 5. Supervisor [employer]: No Passive conservative therapy lasting 6 weeks in the last six months (see below) 1. Medical devises: No 2. Acupuncture: No 3. Tens unit: No 4. Prescription pain medication: Yes 5. NSAIDS: No TREATMENTS: Moringa 6000 bid EXAM: Pulse 75 Ht 160 cm (5' 3 ) Wt 79.4 kg (175 lb) LMP 02/25/2015 SpO2 95% BMI 31.00 kg/m No acute distress noted, patient alert and oriented X's 3. Resistive testing proximal and distal in the lower extremeties show 5/5 strength. Heart: RRR Lungs: Clear Abdomen: Soft, non tender IMPRESSION: Bilateral primary osteoarthritis of knee (primary encounter diagnosis) Chronic pain of both knees Hx of bilateral UNI knees in 2021. PLAN: Discussed the above findings and potential options with the patient. Reported 80% pain relief after bilateral genicular nerve blocks. Uncertain as to why her RFA was not allowed by insurance with that level of pain relief (somewhat delayed - best I had felt in 2 years ). She reports that she took Moringa herbal pills and after 6 days - much better. WE can see her prn. The above exam has been completed by me and the pertinent and negative systems have been updated. I spent a total of 30 minutes on the date of the service which included preparing to see the patient, [id number] patient care, completing clinical documentation, obtaining and/or reviewing separately obtained history, performing a medically appropriate examination, counseling and educating the pat ient/family/caregiver, ordering medications, tests, or procedures, communicating with other HCPs (not separately reported), independently interpreting results (not separately reported), and communicating results to the patient/family/caregiver. Beltran Murillo MD documented in this encounterMemorial Health System01-25-2023 Miscellaneous Notes* Letter - Mammography Coordinator - 06/22/2022 7:56 AM EST June 22, 2022 PID: [id number] Steffi Leone [address] [place] [address] Dear Ms. Leone, We are pleased to inform you that the results of your recent breast imaging exam on 06/21/2022 are normal. Early detection of cancer is very important. We also understand recommendations regarding breast cancer screening are controversial. Please discuss with your primary care provider which strategy is best for you and whether a mammogram is right for you. Your imaging studies and report will be [facility] as part of [facility] permanent medical record and are available for your continuing care. Thank you for allowing us to help in meeting your health care needs. Sincerely, Dr. Meyer Interpreting Radiologist [facility] (Normal over 40) documented in this encounterMemorial Health System01-24-2023 History of Present illness Narrative* Estefanía Davis RT(R) - 06/21/2022 4:34 PM EST Radiology Service Progress Note PATIENT NAME: Steffi Leone DATE OF SERVICE: June 21, 2022 TIME: 4:35 PM PATIENT IDENTITY VERIFICATION COMPLETED USING TWO (2) IDENTIFIERS: Name and Date of confirmedby patient verbally. FALL SCREENING: Has the patient had 2 falls in the last year or 1 fall with injury or currently using an Ambulatory Assistive Device (Walker, Cane, Wheelchair, Crutches, etc.)? No PATIENT GENDER DATA: Female. status: : No status: NO. PATIENT RELEVANT IMPLANT DATA REVIEWED: Not Applicable RADIOLOGY DEPARTMENT: Mammography PERIPHERAL IV DATA: Not applicable SIGNED BY: RT Latia(R) M June 21, 2022 4:35 PM documented in this encounterMemorial Health System01-20-2023 History of Present illness Narrative* Mitch Tim MD - 06/17/2022 2:49 PM EST CC: BL knee pain HPI: SP BL knee uni compartmental arthroplasties. The patient initially did well after surgery but now has persistent bilateral knee pain. The pain is 10 out of 10 in intensity. It is on both knees. Its worse with activity better with rest sharp in quality. The patient went to Dr. Solis for genicular nerve blocks. At first the diagnostic blocks did not work but then for 3 to 4 days after the b locks the patient reports that she had near total relief of pain. Unfortunately the nerve blocks were not approved by insurance. The patient is tearful she was hoping to undergo the nerve blocks. Sheis also interested in other ideas such as gabapentin. 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 PAST MEDICAL HISTORY Diagnosis Date Bronchitis 2018 parotid mass left. States she has had the ultrasound on it. CT scan to be scheduled. PAST SURGICAL HISTORY Procedure Laterality Date SECTION HX 1990 COLPOSCOPY WCERVICAL BIOPSY ANDOR CURETTAGE N/A 09/23/2020 Pap 08/09/2020 Low Grade YANIRA, + HPV PAST SURGICAL HISTORY OF lesion removed from neck Current Outpatient Medications Medication Sig Dispense Refill gabapentin (NEURONTIN) 100 mg capsule Take 1 capsule by mouth three times daily for 90 days. 90 capsule 2 traMADol (ULTRAM) 50 mg tablet Take 1 tablet by mouth every 8 hours as needed for pain. 28 tablet 0 TURMERIC ORAL Take by mouth once daily. metoprolol succinate ER (TOPROL XL) 50 mg 24 hr tablet Take 1 tablet by mouth once daily. 90 tablet3 losartan (COZAAR) 50 mg tablet Take 1 tablet by mouth once daily. 90 tablet 3 buPROPion SR (WELLBUTRIN SR) 150 mg 12 hr tablet Take 1 tablet by mouth twice daily. 180 tablet 1 meloxicam (MOBIC) 15 mg tablet Take 15 mg by mouth once daily. Cholecalciferol, Vitamin D3, 25 mcg (1,000 unit) cap Take 1,000 Units by mouth once daily. clindamycin (CLEOCIN) 150 mg capsule Take 4 caps 1 hour prior to dentist 12 capsule 1 aspirin, enteric coated (ECOTRIN LOW STRENGTH) 81 mg EC tablet Take 1 tablet by mouth twice daily. Take 2 tablets by mouth for 6 weeks (until 12/23/2021) then resume taking this medication once per day. 84 tablet 0 senna-docusate (SENOKOT-S) 8.6-50 mg per tablet Take 2 tablets by mouth twice daily. 20 tablet 0 naloxone 4 mg/actuation nasal spray (NARCAN) Use 1 spray in one nostril as needed for overdose. Mayrepeat every 2 to 3 min in alternating nostrils until medical assistance is available 1 Each 0 tretinoin (RETIN-A) 0.025 % topical cream Apply pea sized amount to full dry face at bedtime. Startslowly and progress as tolerated. 45 g 3 Current Facility-Administered Medications Medication Dose Route Frequency Provider Last Rate Last Admin perflutren lipid microspheres 1.3 mL in NaCl (PF) 0.9% 10 mL injection (DEFINITY) INTRAVENOUS DIRECTED PRN Kush Rboert MD sodium chloride 0.9 % (flush) 10 mL (BD POSIFLUSH) 10 mL INTRAVENOUS DIRECTED PRN Kush Robert MD Allergies: Augmentin [Amoxicil* Rash Comment:Not allergic to PCN or amoxicillin. FAMILY HISTORY Problem Relation Age of Onset Thyroid Mother Hypothyroidism Hypertension Mother Arthritis Mother Rheumatoid Arthritis other (Other unknown) Father Cancer Maternal Grandmother Lung Cancer Breast Cancer Paternal Grandmother Anesthesia Problems No Family History Social History Tobacco Use Smoking status: Every Day Packs/day: 1.00 Years: 37.00 Pack years: 37.00 Types: Cigarettes Start date: 1983 Smokeless tobacco: Never Tobacco comments: 1.0 pack per day quit 09/05/2021 Vaping Use Vaping Use: Never used Substance Use Topics Alcohol use: Yes Alcohol/week: 10.0 standard drinks Types: 4 Glasses of Wine (5oz) per week Comment: 2-3 times a year Drug use: Never ROS: + limb pain Glucose (mg/dL) Date Value 11/12/2021 91 02/03/2021 87 Potassium (mmol/L) Date Value 11/12/2021 4.3 02/03/2021 4.2 Sodium (mmol/L) Date Value 11/12/2021 138 02/03/2021 141 Chloride (mmol/L) Date Value 11/12/2021 108 02/03/2021 105 CO2 (mmol/L) Date Value 11/12/2021 24 02/03/2021 23 Creatinine (mg/dL) Date Value 11/12/2021 0.80 02/03/2021 0.71 BUN (mg/dL) Date Value 11/12/2021 21 02/03/2021 15 Anion Gap (mmol/L) Date Value 11/12/2021 6 02/03/2021 13 Calcium (mg/dL) Date Value 02/03/2021 10.2 Calcium, Total (mg/dL) Date Value 11/12/2021 8.6 CRP Date Value Ref Range Status 03/18/2022 0.7 <0.9 mg/dL Final LMP 02/25/2015 Physical exam: Right knee stable on varus valgus and drawer testing no erythema drainage or fluctuance left knee stable on varus valgus and drawer testing no erythema drainage or fluctuance mild allodynia is present. DP PT pulses palpable dorsiflexion plantarflexion EHL are intact gait mild limp ispresent mood euthymic coordination normal imaging. X-rays reveal satisfactory alignment of bilateral knee unicompartmental arthroplasties without implant loosening. Assessment and plan: Status post bilateral knee unicompartmental arthroplasties now with persistentknee pain after surgery the patient reports that she had 3 to 4 days of relief of pain after the genicular nerve blocks. She is very interested in repeating or getting the definitive nerve blocks. She had issues with insurance approval previously. The patient's can follow-up in a month. In the meantime we will trial prescription of gabapentin for the pain. We did discuss the long-term use of gabapentin could include weight gain and sleepiness or renal effects. On the other hand the patient states that she does not intend to be on the medication long. PDMP website checked and validated. All prescriptions have been APPROPRIATELY filled. No suspiciousactivity was identified. 06/17/2022 by Mitch Tim MD documented in this encounterMemorial Health System12-29-2022 Miscellaneous Notes* Telephone Encounter - Estefanía Fernandez - 05/26/2022 2:35 PM EST Left voicemail to schedule a follow up appointment with Dr. Tim in mid May with new jena knee xrays prior documented in this encounterMemorial Health System12-19-2022 Miscellaneous Notes* Telephone Encounter - Kaylyn Sierra - 05/16/2022 11:43 AM EST RFA LEFT genicular knee STEFFI LEONE [phone] RH RFA RIGHT genicular knee STEFFI LEONE [phone] RH BERENGER 06/08 AND 06/22 +THINNERS ASA 81MG HOLD 7 DAYS PRIOR TO INJECTION -DM Patient was made aware that the ASC will call the day prior to scheduled procedure between the hours of 12 and 4 pm to advise patient of arrival time the day of procedure. Patient was advised that they will require a forklift driver on the day of their procedure, and procedure will be cancelled if they arrive without a responsible adult to transport them home from the procedure. Patient advised that all medication management instructions prior to procedure will need addressed by clinical staff. Patient expresses understanding with no further questions or concerns at this time. Patient transferred to [facility] scheduling line to authorize procedure, or greencoat appointment made. * Telephone Encounter - Kaylyn Sierra - 05/13/2022 1:24 PM EST RFA right then left genicular knee STEFFI LEONE [phone] RH BERENGER THINNERS DM First attempt to schedule injection. Left detailed voicemail asking patient to return call to surgery coordinator at [phone]. * Telephone Encounter - Rosaura Stock LPN - 05/09/2022 10:53 AM EST Please scheduled patient for a right then left genicular knee RFA. * Telephone Encounter - Rosaura Stock LPN - 05/09/2022 10:49 AM EST Called patient, verified name and , and asked % of pain relief and any functional improvement since right or left Diagnostic Superolateral, Superomedial and Inferomedial Genicular nerves block under fluoroscopic guidance with Dr Murillo on 05/06/22. PrePain 8 PostPain 3 Patient states I have had 80 % of pain relief since my procedure and functional improvement in being able to walk easier with less pain since the procedure. Patient denies any problems or further questions at this time. Patient instructed to call Pain Management office if she has any further questions or concerns. documented in this encounterMemorial Health System12-15-2022 History of Present illness Narrative* Kylie Palm MA - 05/12/2022 10:19 AM EST Care Gap Reviewed: Follow-up appointment Breast Cancer screening Controlling Blood Pressure Colorectal Cancer Screening Phone call placed to patient. Pt identified by name and : YES, via [employer] Outreach Outcome/Action: [employer] message sent If patient deferred or declined to schedule appointment, please indicate the reason(s): Other Kylie Palm MA documented in this encounterMemorial Health System11-14-2022 Miscellaneous Notes* Telephone Encounter - Kaylyn Bobby Sierra - 04/11/2022 11:58 AM EST Superolateral, Superomedial and Inferomedial Genicular nerves block STEFFI LEONE [phone] KEITH MURILLO 05/06 -THINNERS -DM Patient was made aware that the ASC will call the day prior to scheduled procedure between the hours of 12 and 4 pm to advise patient of arrival time the day of procedure. Patient was advised that they will require a forklift driver on the day of their procedure, and procedure will be cancelled if they arrive without a responsible adult to transport them home from the procedure. Patient advised that all medication management instructions prior to procedure will need addressed by clinical staff. Patient expresses understanding with no further questions or concerns at this time. Patient transferred to [facility] scheduling line to authorize procedure, or greencoat appointment made. * Telephone Encounter - Rosaura Stock LPN - 04/08/2022 11:45 AM EST Please assist with 2nd diagnostic blocks.. right or left Diagnostic Superolateral, Superomedial and Inferomedial Genicular nerves block # 1 * Telephone Encounter - Chitra Bender - 04/08/2022 11:32 AM EST Patient calling stating that she is feeling the best she has felt in 2 years. She would like to proceed with the next step. Insurance is asking for prior authorization before the next procedure. Please advise. documented in this encounterMemorial Health System10-21-2022 History of Present illness Narrative* Mitch Tim MD - 03/18/2022 4:29 PM EDT CC knee pain HPI SP BL UKAs. Over the last 3 weeks she has had increased knee pain its moderate intensity dull in quality she has some start up pain its worse with walking and better with rest. She has no infective symptoms no swelling no fevers chills chest pain shortness of breath PAST MEDICAL HISTORY Diagnosis Date Bronchitis 2018 parotid mass left. States she has had the ultrasound on it. CT scan to be scheduled. PAST SURGICAL HISTORY Procedure Laterality Date SECTION HX 1990 COLPOSCOPY WCERVICAL BIOPSY ANDOR CURETTAGE N/A 09/23/2020 Pap 08/09/2020 Low Grade YANIRA, + HPV PAST SURGICAL HISTORY OF lesion removed from neck Current Outpatient Medications Medication Sig Dispense Refill TURMERIC ORAL Take by mouth once daily. metoprolol succinate ER (TOPROL XL) 50 mg 24 hr tablet Take 1 tablet by mouth once daily. 90 tablet3 losartan (COZAAR) 50 mg tablet Take 1 tablet by mouth once daily. 90 tablet 3 buPROPion SR (WELLBUTRIN SR) 150 mg 12 hr tablet Take 1 tablet by mouth twice daily. 180 tablet 1 meloxicam (MOBIC) 15 mg tablet Take 15 mg by mouth once daily. Cholecalciferol, Vitamin D3, 25 mcg (1,000 unit) cap Take 1,000 Units by mouth once daily. clindamycin (CLEOCIN) 150 mg capsule Take 4 caps 1 hour prior to dentist 12 capsule 1 aspirin, enteric coated (ECOTRIN LOW STRENGTH) 81 mg EC tablet Take 1 tablet by mouth twice daily. Take 2 tablets by mouth for 6 weeks (until 12/23/2021) then resume taking this medication once per day. 84 tablet 0 senna-docusate (SENOKOT-S) 8.6-50 mg per tablet Take 2 tablets by mouth twice daily. (Patient not taking: No sig reported) 20 tablet 0 naloxone 4 mg/actuation nasal spray (NARCAN) Use 1 spray in one nostril as needed for overdose. Mayrepeat every 2 to 3 min in alternating nostrils until medical assistance is available 1 Each 0 tretinoin (RETIN-A) 0.025 % topical cream Apply pea sized amount to full dry face at bedtime. Startslowly and progress as tolerated. 45 g 3 Current Facility-Administered Medications Medication Dose Route Frequency Provider Last Rate Last Admin perflutren lipid microspheres 1.3 mL in NaCl (PF) 0.9% 10 mL injection (DEFINITY) INTRAVENOUS DIRECTED PRN Kush Robert MD sodium chloride 0.9 % (flush) 10 mL (BD POSIFLUSH) 10 mL INTRAVENOUS DIRECTED PRN Kush Robert MD Allergies: Augmentin [Amoxicil* Rash Comment:Not allergic to PCN or amoxicillin. FAMILY HISTORY Problem Relation Age of Onset Thyroid Mother Hypothyroidism Hypertension Mother Arthritis Mother Rheumatoid Arthritis other (Other unknown) Father Cancer Maternal Grandmother Lung Cancer Breast Cancer Paternal Grandmother Anesthesia Problems No Family History Social History Tobacco Use Smoking status: Every Day Packs/day: 1.00 Years: 37.00 Pack years: 37.00 Types: Cigarettes Start date: 1983 Smokeless tobacco: Never Tobacco comments: 1.0 pack per day quit 09/05/2021 Vaping Use Vaping Use: Never used Substance Use Topics Alcohol use: Yes Alcohol/week: 10.0 standard drinks Types: 4 Glasses of Wine (5oz) per week Comment: 2-3 times a year Drug use: Never Review of systems negative for fevers chills chest pain shortness of breath or swelling Glucose (mg/dL) Date Value 11/12/2021 91 02/03/2021 87 Potassium (mmol/L) Date Value 11/12/2021 4.3 02/03/2021 4.2 Sodium (mmol/L) Date Value 11/12/2021 138 02/03/2021 141 Chloride (mmol/L) Date Value 11/12/2021 108 02/03/2021 105 CO2 (mmol/L) Date Value 11/12/2021 24 02/03/2021 23 Creatinine (mg/dL) Date Value 11/12/2021 0.80 02/03/2021 0.71 BUN (mg/dL) Date Value 11/12/2021 21 02/03/2021 15 Anion Gap (mmol/L) Date Value 11/12/2021 6 02/03/2021 13 Calcium (mg/dL) Date Value 02/03/2021 10.2 Calcium, Total (mg/dL) Date Value 11/12/2021 8.6 CRP Date Value Ref Range Status 11/24/2008 4.6 (H) 0.0 - 1.0 mg/dL Final LMP 02/25/2015 Physical exam: Left knee stable on varus valgus and drawer testing no erythema drainage or fluctuance. Right knee stable in varus valgus and drawer testing no erythema drainage or fluctuance. Mood euthymic coordination normal no lymphedema erythema adenopathy DP PT pulses palpable bilateral dorsiflexion plantarflexion EHL intact. Gait: Minimal limp is present mood euthymic coordination normal. Imaging: Repeat x-rays were obtained today there is no signs of implant loosening or wear. I have reviewed and interpreted films and images personally Assessment and plan: Pain after knee replacement surgery no allodynia no obvious infection signs. Iasked her to participate in walking exercise. She requested pain meds. Check CRP Rx for tramadol - imprivata failed Rx by Blanquita Quintero PAC BL Genicular nerve blocks planned I spent a total of 25 minutes on the date of the service which included miqa-ub-odma patient care, completing clinical documentation, and independently interpreting results (not separately reported). PDMP website checked and validated. All prescriptions have been APPROPRIATELY filled. No suspiciousactivity was identified. 03/18/2022 by Mitch Tim MD documented in this [facility]10-21-2022 History of Present illness Narrative* Lam Shine RT(R) - 03/18/2022 4:15 PM EDT Radiology Service Progress Note PATIENT NAME: Steffi Leone DATE OF SERVICE: March 18, 2022 TIME: 4:16 PM PATIENT IDENTITY VERIFICATION COMPLETED USING TWO (2) IDENTIFIERS: Name and Date of confirmedby patient verbally. FALL SCREENING: Has the patient had 2 falls in the last year or 1 fall with injury or currently using an Ambulatory Assistive Device (Walker, Cane, Wheelchair, Crutches, etc.)? No PATIENT GENDER DATA: Female. status: : No status: NO. PATIENT RELEVANT IMPLANT DATA REVIEWED: Not Applicable RADIOLOGY DEPARTMENT: General X-ray: Exam(s) Completed: Lower Extremity X- Ray(s): Knee, AP / Lat / Tunne / Merchant Bilateral and Wt. Bearing PERIPHERAL IV DATA: Not applicable SIGNED BY: RT Rossana(R) March 18, 2022 4:16 PM documented in this encounterMemorial Health System10-18-2022 Miscellaneous Notes* Telephone Encounter - Margo Platt PA-C - 03/15/2022 8:39 AM EDT Ok to schedule bilateral genicular nerve blocks. Margo Platt PA-C March 15, 2022 * Telephone Encounter - Kaylyn Sierra - 03/15/2022 8:21 AM EDT Spoke to patient and rescheduled procedure with Dr. Murillo from 02/21 to 03/30. Patient is stating pain is now in both legs. Do you want laterality changed to bilateral? Please advise. * Telephone Encounter - Esthela Hollingsworth - 03/10/2022 9:25 AM EDT Patient stopped in office today and stated that she wants to reschedule her procedure with Dr. Murillo. It was cancelled due to other personal concerns. documented in this encounterMemorial Health System09-20-2022 Miscellaneous Notes* Telephone Encounter - Zayda Willoughby LPN - 02/15/2022 11:19 AM EDT Physician: Elvin Zavala APRN.CREDIT AUTHORIZER Call from patient requesting refill. Please E-Scribe Last OV: 09/01/2021 Future OV: Visit date not found Requested Prescriptions Pending Prescriptions Disp Refills buPROPion SR (WELLBUTRIN SR) 150 mg 12 hr tablet 180 tablet 1 Sig: Take 1 tablet by mouth twice daily. Zayda Willoughby LPN documented in this encounterMemorial Health System09-09-2022 History of Present illness Narrative* Mitch Tim MD - 02/04/2022 1:16 PM EDT Chief complaint: Check both my knees. HPI: This patient is status post left and right unicompartmental arthroplasties. She still has someminor left knee pain. She is planning on seeing Dr. Solis for genicular blocks. Review of systems positive for effusion. Physical exam left knee stable on varus valgus and drawer testing mild effusion is present right knee stable on varus valgus and drawer testing no effusion is present both wounds are healed no erythema drainage or fluctuance DP PT pulses are palpable dorsiflexion plantarflexion EHL are intact. Gaitis excellent without any limp. Imaging: X-rays of both knees reveal satisfactory alignment of left and right unicompartmental arthroplasties. Assessment and plan residual pain after left unicompartmental arthroplasty I have offered to aspirate the left knee effusion the patient declined. We will proceed with the genicular nerve blocks withDr. Solis patient will follow up in 6 weeks for repeat clinical evaluation. documented in this encounterMemorial Health System08-30-2022 Miscellaneous Notes* Telephone Encounter - Daja Banda - 01/25/2022 8:06 AM EDT Left Knee Genicular Block -DM, -Thins Scheduled 02/21 15 total for the day. documented in this encounterMemorial Health System08-30-2022 History of Present illness Narrative* Beltran Murillo MD - 01/25/2022 7:00 AM EDT SUBJECTIVE: Ms. Leone a 56 year old female referred by Dr. Tim presents with the complaint of bilateral kneepain, L>R. Patient reports the date of onset of symptoms as 2.5 months and describes the location of the pain as bilateral knees. The pain is recent, aching, burning, and sharp, and rated as 7 on a scale of 1- 10, without radiation. PAIN RATIO: (back:leg): n/a Patient reports that knee pain is increased by sitting, standing, walking, and kneeing and relievedby lying down and icing. Ambulation distance (before needing to sit): 20 feet Standing time (before needing to sit): 5-6 minutes OTHER BACK PAIN SYMPTOMS: NIGHT PAIN: Yes sometimes PARESTHESIA: Yes left lateral calf POOR SLEEP: No BOWEL/BLADDER INCONTINENCE OR RETENTION: Not Applicable ACTIVITY LIMITATIONS: Sports, Work, and ADLs PREVIOUS TREATMENTS LASTING SIX WEEKS IN THE LAST SIX MONTHS Active conservative therapy lasting 6 weeks in the last six months (see below) 1. Physical therapy: Yes: Where: [facility] , Date Started: 12/2021, Date Ended: currently 2. Home exercise program after PT: No 3. Occupational therapy: No 4. A physician supervised home exercise program (HEP): No 5. Supervisor [employer]: No Passive conservative therapy lasting 6 weeks in the last six months (see below) 1. Medical devices: Yes: Walker -- Started on 10/2021 2. Acupuncture: No 3. Tens unit: No 4. Prescription pain medication: No 5. NSAIDS: No Dr. Tim- bilateral unicompartmental knee arthroplasty on 11/10/21 08/04/21 Right knee injection by Dr. Tim Cortisone injection NSAID, ice, OCCUPATIONAL HISTORY: [facility] pharmacy HISTORY OF TRAUMA/OVERUSE OF AREA: No La Simmons LPN January 25, 2022 7:22 AM PAST MEDICAL HISTORY Diagnosis Date Bronchitis 2018 parotid mass left. States she has had the ultrasound on it. CT scan to be scheduled. PAST MEDICAL HISTORY Diagnosis Date Bronchitis 2018 parotid mass left. States she has had the ultrasound on it. CT scan to be scheduled. PAST SURGICAL HISTORY Procedure Laterality Date SECTION HX 1990 COLPOSCOPY WCERVICAL BIOPSY ANDOR CURETTAGE N/A 09/23/2020 Pap 08/09/2020 Low Grade YANIRA, + HPV PAST SURGICAL HISTORY OF lesion removed from neck EXAMINATION: [id number]: Scoliosis: No Pelvic Tilt: No Leg Length discrepancy: NA LATERAL: Cervical Lordosis: No Thoracic Kyphosis: No Lumbar Lordosis: No RANGE OF MOTION CERVICAL: Flexion: Not Limited Extension: Not Limited LUMBAR: Flexion: Not Limited Extension: Not Limited FINGER TO FLOOR DISTANCE: Knee Gait: mildly antalgic REFLEXES R L Biceps (C6): 1-2+ 1-2+ Triceps (C7): 1-2+ 1-2+ Brachioradiolis (C6): 1-2+ 1-2+ Ankle (S1): 2+ 2+ Knee (L4): 2+ 2+ STRENGTH (0-5): R L Deltoid (AB:C5,6): 5 5 Biceps (Flex:C5,6): 5 5 Wrist Ext.(C6,7): 5 5 Interrosei (C8,T1): 5 5 PSOAS (L2,3): 5 5 Gluteus (L5,S1,2): 5 5 Quadriceps (L3,4): 5 5 EHL (L5): 5 5 Soleus (S1): 5 5 SLR: Seated - Right Negative, Left Negative HIP: ROM is WNL without pain in flexion, extension and internal rotation. FABERES: NA VINICIO TEST 1) Tenderness: Appropriate 2) Simulation/Axial Loading/ROT: Appropriate 3) Distraction: Seated SLR: Appropriate 4) Reqional Disturbances: Appropriate 5) Overreaction: Appropriate PHYSICAL EXAMINATION: GENERAL APPEARANCE: Well appearing, in no acute distress SKIN: Skin color, texture, turgor normal. No rashes or lesions. HEAD: Normocephalic. No masses, lesions, tenderness or abnormalities EYES: Conjunctivae/corneas clear. Pupils are equally round and reactive to light. Extraocular movements are intact. NECK: Neck supple, no adenopathy; thyroid symmetric, normal size, no bruits. LUNGS: Lungs clear to auscultation, No wheezing or rhonchi HEART: negative. RRR without murmur, gallop, or rubs. No ectopy. ABDOMEN: Abdomen soft, non-tender. Bowel sounds normal. No masses, organomegaly EXTREMITIES: Extremities normal. No deformities, edema, or skin discoloration. Good capillary refill. PULSES: Normal lower extremity pulses. 2-3+ NEURO: Gait normal. Reflexes normal and symmetric. Sensation grossly intact. X-RAYS: 01/12/22 XR KNEE POST OP 3V AP/LAT/MERCHANT BILATERAL IMPRESSION: Interval placement of bilateral medial unicompartmental arthroplasties, no findings of complication. RESULT: Postsurgical changes of bilateral medial unicompartmental arthroplasties. Hardware appears intact bilaterally, no periprosthetic fracture or dislocation components. Moderate bilateral joint effusions are present. Mild soft tissue swelling also noted. IMPRESSION: Pain due to knee joint prosthesis, initial encounter ([facility]) Hx of bilateral partial knee on 11/10/21. Feels that she has residual pain mainly LEFT knee. Reports initial improvement in ability to weight bear with walker for first 2-3 weeks post op ( then I regressed ) - now has more pain LEFT > Right. Pain described as anterior knee pain , somewhat burning. LEft knee with 10 deg ext lag (full ext in Rt knee). No hyperalgesia - can more sensitive to touch than Right). Took antibiotics for 5 days (3-4 weeks postop). Mild effusion in both knees. No arthrocentesis done postop . PT started 2 - 3 weeks postop (lives in [place]). Pain in LEFT knee can wake her up . + SMOKER - 1 ppd No DM No hx of Ca No CAD PLAN: Discussed the above findings and potential options with the patient. We went over the diagnostic nature (no IV sedation, no steroids) of her genicular block and the option for RFA if she has >80% pain relief the day of her block. She feels that only LEFT knee is painful enough to proceed with this. The above exam has been completed by me and the pertinent and negative systems have been updated. I spent a total of 30 minutes on the date of the service which included preparing to see the patient, [id number] patient care, completing clinical documentation, obtaining and/or reviewing separately obtained history, performing a medically appropriate examination, counseling and educating the pat ient/family/caregiver, ordering medications, tests, or procedures, communicating with other HCPs (not separately reported), independently interpreting results (not separately reported), and communicating results to the patient/family/caregiver. Beltran Murillo MD documented in this encounterMemorial Health System08-19-2022 History of Present illness Narrative* Mitch Tim MD - 01/14/2022 2:57 PM EDT Chief complaint: Check my left and right knee. HPI: This patient is status post left and right uni knee arthroplasty Concerns: residual pain Physical exam: left knee stable on varus valgus and drawer testing no erythema drainage or fluctuance Wound appearance: benign BL Mild left and right knee effusions Range of motion: 0-100 BL DF PF EHL intact BL No major edema Calf Nontender XR BL knees benign satisfactory alignment of knee implants Assessment and plan: Status post left total knee arthroplasty: DVT prophylaxis: complete Medication changes: none PT continue The patient declined to have the knees aspirated for therapeutic or diagnostic reasons. She is already taking meloxicam for pain. I suggested a pain management consult for possible genicular nerve blocks. documented in this encounterMemorial Health System07-06-2022 Miscellaneous Notes* Telephone Encounter - OYAV Joiner - 12/01/2021 4:14 PM EDT Patient has been identified by name and date of : Yes Pending Prescriptions Disp Refills OXYCODONE-ACETAMINOPHEN 5 MG-325 MG TABLET 28 tablet 0 Sig: Take 1 tablet by mouth every 6 hours as needed for pain. GABE Class: C-II DOROTHY: No Patient states that she was told to call today to remind Dr. Tim to send in a refill order for this medication. Please call patient if there are any issues with this request. [phone] RX INSTRUCTIONS: Patient aware RX will be sent to pharmacy. No need to notify patient. YOAV Joiner documented in this encounterMemorial Health System06-28-2022 Miscellaneous Notes* Telephone Encounter - Elian Ortega MA - 11/23/2021 3:49 PM EDT Faxed per request. * Telephone Encounter - Oh Rod - 11/23/2021 2:54 PM EDT [facility] calling asking for Dr Landry office to fax over patients demographics with insurance number to [phone] Attn: intake. States they faxed over a request this morning. Please advise documented in this encounterMemorial Health System06-28-2022 History of Present illness Narrative* Mitch Tim MD - 11/23/2021 11:12 AM EDT Chief complaint: Check my knees. SP BL UKAs still home bound. Has some weakness with straight leg raise Feels inhibited with SLR HPI: This patient is status post lBL UKAs Concerns: needs home care has not been able to setup. Will need new pain Rx Physical exam: both knee wounds benign DF PF EHL intact No pedal edema Wound appearance: healed No major edema Assessment and plan: Status post left total knee arthroplasty: DVT prophylaxis: ASA Medication changes: contact me for reminder too early to refill Rx PT will fax Rx for home health Instructed on home ROM exercises PDMP website checked and validated. All prescriptions have been APPROPRIATELY filled. No suspiciousactivity was identified. 11/23/2021 by Mitch Tim MD TELEHEALTH VISIT: I was present throughout all critical parts of the telehealth visit. I spent 6 minutes. documented in this encounterMemorial Health System06-24-2022 Miscellaneous Notes* Telephone Encounter - Jazmin Mcdonough LPN - 11/19/2021 3:[address] [facility] received the referral for home care services for your patient. Unfortunately this area is outside of our service area. At this time we will cancel this referral. Thank you Jazmin Mcdonough LPN Central Admissions Intake Nurse documented in this encounterMemorial Health System06-24-2022 History of Present illness Narrative* Mitch Tim MD - 11/19/2021 2:26 PM EDT Sp BL UKAs Has pain and swelling PE: Wounds benign DF PF EHL intact DP PT 1+ Mild nonpitting edema Is present Imaging: neg US for DVT AP:SP BL UKA Home PT ASA for DVT prophy Has pain meds Will take meloxicam PDMP website checked and validated. All prescriptions have been APPROPRIATELY filled. No suspiciousactivity was identified. 11/19/2021 by Mitch Tim MD documented in this encounterMemorial Health System06-23-2022 Miscellaneous Notes* Telephone Encounter - Suzan Ricci - 11/18/2021 4:41 PM EDT Welcome Home Call: A. Date and Time: 4:41 PM 11/18/2021 Attempted Confirmation Call. Called patient at [phone] and asked her to return our call so we can confirm patient information for a [facility] referral. Suzan Ricci, [employer] documented in this encounterMemorial Health System06-23-2022 Miscellaneous Notes* Telephone Encounter - Suki Castellanos RN - 11/18/2021 11:51 AM EDT Patient calling. Had bilat knee replacements done on 11/10/21. Experiencing swelling of both legs from mid thigh to ankles. Legs are very hard to touch, non pitting. Denies redness or rash. No weeping. She is elevating her legs and icing 20 minutes every hour. Able to ambulate to the BR with walker. She has not heard from PT or C yet, so no rehab/exercises have been started yet. She is worried she will not have a good outcome without PT. Please advise with next steps recommendations. Detailed messages ok [phone] Telephone Encounters from 11/15 and yesterday (11/17) documented in this encounterMemorial Health System06-22-2022 Miscellaneous Notes* Telephone Encounter - Tawny Purcell RN - 11/17/2021 1:06 PM EDT the pt is calling. Per the pt, she had bilat knees done on 11/10. Her follow up with you is next Thursday 11/23. She has been trying to cut back on her pain pills, was taking 2 pills every 4 hours and then tried to cut back to 2 pills every 6 hours and last night tried to skip her evening dose. Pt was in a lot of pain this morning and is having a difficult time weaning off of them due to the pain she experiences when she attempts to cut back. She rates the pain a 3-4 when she is taking 2 pills every 4 hours and rates the pain a 8-9 when shetried to cut back. Pt is worried she will not have enough to last her until she sees you on Monday. Can you please prescribe her enough to maintain the 2 pills every 4 hours until her appointment? She uses the [facility] in [place] which is linked in. You may call her cell and leave a detailed message. documented in this encounterMemorial Health System06-20-2022 Miscellaneous Notes* Telephone Encounter - Blanquita Quintero PA-C - 11/15/2021 4:32 PM EDT Patient is s/p bilateral unicompartmental total knee arthroplasty on 11/10/21. She reports she is unable to get into and out of her car due to pain and swelling so she is not able to go to her PT appointments. She reports the pain is somewhat controlled when she takes oxycodone and has been able to stretch out her doses to about 7 hours. She does have breakthrough pain at times and had questions regarding if and when she is able to take tylenol. She denies, fevers or chills, redness around the aquacel, or red streaking down her leg. I placed an order for home health care and patient agreed that would be more reasonable at this time until she is able to ambulate better. We also discussed taking tylenol regularly as prescribed. The patient understood and agreed with the plan. She has a f/u appointment with Dr. Tim on 11/23/21. She will call with any questions or concerns orif the pain does not improve. At that time, we can consider prescribing meloxicam. * Telephone Encounter - Tawny Howell RN - 11/15/2021 4:06 PM EDT Patient called regarding below. Asking for a callback today. * Telephone Encounter - Cristal Arroyo RN - 11/15/2021 10:01 AM EDT Patient calling. She had b/l total knee done on 11/10. She is scheduled for PT today but she states there is no way she can get in and out of the car Bilateral knee pain and swelling would make it too hard. She is at a 7-8/10 on pain scale Trying to cut back on the Oxycodone as recommended in her paperwork Trying to make it 6-8 hours. Yesterday she made it 7 hours. She is icing, it doesn't help, feels it might make it worse Denies fever or s/s of infection She asks for order for in home physical therapy instead of outpatient. Also, asks if she should be on Meloxicam? If so, Please send to [facility] in [place]. Cell, detailed message please documented in this encounterMemorial Health System05-25-2022 Nurse Note* Amaya Martel RN - 10/20/2021 2:48 PM EDT ORTHOPAEDIC SURGERY PRE-OP PATIENT Steffi Leone is a 56 year old female PROCEDURE: Bilateral Unicompartmental Medial Knee Arthroplasties possible Bilateral Total Knee Arthroplasties PROCEDURE DATE: 11/10/21 CHECKLIST: Informed Consent: Yes- In [facility]: No Pre-op Skin Preparation Cloths & Instructions of Use given to patient: Reviewed with pt during this phone encounter. Nasal Swab completed for patient: n/a EDUCATION: READINESS TO LEARN COGNITIVE ABILITY: Alert and oriented MOTIVATION TO LEARN: Interested FAMILY SUPPORT: Unable to assess - Family not present INSTRUCTION PROVIDED TO: Patient FACTORS AFFECTING LEARNING: None PHYSICAL LIMITATIONS AFFECTING LEARNING: None ISSUES REVIEWED: EDUCATION TOPIC/ TEACHING POINTS: -Day of Surgery (see below) -Hospital Course -Incision Care -Home PT -Home pain Medication: Refill Protocol, Side Effects -Afterhours Number Given- page ortho resident director oncology at [phone] METHOD OF INSTRUCTION: Individual instruction, Written instruction - handouts and Verbal instruction PRE-OPERATIVE INSTRUCTIONS REVIEWED: -Arrival time/location -NPO after midnight -Advanced Directives -ID + insurance card -Bring to hospital: Bipap, Cpap, Non-skid shoes, hearing aids -Do not bring: Excessive money, valuables, jewelry, medications (unless instructed) -Stop NSAIDS 7 days prior to surgery -Stop Aspirin and herbal supplements 10-14 days prior -Reviewed patient handout instructions for Preop Skin Preparation POST-OPERATIVE INSTRUCTIONS: -Call office if questions/concerns -Afterhour for resident director oncology INFECTION MANAGEMENT: -Signs and symptoms of an infection -Importance of contacting the physician MEDICATION SIDE EFFECTS: -Side effects associated with the medication that warrant a call to the physician WOUND CARE: -Correct procedure to perform wound care DISCHARGE PLAN: -Patient referred to rapid recovery program and [place] [facility] was offered to Patient about Rehab facility/ SNF/ Home care. SUPPLEMENTAL MATERIAL GIVEN: Yes RISK FACTORS: Hypertension,Palpatations,Depression and Anxiety FOLLOW-UP PLAN: Patient instructed to call with any further issues If any questions or concerns arise before the surgery, the patient was instructed to call the office for assistance. If there are no further questions or issues, the patient will be seen the day of the procedure, prior to proceeding with surgery. Patient in for Bilateral Medial Unicompartmental Knee Arthroplasties possible Bilateral Total Knee Arthroplasties with Dr. Tim, medical consult per . [facility]. Cardiac clearance needed at this time:Yes Dental clearance needed at this time?No Patient is identified by name and birthdate: Yes Allergies reviewed: Yes Medication- prescribed and OTC reviewed and updated: Yes Latex allergy: no Does the patient have a metal allergy? No Is the patient having any pain?: Yes: Location of pain is in the inner portion of both knees. Pain Scale: 6-7 on a scale from 0-10 Pain Character: stabbing Duration: (How long have you had the pain?) 1 1/2 years Frequency: (How often does the pain occur?) occurs daily Pt. instructed to stop meds per PACC and will take the following meds per anesthesia guidelines perPACC Anticoagulation therapy consisting of ASA , maria luisa hose, compression wraps, and exercise discussed with patient. Pt. has prescription drug coverage. Autologous donation discussed with patient, Pt will receive acid.. Patient lives with her family and plans to go home with OP[facility]PT at [facility]. Patient has walker Yes , cane No , shower bench No elevated toilet seat No Patient is 175 lbs 6.4 oz and is Height (cm or in): 5'3 Guide to recovery, follow your pathway to recovery after joint replacement surgery materials given to patient prior to end of session. Pt. had no other questions or concerns at this time. Amaya Martel RN documented in this encounterMemorial Health System04-14-2022 Miscellaneous Notes* Telephone Encounter - Zayda Willoughby LPN - 09/09/2021 2:29 PM EDT Spoke with patient and instructed her to stop Plavix as ordered. Patient verbalized understanding. Also instructed patient to check her MyChart regarding questions for Cardiology. * Telephone Encounter - Kush Robert MD - 09/09/2021 1:06 PM EDT I answered all her questions. I also answered what is the next and the plans which I would do if her echo is abnormal. However also I explained to her that if her echo is normal she continues with beta-blockers and can go ahead and have her surgery. I do not know what else I can explain to her. Shecan read my note. * Telephone Encounter - Elvin Zavala APRN.JUANITA - 09/09/2021 12:22 PM EDT Return call-no answer. Left voicemail. Will copy to cardiology to have staff follow-up. * Telephone Encounter - Gabbi CASON - 09/09/2021 11:06 AM EDT Pt seen cardiology today and she left his office with multiple questions she didn't ask the provider. she stop in to ask if elvin can contact her to explain her visit with the recreation clerk? Advised pt I will send an encounter but provider might need an appointment to follow up please advise. [phone] (home) Gabbi CASON documented in this encounterMemorial Health System04-14-2022 Miscellaneous Notes* Addendum Note - Elvin Zavala APRN.CNP - 09/09/2021 11:12 AM EDT Addended by: ELVIN ZAVALA on: 09/09/2021 11:12 AM Modules accepted: Orders documented in this encounterMemorial Health System04-14-2022 History of Present illness Narrative* Elvin Zavala APRN.CNP - 09/09/2021 11:10 AM EDT Images from the original note were not included. PLEASE CALL PT: PER CARDIOLOGY CAN STOP PLAVIX, CONTINUE BETA SHELDON AND ALL OTHER MEDS. D/C FROM PT LIST. Kush Robert MD sent to Elvin Zavala APRN.CNP Actually as a matter of fact I was going to send you a message. She does not need the Plavix. Beta-blockers definitely yes. Previous Messages ----- Message ----- From: Elvin Zavala APRN.CNP Sent: 09/09/2021 10:05 AM EDT To: Kush Robert MD Thank you! Do you recommend she continue the plavix also at this time (started at same time as BB). Elvin ----- Message ----- From: Kush Robert MD Sent: 09/09/2021 8:44 AM EDT To: Elvin Zavala APRN.CNP * Kush Robert MD - 09/09/2021 8:21 AM EDT Images from the original note were not included. [facility] CARDI[facility]Y OUTPATIENT VISIT DATE September 09, 2021 OUTPATIENT VISIT TYPE NEW PRIMARY CARE PHYSICIAN: Elvin Zavala [facility] [place] [address] A written report of the findings and recommendations will be sent to the requesting provider via shared medical record or via [employer]. Patient is being seen at the request of the referring physician for Arrhythmia , Hypertension, Palpitations and Preoperative CV risk assessment HISTORY OF PRESENT ILLNESS: Ms. Leone is a 56 year old female with a history of smoking. Arthritis of both knees. Hypertension. However no history of hyperlipidemia or diabetes. She is obese. And recently diagnosed with nonsustained ventricular tachycardia and some atrial tachycardias. Cardiac work-up includes: Multiple EKGs over the years. An event monitor done on 08/19/2021 showed sinus rhythm average heart rate of 88 bpm. 3 ventricular tachycardia runs longest of 10 beats. 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 A nuclear stress test done on 09/08/2021 showed normal perfusion scan. Ejection fraction 69%. She used to have some chest discomfort and palpitations as well as dizziness prior to her starting on beta-blockers. However now she is a free of symptoms. She denies any chest pain of any kind. She has no dyspnea. No orthopnea or PND. No syncope near syncope. No lightheadedness or dizziness. No other symptoms or complaints. IMPRESSION: Encounter Diagnosis ICD-10-CM 1. Palpitations R00.2 ECHO 2. Ventricular tachycardia (paroxysmal) (HCC) I47.2 ECHO 3. Primary hypertension I10 ECHO 4. Obesity, Class I, BMI 30-34.9 E66.9 ECHO 5. Smoker F17.200 ECHO 6. Pre-op evaluation Z01.818 ECHO 7. Dizziness R42 ECHO PLAN AND RECOMMENDATIONS: Nonsustained ventricular tachycardia Negative ischemic work-up. However echocardiogram is not done yet to rule out any significant structural or valvular heart disease. Assess pulmonary pressures. We will ask for 1. If the echo is abnormal we might need to do further testing like cardiac MRI or what ever needed considering the findings of the echo. If the echo is normal then the patient will be cleared for her surgery and to continue on beta-blockers and will be seen in 6 months. Hypertension Well-controlled by current management. Obesity After her knee surgery she will be encouraged to do more exercise. Less calorie intake. More plant-based diet and less animal-based products. REVIEW OF SYSTEMS: Chest pain No Shortness of breath No Bleeding No Dizziness No Syncope No Palpations No 10 systems reviewed and are negative with the exception of pertinent positives described in HPI PHYSICAL EXAMINATION: [facility] 02/25/2015 HEENT: normocephalic, EOMI Heart: regular rhythm Lungs: clear to auscultation Abdomen: bowel sounds present Extremities: no edema Musculoskeletal: chest wall nontender Neurological: alert and oriented Psychiatric: appropriate and cooperative Skin: no rash, cellulitis or lesions appreciated CARDIOVASCULAR MEDICINE TESTING: I have personally reviewed ECG, laboratory results, stress test report and event monitor PAST CARDIAC HISTORY: See above. PAST MEDICAL HISTORY Diagnosis Date Bronchitis 2018 parotid mass left. States she has had the ultrasound on it. CT scan to be scheduled. PAST SURGICAL HISTORY Procedure Laterality Date SECTION HX 1990 COLPOSCOPY WCERVICAL BIOPSY ANDOR CURETTAGE N/A 09/23/2020 Pap 08/09/2020 Low Grade YANIRA, + HPV Social History Tobacco Use Smoking status: Current Every Day Smoker Packs/day: 1.00 Years: 37.00 Pack years: 37.00 Types: Cigarettes Start date: 1983 Smokeless tobacco: Never Used Tobacco comment: 1.0 pack per day Vaping Use Vaping Use: Never used Substance Use Topics Alcohol use: Yes Alcohol/week: 10.0 standard drinks Types: 4 Glasses of Wine (5oz) per week Comment: 2-3 times a year Drug use: Never FAMILY HISTORY Problem Relation Age of Onset Thyroid Mother Hypothyroidism Hypertension Mother Arthritis Mother Rheumatoid Arthritis Cancer Maternal Grandmother Lung Cancer Breast Cancer Paternal Grandmother other (Other unknown) Father ALLERGIES Allergen Reactions Augmentin [Amoxicil* CURRENT MEDICATIONS: clopidogrel (PLAVIX) 75 mg tablet Take 1 tablet by mouth once daily. aspirin, enteric coated (ECOTRIN LOW STRENGTH) 81 mg EC tablet Take 1 tablet by mouth once daily. metoprolol succinate ER (TOPROL XL) 50 mg 24 hr tablet Take 1 tablet by mouth once daily. buPROPion SR (WELLBUTRIN SR) 150 mg 12 hr tablet Take 1 tablet by mouth twice daily. Start with 150mg 1/daily x 3 days and then increase to 150 mg twice a day after that. traMADol (ULTRAM) 50 mg tablet Take 1-2 tablets by mouth every 8 hours as needed for pain. FOR PAIN. meloxicam (MOBIC) 15 mg tablet Take 1 tablet by mouth once daily. varenicline (CHANTIX STARTING MONTH BOX) 0.5 mg (11)- 1 mg (42) tablet Take 0.5 mg by mouth once daily on Days 1 through 3, THEN 0.5 mg twice daily on Days 4 through 7, THEN 1 mg twice daily on Day 8and thereafter tretinoin (RETIN-A) 0.025 % topical cream Apply pea sized amount to full dry face at bedtime. Startslowly and progress as tolerated. ergocalciferol 50,000 unit capsule (VITAMIN D2, DRISDOL) Take 1 capsule by mouth one time a week. TURMERIC ORAL Take by mouth. Cholecalciferol, Vitamin D3, 2,000 unit cap Take 2 capsules daily ASCORBIC ACID (VITAMIN C ORAL) Take 1 tablet by mouth once daily. VITAMIN B COMPLEX ORAL Take 1 tablet by mouth once daily. MULTIVITAMIN ORAL Take 1 tablet by mouth once daily. DOCOSAHEXANOIC ACID/EPA (FISH OIL ORAL) Take 1 capsule by mouth once daily. documented in this encounterMemorial Health System04-13-2022 History of Present illness Narrative* Lula Hollins, RT(R) - 09/08/2021 12:30 PM EDT RADIOLOGY SERVICE PROGRESS NOTE SERVICE DATE: 09/08/2021 SERVICE TIME: 12:40 PM PATIENT IDENTITY VERIFICATION COMPLETED USING TWO (2) STANDARD IDENTIFIERS: Name and Date of confirmed by patient verbally FALL SCREENING: Has the patient had 2 falls in the last year or 1 fall with injury or currently using an Ambulatory Assistive Device (Walker, Cane, Wheelchair, Crutches, etc.)? No PATIENT GENDER DATA: .female : No ALLERGIES: Reviewed and unchanged MEDICATIONS REVIEWED: Yes PATIENT RELEVANT IMPLANT DATA REVIEWED: Not Applicable CREATININE: Creatinine Date Value Ref Range Status 08/30/2021 0.80 0.58 - 0.96 mg/dL Final 08/30/2021 0.81 0.58 - 0.96 mg/dL Final 08/18/2021 0.71 0.58 - 0.96 mg/dL Final Estimated Glomerular Filtration Rate Date Value Ref Range Status 08/30/2021 87 >=60 mL/min/1.73m Final Comment: Estimated Glomerular Filtration Rate (eGFR) is calculated using the 2020 CKD-EPI creatinine equation. This equation utilizes serum creatinine, sex, and age as parameters. The creatinine assay has traceable calibration to isotope dilution- mass spectrometry. Refer to [facility]DIGO guidelines for clinical interpretation. In patients with unstable renal function, e.g. those with acute kidney injury, the eGFRmay not accurately reflect actual GFR. 08/30/2021 85 >=60 mL/min/1.73m Final Comment: Estimated Glomerular Filtration Rate (eGFR) is calculated using the 2020 CKD-EPI creatinine equation. This equation utilizes serum creatinine, sex, and age as parameters. The creatinine assay has traceable calibration to isotope dilution- mass spectrometry. Refer to KDIGO guidelines for clinical interpretation. In patients with unstable renal function, e.g. those with acute kidney injury, the eGFRmay not accurately reflect actual GFR. eGFR- Date Value Ref Range Status 02/03/2021 >60 Final P.O.C.T. RESULTS: N/A September 08, [address] PERFORMED: No IV SITE: Ambulatory: A peripheral IV was started in the Right antecubital site with a Angio cath: 22 gauge. POST EXAM PIV STATUS: Discontinued PROCEDURE TYPE: NM Stress: 13.0mCi [id number] was administered IV for Rest Imaging at 1250 by RT Alvarez(R). 31.1 mCi [id number] was administered IV for Stress Imaging at 13:45 by SHERRI Martinez). ADMINISTRATION TIME: PATIENT DISCHARGED TO: Ambulatory patient, left [place] department area. A Diagnostic radioactive procedure has taken place, with no further precautions necessary other than routine body substance precautions. 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 10/09/202011/11 Parotid mass 07/22/2020 11/11/2021 Mild cervical dysplasia 07/31/2017 11/12/19 22 Localized swelling, mass or lump of neck 018 11/11/2021 documented as of this encounter (statuses as of 11/15/2021) [facility] Narrative* Problem Noted Date Resolved Date Dizziness 08/18/2021 11/11/2021 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 of left parotid gland 10/09/202011/11 Parotid mass 07/22/2020 11/11/2021 Mild cervical dysplasia 07/31/2017 11/12/19 22 Localized swelling, mass or lump of neck 018 11/11/2021 documented as of this encounter (statuses as of 11/17/2021) [facility] Narrative* Problem Noted Date Resolved Date Dizziness 08/18/2021 11/11/2021 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 of left parotid gland 10/09/202011/11 Parotid mass 07/22/2020 11/11/2021 Mild cervical dysplasia 07/31/2017 11/12/19 22 Localized swelling, mass or lump of neck 018 11/11/2021 documented as of this encounter (statuses as of 11/18/2021) [facility] Narrative* Problem Noted Date Resolved Date Dizziness 08/18/2021 11/11/2021 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 of left parotid gland 10/09/202011/11 Parotid mass 07/22/2020 11/11/2021 Mild cervical dysplasia 07/31/2017 11/12/19 22 Localized swelling, mass or lump of neck 018 11/11/2021 documented as of this encounter (statuses as of 11/19/2021) [facility]* Problem Noted Date Resolved Date Dizziness 08/18/2021 11/11/2021 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 of left parotid gland 10/09/202011/11 Parotid mass 07/22/2020 11/11/2021 Mild cervical dysplasia 07/31/2017 11/12/19 22 Localized swelling, mass or lump of neck 018 11/11/2021 documented as of this encounter (statuses as of 11/19/2021) [facility]* Problem Noted Date Resolved Date Dizziness 08/18/2021 11/11/2021 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 of left parotid gland 10/09/202011/11 Parotid mass 07/22/2020 11/11/2021 Mild cervical dysplasia 07/31/2017 11/12/19 22 Localized swelling, mass or lump of neck 018 11/11/2021 documented as of this encounter (statuses as of 11/19/2021) [facility]* Problem Noted Date Resolved Date Dizziness 08/18/2021 11/11/2021 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 of left parotid gland 10/09/202011/11 Parotid mass 07/22/2020 11/11/2021 Mild cervical dysplasia 07/31/2017 11/12/19 22 Localized swelling, mass or lump of neck 018 11/11/2021 documented as of this encounter (statuses as of 11/23/2021) [facility]* Problem Noted Date Resolved Date Dizziness 08/18/2021 11/11/2021 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 of left parotid gland 10/09/202011/11 Parotid mass 07/22/2020 11/11/2021 Mild cervical dysplasia 07/31/2017 11/12/19 22 Localized swelling, mass or lump of neck 018 11/11/2021 documented as of this encounter (statuses as of 11/23/2021) [facility]* Problem Noted Date Resolved Date Dizziness 08/18/2021 11/11/2021 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 of left parotid gland 10/09/202011/11 Parotid mass 07/22/2020 11/11/2021 Mild cervical dysplasia 07/31/2017 11/12/19 22 Localized swelling, mass or lump of neck 018 11/11/2021 documented as of this encounter (statuses as of 12/01/2021) [facility]* Problem Noted Date Resolved Date Dizziness 08/18/2021 11/11/2021 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 of left parotid gland 10/09/202011/11 Parotid mass 07/22/2020 11/11/2021 Mild cervical dysplasia 07/31/2017 11/12/19 22 Localized swelling, mass or lump of neck 018 11/11/2021 documented as of this encounter (statuses as of 12/01/2021) [facility]* Problem Noted Date Resolved Date Dizziness 08/18/2021 11/11/2021 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 of left parotid gland 10/09/202011/11 Parotid mass 07/22/2020 11/11/2021 Mild cervical dysplasia 07/31/2017 11/12/19 22 Localized swelling, mass or lump of neck 018 11/11/2021 documented as of this encounter (statuses as of 12/21/2021) [facility]* Problem Noted Date Resolved Date Dizziness 08/18/2021 11/11/2021 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 of left parotid gland 10/09/202011/11 Parotid mass 07/22/2020 11/11/2021 Mild cervical dysplasia 07/31/2017 11/12/19 22 Localized swelling, mass or lump of neck 018 11/11/2021 documented as of this encounter (statuses as of 12/27/2021) [place] [id number] History of Past illness Narrative* Problem Noted Date Resolved Date Dizziness 08/18/2021 11/11/2021 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 of left parotid gland 10/09/202011/11 Parotid mass 07/22/2020 11/11/2021 Mild cervical dysplasia 07/31/2017 11/12/19 22 Localized swelling, mass or lump of neck 018 11/11/2021 documented as of this encounter (statuses as of 01/06/2022) [facility]* Problem Noted Date Resolved Date Dizziness 08/18/2021 11/11/2021 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 of left parotid gland 10/09/202011/11 Parotid mass 07/22/2020 11/11/2021 Mild cervical dysplasia 07/31/2017 11/12/19 22 Localized swelling, mass or lump of neck 018 11/11/2021 documented as of this encounter (statuses as of 01/14/2022) [facility]* Problem Noted Date Resolved Date Dizziness 08/18/2021 11/11/2021 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 of left parotid gland 10/09/202011/11 Parotid mass 07/22/2020 11/11/2021 Mild cervical dysplasia 07/31/2017 11/12/19 22 Localized swelling, mass or lump of neck 018 11/11/2021 documented as of this encounter (statuses as of 01/25/2022) [facility]* Problem Noted Date Resolved Date Dizziness 08/18/2021 11/11/2021 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 of left parotid gland 10/09/202011/11 Parotid mass 07/22/2020 11/11/2021 Mild cervical dysplasia 07/31/2017 11/12/19 22 Localized swelling, mass or lump of neck 018 11/11/2021 documented as of this encounter (statuses as of 01/25/2022) [facility]* Problem Noted Date Resolved Date Dizziness 08/18/2021 11/11/2021 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 of left parotid gland 10/09/202011/11 Parotid mass 07/22/2020 11/11/2021 Mild cervical dysplasia 07/31/2017 11/12/19 22 Localized swelling, mass or lump of neck 018 11/11/2021 documented as of this encounter (statuses as of 01/26/2022) [facility]* Problem Noted Date Resolved Date Dizziness 08/18/2021 11/11/2021 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 of left parotid gland 10/09/202011/11 Parotid mass 07/22/2020 11/11/2021 Mild cervical dysplasia 07/31/2017 11/12/19 22 Localized swelling, mass or lump of neck 018 11/11/2021 documented as of this encounter (statuses as of 02/04/2022) [facility] Problem Noted Date Resolved Date Dizziness 08/18/2021 11/11/2021 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 of left parotid gland 10/09/202011/11 Parotid mass 07/22/2020 11/11/2021 Mild cervical dysplasia 07/31/2017 11/12/19 22 Localized swelling, mass or lump of neck 018 11/11/2021 documented as of this encounter (statuses as of 02/15/2022) [facility]* Problem Noted Date Resolved Date Dizziness 08/18/2021 11/11/2021 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 of left parotid gland 10/09/202011/11 Parotid mass 07/22/2020 11/11/2021 Mild cervical dysplasia 07/31/2017 11/12/19 22 Localized swelling, mass or lump of neck 018 11/11/2021 documented as of this encounter (statuses as of 02/15/2022) [facility]* Problem Noted Date Resolved Date Dizziness 08/18/2021 11/11/2021 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 of left parotid gland 10/09/202011/11 Parotid mass 07/22/2020 11/11/2021 Mild cervical dysplasia 07/31/2017 11/12/19 22 Localized swelling, mass or lump of neck 018 11/11/2021 documented as of this encounter (statuses as of 02/17/2022) [facility]* Problem Noted Date Resolved Date Dizziness 08/18/2021 11/11/2021 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 of left parotid gland 10/09/202011/11 Parotid mass 07/22/2020 11/11/2021 Mild cervical dysplasia 07/31/2017 11/12/19 22 Localized swelling, mass or lump of neck 018 11/11/2021 documented as of this encounter (statuses as of 02/18/2022) [facility]* Problem Noted Date Resolved Date Dizziness 08/18/2021 11/11/2021 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 of left parotid gland 10/09/202011/11 Elevated BP without diagnosis of hypertension 03/10/2022 Last Assessment & Plan: Assessment: On Metoprolol for NSVT BP 152/88 Parotid mass 07/22/2020 11/11/2021 Mild cervical dysplasia 07/31/2017 11/12/19 22 Localized swelling, mass or lump of neck 018 11/11/2021 documented as of this encounter (statuses as of 03/18/2022) [facility]* Problem Noted Date Resolved Date Dizziness 08/18/2021 11/11/2021 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 of left parotid gland 10/09/202011/11 Elevated BP without diagnosis of hypertension 03/10/2022 Last Assessment & Plan: Assessment: On Metoprolol for NSVT BP 152/88 Parotid mass 07/22/2020 11/11/2021 Mild cervical dysplasia 07/31/2017 11/12/19 22 Localized swelling, mass or lump of neck 018 11/11/2021 documented as of this encounter (statuses as of 04/11/2022) [facility]* Problem Noted Date Resolved Date Dizziness 08/18/2021 11/11/2021 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 of left parotid gland 10/09/202011/11 Elevated BP without diagnosis of hypertension 03/10/2022 Last Assessment & Plan: Assessment: On Metoprolol for NSVT BP 152/88 Parotid mass 07/22/2020 11/11/2021 Mild cervical dysplasia 07/31/2017 11/12/19 22 Localized swelling, mass or lump of neck 018 11/11/2021 documented as of this encounter (statuses as of 04/25/2022) [facility]* Problem Noted Date Resolved Date Dizziness 08/18/2021 11/11/2021 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 of left parotid gland 10/09/202011/11 Elevated BP without diagnosis of hypertension 03/10/2022 Last Assessment & Plan: Assessment: On Metoprolol for NSVT BP 152/88 Parotid mass 07/22/2020 11/11/2021 Mild cervical dysplasia 07/31/2017 11/12/19 22 Localized swelling, mass or lump of neck 018 11/11/2021 documented as of this encounter (statuses as of 05/12/2022) [facility]* Problem Noted Date Resolved Date Dizziness 08/18/2021 11/11/2021 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 of left parotid gland 10/09/202011/11 Elevated BP without diagnosis of hypertension 03/10/2022 Last Assessment & Plan: Assessment: On Metoprolol for NSVT BP 152/88 Parotid mass 07/22/2020 11/11/2021 Mild cervical dysplasia 07/31/2017 11/12/19 22 Localized swelling, mass or lump of neck 018 11/11/2021 documented as of this encounter (statuses as of 05/13/2022) [facility]* Problem Noted Date Resolved Date Dizziness 08/18/2021 11/11/2021 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 of left parotid gland 10/09/202011/11 Elevated BP without diagnosis of hypertension 03/10/2022 Last Assessment & Plan: Assessment: On Metoprolol for NSVT BP 152/88 Parotid mass 07/22/2020 11/11/2021 Mild cervical dysplasia 07/31/2017 11/12/19 22 Localized swelling, mass or lump of neck 018 11/11/2021 documented as of this encounter (statuses as of 05/16/2022) [facility]* Problem Noted Date Resolved Date Dizziness 08/18/2021 11/11/2021 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 of left parotid gland 10/09/202011/11 Elevated BP without diagnosis of hypertension 03/10/2022 Last Assessment & Plan: Assessment: On Metoprolol for NSVT BP 152/88 Parotid mass 07/22/2020 11/11/2021 Mild cervical dysplasia 07/31/2017 11/12/19 22 Localized swelling, mass or lump of neck 018 11/11/2021 documented as of this encounter (statuses as of 06/01/2022) [facility]* Problem Noted Date Resolved Date Dizziness 08/18/2021 11/11/2021 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 of left parotid gland 10/09/202011/11 Elevated BP without diagnosis of hypertension 03/10/2022 Last Assessment & Plan: Assessment: On Metoprolol for NSVT BP 152/88 Parotid mass 07/22/2020 11/11/2021 Mild cervical dysplasia 07/31/2017 11/12/19 22 Localized swelling, mass or lump of neck 018 11/11/2021 documented as of this encounter (statuses as of 06/17/2022) [facility]* Problem Noted Date Resolved Date Dizziness 08/18/2021 11/11/2021 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 of left parotid gland 10/09/202011/11 Elevated BP without diagnosis of hypertension 03/10/2022 Last Assessment & Plan: Assessment: On Metoprolol for NSVT BP 152/88 Parotid mass 07/22/2020 11/11/2021 Mild cervical dysplasia 07/31/2017 11/12/19 22 Localized swelling, mass or lump of neck 018 11/11/2021 documented as of this encounter (statuses as of 06/22/2022) [facility]* Problem Noted Date Resolved Date Dizziness 08/18/2021 11/11/2021 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 of left parotid gland 10/09/202011/11 Elevated BP without diagnosis of hypertension 03/10/2022 Last Assessment & Plan: Assessment: On Metoprolol for NSVT BP 152/88 Parotid mass 07/22/2020 11/11/2021 Mild cervical dysplasia 07/31/2017 11/12/19 22 Localized swelling, mass or lump of neck 018 11/11/2021 documented as of this encounter (statuses as of 06/23/2022) [facility]* Problem Noted Date Resolved Date Dizziness 08/18/2021 11/11/2021 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 of left parotid gland 10/09/202011/11 Elevated BP without diagnosis of hypertension 03/10/2022 Last Assessment & Plan: Assessment: On Metoprolol for NSVT BP 152/88 Parotid mass 07/22/2020 11/11/2021 Mild cervical dysplasia 07/31/2017 11/12/19 22 Localized swelling, mass or lump of neck 018 11/11/2021 documented as of this encounter (statuses as of 06/24/2022) [facility]* Problem Noted Date Resolved Date Dizziness 08/18/2021 11/11/2021 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 of left parotid gland 10/09/202011/11 Elevated BP without diagnosis of hypertension 03/10/2022 Last Assessment & Plan: Assessment: On Metoprolol for NSVT BP 152/88 Parotid mass 07/22/2020 11/11/2021 Mild cervical dysplasia 07/31/2017 11/12/19 22 Localized swelling, mass or lump of neck 018 11/11/2021 documented as of this encounter (statuses as of 08/15/2022) [facility]* Problem Noted Date Resolved Date Dizziness 08/18/2021 11/11/2021 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 of left parotid gland 10/09/202011/11 Elevated BP without diagnosis of hypertension 03/10/2022 Last Assessment & Plan: Assessment: On Metoprolol for NSVT BP 152/88 Parotid mass 07/22/2020 11/11/2021 Mild cervical dysplasia 07/31/2017 11/12/19 22 Localized swelling, mass or lump of neck 018 11/11/2021 documented as of this encounter (statuses as of 09/29/2022) [facility]* Problem Noted Date Resolved Date Dizziness 08/18/2021 11/11/2021 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 of left parotid gland 10/09/202011/11 Elevated BP without diagnosis of hypertension 03/10/2022 Last Assessment & Plan: Assessment: On Metoprolol for NSVT BP 152/88 Parotid mass 07/22/2020 11/11/2021 Mild cervical dysplasia 07/31/2017 11/12/19 22 Localized swelling, mass or lump of neck 018 11/11/2021 documented as of this encounter (statuses as of 11/17/2022) [facility]* Problem Noted Date Resolved Date Dizziness 08/18/2021 11/11/2021 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 of left parotid gland 10/09/202011/11 Elevated BP without diagnosis of hypertension 03/10/2022 Last Assessment & Plan: Assessment: On Metoprolol for NSVT BP 152/88 Parotid mass 07/22/2020 11/11/2021 Mild cervical dysplasia 07/31/2017 11/12/19 22 Localized swelling, mass or lump of neck 018 11/11/2021 documented as of this encounter (statuses as of 12/01/2022) [facility] Narrative* Problem Noted Date Resolved Date Dizziness 08/18/2021 11/11/2021 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 of left parotid gland 10/09/202011/11 Elevated BP without diagnosis of hypertension 03/10/2022 Last Assessment & Plan: Assessment: On Metoprolol for NSVT BP 152/88 Parotid mass 07/22/2020 11/11/2021 Mild cervical dysplasia 07/31/2017 11/12/19 22 Localized swelling, mass or lump of neck 018 11/11/2021 documented as of this encounter (statuses as of 12/01/2022) [facility]* Problem Noted Date Diagnosed Date Resolved Date Dizziness 08/18/2021 11/11/2021 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 of left parotid gland 10/09/2020 0 11/11/2021 Elevated BP without diagnosis of hypertension 07/22/19 21 03/10/2022 Last Assessment & Plan: Assessment: On Metoprolol for NSVT BP 152/88 Parotid mass 07/22/2020 11/11/2021 Mild cervical dysplasia 07/31/2017 06/10/2021 Localized swelling, mass or lump of neck 06/09/2017 11/11/2021 documented as of this encounter (statuses as of 12/08/2022) [facility]* Problem Noted Date Diagnosed Date Resolved Date Dizziness 08/18/2021 11/11/2021 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 of left parotid gland 10/09/2020 0 11/11/2021 Elevated BP without diagnosis of hypertension 07/22/19 21 03/10/2022 Last Assessment & Plan: Assessment: On Metoprolol for NSVT BP 152/88 Parotid mass 07/22/2020 11/11/2021 Mild cervical dysplasia 07/31/201710/27 Localized swelling, mass or lump of neck 06/09/2017 11/11/2021 documented as of this encounter (statuses as of 12/09/2022) [facility]* Problem Noted Date Diagnosed Date Resolved Date Dizziness 08/18/2021 11/11/2021 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 of left parotid gland 10/09/2020 0 11/11/2021 Elevated BP without diagnosis of hypertension 07/22/19 21 03/10/2022 Last Assessment & Plan: Assessment: On Metoprolol for NSVT BP 152/88 Parotid mass 07/22/2020 11/11/2021 Mild cervical dysplasia 07/31/201710/27 Localized swelling, mass or lump of neck 06/09/2017 11/11/2021 documented as of this encounter (statuses as of 12/22/2022) [facility]* Problem Noted Date Diagnosed Date Resolved Date Dizziness 08/18/2021 11/11/2021 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 of left parotid gland 10/09/2020 0 11/11/2021 Elevated BP without diagnosis of hypertension 07/22/19 21 03/10/2022 Last Assessment & Plan: Assessment: On Metoprolol for NSVT BP 152/88 Parotid mass 07/22/2020 11/11/2021 Mild cervical dysplasia 07/31/201710/27 Localized swelling, mass or lump of neck 06/09/2017 11/11/2021 documented as of this encounter (statuses as of 12/22/2022) [address]23-2022 History of Past illness Narrative* Problem Noted Date Diagnosed Date Resolved Date Dizziness 08/18/2021 11/11/2021 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 of left parotid gland 10/09/2020 0 11/11/2021 Elevated BP without diagnosis of hypertension 07/22/19 21 03/10/2022 Last Assessment & Plan: Assessment: On Metoprolol for NSVT BP 152/88 Parotid mass 07/22/2020 11/11/2021 Mild cervical dysplasia 07/31/201710/27 Localized swelling, mass or lump of neck 06/09/2017 11/11/2021 documented as of this encounter (statuses as of 12/27/2022) [facility]* Problem Noted Date Diagnosed Date Resolved Date Dizziness 08/18/2021 11/11/2021 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 of left parotid gland 10/09/2020 0 11/11/2021 Elevated BP without diagnosis of hypertension 07/22/19 21 03/10/2022 Last Assessment & Plan: Assessment: On Metoprolol for NSVT BP 152/88 Parotid mass 07/22/2020 11/11/2021 Mild cervical dysplasia 07/31/201710/27 Localized swelling, mass or lump of neck 06/09/2017 11/11/2021 documented as of this encounter (statuses as of 01/03/2023) [facility] Narrative* Problem Noted Date Diagnosed Date Resolved Date Dizziness 08/18/2021 11/11/2021 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 of left parotid gland 10/09/2020 0 11/11/2021 Elevated BP without diagnosis of hypertension 07/22/19 21 03/10/2022 Last Assessment & Plan: Assessment: On Metoprolol for NSVT BP 152/88 Parotid mass 07/22/2020 11/11/2021 Mild cervical dysplasia 07/31/201710/27 Localized swelling, mass or lump of neck 06/09/2017 11/11/2021 documented as of this encounter (statuses as of 01/13/2023) [facility] Narrative* Problem Noted Date Diagnosed Date Resolved Date Dizziness 08/18/2021 11/11/2021 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 of left parotid gland 10/09/2020 0 11/11/2021 Elevated BP without diagnosis of hypertension 07/22/1903/10/2022 Last Assessment & Plan: Assessment: On Metoprolol for NSVT BP 152/88 Parotid mass 07/22/2020 11/11/2021 Mild cervical dysplasia 07/31/201710/27 Localized swelling, mass or lump of neck 06/09/2017 11/11/2021 documented as of this encounter (statuses as of 01/20/2023) [facility]* Problem Noted Date Diagnosed Date Resolved Date Dizziness 08/18/2021 11/11/2021 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 of left parotid gland 10/09/2020 0 11/11/2021 Elevated BP without diagnosis of hypertension 07/22/19 21 03/10/2022 Last Assessment & Plan: Assessment: On Metoprolol for NSVT BP 152/88 Parotid mass 07/22/2020 11/11/2021 Mild cervical dysplasia 07/31/201710/27 Localized swelling, mass or lump of neck 06/09/2017 11/11/2021 documented as of this encounter (statuses as of 02/08/2023) [facility] History of Past illness Narrative* Problem Noted Date Diagnosed Date Resolved Date Dizziness 08/18/2021 11/11/2021 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 of left parotid gland 10/09/2020 0 11/11/2021 Elevated BP without diagnosis of hypertension 07/22/19 21 03/10/2022 Last Assessment & Plan: Assessment: On Metoprolol for NSVT BP 152/88 Parotid mass 07/22/2020 11/11/2021 Mild cervical dysplasia 07/31/201710/27 Localized swelling, mass or lump of neck 06/09/2017 11/11/2021 documented as of this encounter (statuses as of 03/13/2023) [facility] History of Past illness Narrative* Problem Noted Date Diagnosed Date Resolved Date Dizziness 08/18/2021 11/11/2021 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 of left parotid gland 10/09/2020 0 11/11/2021 Elevated BP without diagnosis of hypertension 07/22/1903/10/2022 Last Assessment & Plan: Assessment: On Metoprolol for NSVT BP 152/88 Parotid mass 07/22/2020 11/11/2021 Mild cervical dysplasia 07/31/201710/27 Localized swelling, mass or lump of neck 06/09/2017 11/11/2021 documented as of this encounter (statuses as of 04/02/2023) [facility] History of Past illness Narrative* Problem Noted Date Diagnosed Date Resolved Date Dizziness 08/18/2021 11/11/2021 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 of left parotid gland 10/09/2020 0 11/11/2021 Elevated BP without diagnosis of hypertension 07/22/19 21 03/10/2022 Last Assessment & Plan: Assessment: On Metoprolol for NSVT BP 152/88 Parotid mass 07/22/2020 11/11/2021 Mild cervical dysplasia 07/31/201710/27 Localized swelling, mass or lump of neck 06/09/2017 11/11/2021 documented as of this encounter (statuses as of 04/02/2023) [facility] History of Past illness Narrative* Problem Noted Date Diagnosed Date Resolved Date Dizziness 08/18/2021 11/11/2021 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 of left parotid gland 10/09/2020 0 11/11/2021 Elevated BP without diagnosis of hypertension 07/22/19 21 03/10/2022 Last Assessment & Plan: Assessment: On Metoprolol for NSVT BP 152/88 Parotid mass 07/22/2020 11/11/2021 Mild cervical dysplasia 07/31/201710/27 Localized swelling, mass or lump of neck 06/09/2017 11/11/2021 documented as of this encounter (statuses as of 04/02/2023) [facility] History of Past illness Narrative* Problem Noted Date Diagnosed Date Resolved Date Dizziness 08/18/2021 11/11/2021 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 of left parotid gland 10/09/2020 0 11/11/2021 Elevated BP without diagnosis of hypertension 07/22/19 21 03/10/2022 Last Assessment & Plan: Assessment: On Metoprolol for NSVT BP 152/88 Parotid mass 07/22/2020 11/11/2021 Mild cervical dysplasia 07/31/201710/27 Localized swelling, mass or lump of neck 06/09/2017 11/11/2021 documented as of this encounter (statuses as of 04/02/2023) [facility] History of Past illness Narrative* Problem Noted Date Diagnosed Date Resolved Date Dizziness 08/18/2021 11/11/2021 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 of left parotid gland 10/09/2020 0 11/11/2021 Elevated BP without diagnosis of hypertension 07/22/19 21 03/10/2022 Last Assessment & Plan: Assessment: On Metoprolol for NSVT BP 152/88 Parotid mass 07/22/2020 11/11/2021 Mild cervical dysplasia 07/31/201710/27 Localized swelling, mass or lump of neck 06/09/2017 11/11/2021 documented as of this encounter (statuses as of 04/02/2023) [facility] History of Past illness Narrative* Problem Noted Date Diagnosed Date Resolved Date Dizziness 08/18/2021 11/11/2021 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 of left parotid gland 10/09/2020 0 11/11/2021 Elevated BP without diagnosis of hypertension 07/22/19 21 03/10/2022 Last Assessment & Plan: Assessment: On Metoprolol for NSVT BP 152/88 Parotid mass 07/22/2020 11/11/2021 Mild cervical dysplasia 07/31/201710/27 Localized swelling, mass or lump of neck 06/09/2017 11/11/2021 documented as of this encounter (statuses as of 04/02/2023) [facility] History of Past illness Narrative* Problem Noted Date Diagnosed Date Resolved Date Dizziness 08/18/2021 11/11/2021 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 of left parotid gland 10/09/2020 0 11/11/2021 Elevated BP without diagnosis of hypertension 07/22/19 21 03/10/2022 Last Assessment & Plan: Assessment: On Metoprolol for NSVT BP 152/88 Parotid mass 07/22/2020 11/11/2021 Mild cervical dysplasia 07/31/201710/27 Localized swelling, mass or lump of neck 06/09/2017 11/11/2021 documented as of this encounter (statuses as of 04/02/2023) [facility] History of Past illness Narrative* Problem Noted Date Diagnosed Date Resolved Date Dizziness 08/18/2021 11/11/2021 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 of left parotid gland 10/09/2020 0 11/11/2021 Elevated BP without diagnosis of hypertension 07/22/19 21 03/10/2022 Last Assessment & Plan: Assessment: On Metoprolol for NSVT BP 152/88 Parotid mass 07/22/2020 11/11/2021 Mild cervical dysplasia 07/31/201710/27 Localized swelling, mass or lump of neck 06/09/2017 11/11/2021 documented as of this encounter (statuses as of 04/05/2023) [facility] History of Past illness Narrative* Problem Noted Date Diagnosed Date Resolved Date Dizziness 08/18/2021 11/11/2021 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 of left parotid gland 10/09/2020 0 11/11/2021 Elevated BP without diagnosis of hypertension 07/22/19 21 03/10/2022 Last Assessment & Plan: Assessment: On Metoprolol for NSVT BP 152/88 Parotid mass 07/22/2020 11/11/2021 Mild cervical dysplasia 07/31/201710/27 Localized swelling, mass or lump of neck 06/09/2017 11/11/2021 documented as of this encounter (statuses as of 04/06/2023) [facility] History of Past illness Narrative* Problem Noted Date Diagnosed Date Resolved Date 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 Perimenopause 06/21/2017 05/19/2023 Localized swelling, mass or lump of neck 06/09/2017 11/11/2021 documented as of this encounter (statuses as of 08/21/2023) [facility] History of Present illness Narrative* Amaya Taylor, RT(R) - 08/04/2021 11:45 AM EST Radiology Service Progress Note PATIENT NAME: Steffi Leone DATE OF SERVICE: August 04, 2021 TIME: 12:04 PM PATIENT IDENTITY VERIFICATION COMPLETED USING TWO (2) IDENTIFIERS: Name and Date of confirmedby patient verbally. FALL SCREENING: Has the patient had 2 falls in the last year or 1 fall with injury or currently using an Ambulatory Assistive Device (Walker, Cane, Wheelchair, Crutches, etc.)? No PATIENT GENDER DATA: Female. status: : No status: NO. 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 of left parotid gland 10/09/2020 0 11/11/2021 Elevated BP without diagnosis of hypertension 07/22/19 21 03/10/2022 Last Assessment & Plan: Assessment: On Metoprolol for NSVT BP 152/88 Parotid mass 07/22/2020 11/11/2021 Mild cervical dysplasia 07/31/201710/27 Localized swelling, mass or lump of neck 06/09/2017 11/11/2021 documented as of this encounter (statuses as of 04/02/2023) [facility]* Diagnosis Palpitations- Primary Ventricular tachycardia (paroxysmal) (HCC) Paroxysmal ventricular tachycardia Primary hypertension Unspecified essential hypertension Obesity, Class I, BMI 30-34.9 Obesity, unspecified Smoker Tobacco use disorder Pre-op evaluation Preoperative examination, unspecified Dizziness Dizziness and giddiness Osteoarthritis of both knees, unspecified osteoarthritis type [facility] Diagnosis S/P bilateral unicompartmental knee replacement- Primary Knee joint replacement by other means [facility] Diagnosis Status post bilateral knee replacements- Primary Knee joint replacement by other means [facility] Diagnosis Leg swelling- Primary Swelling of limb Status post bilateral knee replacements Knee joint replacement by other means [facility] Diagnosis Status post bilateral knee replacements- Primary Knee joint replacement by other means [facility] Diagnosis Status post bilateral knee replacements- Primary Knee joint replacement by other means [facility] Diagnosis History of bilateral knee replacement- Primary [facility]* Diagnosis Status post bilateral knee replacements Knee joint replacement by other means [facility]* Diagnosis Post-op pain- Primary Other acute postoperative pain S/P bilateral unicompartmental knee replacement Knee joint replacement by other means documented in this encounter [facility] note* Diagnosis S/P bilateral unicompartmental knee replacement- Primary Knee joint replacement by other means documented in this encounter [facility] note* Diagnosis H/O total knee replacement, bilateral- Primary Pain due to knee joint prosthesis, initial encounter ([facility]) documented in this encounter [facility] note* Diagnosis Pain due to knee joint prosthesis, initial encounter ([facility]) [facility]* Diagnosis S/P bilateral unicompartmental knee replacement- Primary Knee joint replacement by other means Pain due to knee joint prosthesis, initial encounter ([facility]) H/O total knee replacement, bilateral documented in this encounter [facility] note* Diagnosis S/P bilateral unicompartmental knee replacement- Primary Knee joint replacement by other means Pain due to knee joint prosthesis, subsequent encounter Pain due to knee joint prosthesis, initial encounter ([facility]) H/O total knee replacement, bilateral documented in this encounter [facility] note* Diagnosis Pain due to knee joint prosthesis, initial encounter ([facility])- Primary H/O total knee replacement, bilateral documented in this encounter [facility] note* Diagnosis Encounter for screening mammogram for breast cancer Pain due to knee joint prosthesis, initial encounter ([facility]) H/O total knee replacement, bilateral documented in this encounter [facility] note* Diagnosis Pain due to knee joint prosthesis, initial encounter ([facility])- Primary Pain due to knee joint prosthesis, initial encounter ([facility]) Pain due to knee joint prosthesis, initial encounter ([facility]) [facility]* Diagnosis Pain due to knee joint prosthesis, subsequent encounter- Primary [facility]* Diagnosis Bilateral primary osteoarthritis of knee- Primary Chronic pain of both knees [facility]* Diagnosis Status post bilateral knee replacements- Primary Knee joint replacement by other means [facility]* Diagnosis Anxiety-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 Federal rules restrict any use of the information to criminally investigate or prosecute any alcohol or drug abuse patient.[facility] SystemIn the event this information is protected by the Federal Confidentiality of Alcohol and Drug Abuse Patient Records regulations: The Federal rules restrict any use of the information to criminally investigate or prosecute any alcohol or drug abuse patient.[facility] SystemIn the event this information is protected by the Federal Confidentiality of Alcohol and Drug Abuse Patient Records regulations: The Federal rules restrict any use of the information to criminally investigate or prosecute any alcohol or drug abuse patient.[facility] SystemIn the event this information is protected by the Federal Confidentiality of Alcohol and Drug Abuse Patient Records regulations: The Federal rules restrict any use of the information to criminally investigate or prosecute any alcohol or drug abuse patient.[facility] SystemIn the event this information is protected by the Federal Confidentiality of Alcohol and Drug Abuse Patient Records regulations: The Federal rules restrict any use of the information to criminally investigate or prosecute any alcohol or drug abuse patient.[facility] SystemIn the event this information is protected by the Federal Confidentiality of Alcohol and Drug Abuse Patient Records regulations: The Federal rules restrict any use of the information to criminally investigate or prosecute any alcohol or drug abuse patient.[facility] SystemIn the event this information is protected by the Federal Confidentiality of Alcohol and Drug Abuse Patient Records regulations: The Federal rules restrict any use of the information to criminally investigate or prosecute any alcohol or drug abuse patient.[facility] SystemIn the event this information is protected by the Federal Confidentiality of Alcohol and Drug Abuse Patient Records regulations: The Federal rules restrict any use of the information to criminally investigate or prosecute any alcohol or drug abuse patient.[facility] SystemIn the event this information is protected by the Federal Confidentiality of Alcohol and Drug Abuse Patient Records regulations: The Federal rules restrict any use of the information to criminally investigate or prosecute any alcohol or drug abuse patient.[facility] SystemIn the event this information is protected by the Federal Confidentiality of Alcohol and Drug Abuse Patient Records regulations: The Federal rules restrict any use of the information to criminally investigate or prosecute any alcohol or drug abuse patient.[facility] SystemIn the event this information is protected by the Federal Confidentiality of Alcohol and Drug Abuse Patient Records regulations: The Federal rules restrict any use of the information to criminally investigate or prosecute any alcohol or drug abuse patient.[facility] SystemIn the event this information is protected by the Federal Confidentiality of Alcohol and Drug Abuse Patient Records regulations: The Federal rules restrict any use of the information to criminally investigate or prosecute any alcohol or drug abuse patient.[facility] SystemIn the event this information is protected by the Federal Confidentiality of Alcohol and Drug Abuse Patient Records regulations: The Federal rules restrict any use of the information to criminally investigate or prosecute any alcohol or drug abuse patient.[facility] SystemIn the event this information is protected by the Federal Confidentiality of Alcohol and Drug Abuse Patient Records regulations: The Federal rules restrict any use of the information to criminally investigate or prosecute any alcohol or drug abuse patient.[facility] SystemIn the event this information is protected by the Federal Confidentiality of Alcohol and Drug Abuse Patient Records regulations: The Federal rules restrict any use of the information to criminally investigate or prosecute any alcohol or drug abuse patient.[facility] SystemIn the event this information is protected by the Federal Confidentiality of Alcohol and Drug Abuse Patient Records regulations: The Federal rules restrict any use of the information to criminally investigate or prosecute any alcohol or drug abuse patient.[facility] SystemIn the event this information is protected by the Federal Confidentiality of Alcohol and Drug Abuse Patient Records regulations: The Federal rules restrict any use of the information to criminally investigate or prosecute any alcohol or drug abuse patient.[facility] SystemIn the event this information is protected by the Federal Confidentiality of Alcohol and Drug Abuse Patient Records regulations: The Federal rules restrict any use of the information to criminally investigate or prosecute any alcohol or drug abuse patient.[facility] SystemIn the event this information is protected by the Federal Confidentiality of Alcohol and Drug Abuse Patient Records regulations: The Federal rules restrict any use of the information to criminally investigate or prosecute any alcohol or drug abuse patient.[facility] the event this information is protected by the Federal Confidentiality of Alcohol and Drug Abuse Patient Records regulations: The Federal rules restrict any use of the information to criminally investigate or prosecute any alcohol or drug abuse patient.[facility] SystemIn the event this information is protected by the Federal Confidentiality of Alcohol and Drug Abuse Patient Records regulations: The Federal rules restrict any use of the information to criminally investigate or prosecute any alcohol or drug abuse patient.[facility] the event this information is protected by the Federal Confidentiality of Alcohol and Drug Abuse Patient Records regulations: The Federal rules restrict any use of the information to criminally investigate or prosecute any alcohol or drug abuse patient.[facility]In the event this information is protected by the Federal Confidentiality of Alcohol and Drug Abuse Patient Records regulations: The Federal rules restrict any use of the information to criminally investigate or prosecute any alcohol or drug abuse patient.[facility]In the event this information is protected by the Federal Confidentiality of Alcohol and Drug Abuse Patient Records regulations: The Federal rules restrict any use of the information to criminally investigate or prosecute any alcohol or drug abuse patient.[facility] the event this information is protected by the Federal Confidentiality of Alcohol and Drug Abuse Patient Records regulations: The Federal rules restrict any use of the information to criminally investigate or prosecute any alcohol or drug abuse patient.[facility]In the event this information is protected by the Federal Confidentiality of Alcohol and Drug Abuse Patient Records regulations: The Federal rules restrict any use of the information to criminally investigate or prosecute any alcohol or drug abuse patient.[facility]In the event this information is protected by the Federal Confidentiality of Alcohol and Drug Abuse Patient Records regulations: The Federal rules restrict any use of the information to criminally investigate or prosecute any alcohol or drug abuse patient.[facility]In the event this information is protected by the Federal Confidentiality of Alcohol and Drug Abuse Patient Records regulations: The Federal rules restrict any use of the information to criminally investigate or prosecute any alcohol or drug abuse patient.[facility]In the event this information is protected by the Federal Confidentiality of Alcohol and Drug Abuse Patient Records regulations: The Federal rules restrict any use of the information to criminally investigate or prosecute any alcohol or drug abuse patient.[facility]In the event this information is protected by the Federal Confidentiality of Alcohol and Drug Abuse Patient Records regulations: The Federal rules restrict any use of the information to criminally investigate or prosecute any alcohol or drug abuse patient.[facility]In the event this information is protected by the Federal Confidentiality of Alcohol and Drug Abuse Patient Records regulations: The Federal rules restrict any use of the information to criminally investigate or prosecute any alcohol or drug abuse patient.[facility]In the event this information is protected by the Federal Confidentiality of Alcohol and Drug Abuse Patient Records regulations: The Federal rules restrict any use of the information to criminally investigate or prosecute any alcohol or drug abuse patient.[facility]In the event this information is protected by the Federal Confidentiality of Alcohol and Drug Abuse Patient Records regulations: The Federal rules restrict any use of the information to criminally investigate or prosecute any alcohol or drug abuse patient.[facility]In the event this information is protected by the Federal Confidentiality of Alcohol and Drug Abuse Patient Records regulations: The Federal rules restrict any use of the information to criminally investigate or prosecute any alcohol or drug abuse patient.[facility]In the event this information is protected by the Federal Confidentiality of Alcohol and Drug Abuse Patient Records regulations: The Federal rules restrict any use of the information to criminally investigate or prosecute any alcohol or drug abuse patient.[facility]In the event this information is protected by the Federal Confidentiality of Alcohol and Drug Abuse Patient Records regulations: The Federal rules restrict any use of the information to criminally investigate or prosecute any alcohol or drug abuse patient.[facility]In the event this information is protected by the Federal Confidentiality of Alcohol and Drug Abuse Patient Records regulations: The Federal rules restrict any use of the information to criminally investigate or prosecute any alcohol or drug abuse patient.[facility]In the event this information is protected by the Federal Confidentiality of Alcohol and Drug Abuse Patient Records regulations: The Federal rules restrict any use of the information to criminally investigate or prosecute any alcohol or drug abuse patient.[facility]In the event this information is protected by the Federal Confidentiality of Alcohol and Drug Abuse Patient Records regulations: The Federal rules restrict any use of the information to criminally investigate or prosecute any alcohol or drug abuse patient.[facility]In the event this information is protected by the Federal Confidentiality of Alcohol and Drug Abuse Patient Records regulations: The Federal rules restrict any use of the information to criminally investigate or prosecute any alcohol or drug abuse patient.[facility]In the event this information is protected by the Federal Confidentiality of Alcohol and Drug Abuse Patient Records regulations: The Federal rules restrict any use of the information to criminally investigate or prosecute any alcohol or drug abuse patient.[facility]In the event this information is protected by the Federal Confidentiality of Alcohol and Drug Abuse Patient Records regulations: The Federal rules restrict any use of the information to criminally investigate or prosecute any alcohol or drug abuse patient.[facility]In the event this information is protected by the Federal Confidentiality of Alcohol and Drug Abuse Patient Records regulations: The Federal rules restrict any use of the information to criminally investigate or prosecute any alcohol or drug abuse patient.[facility]In the event this information is protected by the Federal Confidentiality of Alcohol and Drug Abuse Patient Records regulations: The Federal rules restrict any use of the information to criminally investigate or prosecute any alcohol or drug abuse patient.[facility]In the event this information is protected by the Federal Confidentiality of Alcohol and Drug Abuse Patient Records regulations: The Federal rules restrict any use of the information to criminally investigate or prosecute any alcohol or drug abuse patient.[facility]In the event this information is protected by the Federal Confidentiality of Alcohol and Drug Abuse Patient Records regulations: The Federal rules restrict any use of the information to criminally investigate or prosecute any alcohol or drug abuse patient.[facility]In the event this information is protected by the Federal Confidentiality of Alcohol and Drug Abuse Patient Records regulations: The Federal rules restrict any use of the information to criminally investigate or prosecute any alcohol or drug abuse patient.[facility]In the event this information is protected by the Federal Confidentiality of Alcohol and Drug Abuse Patient Records regulations: The Federal rules restrict any use of the information to criminally investigate or prosecute any alcohol or drug abuse patient.[facility]In the event this information is protected by the Federal Confidentiality of Alcohol and Drug Abuse Patient Records regulations: The Federal rules restrict any use of the information to criminally investigate or prosecute any alcohol or drug abuse patient.[facility]In the event this information is protected by the Federal Confidentiality of Alcohol and Drug Abuse Patient Records regulations: The Federal rules restrict any use of the information to criminally investigate or prosecute any alcohol or drug abuse patient.[facility]In the event this information is protected by the Federal Confidentiality of Alcohol and Drug Abuse Patient Records regulations: The Federal rules restrict any use of the information to criminally investigate or prosecute any alcohol or drug abuse patient.[facility]In the event this information is protected by the Federal Confidentiality of Alcohol and Drug Abuse Patient Records regulations: The Federal rules restrict any use of the information to criminally investigate or prosecute any alcohol or drug abuse patient.[facility]In the event this information is protected by the Federal Confidentiality of Alcohol and Drug Abuse Patient Records regulations: The Federal rules restrict any use of the information to criminally investigate or prosecute any alcohol or drug abuse patient.[facility]In the event this information is protected by the Federal Confidentiality of Alcohol and Drug Abuse Patient Records regulations: The Federal rules restrict any use of the information to criminally investigate or prosecute any alcohol or drug abuse patient.[facility]In the event this information is protected by the Federal Confidentiality of Alcohol and Drug Abuse Patient Records regulations: The Federal rules restrict any use of the information to criminally investigate or prosecute any alcohol or drug abuse patient.[facility]In the event this information is protected by the Federal Confidentiality of Alcohol and Drug Abuse Patient Records regulations: The Federal rules restrict any use of the information to criminally investigate or prosecute any alcohol or drug abuse patient.[facility]In the event this information is protected by the Federal Confidentiality of Alcohol and Drug Abuse Patient Records regulations: The Federal rules restrict any use of the information to criminally investigate or prosecute any alcohol or drug abuse patient.[facility]In the event this information is protected by the Federal Confidentiality of Alcohol and Drug Abuse Patient Records regulations: The Federal rules restrict any use of the information to criminally investigate or prosecute any alcohol or drug abuse patient.[facility]In the event this information is protected by the Federal Confidentiality of Alcohol and Drug Abuse Patient Records regulations: The Federal rules restrict any use of the information to criminally investigate or prosecute any alcohol or drug abuse patient.[facility]In the event this information is protected by the Federal Confidentiality of Alcohol and Drug Abuse Patient Records regulations: The Federal rules restrict any use of the information to criminally investigate or prosecute any alcohol or drug abuse patient.[facility]In the event this information is protected by the Federal Confidentiality of Alcohol and Drug Abuse Patient Records regulations: The Federal rules restrict any use of the information to criminally investigate or prosecute any alcohol or drug abuse patient.[facility]In the event this information is protected by the Federal Confidentiality of Alcohol and Drug Abuse Patient Records regulations: The Federal rules restrict any use of the information to criminally investigate or prosecute any alcohol or drug abuse patient.[facility]In the event this information is protected by the Federal Confidentiality of Alcohol and Drug Abuse Patient Records regulations: The Federal rules restrict any use of the information to criminally investigate or prosecute any alcohol or drug abuse patient.[facility]In the event this information is protected by the Federal Confidentiality of Alcohol and Drug Abuse Patient Records regulations: The Federal rules restrict any use of the information to criminally investigate or prosecute any alcohol or drug abuse patient.[facility]In the event this information is protected by the Federal Confidentiality of Alcohol and Drug Abuse Patient Records regulations: The Federal rules restrict any use of the information to criminally investigate or prosecute any alcohol or drug abuse patient.[facility]In the event this information is protected by the Federal Confidentiality of Alcohol and Drug Abuse Patient Records regulations: The Federal rules restrict any use of the information to criminally investigate or prosecute any alcohol or drug abuse patient.[facility]In the event this information is protected by the Federal Confidentiality of Alcohol and Drug Abuse Patient Records regulations: The Federal rules restrict any use of the information to criminally investigate or prosecute any alcohol or drug abuse patient.[facility]In the event this information is protected by the Federal Confidentiality of Alcohol and Drug Abuse Patient Records regulations: The Federal rules restrict any use of the information to criminally investigate or prosecute any alcohol or drug abuse patient.[facility]In the event this information is protected by the Federal Confidentiality of Alcohol and Drug Abuse Patient Records regulations: The Federal rules restrict any use of the information to criminally investigate or prosecute any alcohol or drug abuse patient.[facility]In the event this information is protected by the Federal Confidentiality of Alcohol and Drug Abuse Patient Records regulations: The Federal rules restrict any use of the information to criminally investigate or prosecute any alcohol or drug abuse patient.[facility] SystemIn the event this information is protected by the Federal Confidentiality of Alcohol and Drug Abuse Patient Records regulations: The Federal rules restrict any use of the information to criminally investigate or prosecute any alcohol or drug abuse patient.[facility] the event this information is protected by the Federal Confidentiality of Alcohol and Drug Abuse Patient Records regulations: The Federal rules restrict any use of the information to criminally investigate or prosecute any alcohol or drug abuse patient.[facility]In the event this information is protected by the Federal Confidentiality of Alcohol and Drug Abuse Patient Records regulations: The Federal rules restrict any use of the information to criminally investigate or prosecute any alcohol or drug abuse patient.[facility]In the event this information is protected by the Federal Confidentiality of Alcohol and Drug Abuse Patient Records regulations: The Federal rules restrict any use of the information to criminally investigate or prosecute any alcohol or drug abuse patient.[facility]In the event this information is protected by the Federal Confidentiality of Alcohol and Drug Abuse Patient Records regulations: The Federal rules restrict any use of the information to criminally investigate or prosecute any alcohol or drug abuse patient.[facility]In the event this information is protected by the Federal Confidentiality of Alcohol and Drug Abuse Patient Records regulations: The Federal rules restrict any use of the information to criminally investigate or prosecute any alcohol or drug abuse patient.[facility]In the event this information is protected by the Federal Confidentiality of Alcohol and Drug Abuse Patient Records regulations: The Federal rules restrict any use of the information to criminally investigate or prosecute any alcohol or drug abuse patient.[facility]In the event this information is protected by the Federal Confidentiality of Alcohol and Drug Abuse Patient Records regulations: The Federal rules restrict any use of the information to criminally investigate or prosecute any alcohol or drug abuse patient.[facility]In the event this information is protected by the Federal Confidentiality of Alcohol and Drug Abuse Patient Records regulations: The Federal rules restrict any use of the information to criminally investigate or prosecute any alcohol or drug abuse patient.[facility]In the event this information is protected by the Federal Confidentiality of Alcohol and Drug Abuse Patient Records regulations: The Federal rules restrict any use of the information to criminally investigate or prosecute any alcohol or drug abuse patient.[facility]In the event this information is protected by the Federal Confidentiality of Alcohol and Drug Abuse Patient Records regulations: The Federal rules restrict any use of the information to criminally investigate or prosecute any alcohol or drug abuse patient.[facility]In the event this information is protected by the Federal Confidentiality of Alcohol and Drug Abuse Patient Records regulations: The Federal rules restrict any use of the information to criminally investigate or prosecute any alcohol or drug abuse patient.[facility]In the event this information is protected by the Federal Confidentiality of Alcohol and Drug Abuse Patient Records regulations: The Federal rules restrict any use of the information to criminally investigate or prosecute any alcohol or drug abuse patient.[facility]In the event this information is protected by the Federal Confidentiality of Alcohol and Drug Abuse Patient Records regulations: The Federal rules restrict any use of the information to criminally investigate or prosecute any alcohol or drug abuse patient.[facility]In the event this information is protected by the Federal Confidentiality of Alcohol and Drug Abuse Patient Records regulations: The Federal rules restrict any use of the information to criminally investigate or prosecute any alcohol or drug abuse patient.[facility]In the event this information is protected by the Federal Confidentiality of Alcohol and Drug Abuse Patient Records regulations: The Federal rules restrict any use of the information to criminally investigate or prosecute any alcohol or drug abuse patient.[facility]In the event this information is protected by the Federal Confidentiality of Alcohol and Drug Abuse Patient Records regulations: The Federal rules restrict any use of the information to criminally investigate or prosecute any alcohol or drug abuse patient.[facility]In the event this information is protected by the Federal Confidentiality of Alcohol and Drug Abuse Patient Records regulations: The Federal rules restrict any use of the information to criminally investigate or prosecute any alcohol or drug abuse patient.[facility]In the event this information is protected by the Federal Confidentiality of Alcohol and Drug Abuse Patient Records regulations: The Federal rules restrict any use of the information to criminally investigate or prosecute any alcohol or drug abuse patient.[facility]In the event this information is protected by the Federal Confidentiality of Alcohol and Drug Abuse Patient Records regulations: The Federal rules restrict any use of the information to criminally investigate or prosecute any alcohol or drug abuse patient.[facility]In the event this information is protected by the Federal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 07/22/20 Want Ad Clerk Relationship Specialty Start Date End Date [facility] Elvin, GAS WELL DRILLING MANAGER.CREDIT AUTHORIZER [address] [place] [address] PCP - General Family Practice 07/22/20 Want Ad Clerk Relationship Specialty Start Date End Date [facility] Elvin, GAS WELL DRILLING MANAGER.CREDIT AUTHORIZER [address] [place] [address] PCP - General Family Practice 07/22/20 Want Ad Clerk Relationship Specialty Start Date End Date [facility], GAS WELL DRILLING MANAGER.CREDIT AUTHORIZER [address] [place] [address] PCP - General Family Practice 07/22/20 Want Ad Clerk Relationship Specialty Start Date End Date Elvin Zavala, GAS WELL DRILLING MANAGER.CREDIT AUTHORIZER [address] [place] [address] PCP - General Family Medicine 07/22/20 Want Ad Clerk Relationship Specialty Start Date End Date Elvin Zavala, GAS WELL DRILLING MANAGER.CREDIT AUTHORIZER [address] [place] [address] PCP - General Family Medicine 07/22/20 Want Ad Clerk Relationship Specialty Start Date End Date Elvin Zavala, GAS WELL DRILLING MANAGER.CREDIT AUTHORIZER [address] [place] [address] PCP - General Family Medicine 07/22/20 Want Ad Clerk Relationship Specialty Start Date End Date Elvin Zavala, GAS WELL DRILLING MANAGER.CREDIT AUTHORIZER [address] [place] [address] PCP - General Family Medicine 07/22/20 Want Ad Clerk Relationship Specialty Start Date End Date Elvin Zavala, GAS WELL DRILLING MANAGER.CREDIT AUTHORIZER [address] [place] [address] PCP - General Family Medicine 07/22/20 Want Ad Clerk Relationship Specialty Start Date End Date Elvin Zavala, GAS WELL DRILLING MANAGER.CREDIT AUTHORIZER [address] [place] [address] PCP - General Family Medicine 07/22/20 Want Ad Clerk Relationship Specialty Start Date End Date Elvin Zavala, GAS WELL DRILLING MANAGER.CREDIT AUTHORIZER [address] [place] [address] PCP - General Family Medicine 07/22/20 Want Ad Clerk Relationship Specialty Start Date End Date Elvin Zavala, GAS WELL DRILLING MANAGER.CREDIT AUTHORIZER [address] [place] [address] PCP - General Family Medicine 07/22/20 Want Ad Clerk Relationship Specialty Start Date End Date Elvin Zavala, GAS WELL DRILLING MANAGER.CREDIT AUTHORIZER [address] [place] [address] PCP - General Family Medicine 07/22/20 Want Ad Clerk Relationship Specialty Start Date End Date [facility], GAS WELL DRILLING MANAGER.CREDIT AUTHORIZER [address] [place] [address] PCP - General Family Medicine 07/22/20 Want Ad Clerk Relationship Specialty Start Date End Date [facility] GAS WELL DRILLING MANAGER.CREDIT AUTHORIZER [address] [place] [address] PCP - General Family Medicine 07/22/20 Want Ad Clerk Relationship Specialty Start Date End Date [facility], GAS WELL DRILLING MANAGER.CREDIT AUTHORIZER [address] [place] [address] PCP - General Family Medicine 07/22/20 Want Ad Clerk Relationship Specialty Start Date End Date [facility], GAS WELL DRILLING MANAGER.CREDIT AUTHORIZER [address] [place] [address] PCP - General Family Medicine 07/22/20 Want Ad Clerk Relationship Specialty Start Date End Date [facility] GAS WELL DRILLING MANAGER.CREDIT AUTHORIZER [id number] [place] [address] PCP - General Family Medicine 07/22/20 Want Ad Clerk Relationship Specialty Start Date End Date [facility], GAS WELL DRILLING MANAGER.CREDIT AUTHORIZER [address] [place] [address] PCP - General Family Medicine 07/22/20 Want Ad Clerk Relationship Specialty Start Date End Date [facility], GAS WELL DRILLING MANAGER.CREDIT AUTHORIZER [address] [place] [address] PCP - General Family Medicine 07/22/20 Want Ad Clerk Relationship Specialty Start Date End Date [facility], GAS WELL DRILLING MANAGER.CREDIT AUTHORIZER [address] [place] [address] PCP - General Family Medicine 07/22/20 Want Ad Clerk Relationship Specialty Start Date End Date [facility], GAS WELL DRILLING MANAGER.CREDIT AUTHORIZER [address] [place] [address] PCP - General Family Medicine 07/22/20 Want Ad Clerk Relationship Specialty Start Date End Date [facility] Elvin, GAS WELL DRILLING MANAGER.CREDIT AUTHORIZER [address] [place] [address] PCP - General Family Medicine 07/22/20 Want Ad Clerk Relationship Specialty Start Date End Date [facility], GAS WELL DRILLING MANAGER.CREDIT AUTHORIZER [address] [place] [address] PCP - General Family Medicine 07/22/20 Want Ad Clerk Relationship Specialty Start Date End Date [facility] Elvin, GAS WELL DRILLING MANAGER.CREDIT AUTHORIZER [address] [place] [address] PCP - General Family Medicine 07/22/20 Want Ad Clerk Relationship Specialty Start Date End Date [facility] Elvin, GAS WELL DRILLING MANAGER.CREDIT AUTHORIZER [address] [place] [address] PCP - General Family Medicine 07/22/20 Want Ad Clerk Relationship Specialty Start Date End Date [facility] Elvin, GAS WELL DRILLING MANAGER.CREDIT AUTHORIZER [address] [place] [address] PCP - General Family Medicine 07/22/20 Want Ad Clerk Relationship Specialty Start Date End Date [facility] Elvin, GAS WELL DRILLING MANAGER.CREDIT AUTHORIZER [address] [place] [address] PCP - General Family Medicine 07/22/20 Want Ad Clerk Relationship Specialty Start Date End Date [facility] Elvin, GAS WELL DRILLING MANAGER.CREDIT AUTHORIZER [address] [place] [address] PCP - General Family Medicine 07/22/20 Want Ad Clerk Relationship Specialty Start Date End Date [facility] Elvin, GAS WELL DRILLING MANAGER.CREDIT AUTHORIZER [address] [place] [address] PCP - General Family Medicine 07/22/20 Want Ad Clerk Relationship Specialty Start Date End Date [facility] Elvin, GAS WELL DRILLING MANAGER.CREDIT AUTHORIZER [address] [place] [address] PCP - General Family Medicine 07/22/20 Want Ad Clerk Relationship Specialty Start Date End Date [facility] Elvin, GAS WELL DRILLING MANAGER.CREDIT AUTHORIZER [address] [place] [address] PCP - General Family Medicine 07/22/20 Want Ad Clerk Relationship Specialty Start Date End Date [facility] Elvin, GAS WELL DRILLING MANAGER.CREDIT AUTHORIZER [address] [place] [address] PCP - General Family Medicine 07/22/20 Want Ad Clerk Relationship Specialty Start Date End Date [facility] Elvin, GAS WELL DRILLING MANAGER.CREDIT AUTHORIZER [address] [place] [address] PCP - General Family Medicine 07/22/20 Want Ad Clerk Relationship Specialty Start Date End Date [facility] Elvin, GAS WELL DRILLING MANAGER.CREDIT AUTHORIZER [address] [place] [address] PCP - General Family Medicine 07/22/20 Want Ad Clerk Relationship Specialty Start Date End Date [facility] Elvin, GAS WELL DRILLING MANAGER.CREDIT AUTHORIZER [address] [place] [address] PCP - General Family Medicine 07/22/20 Want Ad Clerk Relationship Specialty Start Date End Date LucasElvin, GAS WELL DRILLING MANAGER.CREDIT AUTHORIZER [address] [place] [address] PCP - General Family Medicine 07/22/20 Want Ad Clerk Relationship Specialty Start Date End Date LucasElvin, GAS WELL DRILLING MANAGER.CREDIT AUTHORIZER [address] [place] [address] PCP - General Family Medicine 07/22/20 Want Ad Clerk Relationship Specialty Start Date End Date Nely Morales MD [address] [place] [address] PCP - General Internal Medicine 09/28/23 Want Ad Clerk Relationship Specialty Start Date End Date Nely Morales MD [address] [place] [address] PCP - General Internal Medicine 09/28/23 Want Ad Clerk Relationship Specialty Start Date End Date Nely Morales MD [address] [place] [address] PCP - General Internal Medicine 09/28/23 Want Ad Clerk Relationship Specialty Start Date End Date Nely Morales MD [address] [place] [address] PCP - General Internal Medicine 09/28/23 Want Ad Clerk Relationship Specialty Start Date End Date Michelle Carrillo, GAS WELL DRILLING MANAGER.CREDIT AUTHORIZER [address] [facility] [place] [address] PCP - General Internal Medicine 10/04/23 Want Ad Clerk Relationship Specialty Start Date End Date Michelle Carrillo, GAS WELL DRILLING MANAGER.CREDIT AUTHORIZER [address] [facility] [place] [address] PCP - General Internal Medicine 10/04/23 Want Ad Clerk Relationship Specialty Start Date End Date Michelle Carrillo, GAS WELL DRILLING MANAGER.CREDIT AUTHORIZER [address] [facility] [place] [address] PCP - General Internal Medicine 10/04/23 Want Ad Clerk Relationship Specialty Start Date End Date Michelle Carrillo, GAS WELL DRILLING MANAGER.CREDIT AUTHORIZER [address] [facility] [place] [address] PCP - General Internal Medicine 10/04/23 Want Ad Clerk Relationship Specialty Start Date End Date Michelle Carrillo, GAS WELL DRILLING MANAGER.CREDIT AUTHORIZER [address] [facility] [place] [address] PCP - General Internal Medicine 10/04/23 Want Ad Clerk Relationship Specialty Start Date End Date Michelle Carrillo, GAS WELL DRILLING MANAGER.CREDIT AUTHORIZER [address] [facility] [place] [address] PCP - General Internal Medicine 10/04/23 Want Ad Clerk Relationship Specialty Start Date End Date Michelle Carrillo, GAS WELL DRILLING MANAGER.CREDIT AUTHORIZER [address] [facility] [place] [address] PCP - General Internal Medicine 10/04/23 Want Ad Clerk Relationship Specialty Start Date End Date Michelle Carrillo, GAS WELL DRILLING MANAGER.CREDIT AUTHORIZER [address] [facility] [place] [address] PCP - General Internal Medicine 10/04/23 Want Ad Clerk Relationship Specialty Start Date End Date Michelle Carrillo, GAS WELL DRILLING MANAGER.CREDIT AUTHORIZER [address] [facility] [place] [address] PCP - General Internal Medicine 10/04/23 Want Ad Clerk Relationship Specialty Start Date End Date Michelle Carrillo, GAS WELL DRILLING MANAGER.CREDIT AUTHORIZER [address] [facility] [place] [address] PCP - General Internal Medicine 10/04/23 Want Ad Clerk Relationship Specialty Start Date End Date Michelle Carrillo, GAS WELL DRILLING MANAGER.CREDIT AUTHORIZER [address] [facility] [place] [address] PCP - General Internal Medicine 10/04/23 Want Ad Clerk Relationship Specialty Start Date End Date Michelle Carrillo L, GAS WELL DRILLING MANAGER.CREDIT AUTHORIZER [address] [facility] [place] [address] PCP - General Internal Medicine 10/04/23 Want Ad Clerk Relationship Specialty Start Date End Date Michelle Carrillo, GAS WELL DRILLING MANAGER.CREDIT AUTHORIZER [address] [facility] [place] [address] PCP - General Internal Medicine 10/04/23 Want Ad Clerk Relationship Specialty Start Date End Date Michelle Carrillo, GAS WELL DRILLING MANAGER.CREDIT AUTHORIZER [address] [facility] [place] [address] PCP - General Internal Medicine 10/04/23 Want Ad Clerk Relationship Specialty Start Date End Date Michelle Carrillo, GAS WELL DRILLING MANAGER.CREDIT AUTHORIZER [address] [facility] [place] [address] PCP - General Internal Medicine 10/04/23 Want Ad Clerk Relationship Specialty Start Date End Date Michelle Carrillo, GAS WELL DRILLING MANAGER.CREDIT AUTHORIZER [address] [facility] [place] [address] PCP - General Internal Medicine 10/04/23 Want Ad Clerk Relationship Specialty Start Date End Date Michelle Carrillo L, GAS WELL DRILLING MANAGER.CREDIT AUTHORIZER [address] [facility] [place] [address] PCP - General Internal Medicine 10/04/23 Want Ad Clerk Relationship Specialty Start Date End Date Michelle Carrillo L, GAS WELL DRILLING MANAGER.CREDIT AUTHORIZER [address] [facility] [place] [address] PCP - General Internal Medicine 10/04/23 Want Ad Clerk Relationship Specialty Start Date End Date Michelle Carrillo L, GAS WELL DRILLING MANAGER.CREDIT AUTHORIZER [address] [facility] [place] [address] PCP - General Internal Medicine 10/04/23 Want Ad Clerk Relationship Specialty Start Date End Date Michelle Carrillo L, GAS WELL DRILLING MANAGER.CREDIT AUTHORIZER [address] [facility] [place] [address] PCP - General Internal Medicine 10/04/23 Want Ad Clerk Relationship Specialty Start Date End Date Michelle Carrillo L, GAS WELL DRILLING MANAGER.CREDIT AUTHORIZER [address] [facility] [place] [address] PCP - General Internal Medicine 10/04/23 Want Ad Clerk Relationship Specialty Start Date End Date Michelle Carrillo L, GAS WELL DRILLING MANAGER.CREDIT AUTHORIZER [address] [facility] [place] [address] PCP - General Internal Medicine 10/04/23 Want Ad Clerk Relationship Specialty Start Date End Date Nely Morales MD [address] [place] [address] PCP - General Internal Medicine 09/28/23 10/03/23 Want Ad Clerk Relationship Specialty Start Date End Date Michelle Carrillo, GAS WELL DRILLING MANAGER.CREDIT AUTHORIZER [address] [place] [address] PCP - General Internal Medicine 10/04/23 Want Ad Clerk Relationship Specialty Start Date End Date Elvin Zavala, GAS WELL DRILLING MANAGER.CREDIT AUTHORIZER [address] [place] [address] PCP - General Family Medicine 07/22/20 09/27/23 Want Ad Clerk Relationship Specialty Start Date End Date Elvin Zavala, GAS WELL DRILLING MANAGER.CREDIT AUTHORIZER [address] [place] [address] PCP - General Family Medicine 07/22/20 09/27/23 Want Ad Clerk Relationship Specialty Start Date End Date Michelle Carrillo, GAS WELL DRILLING MANAGER.CREDIT AUTHORIZER [address] [place] [address] PCP - General Internal Medicine 10/04/23 Want Ad Clerk Relationship Specialty Start Date End Date Elvin Zavala, GAS WELL DRILLING MANAGER.CREDIT AUTHORIZER [address] [place] [address] PCP - General Family Medicine 07/22/20 09/27/23 Want Ad Clerk Relationship Specialty Start Date End Date Michelle Carrillo, GAS WELL DRILLING MANAGER.CREDIT AUTHORIZER [address] [place] [address] PCP - General Internal Medicine 10/04/23 Want Ad Clerk Relationship Specialty Start Date End Date Michelle Carrillo, GAS WELL DRILLING MANAGER.CREDIT AUTHORIZER [address] [place] [address] PCP - General Internal Medicine 10/04/23 Want Ad Clerk Relationship Specialty Start Date End Date Michelle Carrillo, GAS WELL DRILLING MANAGER.CREDIT AUTHORIZER [address] [facility] [place] [address] PCP - General Internal Medicine 10/04/23 Want Ad Clerk Relationship Specialty Start Date End Date Michelle Carrillo, GAS WELL DRILLING MANAGER.CREDIT AUTHORIZER [address] [facility] [place] [address] PCP - General Internal Medicine 10/04/23 Want Ad Clerk Relationship Specialty Start Date End Date Mushtaq Gruber MD [address] [place] [address] PCP - General Family Medicine 06/21/17 07/21/20 Want Ad Clerk Relationship Specialty Start Date End Date Michelle Carrillo, GAS WELL DRILLING MANAGER.CREDIT AUTHORIZER [address] [facility] [place] [address] PCP - General Internal Medicine 10/04/23 Want Ad Clerk Relationship Specialty Start Date End Date Michelle Carrillo, GAS WELL DRILLING MANAGER.CREDIT AUTHORIZER [address] [facility] [place] [address] PCP - General Internal Medicine 10/04/23 Want Ad Clerk Relationship Specialty Start Date End Date Michelle Carrillo, GAS WELL DRILLING MANAGER.CREDIT AUTHORIZER [address] [facility] [place] [address] PCP - General Internal Medicine 10/04/23 Want Ad Clerk Relationship Specialty Start Date End Date Michelle Carrillo, GAS WELL DRILLING MANAGER.CREDIT AUTHORIZER [address] [facility] [place] [address] PCP - General Internal Medicine 10/04/23 INFORMATION SOURCE (unrecogn ized section and content) DATE CREATED AUTHOR 10/09/2023 [facility] DATE CREATED AUTHOR AUTHOR'S ORGANIZ ATION 10/09/2023 [facility] DATE CREATED AUTHOR AUTHOR'S ORGANIZ ATION 03/30/2024 [facility] DATE CREATED AUTHOR AUTHOR'S ORGANIZ ATION 05/12/2024 [facility] FOR RECORDS PERTAINING TO PATIENTS WHO ARE OR HAVE BEEN ENROLLED IN A CHEMICAL DEPENDENCY/SUBSTANCEABUSE PROGRAM, SOME INFORMATION MAY BE OMITTED. This clinical summary was aggregated from multiple sources. Caution should be exercised in using it in the provision of clinical care. This summary normalizes information from multiple sources, and as a consequence, information in this document may materially change the coding, format and clinical context of patient data. In addition, data may be omitted in some cases. CLINICAL DECISIONS SHOULD BE BASED ON THE PRIMARY CLINICAL RECORDS. [facility] [employer] [facility]. provides no warranty or guarantee of the accuracy or completeness of information in this document.
[2024-05-22 20:48] VITALS: BP 143/89; PULSE 94; TEMP 36.9; O2SAT 98; BMI 27.5
--- NOTE | 2024-05-22 21:09 | ED_ITS ---
HPI - Ear Problem General Chief complaint: Ear Stated complaint: Upper Respiratory Infection Time Seen by Provider: 05/22/24 20:50 Source: patient Mode of arrival: walk-in Limitations: no limitations History of Present Illness HPI Narrative: Had URI symptoms of nasal congestion and runny nose and cough for about a week. Thought it was viral. Had two negative covid tests. Developed right ear pain today. Came in for evaluation. No chest pain or shortness of breath. No dizziness. Related Data Previous Rx's ?Medication ?Instructions ?Recorded ibuprofen 600 mg tablet 600 mg PO TID PRN pain #30 tabs 09/22/23 azithromycin 250 mg tablet 250 mg PO DAILY 4 days #4 tabs 05/22/24 Allergies Allergy/AdvReac Type Severity Reaction Status Date / Time amoxicillin (From Augmentin) AdvReac Intermediate Rash Verified 05/22/24 20:52 clavulanic acid (From AdvReac Intermediate Rash Verified 05/22/24 20:52 Augmentin) PFSH PFSH Social History Little interest or pleasure in doing things: not at all Feeling down, depressed, or hopeless: not at all Exam Narrative Exam Narrative: Nurses notes and vital signs reviewed and patient is not hypoxic. afebrile General: Well-appearing and in no apparent distress. Skin: Warm, dry, no pallor noted. No rash. Head: Normocephalic, atraumatic. Neck: Supple, non-tender. No cervical lymphadenopathy. No meningismus. Eye: Pupils are equal, round and EOMI. No scleral icterus. Ears, Nose, Mouth, and Throat: right TM dull, erythematous with retrotympanic purulence. Left TM is clear. No nasal mucosal hypertrophy. Oral mucosa is moist, no posterior oropharynx erythema, uvula is mid-line Cardiovascular: Regular Rate and Rhythm without murmur, gallop or rub. Respiratory: No accessory muscle use or respiratory distress. Lungs are clear to auscultation, no wheezing, rales or rhonchi Neurological: A&O x4. No cranial nerve dysfunction observed. No truncal ataxia. Moves all extremities. Sensation intact. Psychiatric: Cooperative and interactive. Normal mood and affect. Constitutional Vital Signs, click to edit/add: Last Vital Signs Temp 98.4 F 05/22/24 20:48 Pulse 94 H 05/22/24 20:48 Resp 16 05/22/24 20:48 BP 143/89 H 05/22/24 20:48 Pulse Ox 98 05/22/24 20:48 O2 Del Method Room Air 05/22/24 20:48 Course Vital Signs Vital signs: Vital Signs Temperature 98.4 F 05/22/24 20:48 Pulse Rate 94 H 05/22/24 20:48 Respiratory Rate 16 05/22/24 20:48 Blood Pressure 143/89 H 05/22/24 20:48 Pulse Oximetry 98 05/22/24 20:48 Oxygen Delivery Method Room Air 05/22/24 20:48 Temperature 98.4 F 05/22/24 20:48 Pulse Rate 94 H 05/22/24 20:48 Respiratory Rate 16 05/22/24 20:48 Blood Pressure 143/89 H 05/22/24 20:48 Pulse Oximetry 98 05/22/24 20:48 Oxygen Delivery Method Room Air 05/22/24 20:48 Medical Decision Making MDM Narrative Medical decision making narrative: she is allergic to PCN. First dose of azithromycin given in ED and discharged home with prescription for more azithromycin. Recommend antihistamine/decongestant for fluid reduction, referred to PCP for follow up. Discharge Plan Discharge Chief Complaint: Ear Clinical Impression: Otitis media Patient Disposition: Home, Self-Care Time of Disposition Decision: 21:11 Prescriptions / Home Meds: New azithromycin 250 mg tablet 250 mg PO DAILY 4 Days Qty: 4 0RF Rx Instructions: start on day 2 of therapy No Action ibuprofen 600 mg tablet 600 mg PO TID PRN (Reason: pain) Qty: 30 0RF Print Language: Occitan Instructions: Ear Infection (ED) Referrals: Physician,Non-Staff, MD [Primary Care Provider] - 1 week
[2024-05-22 21:20] VITALS: O2SAT 98
[2024-05-22] MEDS: AZITHROMYCIN 250 MG TABLET 500 MG PO (21:23)
== END 2024-05-22 21:24 | disposition home or self-care (01) ==
PROVIDERS: Emergency Provider Emergency Medicine
DX: H66.91 Otitis media, unspecified, right ear (principal); Z88.0 Allergy status to penicillin
CPT/HCPCS: 99283